=== PATIENT | female | born 1960 | race Caucasian/White ===

== ENCOUNTER 2020-03-21 10:15 | Outpatient (REF) | payer OTHER, SELFPAY ==
[2020-03-21 11:24] LABS: Estimated Average Glucose 114 mg/dL; Hemoglobin A1C 135.3983 umol/L; Hemoglobin A1c % 5.6 %
[2020-03-21 11:48] LABS: Alanine Aminotransferase 10 U/L (0-31); Albumin Level 4.2 g/dL (3.5-5.0); Alkaline Phosphatase 42 U/L (39-117); Anion Gap 11 (12-20); Aspartate Amino Transferase 12 U/L (5-31); Bilirubin Total 0.3 mg/dL (0.0-1.0); Blood Urea Nitrogen 14 mg/dL (9-16); Calcium 9.2 mg/dL (8.4-10.2); Carbon Dioxide 28 mmol/L (22-29); Chloride 106 mmol/L (96-108); Cholesterol 308 mg/dL; Estimated Glomerular Filt Rate > 60; Glucose Random 96 mg/dL (60-115); HDL Cholesterol 50 mg/dL; LDL Cholesterol Calculated 231 mg/dl; Potassium 4.8 mmol/l (3.3-5.1); Sodium 140 mmol/L (135-145); Total Protein 6.7 g/dL (6.5-8.0); Triglycerides 136 mg/dL
== END 2020-03-21 10:16 | disposition home or self-care (01) ==
LOC: HO.LAB 10:15
PROVIDERS: PCP Internal Medicine; Visit Provider Internal Medicine
DX: E78.00 Pure hypercholesterolemia, unspecified (principal); R73.01 Impaired fasting glucose
CPT/HCPCS: 80053; 80061; 83036

== ENCOUNTER 2020-03-22 13:01 | Outpatient (REF) | payer OTHER, SELFPAY ==
--- NOTE | 2020-03-22 13:09 | MM_ITS ---
EXAMINATION: MM SCREENING DIGITAL BREAST TOMOSYNTHESIS, BILATERAL CLINICAL INFORMATION: Screening. Asymptomatic. Family history breast cancer (grandmother 50's, mother 50's, sister 30's, daughter 30's, aunt 50's). The lifetime risk of breast cancer based on the Tyrer-Cuzick Model is 31%. COMPARISON: Mammography: 02/14/2016, 06/14/2014; MRI breasts 06/14/2015. TECHNIQUE: Digital breast tomosynthesis is performed in both the craniocaudal and mediolateral oblique views along with computer-aided detection (CAD). Synthesized 2D images are generated from the tomosynthesis. FINDINGS: There are scattered areas of fibroglandular density (ACR BI-RADS breast composition Category b). There are no significant masses, abnormal calcifications, or other abnormalities. Parenchymal pattern is similar to prior studies. No developing density. The axilla and skin contours are unremarkable. IMPRESSION: No mammographic evidence of malignancy. ASSESSMENT: BI-RADS 1: Negative RECOMMENDATION: 1. Routine annual mammography screening. 2. The lifetime risk of breast cancer based on the Tyrer-Cuzick Model is 31%. Additional annual adjunct screening with breast MRI may be of benefit in women with a risk score of 20% or greater. This patient's information was entered into a reminder system with a target due date for their next mammogram.
== END 2020-03-22 13:02 | disposition home or self-care (01) ==
LOC: HO.MAMMO 13:01
PROVIDERS: PCP Internal Medicine; Visit Provider Internal Medicine
DX: Z12.31 Encounter for screening mammogram for malignant neoplasm of breast (principal)
CPT/HCPCS: 77063; 77067

== ENCOUNTER 2020-03-24 09:55 | Outpatient (REF) | payer OTHER, SELFPAY | END 2020-03-24 09:56 | disposition home or self-care (01) | LOC: HO.LNP 09:55 | PROVIDERS: PCP Internal Medicine; Visit Provider Urology | DX: C67.9 Malignant neoplasm of bladder, unspecified (principal); Z13.9 Encounter for screening, unspecified | CPT/HCPCS: 52000; 81002; 88112; 99213 ==

== ENCOUNTER → 2020-05-23 14:00 | Outpatient (BNVA) | payer OTHER, SELFPAY | PROVIDERS: PCP Internal Medicine; Visit Provider Internal Medicine Cardiovascular Disease | DX: R07.9 Chest pain, unspecified (principal) | CPT/HCPCS: 93005; 99202 ==

== ENCOUNTER 2020-05-30 15:45 | Emergency (ER) | payer OTHER, SELFPAY ==
[2020-05-30 16:00] VITALS: BP 119/62; PULSE 62; RESP 22; TEMP 36.8; O2SAT 99
--- NOTE | 2020-05-30 16:00 | PC.NURSE ---
called for ekg, bridgette was notified as she answered the phone
[2020-05-30 16:07] VITALS: BP 140/63; PULSE 67; RESP 18; TEMP 36.9; O2SAT 99; BMI 31.7
--- NOTE | 2020-05-30 16:24 | ECG_ITS ---
Test Reason : ABDOMINAL PAIN Blood Pressure : / mmHG Vent. Rate : 064 BPM Atrial Rate : 064 BPM P-R Int : 156 ms QRS Dur : 148 ms QT Int : 454 ms P-R-T Axes : 060 054 013 degrees QTc Int : 468 ms Normal sinus rhythm Left bundle branch block Abnormal ECG When compared with ECG of 12-SEP-2013 14:57, T wave inversion less evident in Inferior leads Referred By: Giuliana Ramírez Electronically Signed By:EDWIN FREEMAN
--- NOTE | 2020-05-30 16:24 | CT_ITS ---
EXAMINATION: CT ANGIOGRAM OF THE CHEST WITH AND WITHOUT CONTRAST (CT PULMONARY ANGIOGRAM FOR PE) CLINICAL INFORMATION: Reason for Exam sob, CP, hx bladder CA COMPARISON: None TECHNIQUE: Prior to contrast administration, noncontrast localization images were obtained. Subsequently, multidetector volumetric imaging was performed from the thoracic inlet to below the diaphragms following the administration of 80 mL Omnipaque 350 intravenous contrast. No contrast reaction reported Sagittal, coronal, and MIP oblique sagittal reformatted images were obtained on the CT workstation, uploaded to PACS, and reviewed. This CT examination was performed using dose optimization techniques as appropriate, variously including the following: *Automated exposure control *Adjustment of mA and/or kV according to patient size (this includes techniques or standardized protocols for targeted exams where dose is matched to indication/reason for exam; i.e. extremities or head) *Use of iterative reconstruction technique Total exam dose-length product 417 mGy-cm FINDINGS: QUALITY OF STUDY/CONTRAST BOLUS: Satisfactory. PULMONARY ARTERIES: No central or segmental pulmonary emboli. THORACIC AORTA: No aneurysm or dissection. LUNG: Both lungs are well expanded and clear of acute pneumonic process. There are calcified 3 mm indeterminate pulmonary nodule in the right middle lobe and right lower lobe axial image 28/5. No noncalcified nodules visualized. PLEURA: No pleural effusion or pneumothorax. MEDIASTINUM: The heart size and the great vessels are normal caliber. Thyroid lobes are symmetric and normal. The central trachea and bronchi are widely patent. There is no pericardial effusion. No evidence of septal bowing or right heart strain. CHEST WALL/AXILLA: No axillary or internal mammary lymphadenopathy. OSSEOUS STRUCTURES: There is moderate ventral spondylosis dorsal spine. No lytic or sclerotic process seen. UPPER ABDOMEN: Visualized liver, pancreas, spleen and adrenal glands are unremarkable. The gallbladder has been surgically removed. CT/CT angio chest PE protocol IMPRESSION: No evidence of PE. No evidence of aortic aneurysm or dissection. Calcified 2 mm and 3 mm nodules in the right lung. No noncalcified nodules, mass or consolidation. VTE: negative
--- NOTE | 2020-05-30 16:28 | ED.CHESTPAIN ---
HPI - Chest Pain General Chief Complaint: Chest Pain Stated Complaint: chest pain,numbness Time Seen by Provider: 05/30/20 16:10 Source: patient Mode of arrival: ambulatory Limitations: no limitations History of Present Illness HPI narrative: Patient comes to the emergency room complaining of intermittent chest pain for 1 week. Patient states around 13:30 today, she started having chest heaviness, numbness and tingling in her left hand, and mild shortness of breath. Patient states that all of her symptoms have been intermittent for a week now. Patient states that she is being worked up for coronary artery disease, she is scheduled for a stress test. Patient states that she does not feel any chest pain at this time, patient describes the discomfort as ?wearing a heavy winter jacket?. The heaviness in her chest and her back. Patient denies any recent upper respiratory infections, no cough, no fever or chills. Patient states the day after she had an episode of diarrhea and abdominal discomfort but that self-resolved. Patient was seen by her primary care physician this afternoon, due to her history of coronary artery disease being worked up and bladder cancer, she was asked to come to the emergency room for further evaluation Related Data Home Medications Medication Instructions Recorded Confirmed acetaminophen 325 mg tablet 325 mg PO QID PRN 03/23/20 05/30/20 aspirin 81 mg tablet,delayed 81 mg PO DAILY 03/23/20 05/30/20 release Previous Rx's Medication Instructions Recorded bupropion HCl 150 mg tablet,12 hr 150 mg PO BID #60 tab 03/23/20 sustained-release cyclobenzaprine 10 mg tablet 10 mg PO DAILY PRN #90 tab 03/23/20 metoprolol succinate 25 mg 25 mg PO DAILY #90 tab 03/23/20 tablet,extended release 24 hr nicotine 7 mg/24 hr daily 1 patch TRANSDERMAL Q24H #30 ea 03/23/20 transdermal patch albuterol sulfate 2.5 mg INHALATION QID PRN #90 ml 04/21/20 albuterol sulfate 90 mcg/actuation 2 puff INHALATION QID #8.5 g 05/30/20 aerosol inhaler Allergies Allergy/AdvReac Type Severity Reaction Status Date / Time ciprofloxacin [From Cipro] Allergy Intermediate H/A NAUSEA Verified 03/23/20 10:59 HIVES Sulfa (Sulfonamide Allergy Intermediate HIVES Verified 03/23/20 10:59 Antibiotics) atorvastatin [Lipitor] Allergy Unknown Unknown Verified 03/23/20 10:59 pravastatin [From PRAVACHOL] Allergy Unknown UNKNOWN Verified 03/23/20 10:59 simvastatin [SIMVASTATIN] Allergy Unknown JOINT PAIN Verified 03/23/20 10:59 AND STIFFNESS codeine [Codeine] AdvReac Intermediate H/A/PALPITA Verified 03/23/20 10:59 TIONS Review of Systems Review of Systems: Constitutional : No Weight loss, No Fever, No Chills, No Night Sweats, No Fatigue, No Malaise ENT/Mouth : No Hearing loss, No Ear Pain, No Nasal Congestion, No Sinus Pain, No Hoarseness, No sore throat, No Rhinorrhea, No Swallowing Difficulty Eyes: No Eye Pain, No Swelling, No Redness, No Foreign Body, No Discharge, No Vision Changes Cardiovascular : Patient complaining of chest and back heaviness, mild shortness of breath, no chest pain, palpitations Respiratory : No Cough, No Sputum, No Wheezing, No Smoke Exposure Gastrointestinal : No Nausea, No Vomiting, No Diarrhea, No Constipation, No abdominal Pain, No Hematochezia, No Melena Genitourinary : no irregular bleeding, No Dysuria, No Urinary Frequency, No Hematuria, No Urinary Incontinence, No Urgency, No Flank Pain, No Urinary Flow Changes, No Hesitancy Musculoskeletal : No joint pain, No Myalgias, No Joint Swelling Skin : No Skin Lesions, No rash Neuro : No Weakness, No Numbness, No Paresthesias, No Loss of Consciousness, No Dizziness, No Headache Psych : No Anxiety/Panic, No Depression, No SI/HI/AH/VH, No Social Issues, Heme/Lymph: No Bruising, No Bleeding,No Lymphadenopathy Endocrine : No Polyuria, No Polydipsia, No Temperature Intolerance [facility] Past Medical History Medical History Asthma Carpal tunnel syndrome Closed left ankle fracture Coronary artery disease History of seizures Hypercholesteremia Impaired glucose tolerance Kidney stones Obesity (BMI 30-39.9) Restless leg syndrome Tobacco abuse Urinary bladder cancer Surgical History Ganglion cyst of dorsum of right wrist Groin mass History of vaginal hysterectomy Hx of cholecystectomy Neck mass S/P tonsillectomy and adenoidectomy Ulnar neuropathy Family History Family History (Updated 03/23/20 @ 07:40 by SIERRA Lord) Father Cerebrovascular disease Lung cancer Mother Cerebrovascular disease Diabetes Hypertension Paternal Uncle Lung cancer Colon cancer Sister Cervical cancer Breast cancer Social History Social History (Updated 05/23/20 @ 14:36 by Sree Mclean) Smoking Status: Current every day smoker Cigarettes Per Day: 2 Use of substances other than those prescribed or required for medical reasons: Yes Substance Use Type: Marijuana Advance Directives: No Advance Directives Information Provided: No Physical Exam Vital Signs: Vital Signs: Last Vital Signs Temp 98.4 F 05/30/20 16:07 Pulse 63 05/30/20 18:00 Resp 16 05/30/20 18:00 BP 125/53 L 05/30/20 18:00 Pulse Ox 100 05/30/20 18:00 Body Mass Index 31.7 Appearance: Alert. Oriented X3. No acute distress. Eyes: Pupils equal, round and reactive to light. ENT: Pharynx normal. Neck: Normal inspection. Neck supple. No lymph nodes noted. No crepitus CVS: Normal heart rate and rhythm. Pulses normal. Normal S1 and S2 Respiratory: No respiratory distress. Breath sounds normal. No Wheezing. No rales Abdomen: Soft and nontender. No rigidity. No distention. good BS x4 Skin: Skin warm and dry. Normal skin color. Normal skin turgor. Extremities: No lower extremity edema. No lower extremity edema. No Lacerations. No Rash Neuro: Oriented X 3. No motor deficit. No sensory deficit. Moving all extermities. No slurred speech. Course Course Course Narrative: Patient feeling better, I discussed with the patient that she does not have an elevated white blood cell count, hematology and chemistry unremarkable, CT was negative for PE and there was no evidence of aortic aneurysm or dissection. Patient will follow-up with her primary care physician, she is already scheduled for a stress test MDM - Chest Pain Lab Data Result diagrams: 05/30/20 16:47 05/30/20 16:47 Labs: Lab Results 05/30/20 05/30/20 05/30/20 Range/Units 16:47 16:47 16:47 WBC 7.1 (4.8-10.8) X10*3/uL RBC 4.43 (4.20-5.50) X10*6/uL Hgb 13.7 (12.0-16.0) g/dl Hct 41.6 (37-47) % MCV 93.9 (80-98) fL MCH 30.9 (27.0-33.0) pg MCHC 32.9 (31.0-35.0) g/dl RDW 14.5 (11.0-16.0) % Plt Count 298 (160-400) X10*3/uL MPV 9.3 L (9.4-12.3) fL Immature Gran % (Auto) 0.3 (0.0-0.4) % Neut % (Auto) 47.4 (45-73) % Lymph % (Auto) 44.4 H (20-40) % King % (Auto) 5.9 (2-11) % Eos % (Auto) 1.3 (0-4) % Baso % (Auto) 0.7 (0-2) % Lymph # (Auto) 3.2 (1.2-4.9) X10*3/uL King # (Auto) 0.4 (0.1-1.2) X10*3/uL Eos # (Auto) 0.1 (0.0-0.4) X10*3/uL Baso # (Auto) 0.1 (0.0-0.2) X10*3/uL Abs Immat Gran (auto) 0.02 (0.00-0.03) X10*3/uL Absolute Neuts (auto) 3.4 (2.0-8.3) X10*3/uL Absolute Nucleated RBC 0.000 (0.0-0.012) X10*3/uL Nucleated RBC % (auto) 0.0 (0.0-0.2) /100WBC D-Dimer NG/ML Sodium 142 (135-145) mmol/L Potassium 4.2 (3.3-5.1) mmol/l Chloride 107 (96-108) mmol/L Carbon Dioxide 25 (22-29) mmol/L Anion Gap 14 (12-20) BUN 11 (9-16) mg/dL Creatinine 0.95 (0.5-1.4) mg/dL Estim Creat Clear Calc 66.8 Estimated GFR > 60 Random Glucose 91 (60-115) mg/dL Calcium 9.0 (8.4-10.2) mg/dL Total Bilirubin 0.2 (0.0-1.0) mg/dL Direct Bilirubin < 0.2 (0.0-0.5) mg/dL AST 17 D (5-31) U/L ALT 14 (0-31) U/L Alkaline Phosphatase 41 (39-117) U/L Troponin I High Sens < 3.5 (<3.5-17.0) ng/L B-Natriuretic Peptide 12 (<100) pg/mL Total Protein 7.1 (6.5-8.0) g/dL Albumin 4.4 (3.5-5.0) g/dL 05/30/20 Range/Units 16:47 WBC (4.8-10.8) X10*3/uL RBC (4.20-5.50) X10*6/uL Hgb (12.0-16.0) g/dl Hct (37-47) % MCV (80-98) fL MCH (27.0-33.0) pg MCHC (31.0-35.0) g/dl RDW (11.0-16.0) % Plt Count (160-400) X10*3/uL MPV (9.4-12.3) fL Immature Gran % (Auto) (0.0-0.4) % Neut % (Auto) (45-73) % Lymph % (Auto) (20-40) % King % (Auto) (2-11) % Eos % (Auto) (0-4) % Baso % (Auto) (0-2) % Lymph # (Auto) (1.2-4.9) X10*3/uL King # (Auto) (0.1-1.2) X10*3/uL Eos # (Auto) (0.0-0.4) X10*3/uL Baso # (Auto) (0.0-0.2) X10*3/uL Abs Immat Gran (auto) (0.00-0.03) X10*3/uL Absolute Neuts (auto) (2.0-8.3) X10*3/uL Absolute Nucleated RBC (0.0-0.012) X10*3/uL Nucleated RBC % (auto) (0.0-0.2) /100WBC D-Dimer < 200 NG/ML Sodium (135-145) mmol/L Potassium (3.3-5.1) mmol/l Chloride (96-108) mmol/L Carbon Dioxide (22-29) mmol/L Anion Gap (12-20) BUN (9-16) mg/dL Creatinine (0.5-1.4) mg/dL Estim Creat Clear Calc Estimated GFR Random Glucose (60-115) mg/dL Calcium (8.4-10.2) mg/dL Total Bilirubin (0.0-1.0) mg/dL Direct Bilirubin (0.0-0.5) mg/dL AST (5-31) U/L ALT (0-31) U/L Alkaline Phosphatase (39-117) U/L Troponin I High Sens (<3.5-17.0) ng/L B-Natriuretic Peptide (<100) pg/mL Total Protein (6.5-8.0) g/dL Albumin (3.5-5.0) g/dL ECG Data ECG #1: Attestation: I personally reviewed and interpreted this ECG as follows: (Sinus rhythm, heart rate 64, left bundle branch block, T-wave inversions in III and aVF) Discharge Plan Discharge Clinical Impression: Atypical chest pain Patient Disposition: Home, Self-Care Instructions: Chest Pain (ED) Additional Instructions: Please follow-up with your primary care physician tomorrow. If you have any worsening or new symptoms, please return to the emergency room or call 911 Prescriptions: No Action acetaminophen [Tylenol] 325 mg tablet 325 mg PO QID PRNRF: 0 aspirin [Adult Aspirin Regimen] 81 mg tablet,delayed release (DR/EC) 81 mg PO DAILY RF: 0 metoprolol succinate 25 mg tablet extended release 24 hr 25 mg PO DAILY Qty: 90 RF: 1 cyclobenzaprine 10 mg tablet 10 mg PO DAILY PRN (Reason: muscle spasm) Qty: 90 RF: 0 nicotine 7 mg/24 hr patch 24 hour 1 patch transdermal Q24H Qty: 30 RF: 1 bupropion HCl [Wellbutrin SR] 150 mg tablet sustained-release 12 hr 150 mg PO BID Qty: 60 RF: 2 albuterol sulfate 90 mcg/actuation HFA aerosol inhaler 2 puff inhalation QID Qty: 8.5 RF: 0 albuterol sulfate 2.5 mg /3 mL (0.083 %) solution for nebulization 2.5 mg inhalation QID PRN (Reason: shortness of breath or wheezing) Qty: 90 RF: 0
[2020-05-30] MEDS: Aspirin Enteric Coated 325 MG TABLET.DR PO (16:52)
[2020-05-30 16:56] VITALS: PULSE 70
[2020-05-30 16:56] LABS: Basophils Absolute Auto 0.1 X10*3/uL (0.0-0.2); Basophils Percent Auto 0.7 % (0-2); Eosinophils Absolute Auto 0.1 X10*3/uL (0.0-0.4); Eosinophils Percent Auto 1.3 % (0-4); Hematocrit 41.6 % (37-47); Hemoglobin 13.7 g/dl (12.0-16.0); Imm Gran Abs Auto 0.02 X10*3/uL (0.00-0.03); Imm Gran Pct Auto 0.3 % (0.0-0.4); Lymphocytes Absolute Auto 3.2 X10*3/uL (1.2-4.9); Lymphocytes Percent Auto 44.4 % (20-40); MANUAL DIFF FLAG NO; Mean Corpuscular HGB Conc 32.9 g/dl (31.0-35.0); Mean Corpuscular Hemoglobin 30.9 pg (27.0-33.0); Mean Corpuscular Volume 93.9 fL (80-98); Mean Platelet Volume 9.3 fL (9.4-12.3); Monocytes Absolute Auto 0.4 X10*3/uL (0.1-1.2); Monocytes Percent Auto 5.9 % (2-11); Neutrophils Absolute Auto 3.4 X10*3/uL (2.0-8.3); Neutrophils Percent Auto 47.4 % (45-73); Platelet Count 298 X10*3/uL (160-400); Red Blood Count 4.43 X10*6/uL (4.20-5.50); Red Cell Distribution Width 14.5 % (11.0-16.0); White Blood Count 7.1 X10*3/uL (4.8-10.8)
[2020-05-30 17:09] LABS: D Dimer < 200 NG/ML
[2020-05-30 17:19] LABS: B Type Natriuretic Peptide 12 pg/mL (<100); Troponin-I High Sensitivity < 3.5 ng/L (<3.5-17.0)
[2020-05-30 17:27] LABS: Alanine Aminotransferase 14 U/L (0-31); Albumin Level 4.4 g/dL (3.5-5.0); Alkaline Phosphatase 41 U/L (39-117); Anion Gap 14 (12-20); Aspartate Amino Transferase 17 U/L (5-31); Bilirubin Direct < 0.2 mg/dL (0.0-0.5); Bilirubin Total 0.2 mg/dL (0.0-1.0); Blood Urea Nitrogen 11 mg/dL (9-16); Carbon Dioxide 25 mmol/L (22-29); Chloride 107 mmol/L (96-108); Creatinine Clr Calc Pharmacy 66.8; Estimated Glomerular Filt Rate > 60; Glucose Random 91 mg/dL (60-115); Potassium 4.2 mmol/l (3.3-5.1); Sodium 142 mmol/L (135-145); Total Protein 7.1 g/dL (6.5-8.0)
[2020-05-30] MEDS: iohexoL 350 MG/ML 100 ML INFUS..BTL IV (17:58)
[2020-05-30 18:00] VITALS: BP 125/53; PULSE 63; RESP 16; O2SAT 100
== END 2020-05-30 19:34 | disposition home or self-care (01) ==
PROVIDERS: Emergency Provider Emergency Medicine; PCP Internal Medicine
DX: R07.89 Other chest pain (principal); F17.200 Nicotine dependence, unspecified, uncomplicated; Z71.6 Tobacco abuse counseling; Z79.899 Other long term (current) drug therapy
CPT/HCPCS: 36415; 71275; 80048; 80076; 83880; 84484; 85025; 85379; 93005; 99284; Q9967

== ENCOUNTER → 2020-06-17 08:40 | Outpatient (REF) | payer OTHER, SELFPAY ==
--- NOTE | 2020-06-17 08:43 | CA_ITS ---
Transthoracic Echocardiogram Patient (Last, First, Middle): Ivy Campos M Gender: Female Date of : 1960 Age: 59 Procedure Date: 06/17/2020 Procedure Type: Transthoracic Echocardiogram Location: OP Height: 162.56 cm Weight: 83.92 kg BSA: 1.89 m2 Heart Rate: bpm Rig Site Engineer: KYUNG Referring MD: Steven Solorzano MD Landscaper Helper: Eyal Fontana MD Symptoms: R07.9 - Chest pain, unspecified Study Quality: Fair ECG Rhythm: Sinus Conclusions: - 1. Normal LV systolic and diastolic function Findings Procedure Information Contrast agent, definity, is being given per protocol without apparent complications. Left Ventricle Normal left ventricular size, thickness, and systolic function. The visually estimated ejection fraction is between 55-60%. There is paradoxical septal motion consistent with a left bundle branch block. Spectral Doppler is indicative of a normal filling pattern. Pericardium/Pleural There is no evidence of pericardial effusion. Prior Study Comparison Changes noted compared to prior study dated: 01/15/2020. LV systolic function has improved Measurements 2D Linear Measurements IVSd: 0.92 0.6-0.9/0.6-1.0 cm LVIDd: 3.87 3.9-5.3/4.2-5.9 cm LVIDd Index: 2.05 2.4-3.2/2.2-3.1 cm/m2 LVIDs: 3.26 2.0-3.6 cm LVPWd: 1.22 0.7-1.1 cm Ao Root: 2.50 2.1-3.5 cm LA Diam: 2.80 2.7-3.8/3.0-4.0 cm LAIDs Index: 1.48 1.5-2.3 cm/m2 LV Mass: 165.37 67-162/88-224 g LV Mass Index: 87.50 43-95/49-115 g/m2 LVOT Diam: 1.90 3.0+(-)1.3 cm 2D Systolic Function EF 4C: 62.10 >55% EF 2C: 53.30 >55% EF BiP: 59.70 >55% Mitral Valve MV Pk E: 0.61 MV PK A: 0.70 MV Decel Time: 148.00 E/A: 0.90 E'Lateral: 9.19 E'Medial: 7.83 E/E' Med: 7.80 E/E' Lat: 6.60 PHT: 43.00 MVA PHT: 5.12 Decel Cass: 4.13 Aortic Valve AoV Pk Florencio: 1.43 AoV Pk Grad: 8.00 LVOT LVOT Pk Florencio: 1.13 LVOT Mn Florencio: 0.63 LVOT VTI: 0.23 LVOT Pk Grad: 5.00 LVOT Mn Grad: 2.00 LVOT Diam: 1.90 LVOT Area: 2.84 Diastolic Function MV Pk E: 0.61 MV Pk A: 0.70 E/A: 0.90 E'Medial: 7.83 E/E' Med: 7.80 E' Laterial: 9.19 E/E' Lat: 6.60 Tricuspid Valve TR Pk Florencio: 1.87 TR Pk Grad: 14.00 RA Press: 3.00 RVSP: 17.00 Great Vessels Aorta Ao Root-2D: 2.50 2.0-3.7 cm Updated in Other Vendor System with Status of Final Eyal Fontana MD electronically signed on 06/17/2020 4:10:54 PM with status of Final
--- NOTE | 2020-06-17 09:30 | CA_ITS ---
Acquisition Time: 2020-06-17 10:46:01 Total Exercise Time: 00:02:00 Test Indications: Abnormal ECG Medications: ASA METOPROLOL SIMVASTATIN PREDISONE NICOTINE Protocol: LEXISCAN Max HR: 116 BPM 72% of Pred: 161 BPM Max BP: 128/074 mmHG Max Work Load: 1.0 METS Pharmacological stress test using Lexiscan while sitting. LBBB underlying Rhythm. Pt tolerated well, denies any anginal sx. C/o headache sx reversed with Aminophyline 75 mg IV. EKG without any arrhythmia, LBBB underlying Rhythm. Non-diagnostic for ischemia. Nuclear images to follow. Normotensive response to test. Test reviewed with Dr. Fontana. Referred By: Steven Solorzano Overread By: Aracely Sharp
--- NOTE | 2020-06-17 10:03 | NM_ITS ---
Myocardial perfusion study Indication: Chest pain to evaluate for myocardial ischemia Technique: The patient was brought in for a Lexiscan perfusion study on 06/17/2020. Patient performed low-level exercise and was injected 0.4 mg of Lexiscan intravenously. Within a minute of injection, 30 mCi of sestamibi was given intravenously. Images were obtained using the SPECT gamma camera interlaced with the gating device. Images were obtained in supine position. Resting perfusion study was performed on 06/20/2020. Patient was administered 30 mCi of sestamibi intravenously at rest. Images were then obtained in supine position. Images obtained with and without CT attenuation. Total DLP 71 mGy-cm. Images were processed with the software and compared side to side in short axis, horizontal long axis and vertical long axis views. Findings: The stress perfusion study showed non attenuated images show mildly reduced uptake in the septum and anteroseptal as well as mildly reduced uptake in the anterior wall of the LV myocardium. Remainder of the LV myocardium is normally perfused. Attenuation corrected images show moderately reduced uptake in the distal anterior, apex and septum of the LV myocardium.. The gated study shows normal LV systolic function with calculated LVEF of 64%. LV cavity is normal size. The gated study shows normal wall thickening and contraction of segments with septal dyssynchrony. Resting study shows no change in perfusion pattern compared to stress perfusion study. Gating at rest reveals normal systolic wall motion with ejection fraction at 55%. The findings are consistent with no reversible defect suggestive of ischemia. Fixed septal and inferior defect could be due to soft tissue attenuation underlying left bundle branch block.. NM/NM cardiolite stress test Impression: 1. Myocardial perfusion imaging study shows no evidence of ischemia with fixed septal and anterior defect most due to underlying left bundle branch block 2. Gated LVEF is 64% 3. Transient ischemic dilatation not present EKG is nondiagnostic for ischemia
== END ==
LOC: HO.CARD 08:40
PROVIDERS: Visit Provider Internal Medicine Cardiovascular Disease
DX: R07.9 Chest pain, unspecified (principal)
CPT/HCPCS: 78452; 93017; 93306; A9500; J0280; J2785; Q9957

== ENCOUNTER 2020-06-24 12:28 | Outpatient (REF) | payer OTHER, SELFPAY ==
[2020-06-24 12:54] LABS: Urine Cytology See Pathology rpt
[2020-06-24 12:58] LABS: Hematocrit 42.5 % (37-47); Hemoglobin 14.5 g/dl (12.0-16.0); Mean Corpuscular HGB Conc 34.1 g/dl (31.0-35.0); Mean Corpuscular Hemoglobin 31.5 pg (27.0-33.0); Mean Corpuscular Volume 92.2 fL (80-98); Platelet Count 331 X10*3/uL (160-400); Red Blood Count 4.61 X10*6/uL (4.20-5.50); Red Cell Distribution Width 14.6 % (11.0-16.0); White Blood Count 6.9 X10*3/uL (4.8-10.8)
[2020-06-24 13:04] LABS: INTERNATIONAL NORM RATIO 0.9 (0.9-1.1); Prothrombin Time 10.6 SEC (10.8-13.0)
[2020-06-24 13:21] LABS: Alanine Aminotransferase 12 U/L (0-31); Albumin Level 4.5 g/dL (3.5-5.0); Alkaline Phosphatase 48 U/L (39-117); Anion Gap 14 (12-20); Aspartate Amino Transferase 14 U/L (5-31); Bilirubin Total 0.2 mg/dL (0.0-1.0); Blood Urea Nitrogen 12 mg/dL (9-16); Calcium 9.3 mg/dL (8.4-10.2); Carbon Dioxide 27 mmol/L (22-29); Chloride 103 mmol/L (96-108); Cholesterol 318 mg/dL; Estimated Glomerular Filt Rate > 60; Glucose Random 95 mg/dL (60-115); HDL Cholesterol 50 mg/dL; Potassium 4.1 mmol/l (3.3-5.1); Sodium 140 mmol/L (135-145); Total Protein 7.3 g/dL (6.5-8.0); Triglycerides 413 mg/dL
== END 2020-06-24 12:29 | disposition home or self-care (01) ==
LOC: HO.LAB 12:28
PROVIDERS: Urology; PCP Internal Medicine; Referring Provider Internal Medicine; Visit Provider Internal Medicine Cardiovascular Disease
DX: R94.39 Abnormal result of other cardiovascular function study (principal); R73.02 Impaired glucose tolerance (oral); C67.9 Malignant neoplasm of bladder, unspecified
CPT/HCPCS: 36415; 80053; 80061; 85027; 85610; 88112

== ENCOUNTER → 2020-07-13 10:17 | Outpatient (BNVA) | payer OTHER, SELFPAY | PROVIDERS: PCP Internal Medicine; Visit Provider Internal Medicine Cardiovascular Disease | DX: R06.00 Dyspnea, unspecified (principal); R07.9 Chest pain, unspecified; Z72.0 Tobacco use | CPT/HCPCS: 99212 ==

== ENCOUNTER 2020-07-25 12:58 | Outpatient (REF) | payer OTHER, SELFPAY ==
--- NOTE | 2020-07-25 | PFT_ITS ---
Forced vital capacity and FEV1 are normal. FVP99-24 is slightly decreased. MVV normal. Post bronchodilator therapy, there is a significant improvement in QXY00-31. Total lung capacity normal. Residual volume slightly increased. Diffusion capacity is normal. CONCLUSION: Mild small airway obstructive disorder with good response to bronchodilator therapy. This finding will be consistent with a mild degree of bronchial asthma. Clinical correlation recommended. MD SHAY Thacker/MODL / [id number]
== END 2020-07-25 12:59 | disposition home or self-care (01) ==
LOC: HO.RESP 12:58
PROVIDERS: PCP Internal Medicine; Visit Provider Internal Medicine Cardiovascular Disease
DX: R06.02 Shortness of breath (principal)
CPT/HCPCS: 94060; 94727; 94729

== ENCOUNTER → 2020-07-26 09:55 | Outpatient (BNVA) | payer OTHER, SELFPAY | PROVIDERS: PCP Internal Medicine; Visit Provider Urology | DX: C67.9 Malignant neoplasm of bladder, unspecified (principal); R39.15 Urgency of urination | CPT/HCPCS: 52000; 99212 ==

== ENCOUNTER → 2020-08-05 14:25 | Outpatient (BNVA) | payer OTHER, SELFPAY | PROVIDERS: PCP Internal Medicine; Visit Provider Hospitalist | DX: J45.40 Moderate persistent asthma, uncomplicated (principal); R06.00 Dyspnea, unspecified; K21.9 Gastro-esophageal reflux disease without esophagitis; Z72.0 Tobacco use; Z71.6 Tobacco abuse counseling; Z79.899 Other long term (current) drug therapy | CPT/HCPCS: 99212 ==

== ENCOUNTER → 2020-08-23 09:37 | Outpatient (BNVA) | payer OTHER, SELFPAY | PROVIDERS: PCP Internal Medicine; Visit Provider Urology ==

== ENCOUNTER 2020-09-05 09:38 | Outpatient (REF) | payer OTHER, SELFPAY ==
--- NOTE | ~2020-09-05 | FL_ITS ---
EXAMINATION: XR GI SERIES AND BARIUM SWALLOW CLINICAL INFORMATION: Gastroesophageal reflux disease. COMPARISON: Upper GI from 2016. TECHNIQUE: Barium swallow was performed using thin and thick barium and effervescent granules. Barium tablet was also administered. FINDINGS: The swallowing mechanism is normal. No aspiration or penetration is seen. Esophageal motility is normal. There is mild gastroesophageal reflux. No hernia, mass or stricture is seen. The stomach and duodenum are normal appearing. No fold thickening, mass, ulceration or stricture is seen. FLUOROSCOPY TIME: 1.2 minutes. DOSE AREA PRODUCT: 10.927 Gy-cm2. FL/FL upper GI series IMPRESSION: Mild gastroesophageal reflux otherwise unremarkable barium swallow and upper GI.
== END 2020-09-05 09:39 | disposition home or self-care (01) ==
LOC: HO.XRAY 09:38
PROVIDERS: PCP Internal Medicine; Visit Provider Internal Medicine
DX: K21.9 Gastro-esophageal reflux disease without esophagitis (principal)
CPT/HCPCS: 74240

== ENCOUNTER 2020-10-12 13:51 | Emergency (ER) | payer OTHER, SELFPAY ==
[2020-10-12 14:00] VITALS: BP 129/42; PULSE 63; RESP 18; TEMP 36.6; O2SAT 95; BMI 30.2
== END 2020-10-12 16:36 | disposition left against medical advice (07) ==
PROVIDERS: Emergency Provider Emergency Medicine; PCP Internal Medicine
DX: R42 Dizziness and giddiness (principal); R51.9 Headache, unspecified; H53.8 Other visual disturbances; R10.9 Unspecified abdominal pain
CPT/HCPCS: 99281

== ENCOUNTER 2020-10-13 08:42 | Emergency (ER) | payer OTHER, SELFPAY ==
--- NOTE | 2020-10-13 09:05 | ED.DIZZY ---
HPI - Dizziness General Chief Complaint: Weakness Stated Complaint: dizziness Time Seen by Provider: 10/13/20 08:46 Source: patient Mode of arrival: ambulatory Limitations: no limitations History of Present Illness HPI Narrative: 60 yo female with HTN, GERD, asthma, anxiety, HLD, clean coronary cath this year comes in with c/o dizziness headaches, muscle cramps after eating mussels / seafood then developing n/v/d for one night since then feels off dizzy and headaches, PCP noted her BP was low referred to ED for IVF MD elicited complaint: lightheadedness Onset (ago): day(s) (since becoming sick on Saturday after eating food) Timing: gradual onset and intermittent Severity: moderate Description: lightheadedness Context: recent illness History of similar symptoms: No Exacerbating factors: movement/ambulation and change in body position Relieving factors: nothing Associated symptoms: nausea, vomiting, malaise and other (myalgias) Related Data Home Medications Medication Instructions Recorded Confirmed acetaminophen 325 mg tablet 325 mg PO QID PRN 03/23/20 08/29/20 aspirin 81 mg tablet,delayed 81 mg PO DAILY 03/23/20 08/29/20 release Previous Rx's Medication Instructions Recorded nicotine 7 mg/24 hr daily 1 patch TRANSDERMAL Q24H #30 ea 03/23/20 transdermal patch albuterol sulfate 2.5 mg INHALATION QID PRN #90 ml 04/21/20 albuterol sulfate 90 mcg/actuation 2 puff INHALATION QID #8.5 g 06/09/20 aerosol inhaler cyclobenzaprine 10 mg tablet 10 mg PO DAILY PRN #90 tab 06/21/20 metoprolol succinate 25 mg 25 mg PO DAILY #90 tab 06/21/20 tablet,extended release 24 hr budesonide-formoterol HFA 160 2 puff INHALATION BID 30 Days 08/05/20 mcg-4.5 mcg/actuation aerosol #10.2 g inhaler rosuvastatin 10 mg tablet 10 mg PO DAILY #30 tab 08/29/20 oxybutynin chloride 5 mg 5 mg PO DAILY 90 Days #90 tab 09/26/20 tablet,extended release 24 hr Allergies Allergy/AdvReac Type Severity Reaction Status Date / Time ciprofloxacin [From Cipro] Allergy Intermediate H/A NAUSEA Verified 10/12/20 14:03 HIVES Sulfa (Sulfonamide Allergy Intermediate HIVES Verified 10/12/20 14:03 Antibiotics) atorvastatin [Lipitor] Allergy Unknown Unknown Verified 10/12/20 14:03 pravastatin [From PRAVACHOL] Allergy Unknown UNKNOWN Verified 10/12/20 14:03 simvastatin [SIMVASTATIN] Allergy Unknown JOINT PAIN Verified 10/12/20 14:03 AND STIFFNESS codeine [Codeine] AdvReac Intermediate H/A/PALPITA Verified 10/12/20 14:03 TIONS trimethoprim AdvReac Intermediate Rash Verified 10/12/20 14:03 Review of Systems Review of Systems: Constitutional : No Weight loss, No Fever, No Chills, No Fatigue, No Malaise ENT/Mouth : No sore throat, No Rhinorrhea Eyes: No Eye Pain, No Swelling, No Redness Cardiovascular : No Chest Pain, No SOB, No Dyspnea on Exertion, No Orthopnea, No Edema, No Palpitations Respiratory : No Cough, No Sputum, No Wheezing Gastrointestinal : pos Nausea, No Vomiting, No Diarrhea, No Constipation, No abdominal Pain, No Hematochezia, No Melena Genitourinary : No Dysuria, No Urinary Frequency, No Hematuria, Musculoskeletal : No joint pain, pos Myalgias, No Joint Swelling Skin : No Skin Lesions, No rash Neuro : pos Weakness, No Numbness, pos Dizziness, pos Headache Psych : No Anxiety/Panic, No Depression Heme/Lymph: No Bruising, No Bleeding,No Lymphadenopathy Endocrine : No Polyuria, No Polydipsia All other systems reviewed and are negative [facility] Past Medical History Attestation statement: The following information was validated with the patient. Medical History Anxiety Asthma Carpal tunnel syndrome Closed left ankle fracture Coronary artery disease GERD (gastroesophageal reflux disease) History of seizures Hypercholesteremia Hypertension Impaired glucose tolerance Kidney stones Obesity (BMI 30-39.9) Restless leg syndrome Tobacco abuse Urinary bladder cancer Vitamin D deficiency Surgical History Ganglion cyst of dorsum of right wrist Groin mass History of vaginal hysterectomy Hx of cholecystectomy Neck mass S/P tonsillectomy and adenoidectomy Ulnar neuropathy Family History Family History Father Cerebrovascular disease Lung cancer Mother Cerebrovascular disease Diabetes Hypertension Paternal Uncle Lung cancer Colon cancer Sister Cervical cancer Breast cancer Social History Social History Smoking Status: Current every day smoker Cigarettes Per Day: 5 Substance Use Type: Marijuana Advance Directives: No Advance Directives Information Provided: No Patient : No Physical Exam Vital Signs: Vital Signs: Last Vital Signs Temp 98.2 F 10/13/20 09:45 Pulse 61 10/13/20 09:45 Resp 17 10/13/20 09:45 BP 114/61 10/13/20 09:45 Pulse Ox 98 10/13/20 09:45 Body Mass Index 30.9 Appearance: Alert. Oriented X3. No acute distress. Eyes: Pupils equal, round and reactive to light. ENT: Pharynx dry MM Neck: Normal inspection. Neck supple. CVS: Normal heart rate and rhythm. Pulses normal. Respiratory: No respiratory distress. Breath sounds normal. Abdomen: Soft and non-tender. Skin: Skin warm and dry. Normal skin color. Normal skin turgor. Extremities: No lower extremity edema. No calf ttp Neuro: Oriented X 3. No motor deficit. No sensory deficit. Steady gait, no ataxia Course Course Course Narrative: up and walking feels better, steady gait, due for 2nd fluid bolus MDM - Dizziness MDM Narrative Medical decision making narrative: 60 yo female with HTN, GERD, asthma, anxiety, HLD, clean coronary cath this year comes in with c/o dizziness headaches, muscle cramps after eating mussels / seafood then developing n/v/d for one night since then feels off dizzy and headaches, PCP noted her BP was low referred to ED for IVF at this time - suspect her symptoms are due to dehydration from GI illness, she is neuro intact at this time it seems unlikely to have SAH/stroke if headache perists post resuscitation may consider imaging. Lab Data Result diagrams: 10/13/20 09:28 10/13/20 09:28 Labs: Lab Results 10/13/20 10/13/20 10/13/20 Range/Units 09:28 09:28 09:28 WBC 7.6 (4.8-10.8) X10*3/uL RBC 4.35 (4.20-5.50) X10*6/uL Hgb 13.6 (12.0-16.0) g/dl Hct 41.3 (37-47) % MCV 94.9 (80-98) fL MCH 31.3 (27.0-33.0) pg MCHC 32.9 (31.0-35.0) g/dl RDW 14.1 (11.0-16.0) % Plt Count 295 (160-400) X10*3/uL MPV 9.2 L (9.4-12.3) fL Immature Gran % (Auto) 0.3 (0.0-0.4) % Neut % (Auto) 51.4 (45-73) % Lymph % (Auto) 38.3 (20-40) % [place] % (Auto) 7.0 (2-11) % Eos % (Auto) 2.5 (0-4) % Baso % (Auto) 0.5 (0-2) % Lymph # (Auto) 2.9 (1.2-4.9) X10*3/uL [place] # (Auto) 0.5 (0.1-1.2) X10*3/uL Eos # (Auto) 0.2 (0.0-0.4) X10*3/uL Baso # (Auto) 0.0 (0.0-0.2) X10*3/uL Abs Immat Gran (auto) 0.02 (0.00-0.03) X10*3/uL Absolute Neuts (auto) 3.9 (2.0-8.3) X10*3/uL Absolute Nucleated RBC 0.000 (0.0-0.012) X10*3/uL Nucleated RBC % (auto) 0.0 (0.0-0.2) /100WBC Hold Blue Top Sodium 143 (135-145) mmol/L Potassium 4.3 (3.3-5.1) mmol/L Chloride 106 (96-108) mmol/L Carbon Dioxide 28 (22-29) mmol/L Anion Gap 13 (12-20) BUN 11 (9-16) mg/dL Creatinine 0.81 (0.5-1.4) mg/dL Estim Creat Clear Calc 76.3 Estimated GFR > 60 Random Glucose 102 (60-115) mg/dL Calcium 9.0 (8.4-10.2) mg/dL Magnesium (1.6-2.6) mg/dL Total Bilirubin (0.0-1.0) mg/dL Direct Bilirubin (0.0-0.5) mg/dL AST (5-31) U/L ALT (0-31) U/L Alkaline Phosphatase (39-117) U/L Total Protein (6.5-8.0) g/dL Albumin (3.5-5.0) g/dL Lipase (8-78) U/L COVID-19 (LUCERO) Negative (Negative) COVID-19 Clin Com See Note 10/13/20 10/13/20 Range/Units 09:28 09:28 WBC (4.8-10.8) X10*3/uL RBC (4.20-5.50) X10*6/uL Hgb (12.0-16.0) g/dl Hct (37-47) % MCV (80-98) fL MCH (27.0-33.0) pg MCHC (31.0-35.0) g/dl RDW (11.0-16.0) % Plt Count (160-400) X10*3/uL MPV (9.4-12.3) fL Immature Gran % (Auto) (0.0-0.4) % Neut % (Auto) (45-73) % Lymph % (Auto) (20-40) % [place] % (Auto) (2-11) % Eos % (Auto) (0-4) % Baso % (Auto) (0-2) % Lymph # (Auto) (1.2-4.9) X10*3/uL [place] # (Auto) (0.1-1.2) X10*3/uL Eos # (Auto) (0.0-0.4) X10*3/uL Baso # (Auto) (0.0-0.2) X10*3/uL Abs Immat Gran (auto) (0.00-0.03) X10*3/uL Absolute Neuts (auto) (2.0-8.3) X10*3/uL Absolute Nucleated RBC (0.0-0.012) X10*3/uL Nucleated RBC % (auto) (0.0-0.2) /100WBC Hold Blue Top SEE NOTE Sodium (135-145) mmol/L Potassium (3.3-5.1) mmol/L Chloride (96-108) mmol/L Carbon Dioxide (22-29) mmol/L Anion Gap (12-20) BUN (9-16) mg/dL Creatinine (0.5-1.4) mg/dL Estim Creat Clear Calc Estimated GFR Random Glucose (60-115) mg/dL Calcium (8.4-10.2) mg/dL Magnesium 2.2 (1.6-2.6) mg/dL Total Bilirubin 0.4 (0.0-1.0) mg/dL Direct Bilirubin 0.2 (0.0-0.5) mg/dL AST 17 (5-31) U/L ALT 19 (0-31) U/L Alkaline Phosphatase 41 (39-117) U/L Total Protein 6.6 (6.5-8.0) g/dL Albumin 4.1 (3.5-5.0) g/dL Lipase 134 H (8-78) U/L COVID-19 (LUCERO) (Negative) COVID-19 Clin Com ECG Data Attestation: I personally reviewed and interpreted this ECG as follows: ECG interpretation date: 10/13/20 ECG interpretation time: 09:40 Interpretation: Rate: 60 Rhythm: NSR [place]: normal Normal P waves. Normal RIN. LBBB ST T wave : no LUCIO, nonspecific qTC: normal prior studies: no acute ischemia, unchanged from priors The study has been interpreted contemporaneously by me. . Discharge Plan Discharge Clinical Impression: Dizziness, Dehydration Patient Disposition: Home, Self-Care Instructions: Dehydration (ED), Dizziness (ED) Additional Instructions: return to ED for any worsening symptoms or concerns Prescriptions: No Action metoprolol succinate 25 mg tablet extended release 24 hr 25 mg PO DAILY Qty: 90 RF: 1 cyclobenzaprine 10 mg tablet 10 mg PO DAILY PRN (Reason: muscle spasm) Qty: 90 RF: 0 rosuvastatin 10 mg tablet 10 mg PO DAILY Qty: 30 RF: 5 oxybutynin chloride 5 mg tablet extended release 24hr 5 mg PO DAILY 90 Days Qty: 90 RF: 2 acetaminophen [Tylenol] 325 mg tablet 325 mg PO QID PRNRF: 0 aspirin [Adult Aspirin Regimen] 81 mg tablet,delayed release (DR/EC) 81 mg PO DAILY RF: 0 nicotine 7 mg/24 hr patch 24 hour 1 patch transdermal Q24H Qty: 30 RF: 1 albuterol sulfate 90 mcg/actuation HFA aerosol inhaler 2 puff inhalation QID Qty: 8.5 RF: 0 albuterol sulfate 2.5 mg /3 mL (0.083 %) solution for nebulization 2.5 mg inhalation QID PRN (Reason: shortness of breath or wheezing) Qty: 90 RF: 0 budesonide-formoterol [Symbicort] 160-4.5 mcg/actuation HFA aerosol inhaler 2 puff inhalation BID 30 Days Qty: 10.2 RF: 11 Stand Alone Forms: Work/School Release
--- NOTE | 2020-10-13 09:10 | ECG_ITS ---
Test Reason : DIZZINESS Blood Pressure : / mmHG Vent. Rate : 060 BPM Atrial Rate : 060 BPM P-R Int : 142 ms QRS Dur : 142 ms QT Int : 494 ms P-R-T Axes : 071 057 031 degrees QTc Int : 494 ms Normal sinus rhythm Left bundle branch block Abnormal ECG When compared with ECG of 30-MAY-2020 16:26, No significant change was found Referred By: Viktoriya Moseley Electronically Signed By:JAMIE CASTILLO MD
[2020-10-13 09:12] VITALS: BP 114/61; PULSE 58; RESP 16; TEMP 36.4; O2SAT 100; BMI 30.9
[2020-10-13] MEDS: 0.9 % Sodium Chloride 1,000 ML 999 ML IVCONT ×2 (09:30)
[2020-10-13] MEDS: Famotidine/PF 20 MG/2 ML VIAL IVPUSH (09:30)
[2020-10-13 09:36] LABS: MANUAL DIFF FLAG NO
[2020-10-13 09:38] LABS: Basophils Percent Auto 0.5 % (0-2); Eosinophils Absolute Auto 0.2 X10*3/uL (0.0-0.4); Eosinophils Percent Auto 2.5 % (0-4); Hematocrit 41.3 % (37-47); Hemoglobin 13.6 g/dl (12.0-16.0); Imm Gran Abs Auto 0.02 X10*3/uL (0.00-0.03); Imm Gran Pct Auto 0.3 % (0.0-0.4); Lymphocytes Absolute Auto 2.9 X10*3/uL (1.2-4.9); Lymphocytes Percent Auto 38.3 % (20-40); Mean Corpuscular HGB Conc 32.9 g/dl (31.0-35.0); Mean Corpuscular Hemoglobin 31.3 pg (27.0-33.0); Mean Corpuscular Volume 94.9 fL (80-98); Mean Platelet Volume 9.2 fL (9.4-12.3); Monocytes Absolute Auto 0.5 X10*3/uL (0.1-1.2); Neutrophils Absolute Auto 3.9 X10*3/uL (2.0-8.3); Neutrophils Percent Auto 51.4 % (45-73); Platelet Count 295 X10*3/uL (160-400); Red Blood Count 4.35 X10*6/uL (4.20-5.50); Red Cell Distribution Width 14.1 % (11.0-16.0); White Blood Count 7.6 X10*3/uL (4.8-10.8)
[2020-10-13 09:45] VITALS: BP 114/61; PULSE 61; RESP 17; TEMP 36.8; O2SAT 98
[2020-10-13 09:54] LABS: COVID-19 Test Negative (Negative)
[2020-10-13 10:04] LABS: Anion Gap 13 (12-20); Blood Urea Nitrogen 11 mg/dL (9-16); Carbon Dioxide 28 mmol/L (22-29); Chloride 106 mmol/L (96-108); Creatinine Clr Calc Pharmacy 76.3; Estimated Glomerular Filt Rate > 60; Glucose Random 102 mg/dL (60-115); Potassium 4.3 mmol/L (3.3-5.1); Sodium 143 mmol/L (135-145)
[2020-10-13 10:19] LABS: Alanine Aminotransferase 19 U/L (0-31); Albumin Level 4.1 g/dL (3.5-5.0); Alkaline Phosphatase 41 U/L (39-117); Aspartate Amino Transferase 17 U/L (5-31); Bilirubin Direct 0.2 mg/dL (0.0-0.5); Bilirubin Total 0.4 mg/dL (0.0-1.0); Magnesium 2.2 mg/dL (1.6-2.6); Total Protein 6.6 g/dL (6.5-8.0)
[2020-10-13 10:24] LABS: Lipase 134 U/L (8-78)
--- NOTE | 2020-10-13 11:46 | PC.NURSE ---
PT UP TO BATHROOM, C/O DIZZINESS WHEN SITTING UP, QUICKLY RESOLVED, AMBULATED STEADILY TO BR.
[2020-10-13 11:57] VITALS: BP 122/59; PULSE 62; RESP 15; TEMP 36.4; O2SAT 100
[2020-10-13] MEDS: Cyclobenzaprine HCl 10 MG TABLET PO (12:21)
== END 2020-10-14 08:50 | disposition home or self-care (01) ==
PROVIDERS: Emergency Provider Emergency Medicine; PCP Internal Medicine
DX: R42 Dizziness and giddiness (principal); E86.0 Dehydration; I10 Essential (primary) hypertension; E78.00 Pure hypercholesterolemia, unspecified; F17.210 Nicotine dependence, cigarettes, uncomplicated; Z85.51 Personal history of malignant neoplasm of bladder; Z79.02 Long term (current) use of antithrombotics/antiplatelets; Z79.82 Long term (current) use of aspirin; Z79.899 Other long term (current) drug therapy
CPT/HCPCS: 36415; 80048; 80076; 83690; 83735; 85025; 87635; 93005; 96361; 96374; 99284

== ENCOUNTER → 2020-11-15 08:54 | Outpatient (BNVA) | payer OTHER, SELFPAY | PROVIDERS: PCP Internal Medicine; Visit Provider Dietitian, Registered | DX: E78.00 Pure hypercholesterolemia, unspecified (principal); E66.9 Obesity, unspecified | CPT/HCPCS: 97802 ==

== ENCOUNTER 2020-11-24 10:38 | Emergency (ER) | payer OTHER, SELFPAY ==
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
--- NOTE | ~2020-11-24 | CT_ITS ---
EXAMINATION: CT CHEST, ABDOMEN AND PELVIS WITH CONTRAST CLINICAL INFORMATION: Upper abdominal pain status post trauma COMPARISON: 05/30/2020 TECHNIQUE: Multidetector volumetric imaging was performed from the thoracic inlet through the pubic symphysis following administration of oral and 100 mL of Omnipaque 300 intravenous contrast. Sagittal and coronal reformatted images were obtained on the technologist workstation. DLP: 758 mGy-cm. FINDINGS: CHEST: At the base of the neck, there is partial imaging of a 4 mm thyroid nodule likely incidental. Thyroid gland otherwise normal. No adenopathy grossly. LUNGS: The lungs are clear with no evidence of inflammation or nodules. MEDIASTINUM: The mediastinum is normal. Central vascular structures are unremarkable. No hilar or mediastinal lymphadenopathy. PERICARDIUM/PLEURA: There is no significant effusion. No pleural mass or thickening. CHEST WALL/AXILLA: Unremarkable. ABDOMEN/PELVIS: LIVER, GALLBLADDER, BILIARY TREE: The liver is normal in size, shape, and attenuation. No focal hepatic lesion or biliary ductal dilatation is present. Gallbladder is absent surgically. No dislodged clips. PANCREAS: Unremarkable. SPLEEN: Unremarkable. ADRENAL GLANDS: Unremarkable. KIDNEYS AND URETERS: The kidneys are normal in size, shape, and attenuation. No hydronephrosis or hydroureter or calculi seen. No perinephric stranding. BLADDER: Unremarkable. GASTROINTESTINAL TRACT: The small and large bowel are unremarkable. The appendix is unremarkable. ABDOMINAL WALL: No hernia is demonstrated. LYMPH NODES: Normal. VASCULAR: Unremarkable. PELVIC VISCERA: Pelvic organs appear to be surgically absent. No mass. OSSEOUS STRUCTURES: Unremarkable. CT/CT chest w con IMPRESSION: No significant abnormality. No evidence for traumatic deformity. No free fluid.
[2020-11-24 11:03] VITALS: BP 104/61; PULSE 64; TEMP 37; O2SAT 96; BMI 32.5
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
[2020-11-24 12:18] LABS: MANUAL DIFF FLAG NO
[2020-11-24 12:19] LABS: Glucose Urine UA NEG (NEG); Leukocyte Esterase Urine NEG (NEG); Nitrite Urine NEG (NEG); Specific Gravity - Urine 1.015 (1.005-1.025); Urine Blood 3+ (NEG); Urine Ketones NEG (NEG); Urine Protein NEG (NEG-TRACE)
[2020-11-24 12:21] LABS: Basophils Percent Auto 0.5 % (0-2); Eosinophils Absolute Auto 0.1 X10*3/uL (0.0-0.4); Eosinophils Percent Auto 1.2 % (0-4); Hematocrit 42.8 % (37-47); Hemoglobin 14.1 g/dl (12.0-16.0); Imm Gran Abs Auto 0.03 X10*3/uL (0.00-0.03); Imm Gran Pct Auto 0.3 % (0.0-0.4); Lymphocytes Absolute Auto 3.1 X10*3/uL (1.2-4.9); Lymphocytes Percent Auto 35.2 % (20-40); Mean Corpuscular HGB Conc 32.9 g/dl (31.0-35.0); Mean Corpuscular Hemoglobin 31.1 pg (27.0-33.0); Mean Corpuscular Volume 94.5 fL (80-98); Mean Platelet Volume 9.2 fL (9.4-12.3); Monocytes Absolute Auto 0.4 X10*3/uL (0.1-1.2); Neutrophils Absolute Auto 5.1 X10*3/uL (2.0-8.3); Neutrophils Percent Auto 57.8 % (45-73); Platelet Count 307 X10*3/uL (160-400); Red Blood Count 4.53 X10*6/uL (4.20-5.50); Red Cell Distribution Width 14.4 % (11.0-16.0); White Blood Count 8.8 X10*3/uL (4.8-10.8)
[2020-11-24] MEDS: Acetaminophen 325 MG TABLET 650 MG PO (12:21)
[2020-11-24] MEDS: 0.9 % Sodium Chloride 1,000 ML 999 ML IVCONT (12:23)
[2020-11-24 12:24] LABS: Appearance Urine CLEAR; Color Urine YELLOW
[2020-11-24 12:29] LABS: Squamous Epithelial Cell Urine TRACE /LPF; WBC Urine 0 /HPF (0-4)
[2020-11-24 12:54] LABS: Alanine Aminotransferase 18 U/L (0-31); Albumin Level 4.6 g/dL (3.5-5.0); Alkaline Phosphatase 39 U/L (39-117); Anion Gap 13 (12-20); Aspartate Amino Transferase 19 U/L (5-31); Bilirubin Direct 0.2 mg/dL (0.0-0.5); Bilirubin Total 0.5 mg/dL (0.0-1.0); Blood Urea Nitrogen 10 mg/dL (9-16); Calcium 9.8 mg/dL (8.4-10.2); Carbon Dioxide 28 mmol/L (22-29); Chloride 109 mmol/L (96-108); Creatinine Clr Calc Pharmacy 76.5; Estimated Glomerular Filt Rate > 60; Glucose Random 95 mg/dL (60-115); Lipase 51 U/L (8-78); Magnesium 2.3 mg/dL (1.6-2.6); Potassium 4.6 mmol/L (3.3-5.1); Sodium 145 mmol/L (135-145); Total Protein 7.1 g/dL (6.5-8.0)
[2020-11-24 12:59] VITALS: BP 171/94; PULSE 109; RESP 18; TEMP 36.9; O2SAT 100
[2020-11-24] MEDS: iohexoL 350 MG/ML 100 ML INFUS..BTL IV (13:45)
[2020-11-24 14:07] VITALS: BP 118/62; PULSE 60; O2SAT 99
== END 2020-11-24 14:53 | disposition home or self-care (01) ==
PROVIDERS: Emergency Provider Emergency Medicine; PCP Internal Medicine
DX: S20.211A Contusion of right front wall of thorax, initial encounter (principal); V43.52XA Car driver injured in collision with other type car in traffic accident, initial encounter; R10.13 Epigastric pain; C67.9 Malignant neoplasm of bladder, unspecified; F17.200 Nicotine dependence, unspecified, uncomplicated; F12.90 Cannabis use, unspecified, uncomplicated; Y93.89 Activity, other specified; Y92.414 Local residential or business street as the place of occurrence of the external cause; Y99.9 Unspecified external cause status; I10 Essential (primary) hypertension; Z92.21 Personal history of antineoplastic chemotherapy
CPT/HCPCS: 36415; 71260; 74177; 80048; 80076; 81001; 83690; 83735; 85025; 96361; 96374; 96375; 99284; Q9967

== ENCOUNTER 2020-11-25 12:43 | Outpatient (REF) | payer OTHER, SELFPAY ==
[2020-11-25 17:15] LABS: Urine Cytology See Pathology rpt
== END 2020-11-25 12:44 | disposition home or self-care (01) ==
LOC: HO.LNP 12:43
PROVIDERS: PCP Internal Medicine; Visit Provider Urology
DX: C67.9 Malignant neoplasm of bladder, unspecified (principal)
CPT/HCPCS: 52000; 88112; 99212

== ENCOUNTER → 2020-12-06 10:20 | Outpatient (BNVA) | payer OTHER, SELFPAY | PROVIDERS: PCP Internal Medicine; Visit Provider Hospitalist | DX: R06.00 Dyspnea, unspecified (principal); K21.9 Gastro-esophageal reflux disease without esophagitis; J45.40 Moderate persistent asthma, uncomplicated; Z72.0 Tobacco use | CPT/HCPCS: 99212 ==

== ENCOUNTER 2020-12-20 12:58 | Outpatient (REF) | payer OTHER, SELFPAY ==
[2020-12-20 13:54] LABS: Glucose Urine UA NEG (NEG); Leukocyte Esterase Urine NEG (NEG); Nitrite Urine NEG (NEG); Urine Blood 2+ (NEG); Urine Ketones NEG (NEG); Urine Protein NEG (NEG-TRACE)
[2020-12-20 14:02] LABS: Appearance Urine HAZY; Color Urine YELLOW
[2020-12-20 14:41] LABS: Bacteria Urine TRACE /LPF; Squamous Epithelial Cell Urine 1+ /LPF; WBC Urine 0-2 /HPF (0-4)
== END 2020-12-20 12:59 | disposition home or self-care (01) ==
LOC: HO.LAB 12:58
PROVIDERS: PCP Internal Medicine
DX: N39.0 Urinary tract infection, site not specified (principal)
CPT/HCPCS: 81001; 87086

== ENCOUNTER → 2021-02-15 10:06 | Outpatient (REF) | payer OTHER, SELFPAY ==
--- NOTE | 2021-02-15 10:13 | ECG_ITS ---
Test Reason : Z01.818 preop Blood Pressure : / mmHG Vent. Rate : 056 BPM Atrial Rate : 056 BPM P-R Int : 130 ms QRS Dur : 144 ms QT Int : 482 ms P-R-T Axes : 072 064 013 degrees QTc Int : 465 ms Sinus bradycardia Left bundle branch block Abnormal ECG When compared with ECG of 13-OCT-2020 09:38, No significant change was found Referred By: Mary Ellington Electronically Signed By:PRISCILA GAN
[2021-02-15 10:43] LABS: MANUAL DIFF FLAG NO
[2021-02-15 10:49] LABS: Basophils Percent Auto 0.5 % (0-2); Eosinophils Absolute Auto 0.1 X10*3/uL (0.0-0.4); Hematocrit 40.4 % (37-47); Hemoglobin 13.5 g/dl (12.0-16.0); Imm Gran Abs Auto 0.02 X10*3/uL (0.00-0.03); Imm Gran Pct Auto 0.3 % (0.0-0.4); Lymphocytes Absolute Auto 2.5 X10*3/uL (1.2-4.9); Lymphocytes Percent Auto 39.7 % (20-40); Mean Corpuscular HGB Conc 33.4 g/dl (31.0-35.0); Mean Corpuscular Hemoglobin 31.3 pg (27.0-33.0); Mean Corpuscular Volume 93.7 fL (80-98); Mean Platelet Volume 9.1 fL (9.4-12.3); Monocytes Absolute Auto 0.5 X10*3/uL (0.1-1.2); Monocytes Percent Auto 7.4 % (2-11); Neutrophils Absolute Auto 3.2 X10*3/uL (2.0-8.3); Neutrophils Percent Auto 50.1 % (45-73); Platelet Count 296 X10*3/uL (160-400); Red Blood Count 4.31 X10*6/uL (4.20-5.50); Red Cell Distribution Width 15.4 % (11.0-16.0); White Blood Count 6.4 X10*3/uL (4.8-10.8)
[2021-02-15 10:51] LABS: INTERNATIONAL NORM RATIO 0.8 (0.9-1.1); Prothrombin Time 9.5 SEC (9.9-13.0)
[2021-02-15 11:15] LABS: Anion Gap 11 (12-20); Blood Urea Nitrogen 11 mg/dL (9-16); Calcium 8.9 mg/dL (8.4-10.2); Carbon Dioxide 27 mmol/L (22-29); Chloride 108 mmol/L (96-108); Estimated Glomerular Filt Rate > 60; Glucose Random 104 mg/dL (60-115); Potassium 4.8 mmol/L (3.3-5.1); Sodium 141 mmol/L (135-145)
[2021-02-16 11:25] LABS: Cholesterol 187 mg/dL; HDL Cholesterol 54 mg/dL; LDL Cholesterol Calculated 106 mg/dl; Triglycerides 137 mg/dL
== END ==
LOC: HO.CARD 10:06
PROVIDERS: PCP Internal Medicine; Visit Provider Internal Medicine
DX: Z01.818 Encounter for other preprocedural examination (principal); E78.00 Pure hypercholesterolemia, unspecified
CPT/HCPCS: 36415; 80048; 80061; 85025; 85610; 93005

== ENCOUNTER 2021-02-21 15:17 | Emergency (ER) | payer OTHER, SELFPAY ==
[2021-02-21 16:26] VITALS: BP 131/63; PULSE 62; RESP 18; TEMP 36.6; O2SAT 98; BMI 33.6
== END 2021-02-21 19:47 | disposition left against medical advice (07) ==
PROVIDERS: Emergency Provider Emergency Medicine; PCP Internal Medicine
DX: R42 Dizziness and giddiness (principal); M54.2 Cervicalgia
CPT/HCPCS: 99281; 99282

== ENCOUNTER 2021-02-28 12:51 | Outpatient (REF) | payer OTHER, SELFPAY ==
[2021-02-28 17:29] LABS: Appearance Urine CLEAR; Color Urine YELLOW; Glucose Urine UA NEG (NEG); Leukocyte Esterase Urine NEG (NEG); Nitrite Urine NEG (NEG); Specific Gravity - Urine 1.025 (1.005-1.025); Urine Blood 3+ (NEG); Urine Ketones NEG (NEG); Urine Protein NEG (NEG-TRACE)
[2021-02-28 17:46] LABS: Bacteria Urine TRACE /LPF; Squamous Epithelial Cell Urine 1+ /LPF; WBC Urine 0 /HPF (0-4)
[2021-02-28 17:54] LABS: Urine Cytology See Pathology rpt
== END 2021-02-28 12:52 | disposition home or self-care (01) ==
LOC: HO.LAB 12:51
PROVIDERS: Visit Provider Urology
DX: Z85.51 Personal history of malignant neoplasm of bladder (principal); R33.9 Retention of urine, unspecified
CPT/HCPCS: 52000; 81001; 88112; 99212

== ENCOUNTER → 2021-03-22 12:23 | Outpatient (BNVA) | payer OTHER, SELFPAY | PROVIDERS: PCP Internal Medicine; Referring Provider Internal Medicine; Visit Provider Internal Medicine Cardiovascular Disease | DX: Z01.810 Encounter for preprocedural cardiovascular examination (principal); I10 Essential (primary) hypertension | CPT/HCPCS: 99212 ==

== ENCOUNTER 2021-04-13 10:31 | Outpatient (REF) | payer OTHER, SELFPAY ==
--- NOTE | ~2021-04-13 | MM_ITS ---
EXAMINATION: MM SCREENING DIGITAL BREAST TOMOSYNTHESIS, BILATERAL CLINICAL INFORMATION: Screening. Asymptomatic. The lifetime risk of breast cancer based on the Tyrer-Cuzick Model is 18.2%. COMPARISON: Mammography: March 22, 2020 and studies dating back to June 10, 2013 TECHNIQUE: Digital breast tomosynthesis is performed in both the craniocaudal and mediolateral oblique views along with computer-aided detection (CAD). Synthesized 2D images are generated from the tomosynthesis. FINDINGS: There are scattered areas of fibroglandular density (ACR BI-RADS breast composition Category b). There are no significant masses, abnormal calcifications, or other abnormalities. MM/MM tomosynthesis screening BI IMPRESSION: There are no significant changes from prior study. ASSESSMENT: BI-RADS 1: Negative RECOMMENDATION: Routine annual mammography screening. This patient's information was entered into a reminder system with a target due date for their next mammogram.
== END 2021-04-13 10:32 | disposition home or self-care (01) ==
LOC: HO.MAMMO 10:31
PROVIDERS: Visit Provider Internal Medicine
DX: Z12.31 Encounter for screening mammogram for malignant neoplasm of breast (principal)
CPT/HCPCS: 77063; 77067

== ENCOUNTER → 2021-05-10 08:37 | Outpatient (BNVA) | payer OTHER, SELFPAY | PROVIDERS: Visit Provider Urology ==

== ENCOUNTER → 2021-08-08 08:44 | Outpatient (BNVA) | payer OTHER, SELFPAY | PROVIDERS: PCP Internal Medicine; Visit Provider Urology | DX: C67.9 Malignant neoplasm of bladder, unspecified (principal) | CPT/HCPCS: 52000; 99212 ==

== ENCOUNTER 2021-08-12 07:49 | Outpatient (REF) | payer OTHER, SELFPAY ==
[2021-08-12 08:07] LABS: MANUAL DIFF FLAG NO
[2021-08-12 08:23] LABS: Basophils Percent Auto 0.6 % (0-2); Eosinophils Absolute Auto 0.2 X10*3/uL (0.0-0.4); Eosinophils Percent Auto 2.3 % (0-4); Hematocrit 39.7 % (37.0-47.0); Hemoglobin 13.1 g/dl (12.0-16.0); Imm Gran Abs Auto 0.03 X10*3/uL (0.00-0.03); Imm Gran Pct Auto 0.4 % (0.0-0.4); Lymphocytes Absolute Auto 2.8 X10*3/uL (1.2-4.9); Lymphocytes Percent Auto 39.8 % (20-40); Mean Corpuscular Hemoglobin 31.3 pg (27.0-33.0); Mean Platelet Volume 8.9 fL (9.4-12.3); Monocytes Absolute Auto 0.6 X10*3/uL (0.1-1.2); Monocytes Percent Auto 7.8 % (2-11); Neutrophils Absolute Auto 3.4 x10*3/uL (2.0-8.3); Neutrophils Percent Auto 49.1 % (45-73); Platelet Count 300 X10*3/uL (160-400); Red Blood Count 4.18 X10*6/uL (4.20-5.50); Red Cell Distribution Width 14.3 % (11.0-16.0)
[2021-08-12 08:51] LABS: Alanine Aminotransferase 14 U/L (0-31); Albumin Level 4.1 g/dL (3.5-5.0); Alkaline Phosphatase 38 U/L (39-117); Anion Gap 13 (12-20); Aspartate Amino Transferase 17 U/L (5-31); Bilirubin Total 0.4 mg/dL (0.0-1.0); Blood Urea Nitrogen 11 mg/dL (9-16); Calcium 9.7 mg/dL (8.4-10.2); Carbon Dioxide 27 mmol/L (22-29); Chloride 106 mmol/L (96-108); Cholesterol 198 mg/dL; Estimated Glomerular Filt Rate > 60; Glucose Random 103 mg/dL (60-115); HDL Cholesterol 52 mg/dL; LDL Cholesterol Calculated 116 mg/dl; Potassium 4.5 mmol/L (3.3-5.1); Sodium 141 mmol/L (135-145); Total Protein 6.5 g/dL (6.5-8.0); Triglycerides 152 mg/dL
[2021-08-12 09:12] LABS: Free T4 (Free Thyroxine) 0.95 ng/dL (0.71-1.85); Thyroid Stimulating Hormone 0.97 uIU/mL (0.32-4.0)
[2021-08-12 09:23] LABS: Folate 9.2 ng/mL (> or = 4.0); Vitamin B12 407 pg/mL (200-900)
== END 2021-08-12 07:50 | disposition home or self-care (01) ==
LOC: HO.LAB 07:49
PROVIDERS: PCP Internal Medicine; Visit Provider Internal Medicine
DX: I10 Essential (primary) hypertension (principal); E78.00 Pure hypercholesterolemia, unspecified
CPT/HCPCS: 36415; 80053; 80061; 82306; 82607; 82746; 84439; 84443; 85025

== ENCOUNTER 2021-08-15 10:19 | Outpatient (REF) | payer OTHER, SELFPAY ==
--- NOTE | ~2021-08-15 | XR_ITS ---
EXAMINATION: XR SHOULDER, LEFT CLINICAL INFORMATION: Pain in left shoulder. COMPARISON: None TECHNIQUE: AP external rotation, Grashey, scapular Y, and axillary views of the left shoulder. FINDINGS: The bones and soft tissues are normal. No fracture. Glenohumeral and acromioclavicular alignment is anatomic with normal joint space. No abnormal soft tissue calcifications. XR/XR shoulder LT min 2V IMPRESSION: Unremarkable left shoulder.
== END 2021-08-15 10:20 | disposition home or self-care (01) ==
LOC: HO.XRAY 10:19
PROVIDERS: PCP Internal Medicine; Visit Provider Internal Medicine
DX: M25.512 Pain in left shoulder (principal)
CPT/HCPCS: 73030

== ENCOUNTER 2021-10-17 09:53 | Outpatient (REF) | payer OTHER, SELFPAY ==
--- NOTE | ~2021-10-17 | MM_ITS ---
EXAMINATION: BONE DENSITOMETRY CLINICAL INDICATION: Age-related osteoporosis without current pathological fracture. COMPARISON: Baseline BD dated 08/02/2009. TECHNIQUE: Using a [employer] DXA System (software version: 13.1) manufactured by [employer], dual-energy x-ray absorptiometry was performed of the lumbar spine and left hip. The images are of good technical quality. Summary results are attached. FINDINGS: AP SPINE L1-L2 (excluding L3 and L4): The data of L1-L4 has been changed to exclude the L3 and L4 vertebral bodies, because degenerative changes at these levels may cause overestimation of lumbar spine density. Current: BMD 0.932 g/cm2, Z-score -1.5, T-score -1.9, osteopenia, 17.0% decrease from baseline (<5% change is not significant). Baseline: BMD 1.123 g/cm2. LEFT FEMUR, NECK: Current: BMD 0.964 g/cm2, Z-score 0.2, T-score -0.5, normal. Baseline: BMD 1.086 g/cm2. LEFT FEMUR, TOTAL: Current: BMD 0.901 g/cm2, Z-score -0.5, T-score -0.8, normal, 10.9% decrease from baseline (<5% change is not significant). Baseline: BMD 1.011 g/cm2. IDENTIFIED RISK FACTORS: Menopause, hysterectomy history of fracture (adult), tobacco use (current smoker), family history (parental hip fracture). HISTORY OF FRACTURE: Ankle/foot. MEDICATIONS: None listed. MM/XR DEXA axial skeleton IMPRESSION: 1. DIAGNOSIS: Osteopenia based on the lowest T-score value of -1.9 in the lumbar spine applying World Health Organization criteria. 2. 10-YEAR FRACTURE RISK PREDICTION, FRAX: Major osteoporotic fracture (clinical spine, forearm, hip or shoulder) 20.5%. Hip fracture 0.7%. 3. Treatment Recommendations: NOF guidelines recommend consideration for treatment in postmenopausal women and men age 50 and older presenting with the following: -A hip or vertebral (clinical or morphometric) fracture. -T-score less than or equal to -2.5 at the femoral neck or spine after appropriate evaluation to exclude secondary causes. -Low bone mass at the hip or spine and a 10-year fracture probability by FRAX of greater than or equal to 3% for hip fracture or greater than or equal to 20% for major osteoporotic fracture based on the [place] adapted WHO algorithm. 4. Other Recommendations: All treatment decisions require clinical judgment and consideration of individual patient factors, including patient preferences, comorbidities, previous drug use, risk factors not captured in the FRAX model (e.g. frailty, falls, vitamin D deficiency, increased bone turnover, interval significant decline in bone density) and possible under or overestimation of fracture risk by FRAX. Additional medical evaluation for secondary cause of low bone mineral density may be appropriate. FUTURE SCAN RECOMMENDATION: People with diagnosed cases of osteoporosis or at high risk for fracture should have regular bone mineral density tests. For patients eligible for Medicare, routine testing is allowed once every 2 years. The testing frequency can be increased to one year for patients who have rapidly progressing disease, those who are receiving or discontinuing medical therapy to restore bone mass, or have additional risk factors.
== END 2021-10-17 09:54 | disposition home or self-care (01) ==
LOC: HO.MAMMO 09:53
PROVIDERS: PCP Internal Medicine; Visit Provider Internal Medicine
DX: Z13.820 Encounter for screening for osteoporosis (principal); M81.0 Age-related osteoporosis without current pathological fracture; Z78.0 Asymptomatic menopausal state
CPT/HCPCS: 77080

== ENCOUNTER → 2021-10-26 16:01 | Outpatient (BNVA) | payer OTHER, SELFPAY | PROVIDERS: PCP Internal Medicine; Referring Provider Internal Medicine; Visit Provider Nurse Practitioner | DX: Z12.11 Encounter for screening for malignant neoplasm of colon (principal); K21.9 Gastro-esophageal reflux disease without esophagitis; Z83.71 Family history of colonic polyps | CPT/HCPCS: 99202; 99212 ==

== ENCOUNTER 2021-10-31 18:44 | Emergency (ER) | payer OTHER, SELFPAY | END 2021-10-31 19:35 | disposition left against medical advice (07) | PROVIDERS: Emergency Provider Emergency Medicine; PCP Internal Medicine | DX: S09.90XA Unspecified injury of head, initial encounter (principal); W19.XXXA Unspecified fall, initial encounter; Y93.9 Activity, unspecified; Y92.9 Unspecified place or not applicable; Y99.9 Unspecified external cause status ==

== ENCOUNTER 2021-11-01 14:46 | Outpatient (REF) | payer OTHER, SELFPAY ==
--- NOTE | ~2021-11-01 | CT_ITS ---
EXAMINATION: CT HEAD WITHOUT CONTRAST CLINICAL INFORMATION: Concussion. COMPARISON: None available. TECHNIQUE: Contiguous axial imaging was performed from the skull base to vertex without intravenous administration of contrast. This CT examination was performed using dose optimization techniques as appropriate, variously including the following: *Automated exposure control. *Adjustment of mA and/or kV according to patient size (this includes techniques or standardized protocols for targeted exams where dose is matched to indication/reason for exam; i.e. extremities or head). *Use of iterative reconstruction technique. DLP: 773 mGy-cm FINDINGS: There is no evidence of acute intracranial hemorrhage or edematous territorial infarction. There is no abnormal attenuation within the brain parenchyma. Gautam-white matter differentiation is preserved. The ventricles are normal in size and configuration. No evidence for obstructive hydrocephalus. No abnormal mass effect or midline shift. No extra-axial fluid collections. No acute soft tissue or osseous abnormalities. Fatty atrophy of the visualized aspects of the right parotid gland. Mild mucosal thickening of the paranasal sinuses. Mild leftward nasal septal deviation. The mastoid air cells and middle ear cavities are clear. CT/CT head/brain wo con IMPRESSION: No evidence of acute intracranial hemorrhage or edematous territorial infarction.
== END 2021-11-01 14:47 | disposition home or self-care (01) ==
LOC: HO.CT 14:46
PROVIDERS: PCP Internal Medicine; Visit Provider Internal Medicine
DX: S06.0X9A Concussion with loss of consciousness of unspecified duration, initial encounter (principal); X58.XXXA Exposure to other specified factors, initial encounter; Y93.9 Activity, unspecified; Y92.9 Unspecified place or not applicable; Y99.9 Unspecified external cause status
CPT/HCPCS: 70450

== ENCOUNTER → 2021-12-05 08:46 | Outpatient (BNVA) | payer OTHER, SELFPAY | PROVIDERS: PCP Internal Medicine; Visit Provider Hospitalist | DX: Z01.811 Encounter for preprocedural respiratory examination (principal); J45.40 Moderate persistent asthma, uncomplicated; R06.00 Dyspnea, unspecified; K21.9 Gastro-esophageal reflux disease without esophagitis; Z72.0 Tobacco use; Z79.899 Other long term (current) drug therapy | CPT/HCPCS: 99212 ==

== ENCOUNTER 2022-01-23 15:23 | Outpatient (REF) | payer OTHER, SELFPAY ==
--- NOTE | ~2022-01-23 | XR_ITS ---
EXAMINATION: XR RIBS, LEFT CLINICAL INFORMATION: Contusion of the thoracic wall COMPARISON: Chest x-ray 08/06/2019 TECHNIQUE: 3 views of the left ribs were obtained. FINDINGS: Lungs are clear. No consolidation, pneumothorax, or pleural effusion. The cardiomediastinal silhouette and pulmonary vasculature are normal. No acute displaced rib fractures are identified. XR/XR ribs LT min 3V w CXR1V IMPRESSION: 1. No acute pulmonary process. 2. No acute displaced rib fracture identified.
== END 2022-01-23 15:24 | disposition home or self-care (01) ==
LOC: HO.HMGCX 15:23
PROVIDERS: PCP Internal Medicine; Visit Provider Internal Medicine
DX: S20.212A Contusion of left front wall of thorax, initial encounter (principal)
CPT/HCPCS: 71101

== ENCOUNTER → 2022-02-06 08:48 | Outpatient (BNVA) | payer OTHER, SELFPAY | PROVIDERS: PCP Internal Medicine; Visit Provider Urology | DX: C67.9 Malignant neoplasm of bladder, unspecified (principal) | CPT/HCPCS: 52000; 99212 ==

== ENCOUNTER 2022-04-10 07:43 | Outpatient (REF) | payer OTHER, SELFPAY ==
[2022-04-10 10:01] LABS: Estimated Average Glucose 114 mg/dL; Hemoglobin A1c % 5.6 %
[2022-04-10 10:24] LABS: Alanine Aminotransferase 12 U/L (0-31); Albumin Level 4.4 g/dL (3.5-5.0); Alkaline Phosphatase 44 U/L (39-117); Anion Gap 16 (12-20); Aspartate Amino Transferase 14 U/L (5-31); Bilirubin Total 0.3 mg/dL (0.0-1.0); Blood Urea Nitrogen 16 mg/dL (9-16); Calcium 9.3 mg/dL (8.4-10.2); Carbon Dioxide 24 mmol/L (22-29); Chloride 106 mmol/L (96-108); Cholesterol 166 mg/dL; Estimated Glomerular Filt Rate > 60; Glucose Random 100 mg/dL (60-115); HDL Cholesterol 58 mg/dL; LDL Cholesterol Calculated 84 mg/dl; Sodium 141 mmol/L (135-145); Total Protein 6.8 g/dL (6.5-8.0); Triglycerides 120 mg/dL
== END 2022-04-10 07:44 | disposition home or self-care (01) ==
LOC: HO.LAB 07:43
PROVIDERS: PCP Internal Medicine; Visit Provider Internal Medicine
DX: E78.00 Pure hypercholesterolemia, unspecified (principal)
CPT/HCPCS: 36415; 80053; 80061; 83036

== ENCOUNTER 2022-05-08 10:48 | Outpatient (REF) | payer OTHER, SELFPAY ==
--- NOTE | ~2022-05-08 | MM_ITS ---
EXAMINATION: MM SCREENING DIGITAL BREAST TOMOSYNTHESIS, BILATERAL CLINICAL INFORMATION: Screening. Asymptomatic. Family history breast cancer including premenopausal breast cancer in sister and daughter. The lifetime risk of breast cancer based on the Tyrer-Cuzick Model is 23%. COMPARISON: Mammography: 04/13/2021, 03/22/2020, 02/14/2016 TECHNIQUE: Digital breast tomosynthesis is performed in both the craniocaudal and mediolateral oblique views along with computer-aided detection (CAD). Synthesized 2D images are generated from the tomosynthesis. FINDINGS: There are scattered areas of fibroglandular density (ACR BI-RADS breast composition Category b). There are no significant masses, abnormal calcifications, or other abnormalities. Parenchymal pattern is similar to prior studies including chronic asymmetries upper left and central left breast on MLO view. There is no developing density or architectural abnormality. There are some fine dermal calcifications again noted posterior outer right breast. The axilla and skin contours are unremarkable. No significant changes. MM/MM tomosynthesis screening BI IMPRESSION: No mammographic evidence of malignancy. ASSESSMENT: BI-RADS 2: Benign RECOMMENDATION: Routine annual mammography screening. This patient's information was entered into a reminder system with a target due date for their next mammogram.
== END 2022-05-08 10:49 | disposition home or self-care (01) ==
LOC: HO.MAMMO 10:48
PROVIDERS: Visit Provider Internal Medicine
DX: Z12.31 Encounter for screening mammogram for malignant neoplasm of breast (principal)
CPT/HCPCS: 77063; 77067

== ENCOUNTER → 2022-05-09 14:50 | Outpatient (BNVA) | payer OTHER, SELFPAY | PROVIDERS: PCP Internal Medicine; Referring Provider Internal Medicine; Visit Provider Internal Medicine Cardiovascular Disease | DX: I10 Essential (primary) hypertension (principal); M06.9 Rheumatoid arthritis, unspecified | CPT/HCPCS: 93005; 99212 ==

== ENCOUNTER 2022-06-22 15:41 | Outpatient (REF) | payer OTHER, SELFPAY ==
--- NOTE | ~2022-06-22 | CT_ITS ---
EXAMINATION: CT CHEST SCREENING CLINICAL INFORMATION: Current smoker, 39 pack years. COMPARISON: CT chest 11/24/2020, CTA chest 05/30/2020 TECHNIQUE: Multidetector volumetric CT imaging of the chest is performed without contrast using low dose technique. Additional 2D coronal and sagittal reformatted images and axial 3D maximum intensity projection (MIP) images are generated on the CT workstation. This CT examination was performed using dose optimization techniques as appropriate, variously including the following: *Automated exposure control *Adjustment of mA and/or kV according to patient size (this includes techniques or standardized protocols for targeted exams where dose is matched to indication/reason for exam; i.e. extremities or head) *Use of iterative reconstruction technique DLP: 68 mGy-cm FINDINGS: LUNGS: Central airways are clear and there is no endobronchial lesion or atelectasis. No airspace consolidation or groundglass opacity. Left lung shows no mass or significant nodule or interval change. Again, there is tiny pleural tag versus stable subpleural nodule under 4 mm posterior lateral apex, series /. A few tiny incidental benign calcified granulomata are again seen under 3 mm. Right lung shows no mass or significant nodule or interval change. There are a few scattered incidental benign calcified granulomata, largest only 3 mm. MEDIASTINUM: No hilar or mediastinal adenopathy. Heart size normal. No pericardial effusion. Thoracic aorta normal in caliber. CORONARY ARTERY CALCIFICATION: None visualized on this study. PLEURA: There is no pleural effusion. No pleural mass or thickening. AXILLA: No lymphadenopathy. UPPER ABDOMEN: Surgical clips gallbladder fossa. OSSEOUS STRUCTURES: Unremarkable. CT/CT lung screening IMPRESSION: -No mass or significant nodule or interval change. -A few scattered small benign calcified granulomata. ASSESSMENT: Lung-RADS category 2: Benign RECOMMENDATION: Routine annual low-dose CT screening in 12 months.
== END 2022-06-22 15:42 | disposition home or self-care (01) ==
LOC: HO.CT 15:41
PROVIDERS: PCP Internal Medicine; Visit Provider Physician Assistant Medical
DX: Z12.2 Encounter for screening for malignant neoplasm of respiratory organs (principal); F17.210 Nicotine dependence, cigarettes, uncomplicated
CPT/HCPCS: 71271; G0296

== ENCOUNTER 2022-07-04 08:57 | Outpatient (REF) | payer OTHER, SELFPAY ==
--- NOTE | ~2022-07-04 | XR_ITS ---
EXAMINATION: XR SHOULDER, RIGHT CLINICAL INFORMATION: Sprain of right shoulder. COMPARISON: None TECHNIQUE: AP external rotation, Grashey, scapular Y, and axillary views of the right shoulder. FINDINGS: There is moderate soft tissue calcification lateral to the humeral head suggestive of calcific bursitis. No acute fracture or dislocation seen. Glenohumeral and acromioclavicular alignment is anatomic with normal joint space. No bony erosive changes. XR/XR shoulder RT min 2V IMPRESSION: 1. Significant calcific bursitis. No visible acute fracture or dislocation seen. 2. There is no bony erosive changes.
== END 2022-07-04 08:58 | disposition home or self-care (01) ==
LOC: HO.HMGCX 08:57
PROVIDERS: PCP Internal Medicine; Visit Provider Internal Medicine
DX: S43.401A Unspecified sprain of right shoulder joint, initial encounter (principal)
CPT/HCPCS: 73030

== ENCOUNTER 2022-08-06 09:12 | Outpatient (REF) | payer OTHER, SELFPAY ==
[2022-08-06 10:38] LABS: Alanine Aminotransferase 13 U/L (0-31); Albumin Level 4.4 g/dL (3.5-5.0); Alkaline Phosphatase 34 U/L (39-117); Anion Gap 14 (12-20); Aspartate Amino Transferase 16 U/L (5-31); Bilirubin Total 0.5 mg/dL (0.0-1.0); Blood Urea Nitrogen 11 mg/dL (9-16); Calcium 9.2 mg/dL (8.4-10.2); Carbon Dioxide 26 mmol/L (22-29); Chloride 108 mmol/L (96-108); Cholesterol 172 mg/dL; Estimated Glomerular Filt Rate > 60; Glucose Fasting 101 mg/dL (60-99); HDL Cholesterol 56 mg/dL; LDL Cholesterol Calculated 93 mg/dl; Potassium 4.7 mmol/L (3.3-5.1); Sodium 143 mmol/L (135-145); Total Protein 6.7 g/dL (6.5-8.0); Triglycerides 117 mg/dL
== END 2022-08-06 09:13 | disposition home or self-care (01) ==
LOC: HO.LAB 09:12
PROVIDERS: PCP Internal Medicine; Visit Provider Nurse Practitioner Family
DX: E78.00 Pure hypercholesterolemia, unspecified (principal); I10 Essential (primary) hypertension
CPT/HCPCS: 36415; 80053; 80061

== ENCOUNTER 2022-08-07 09:58 | Outpatient (REF) | payer OTHER, SELFPAY ==
[2022-08-07 16:32] LABS: Urine Cytology See Pathology rpt
== END 2022-08-07 09:59 | disposition home or self-care (01) ==
LOC: HO.LAB 09:58
PROVIDERS: PCP Internal Medicine; Visit Provider Urology
DX: C67.9 Malignant neoplasm of bladder, unspecified (principal); R33.9 Retention of urine, unspecified; F17.210 Nicotine dependence, cigarettes, uncomplicated
CPT/HCPCS: 52000; 88112; 99212

== ENCOUNTER → 2022-08-17 08:08 | Outpatient (BNVA) | payer OTHER, SELFPAY | PROVIDERS: PCP Internal Medicine; Visit Provider Student in an Organized Health Care Education/Training Program | DX: M25.50 Pain in unspecified joint (principal) | CPT/HCPCS: 99202 ==

== ENCOUNTER 2022-08-21 09:12 | Outpatient (REF) | payer OTHER, SELFPAY ==
--- NOTE | ~2022-08-21 | XR_ITS ---
EXAMINATION: XR KNEE AP STANDING, BILATERAL XR KNEE, LEFT XR HAND/WRIST, RIGHT XR HAND/WRIST, LEFT CLINICAL INDICATION: Rheumatoid arthritis. Pain. COMPARISON: None available. TECHNIQUE: 3 views left knee, one view AP bilateral knee standing, 4 views each hand/wrist. FINDINGS: AP BILATERAL KNEE STANDING: There is maintained medial and lateral compartment joint space. No bony erosive changes. There are no loose bodies. The soft tissues are normal. LEFT KNEE: The tricompartment joint space is maintained. No bony erosive changes. No loose bodies. The soft tissues are normal. RIGHT HAND/WRIST: There is loss of PIP and DIP joint space with periarticular spurring. No loose body seen. No acute fracture or dislocation seen. The soft tissues are normal. LEFT HAND/WRIST: There is loss of PIP and DIP joint space with periarticular spurring. The soft tissues are normal. There is no loose body seen. XR/XR hand wrist LT IMPRESSION: 1. Unremarkable bilateral knee standing exam. 2. Unremarkable left knee exam. 3. Degenerative arthritic changes PIP and DIP joints both hands. No visible acute fracture, dislocation or subluxation seen. 4. There are no loose bodies.
--- NOTE | ~2022-08-21 | XR_ITS ---
EXAMINATION: XR KNEE AP STANDING, BILATERAL XR KNEE, LEFT XR HAND/WRIST, RIGHT XR HAND/WRIST, LEFT CLINICAL INDICATION: Rheumatoid arthritis. Pain. COMPARISON: None available. TECHNIQUE: 3 views left knee, one view AP bilateral knee standing, 4 views each hand/wrist. FINDINGS: AP BILATERAL KNEE STANDING: There is maintained medial and lateral compartment joint space. No bony erosive changes. There are no loose bodies. The soft tissues are normal. LEFT KNEE: The tricompartment joint space is maintained. No bony erosive changes. No loose bodies. The soft tissues are normal. RIGHT HAND/WRIST: There is loss of PIP and DIP joint space with periarticular spurring. No loose body seen. No acute fracture or dislocation seen. The soft tissues are normal. LEFT HAND/WRIST: There is loss of PIP and DIP joint space with periarticular spurring. The soft tissues are normal. There is no loose body seen. XR/XR knee RT 3V IMPRESSION: 1. Unremarkable bilateral knee standing exam. 2. Unremarkable left knee exam. 3. Degenerative arthritic changes PIP and DIP joints both hands. No visible acute fracture, dislocation or subluxation seen. 4. There are no loose bodies.
--- NOTE | ~2022-08-21 | XR_ITS ---
EXAMINATION: XR KNEE AP STANDING, BILATERAL XR KNEE, LEFT XR HAND/WRIST, RIGHT XR HAND/WRIST, LEFT CLINICAL INDICATION: Rheumatoid arthritis. Pain. COMPARISON: None available. TECHNIQUE: 3 views left knee, one view AP bilateral knee standing, 4 views each hand/wrist. FINDINGS: AP BILATERAL KNEE STANDING: There is maintained medial and lateral compartment joint space. No bony erosive changes. There are no loose bodies. The soft tissues are normal. LEFT KNEE: The tricompartment joint space is maintained. No bony erosive changes. No loose bodies. The soft tissues are normal. RIGHT HAND/WRIST: There is loss of PIP and DIP joint space with periarticular spurring. No loose body seen. No acute fracture or dislocation seen. The soft tissues are normal. LEFT HAND/WRIST: There is loss of PIP and DIP joint space with periarticular spurring. The soft tissues are normal. There is no loose body seen. XR/XR knee standing BI IMPRESSION: 1. Unremarkable bilateral knee standing exam. 2. Unremarkable left knee exam. 3. Degenerative arthritic changes PIP and DIP joints both hands. No visible acute fracture, dislocation or subluxation seen. 4. There are no loose bodies.
--- NOTE | ~2022-08-21 | XR_ITS ---
EXAMINATION: XR KNEE AP STANDING, BILATERAL XR KNEE, LEFT XR HAND/WRIST, RIGHT XR HAND/WRIST, LEFT CLINICAL INDICATION: Rheumatoid arthritis. Pain. COMPARISON: None available. TECHNIQUE: 3 views left knee, one view AP bilateral knee standing, 4 views each hand/wrist. FINDINGS: AP BILATERAL KNEE STANDING: There is maintained medial and lateral compartment joint space. No bony erosive changes. There are no loose bodies. The soft tissues are normal. LEFT KNEE: The tricompartment joint space is maintained. No bony erosive changes. No loose bodies. The soft tissues are normal. RIGHT HAND/WRIST: There is loss of PIP and DIP joint space with periarticular spurring. No loose body seen. No acute fracture or dislocation seen. The soft tissues are normal. LEFT HAND/WRIST: There is loss of PIP and DIP joint space with periarticular spurring. The soft tissues are normal. There is no loose body seen. XR/XR hand wrist RT IMPRESSION: 1. Unremarkable bilateral knee standing exam. 2. Unremarkable left knee exam. 3. Degenerative arthritic changes PIP and DIP joints both hands. No visible acute fracture, dislocation or subluxation seen. 4. There are no loose bodies.
--- NOTE | ~2022-08-21 | XR_ITS ---
EXAMINATION: XR KNEE AP STANDING, BILATERAL XR KNEE, LEFT XR HAND/WRIST, RIGHT XR HAND/WRIST, LEFT CLINICAL INDICATION: Rheumatoid arthritis. Pain. COMPARISON: None available. TECHNIQUE: 3 views left knee, one view AP bilateral knee standing, 4 views each hand/wrist. FINDINGS: AP BILATERAL KNEE STANDING: There is maintained medial and lateral compartment joint space. No bony erosive changes. There are no loose bodies. The soft tissues are normal. LEFT KNEE: The tricompartment joint space is maintained. No bony erosive changes. No loose bodies. The soft tissues are normal. RIGHT HAND/WRIST: There is loss of PIP and DIP joint space with periarticular spurring. No loose body seen. No acute fracture or dislocation seen. The soft tissues are normal. LEFT HAND/WRIST: There is loss of PIP and DIP joint space with periarticular spurring. The soft tissues are normal. There is no loose body seen. XR/XR knee LT 3V IMPRESSION: 1. Unremarkable bilateral knee standing exam. 2. Unremarkable left knee exam. 3. Degenerative arthritic changes PIP and DIP joints both hands. No visible acute fracture, dislocation or subluxation seen. 4. There are no loose bodies.
[2022-08-21 09:55] LABS: MANUAL DIFF FLAG NO
[2022-08-21 10:35] LABS: Basophils Absolute Auto 0.1 X10*3/uL (0.0-0.2); Basophils Percent Auto 0.8 % (0-2); Eosinophils Absolute Auto 0.1 X10*3/uL (0.0-0.4); Eosinophils Percent Auto 1.2 % (0-4); Hematocrit 41.8 % (37.0-47.0); Imm Gran Abs Auto 0.01 X10*3/uL (0.00-0.03); Imm Gran Pct Auto 0.1 % (0.0-0.4); Lymphocytes Absolute Auto 2.6 X10*3/uL (1.2-4.9); Lymphocytes Percent Auto 34.5 % (20-40); Mean Corpuscular HGB Conc 33.5 g/dl (31.0-35.0); Mean Corpuscular Volume 92.7 fL (80.0-98.0); Mean Platelet Volume 9.2 fL (9.4-12.3); Monocytes Absolute Auto 0.4 X10*3/uL (0.1-1.2); Monocytes Percent Auto 5.9 % (2-11); Neutrophils Absolute Auto 4.3 x10*3/uL (2.0-8.3); Neutrophils Percent Auto 57.5 % (45-73); Platelet Count 316 X10*3/uL (160-400); Red Blood Count 4.51 X10*6/uL (4.20-5.50); White Blood Count 7.4 X10*3/uL (4.8-10.8)
[2022-08-21 10:59] LABS: Appearance Urine Clear; Color Urine Yellow; Glucose Urine UA Negative (Negative); Leukocyte Esterase Urine Trace (Negative); Nitrite Urine Negative (Negative); PH 5.5 (5.0-9.0); UMIC TRIGGER UA YES; Urine Blood Large (3+) (Negative); Urine Ketones Negative (Negative); Urine Protein Negative (Neg-Trace)
[2022-08-21 11:08] LABS: Bacteria Urine None Seen (None Seen); Hyaline Casts Urine 0-2 /LPF (0-2); Squamous Epithelial Cell Urine 0-2 /HPF (0-2); WBC Urine 0-5 /HPF (0-5)
[2022-08-21 11:28] LABS: Erythrocyte Sedimentation Rate 14 MM/HR (0-20)
[2022-08-21 11:33] LABS: Creatinine Urine 78.46 mg/dL; Total Protein Urine Random < 7 mg/dL (<12)
[2022-08-21 11:46] LABS: Alanine Aminotransferase 14 U/L (0-31); Albumin Level 4.8 g/dL (3.5-5.0); Alkaline Phosphatase 47 U/L (39-117); Anion Gap 15 (12-20); Aspartate Amino Transferase 17 U/L (5-31); Bilirubin Total 0.5 mg/dL (0.0-1.0); Blood Urea Nitrogen 10 mg/dL (9-16); C Reactive Protein < 0.10 mg/dL (< or = 0.50); Calcium 9.2 mg/dL (8.4-10.2); Carbon Dioxide 24 mmol/L (22-29); Chloride 107 mmol/L (96-108); Estimated Glomerular Filt Rate > 60; Glucose Random 81 mg/dL (60-115); Rheumatoid Factor < 13.0 IU/mL (<15.0); Sodium 142 mmol/L (135-145); Total Protein 7.3 g/dL (6.5-8.0)
[2022-08-22 06:04] LABS: HBc Num1 0.09 S/CO (0.00-0.79); Hepatitis B Core Antibody Nonreactive (Nonreactive); ~HepC Num1 0.11 S/CO (0.00-0.79); ~Hepatitis C Antibody Nonreactive (Nonreactive)
[2022-08-22 08:28] LABS: HBS Num1 0.06 mIU/mL (0-7.99); HBsAGNum1 0.37 S/CO (0.00-0.99); Hepatitis A Antibody IgM 0.15 Index (0-0.79); Hepatitis B Surface Antigen Negative (Negative); ~Hepatitis A Antibody IgM Nonreactive (Nonreactive); ~Hepatitis B Surface Antibody NONREACTIVE (Nonreactive)
[2022-08-23 14:52] LABS: Complement C3 155 mg/dL (83-193)
[2022-08-23 17:18] LABS: Anti DNA DS Antibody 4 IU/mL; Antibody to SS-A Antigen <1.0 NEG AI (<1.0 NEG); Antibody to SS-B Antigen <1.0 NEG AI (<1.0 NEG); SM/Ribonucleoprotein Ab <1.0 NEG AI (<1.0 NEG); Smith Protein <1.0 NEG AI (<1.0 NEG)
[2022-08-23 22:38] LABS: TS Negative Control Passed; TS Panel A 0; TS Panel B 0; TS Positive Control Passed; TSpotTB Negative (Negative)
[2022-08-23 23:08] LABS: Prot Elec - Albumin 4.6 g/dL (3.8-4.8); Prot Elec - Alpha1 0.3 g/dL (0.2-0.3); Prot Elec - Alpha2 0.8 g/dL (0.5-0.9); Prot Elec - Beta 1 0.5 g/dL (0.4-0.6); Prot Elec - Beta 2 0.5 g/dL (0.2-0.5); Prot Elec - Gamma 0.8 g/dL (0.8-1.7); Prot Elec - Total Protein 7.4 g/dL (6.1-8.1)
[2022-08-24 12:53] LABS: IgA 282 mg/dL (70-320); IgG 782 mg/dL (600-1540); IgM 120 mg/dL (50-300)
[2022-08-24 14:48] LABS: Cyclic Citrullinated Peptide <16 UNITS
[2022-08-26 15:27] LABS: Anti Nuclear Antibody Pattern Nuclear, Speckled; Anti Nuclear Antibody Screen POSITIVE (NEGATIVE)
[2022-08-29 13:39] LABS: DNAds, Crithidia Antibody Negative (Negative)
== END 2022-08-21 09:13 | disposition home or self-care (01) ==
LOC: HO.LAB 09:12
PROVIDERS: PCP Internal Medicine; Visit Provider Student in an Organized Health Care Education/Training Program
DX: M06.9 Rheumatoid arthritis, unspecified (principal); M32.9 Systemic lupus erythematosus, unspecified; Z11.7 Encounter for testing for latent tuberculosis infection; Z11.59 Encounter for screening for other viral diseases
CPT/HCPCS: 36415; 73110; 73130; 73562; 73564; 73565; 80053; 81001; 82784; 84156; 84165; 85025; 85652; 86038; 86039; 86140; 86160; 86200; 86225; 86235; 86255; 86334; 86431; 86481; 86704; 86706; 86709; 86803; 87340

== ENCOUNTER → 2022-10-05 13:51 | Outpatient (BNVA) | payer OTHER, SELFPAY | PROVIDERS: PCP Internal Medicine; Visit Provider Student in an Organized Health Care Education/Training Program | DX: M15.9 Polyosteoarthritis, unspecified (principal) | CPT/HCPCS: 99212 ==

== ENCOUNTER 2022-11-01 08:50 | Outpatient (REF) | payer OTHER, SELFPAY | END 2022-11-01 08:51 | disposition home or self-care (01) | LOC: HO.LAB 08:50 | PROVIDERS: PCP Internal Medicine; Visit Provider Nurse Practitioner | DX: Z01.818 Encounter for other preprocedural examination (principal); R19.7 Diarrhea, unspecified; K21.9 Gastro-esophageal reflux disease without esophagitis; Z83.71 Family history of colonic polyps | CPT/HCPCS: 36415; 86003; 99212 ==

== ENCOUNTER 2022-11-08 09:47 | Outpatient (REF) | payer OTHER, SELFPAY ==
[2022-11-08 11:09] LABS: Alanine Aminotransferase 12 U/L (0-31); Albumin Level 4.3 g/dL (3.5-5.0); Alkaline Phosphatase 37 U/L (39-117); Anion Gap 12 (12-20); Aspartate Amino Transferase 15 U/L (5-31); Bilirubin Total 0.6 mg/dL (0.0-1.0); Blood Urea Nitrogen 12 mg/dL (9-16); Calcium 9.6 mg/dL (8.4-10.2); Carbon Dioxide 26 mmol/L (22-29); Chloride 110 mmol/L (96-108); Cholesterol 178 mg/dL; Estimated Glomerular Filt Rate > 60; Glucose Random 97 mg/dL (60-115); HDL Cholesterol 62 mg/dL; LDL Cholesterol Calculated 101 mg/dl; Potassium 4.3 mmol/L (3.3-5.1); Sodium 144 mmol/L (135-145); Total Protein 6.6 g/dL (6.5-8.0); Triglycerides 76 mg/dL
[2022-11-08 11:13] LABS: Estimated Average Glucose 111 mg/dL; Hemoglobin A1c % 5.5 %
[2022-11-08 11:26] LABS: Free T4 (Free Thyroxine) 0.95 ng/dL (0.71-1.85); Thyroid Stimulating Hormone 0.59 uIU/mL (0.32-4.0)
== END 2022-11-08 09:48 | disposition home or self-care (01) ==
LOC: HO.LAB 09:47
PROVIDERS: Nurse Practitioner; PCP Internal Medicine; Visit Provider Internal Medicine
DX: E78.00 Pure hypercholesterolemia, unspecified (principal); R73.02 Impaired glucose tolerance (oral); K21.9 Gastro-esophageal reflux disease without esophagitis
CPT/HCPCS: 36415; 80053; 80061; 83036; 84439; 84443; 87338

== ENCOUNTER → 2022-11-14 12:22 | Outpatient (BNVA) | payer OTHER, SELFPAY | PROVIDERS: PCP Internal Medicine; Referring Provider Internal Medicine; Visit Provider Internal Medicine Cardiovascular Disease | DX: R07.9 Chest pain, unspecified (principal); I10 Essential (primary) hypertension | CPT/HCPCS: 99212 ==

== ENCOUNTER 2022-12-20 09:48 | Outpatient (AMB) | payer OTHER, SELFPAY ==
[2022-12-20 09:52] VITALS: BP 138/63; PULSE 61; BMI 31.9
--- NOTE | 2022-12-20 09:52 | MHC.OFFVIS ---
Intake Vital Signs 12/20/22 09:52 Height 5 ft 4 in Weight 185 lb 10.067 oz BMI 31.9 BP 138/63 Blood Pressure Location Lt brachial Position Sitting Pulse 61 Intake Visit Reasons: 4 week fu Intake Note: Patient returns to in office visit today in follow up of GERD. CC: Patient states she is feeling like crap from acid reflux and sometimes she can't even breath. She also c/o epigastric pain and abdominal pain. She reports concerns about UTI. Watch Leader Required: No Accompanied by: Self / Same As Patient Allergies atorvastatin [Lipitor] Allergy (Intermediate, Verified 12/20/22 10:02) joint pain/stiffness ciprofloxacin [From Cipro] Allergy (Intermediate, Verified 12/20/22 10:02) H/A NAUSEA HIVES pravastatin [From PRAVACHOL] Allergy (Intermediate, Verified 12/20/22 10:02) joint pain/stiffness simvastatin [SIMVASTATIN] Allergy (Intermediate, Verified 12/20/22 10:02) joint pain/stiffness Sulfa (Sulfonamide Antibiotics) Allergy (Intermediate, Verified 12/20/22 10:02) HIVES codeine [Codeine] Adverse Reaction (Intermediate, Verified 12/20/22 10:02) headache/palpitations trimethoprim Adverse Reaction (Intermediate, Verified 12/20/22 10:02) Rash HPI 4 week fu HPI Details Assessment & Plan (1) Pre-op evaluation: ?Code(s): Z01.818 - Encounter for other preprocedural examination ?Plan: She had her foot surgery rescheduled to [facility] her EGD/colonoscopy so it had to be cancelled. She is ready to go forward now. New presentation, severe GERD and diarrhea with eating whole milk, eggs but tolerates yogurt and cottage cheese. Will get HP stool and RAST panel. She is s/p cholecystectomy.? It also possible she has an element of bile gastritis/GERD at play here since that do not seem to be any severe esophageal or hiatal hernia is from her upper GI study. She does better on famotidine 40mg but still has breakthrough so will increase to bid. There are no prior problems with anesthesia or sedation.? She has a bundle branch block but no other severe cardiac pathology and her asthma is well controlled. There are no infectious disease problems.? She has a sister who had colon polyps removed. ROV 4 weeks. And after EGD/colonoscopy ordered today (2) GERD (gastroesophageal reflux disease): ?Code(s): K21.9 - Gastro-esophageal reflux disease without esophagitis (3) Diarrhea: ?Code(s): R19.7 - Diarrhea, unspecified ? ? ? Orders: Orders H pylori Ag StoolA Today K21.9 - Gastro-eso phageal reflux dis ease without esoph agitis ? Rast Allergen Today R19.7 - Diarrhea, unspecified ? Medications: Changed From famotidine (Pepcid ) 40 mg? PO BEDTIME 30 tabs 6RF K21.9 - Gastro-eso phageal reflux dis ease without esoph agitis ? To famotidine (Pepcid ) 40 mg? PO BID 60 t abs 6RF K21.9 - Gastro-eso phageal reflux dis ease without esoph agitis ? Refilled famotidine (Pepcid ) 40 mg? PO BEDTIME 30 tabs 6RF K21.9 - Gastro-eso phageal reflux dis ease without esoph agitis ? Laboratory Tests 11/08/22 07:30 Stool H. pylori Ag NEG RAST PANEL SHOWS NO SIGNFICANT FOOD ALLERGIES EGD/COLONOSCOPY Not yet scheduled or obtained, order is NOT in computer, sent another scheduling note MYSELF BIOPSY TODAY'S VISIT Her bowels are moving very well and non diarrhea. Her current problem is epigastric pain/GERD. BUT she is only taking the famotidine qhs and not bid. She is set off my certain foods like Ni[place]an chop suey, many salad dressings, tomatoes, onions, coffee. She is using a nutritional supplement all shakes to help. We reviewed the testing and she does not seem to have any significant food allergies nor did she have an H pylori infection. She was on omeprazole in the past but stopped it because she say a friend go through esoph cancer and she thought the o2o was a cause. We discussed this and I educated her it is MORE likely she was under-dosed/treated for lifelong GERD. She has not heard to schedule the EGD/ colonoscopy. I will send another note - the last had to be cancelled r/t her foot surgery. ROV 4 weeks. [facility] Medical History Asthma Carpal tunnel syndrome Coronary artery disease Encounter for testing for latent tuberculosis infection GERD (gastroesophageal reflux disease) History of COVID-19 History of seizures Hypercholesteremia Hypertension Impaired glucose tolerance Kidney stones Obesity (BMI 30-39.9) Restless leg syndrome Urinary bladder cancer (~2018) Vitamin D deficiency Surgical History Groin mass H/O colonoscopy History of cardiac cath History of cholecystectomy (~1998) History of elbow surgery History of surgery on right wrist (~1996) History of tonsillectomy History of transurethral destruction of bladder lesion History of vaginal hysterectomy (~1992) Hx of foot surgery Neck mass Family History Father Cerebrovascular disease Lung cancer Rheumatoid arthritis Mother Cerebrovascular disease Diabetes Hypertension Paternal Uncle Lung cancer Colon cancer Sister Cervical cancer Breast cancer Multiple sclerosis Maternal Grandmother Breast cancer Maternal Aunt Breast cancer Sister Psoriasis Social History Housing: Apartment Alcohol intake: never Patient Tobacco Use Status: Current everyday Tobacco user Tobacco use type: Cigarette Cigarettes Per Day: 2 Years Smoked: onset 19yo, 1-2ppd x 42yrs, now 1/4ppd - 50pyh e-Cigarette/Vaping Use: Currently Using Second Hand Smoke Exposure: Yes Substance Use Type: Marijuana service: No Current occupational status: employed 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 Current occupational exposures/hazards: No Cognitive needs: No Hearing needs: No Vision needs: No Review of Systems Const Denies fatigue, Denies fever(s), Denies night sweats, Denies poor appetite and Denies weight loss ENT Reports Normal hearing present, Denies dental pain, Denies dysphagia, Denies hearing loss, Denies mouth pain, Denies odynophagia, Denies throat swelling, Denies tongue swelling and Reports other (Dentition adequate) Card Reports no additional complaints Resp Reports no additional complaints GI Reports abdominal pain, Denies melena, Denies bloating, Denies hematochezia, Denies constipation, Denies GI cramping, Denies dysphagia, Denies excessive flatus, Denies early satiety, Reports heartburn, Denies diarrhea, Denies nausea, Denies odynophagia, Denies vomiting and Denies hematemesis Skin/Breast Denies pruritus, Denies lesions, Denies rash and Denies jaundice Neuro Reports Normal hearing present and Denies Abnormal speech present Endo Denies fatigue Aller/Immun Denies throat swelling and Denies tongue swelling Physical Exam Vital Signs: Last Vital Signs Pulse 61 12/20/22 09:52 BP 138/63 12/20/22 09:52 BMI result Body Mass Index 31.9 Const General: cooperative, no acute distress, well developed and well groomed Nutritional Appearance: well nourished and overweight Orientation/consciousness: oriented to person, oriented to place and oriented to time Limitations: No language barrier HEENT Head: Yes normocephalic and Yes atraumatic Eyes General: appearance normal, both eyes and all related structures Pupils: Equal, round and reactive pupils present Neck Neck: Yes normal visual inspection and Yes no lymphadenopathy Thyroid: Thyroid normal Resp Effort & Inspection: normal respiratory effort and able to speak in complete sentences Auscultation: clear to auscultation bilaterally Cardio Rate: regular rate Rhythm: regular rhythm Heart sounds: Normal, physiologic split S2 sound present Peripheral pulses: radial pulses present and posterior tibial pulses present GI Inspection: No distended, No Abdominal panniculus present and Yes obesity Palpation (GI): Soft to palpation, nontender, no guarding, not rigid and No hepatosplenomegaly present Percussion: Yes normal to percussion Auscultation: normal bowel sounds Rectal Exam - Female: deferred Skin General skin exam: no rashes or lesions noted, turgor normal, skin not dry, no jaundice, No spider nevi and no striae Rashes: no rashes Nails: normal Neuro General: oriented to person, oriented to place and oriented to time Cranial nerves: Yes Equal, round and reactive pupils present and Yes Normal hearing present Speech: No Abnormal speech present Extrem General: Yes normal to inspection, No clubbing, No cyanosis and No edema Psych Appearance: grossly normal and well kempt Mental Status: mental status grossly normal Speech and movement: Normal speech and movement present Affect: normal affect Attitude: cooperative Thought process: Normal thought process present and not confabulating Thought content: Normal thought content present Insight: Fair insight present (Psych) Judgement: Fair judgement present (Psych) Assessment & Plan Assessment & Plan (1) Diarrhea: Code(s): R19.7 - Diarrhea, unspecified Plan: EGD/COLONOSCOPY Not yet scheduled or obtained, order is NOT in computer, sent another scheduling note MYSELF BIOPSY TODAY'S VISIT Her bowels are moving very well and non diarrhea. Her current problem is epigastric pain/GERD. BUT she is only taking the famotidine qhs and not bid. She is set off my certain foods like Niuean chop suey, many salad dressings, tomatoes, onions, coffee. She is using a nutritional supplement all shakes to help. We reviewed the testing and she does not seem to have any significant food allergies nor did she have an H pylori infection. She was on omeprazole in the past but stopped it because she say a friend go through esoph cancer and she thought the o2o was a cause. We discussed this and I educated her it is MORE likely she was under-dosed/treated for lifelong GERD. She has not heard to schedule the EGD/ colonoscopy. I will send another note - the last had to be cancelled r/t her foot surgery. ROV 4 weeks. (2) GERD (gastroesophageal reflux disease): Code(s): K21.9 - Gastro-esophageal reflux disease without esophagitis Qualifiers: Esophagitis presence: without esophagitis Qualified Code(s): K21.9 - Gastro-esophageal reflux disease without esophagitis (3) Dysuria: Code(s): R30.0 - Dysuria Orders: Orders UA CC w/rflx Micro + Cult Today R30.0 - Dysuria Medications: Refilled famotidine (Pepcid) 40 mg PO BID 60 tabs 6RF K21.9 - Gastro-esophageal reflux disease without esophagitis Quality Reporting (2019) Adult ([facility] 138/07/25/68) Smoking risk assessment performed?: Yes Patient Tobacco Use Status: Current everyday Tobacco user Coding Level of Care Code Est Pt Level 3 (60969) Diagnoses Diarrhea R19.7 GERD (gastroesophageal reflux disease) K21.9 Esophagitis presence: without esophagitis Dysuria R30.0
== END 2022-12-20 10:22 | disposition home or self-care (01) ==
PROVIDERS: PCP Internal Medicine; Visit Provider Nurse Practitioner
DX: R19.7 Diarrhea, unspecified (principal); K21.9 Gastro-esophageal reflux disease without esophagitis; R30.0 Dysuria
CPT/HCPCS: 99213

== ENCOUNTER → 2022-12-20 09:48 | Outpatient (BNVA) | payer OTHER, SELFPAY | PROVIDERS: PCP Internal Medicine; Visit Provider Nurse Practitioner | DX: K21.9 Gastro-esophageal reflux disease without esophagitis (principal); R30.0 Dysuria; Z79.899 Other long term (current) drug therapy | CPT/HCPCS: 99212 ==

== ENCOUNTER 2023-01-14 15:27 | Outpatient (AMB) | payer OTHER, SELFPAY ==
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
[2023-01-14 15:32] VITALS: PULSE 81; O2SAT 97; BMI 31.9
== END 2023-01-14 15:51 | disposition home or self-care (01) ==
PROVIDERS: PCP Internal Medicine; Visit Provider Hospitalist
DX: R06.00 Dyspnea, unspecified (principal); K21.9 Gastro-esophageal reflux disease without esophagitis; J45.40 Moderate persistent asthma, uncomplicated; Z72.0 Tobacco use; R91.8 Other nonspecific abnormal finding of lung field
CPT/HCPCS: 99214

== ENCOUNTER → 2023-01-14 15:27 | Outpatient (BNVA) | payer OTHER, SELFPAY | PROVIDERS: PCP Internal Medicine; Visit Provider Hospitalist | DX: J45.40 Moderate persistent asthma, uncomplicated (principal); R06.00 Dyspnea, unspecified; R91.8 Other nonspecific abnormal finding of lung field; U07.0 Vaping-related disorder; Z72.0 Tobacco use | CPT/HCPCS: 99212 ==

== ENCOUNTER 2023-01-17 08:53 | Outpatient (AMB) | payer OTHER, SELFPAY ==
--- NOTE | 2023-01-17 09:06 | A.OFFVIS_ITS ---
Intake Vital Signs 01/17/23 09:07 Height 5 ft 4 in Weight 187 lb 6.287 oz BMI 32.2 BP 118/61 Blood Pressure Location Lt brachial Position Sitting Pulse 56 Intake Visit Reasons: 1 month follow up Intake Note: Ivy presents in the office as a 1 month follow up. CC: She states that she is not having any concerns today that are related to GI. 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 Allergies atorvastatin [Lipitor] Allergy (Intermediate, Verified 01/17/23 09:09) joint pain/stiffness ciprofloxacin [From Cipro] Allergy (Intermediate, Verified 01/17/23 09:09) H/A NAUSEA HIVES pravastatin [From PRAVACHOL] Allergy (Intermediate, Verified 01/17/23 09:09) joint pain/stiffness simvastatin [SIMVASTATIN] Allergy (Intermediate, Verified 01/17/23 09:09) joint pain/stiffness Sulfa (Sulfonamide Antibiotics) Allergy (Intermediate, Verified 01/17/23 09:09) HIVES codeine [Codeine] Adverse Reaction (Intermediate, Verified 01/17/23 09:09) headache/palpitations trimethoprim Adverse Reaction (Intermediate, Verified 01/17/23 09:09) Rash HPI 1 month follow up HPI Details Assessment & Plan (1) Diarrhea: ?Code(s): R19.7 - Diarrhea, unspecified ?Plan: EGD/COLONOSCOPY Not yet scheduled or obtained, order is NOT in computer, sent another scheduling note MYSELF BIOPSY TODAY'S VISIT Her bowels are moving very well and non diarrhea. Her current problem is epigastric pain/GERD. BUT she is only taking the famotidine qhs and not bid. She is set off my certain foods like [place] chop suey, many salad dressings, tomatoes, onions, coffee. She is using a nutritional supplement all shakes to help. We reviewed the testing and she does not seem to have any significant food allergies nor did she have an H pylori infection. She was on omeprazole in the past but stopped it because she say a friend go through esoph cancer and she thought the o2o was a cause. We discussed this and I educated her it is MORE likely she was under-dosed/treated for lifelong GERD. She has not heard to schedule the EGD/ colonoscopy. I will send another note - the last had to be cancelled r/t her foot surgery. ROV 4 weeks. (2) GERD (gastroesophageal reflux disease): ?Code(s): K21.9 - Gastro-esophageal reflux disease without esophagitis ?Qualifiers: ?Esophagitis presence:?without esophagitis? Qualified Code(s):?K21.9 - Gastro-esophageal reflux disease without esophagitis (3) Dysuria: ?Code(s): R30.0 - Dysuria ? ? ? Orders: Orders UA CC w/rflx Micro + Cult Today R30.0 - Dysuria ? Medications: Refilled famotidine (Pepcid ) 40 mg? PO BID 60 t abs 6RF K21.9 - Gastro-eso phageal reflux dis ease without esoph agitis ? LABS:UA was not obtained * EGD/COLONOSCOPY Not yet scheduled or obtained, order is NOT in computer BIOPSY TODAY'S VISIT She says she is feeling GREAT taking the famotidine bid. She was even able to eat home made new zealander chop suey w/o HB. She has not yet heard for the EGD/colonoscopy scheduling - but we only ordered it 4 weeks ago. She will be going for surgery on her left thumb soon, she caught it in a door and it was broken. ROV 6 mos and after EGD/colonoscopy [facility] Medical History Asthma Carpal tunnel syndrome Coronary artery disease Encounter for testing for latent tuberculosis infection GERD (gastroesophageal reflux disease) History of COVID-19 History of seizures Hypercholesteremia Hypertension Impaired glucose tolerance Kidney stones Obesity (BMI 30-39.9) Pulmonary nodules Restless leg syndrome Urinary bladder cancer (~2018) Vitamin D deficiency Surgical History Groin mass H/O colonoscopy History of cardiac cath History of cholecystectomy (~1998) History of elbow surgery History of surgery on right wrist (~1996) History of tonsillectomy History of transurethral destruction of bladder lesion History of vaginal hysterectomy (~1992) Hx of foot surgery Neck mass Family History Father Cerebrovascular disease Lung cancer Rheumatoid arthritis Mother Cerebrovascular disease Diabetes Hypertension Paternal Uncle Lung cancer Colon cancer Sister Cervical cancer Breast cancer Multiple sclerosis Maternal Grandmother Breast cancer Maternal Aunt Breast cancer Sister Psoriasis Social History Housing: Apartment Alcohol intake: never Patient Tobacco Use Status: Current everyday Tobacco user Tobacco use type: Cigarette Cigarettes Per Day: 2 Years Smoked: onset 19yo, 1-2ppd x 42yrs, now 1/4ppd - 50pyh e-Cigarette/Vaping Use: Currently Using Second Hand Smoke Exposure: Yes Substance Use Type: Marijuana service: No Current occupational status: employed 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 Current occupational exposures/hazards: No Cognitive needs: No Hearing needs: No Vision needs: No Review of Systems Const Denies fatigue, Denies fever(s), Denies night sweats, Denies poor appetite and Denies weight loss ENT Reports Normal hearing present, Denies dental pain, Denies dysphagia, Denies hearing loss, Denies mouth pain, Denies odynophagia, Denies throat swelling, Denies tongue swelling and Reports other (Dentition adequate) Card Reports no additional complaints Resp Reports no additional complaints GI Denies abdominal pain, Denies melena, Denies bloating, Denies hematochezia, Denies constipation, Denies GI cramping, Denies dysphagia, Denies excessive flatus, Denies early satiety, Reports heartburn, Denies diarrhea, Denies nausea, Denies odynophagia, Denies vomiting and Denies hematemesis Skin/Breast Denies pruritus, Denies lesions, Denies rash and Denies jaundice Neuro Reports Normal hearing present and Denies Abnormal speech present Endo Denies fatigue Aller/Immun Denies throat swelling and Denies tongue swelling Physical Exam Vital Signs: Last Vital Signs Pulse 56 01/17/23 09:07 BP 118/61 01/17/23 09:07 BMI result Body Mass Index 32.2 Const General: cooperative, no acute distress, well developed and well groomed Nutritional Appearance: well nourished and obese Orientation/consciousness: oriented to person, oriented to place and oriented to time Limitations: No language barrier HEENT Head: Yes normocephalic and Yes atraumatic Eyes General: appearance normal, both eyes and all related structures Pupils: Equal, round and reactive pupils present Neck Neck: Yes normal visual inspection and Yes no lymphadenopathy Thyroid: Thyroid normal Resp Effort & Inspection: normal respiratory effort and able to speak in complete sentences Auscultation: clear to auscultation bilaterally Cardio Rate: regular rate Rhythm: regular rhythm Heart sounds: Normal, physiologic split S2 sound present Peripheral pulses: radial pulses present and posterior tibial pulses present GI Inspection: No distended, Yes Abdominal panniculus present and Yes obesity Palpation (GI): Soft to palpation, nontender, no guarding, not rigid and No hepatosplenomegaly present Percussion: Yes normal to percussion Auscultation: normal bowel sounds Rectal Exam - Female: deferred Skin General skin exam: no rashes or lesions noted, turgor normal, skin not dry, no jaundice, No spider nevi and no striae Rashes: no rashes Nails: normal Neuro General: oriented to person, oriented to place and oriented to time Cranial nerves: Yes Equal, round and reactive pupils present and Yes Normal hearing present Speech: No Abnormal speech present Extrem General: Yes normal to inspection, No clubbing, No cyanosis and No edema Psych Appearance: grossly normal and well kempt Mental Status: mental status grossly normal Speech and movement: Normal speech and movement present Affect: normal affect Attitude: cooperative Thought process: Normal thought process present and not confabulating Thought content: Normal thought content present Insight: Fair insight present (Psych) Judgement: Fair judgement present (Psych) Assessment & Plan Assessment & Plan (1) GERD (gastroesophageal reflux disease): Code(s): K21.9 - Gastro-esophageal reflux disease without esophagitis Qualifiers: Esophagitis presence: without esophagitis Qualified Code(s): K21.9 - Gastro-esophageal reflux disease without esophagitis Plan: * EGD/COLONOSCOPY Not yet scheduled or obtained, order is NOT in computer BIOPSY TODAY'S VISIT She says she is feeling GREAT taking the famotidine bid. She was even able to eat home made new zealander chop suey w/o HB. She has not yet heard for the EGD/colonoscopy scheduling - but we only ordered it 4 weeks ago. She will be going for surgery on her left thumb soon, she caught it in a door and it was broken. ROV 6 mos and after EGD/colonoscopy (2) Family history of polyps in the colon: Code(s): Z83.71 - Family history of colonic polyps Medications: Refilled famotidine (Pepcid) 40 mg PO BID 60 tabs 6RF K21.9 - Gastro-esophageal reflux disease without esophagitis Quality Reporting (2019) Adult ([facility] 138/07/25/68) Smoking risk assessment performed?: Yes Patient Tobacco Use Status: Current everyday Tobacco user Coding Level of Care Code Est Pt Level 3 (39679) Diagnoses GERD (gastroesophageal reflux disease) K21.9 Esophagitis presence: without esophagitis Family history of polyps in the colon Z83.71
[2023-01-17 09:07] VITALS: BP 118/61; PULSE 56; BMI 32.2
== END 2023-01-17 09:30 | disposition home or self-care (01) ==
PROVIDERS: PCP Internal Medicine; Visit Provider Nurse Practitioner
DX: K21.9 Gastro-esophageal reflux disease without esophagitis (principal); Z83.71 Family history of colonic polyps
CPT/HCPCS: 99213

== ENCOUNTER → 2023-01-17 08:53 | Outpatient (BNVA) | payer OTHER, SELFPAY | PROVIDERS: PCP Internal Medicine; Visit Provider Nurse Practitioner | DX: K21.9 Gastro-esophageal reflux disease without esophagitis (principal); Z83.71 Family history of colonic polyps | CPT/HCPCS: 99212 ==

== ENCOUNTER 2023-06-10 15:34 | Outpatient (AMB) | payer OTHER, SELFPAY ==
[2023-06-10 15:39] VITALS: BP 110/60; PULSE 76; BMI 32.8
--- NOTE | 2023-06-10 15:39 | A.OFFVIS_ITS ---
Intake Vital Signs 06/10/23 15:39 Height 5 ft 4 in Weight 190 lb 14.725 oz BMI 32.8 BP 110/60 Blood Pressure Location Lt brachial Position Sitting Pulse 76 Intake Visit Reasons: 3 month follow up Intake Note: 3 mnth f/up pt its feeling foine with some shortness of breath. 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 Accompanied by: Self / Same As Patient Allergies atorvastatin [Lipitor] Allergy (Intermediate, Verified 01/17/23 09:09) joint pain/stiffness ciprofloxacin [From Cipro] Allergy (Intermediate, Verified 01/17/23 09:09) H/A NAUSEA HIVES pravastatin [From PRAVACHOL] Allergy (Intermediate, Verified 01/17/23 09:09) joint pain/stiffness simvastatin [SIMVASTATIN] Allergy (Intermediate, Verified 01/17/23 09:09) joint pain/stiffness Sulfa (Sulfonamide Antibiotics) Allergy (Intermediate, Verified 01/17/23 09:09) HIVES codeine [Codeine] Adverse Reaction (Intermediate, Verified 01/17/23 09:09) headache/palpitations trimethoprim Adverse Reaction (Intermediate, Verified 01/17/23 09:09) Rash Medication List - Last Reconciled 06/10/23 by Steven Solorzano MD acetaminophen (Tylenol) 325 mg PO QID PRN cyclobenzaprine 10 mg PO TID PRN 90 days diclofenac sodium 1% 4 grams topical QID famotidine (Pepcid) 40 mg PO BID metoprolol succinate ER 25 mg PO DAILY rosuvastatin 40 mg PO DAILY 30 days HPI HPI Comments History of Present Illness Details 62-year-old female here for follow-up. She has background of bladder cancer. She was in [place] till July 2019. While in [place] she was diagnosed with left bundle-branch block. She also underwent stress testing as well as cardiac catheterization. She does not know the exact details. We do not have records available. She is coming because she has been experiencing exertional chest tightness. She describes a pressure-like feeling in her chest whenever she exerts herself. She said she was shoveling snow after the storm recently and had same symptoms. Her symptoms are quite consistent. She has history of bronchitis. She is a smoker. She is on aspirin. No recent vaginal bleeding. After discussion she was taken for cardiac catheterization. Cardiac catheterization showed no significant coronary disease. Her filling pressures were normal. She did fine after that and now returns for follow-up today. Unfortunately her grandson and she was in [place] with his end of life discussion. She said the day she had chest pain jaw pain upper back pain as well as tingling and numbness in her hands. She said she went into a different room and a regulated her breathing and the symptoms went away. She has not had any further symptoms since then. She is saying with activities she does not get any symptoms. As mentioned she had previous cardiac catheterization which did not show any coronary disease. She has chronic left bundle-branch block with normal LV function. 06/10/2023: She returns for follow-up. Of f and on she gets chest discomfort at rest. She is saying she is under lot of stress. One of her friends is dying and is on hospice at this point. She describes tight feeling on the right side of the chest which happens at rest and lasts for few minutes and goes away as she relaxes with breathing exercises. No other issues currently. She is undergoing left thumb surgery. [facility] Medical History Asthma Carpal tunnel syndrome Coronary artery disease Encounter for testing for latent tuberculosis infection GERD (gastroesophageal reflux disease) History of COVID-19 History of seizures Hypercholesteremia Hypertension Impaired glucose tolerance Kidney stones Obesity (BMI 30-39.9) Pulmonary nodules Restless leg syndrome Urinary bladder cancer (~2018) Vitamin D deficiency Surgical History Groin mass H/O colonoscopy History of cardiac cath History of cholecystectomy (~1998) History of elbow surgery History of surgery on right wrist (~1996) History of tonsillectomy History of transurethral destruction of bladder lesion History of vaginal hysterectomy (~1992) Hx of foot surgery Neck mass Family History Father Cerebrovascular disease Lung cancer Rheumatoid arthritis Mother Cerebrovascular disease Diabetes Hypertension Paternal Uncle Lung cancer Colon cancer Sister Cervical cancer Breast cancer Multiple sclerosis Maternal Grandmother Breast cancer Maternal Aunt Breast cancer Sister Psoriasis Social History Housing: Apartment Alcohol intake: never Comment: cardiac prophylactic Patient Tobacco Use Status: Current everyday Tobacco user Tobacco use type: Cigarette Cigarettes Per Day: 2 Years Smoked: onset 19yo, 1-2ppd x 42yrs, now 1/4ppd - 50pyh e-Cigarette/Vaping Use: Currently Using Second Hand Smoke Exposure: Yes Substance Use Type: Marijuana service: No Current occupational status: employed 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 NECK/THYROID: no carotid bruit, no jugular venous distention. SKIN: no suspicious lesions, warm and dry. HEART: no murmurs, regular rate and rhythm, S1, S2 normal. LUNGS: clear to auscultation bilaterally. ABDOMEN: normal, bowel sounds present, soft, nontender, nondistended. EXTREMITIES: no clubbing, cyanosis, or edema. PERIPHERAL PULSES: equal. NEUROLOGIC: nonfocal, alert and oriented. PSYCH: mood/affect full range. Office Procedures EKG Details: Sinus rhythm 76 beats per minute, left bundle-branch block, QTC 477 milliseconds. [id number], Complete Assessment & Plan Assessment & Plan (1) Hypertension: Code(s): I10 - Essential (primary) hypertension Qualifiers: Hypertension type: essential hypertension Qualified Code(s): I10 - Essential (primary) hypertension Plan Pleasant 62 year female who is here for follow-up. She is background of hypertension. Blood pressure is well controlled. She also has left bundle-branch block. Previously had normal LVEF and also underwent cardiac catheterization in June 2020 for chest discomfort where no coronary disease was noted. Continues to get off and on chest discomfort at rest mostly when she is agitated and stressed. This is related to stress and anxiety. No further workup is required right now. She is low to intermediate risk for perioperative cardiovascular complications. Thank you for allowing me to participate in the care of your patient. Please feel free to contact me if you have any questions. Quality Reporting (2019) Adult ([facility] 138/07/25/68) Smoking risk assessment performed?: Yes Patient Tobacco Use Status: Current everyday Tobacco user Coding Level of Care Code Est Pt Level 4 (60335) Diagnoses Essential hypertension I10 Hypertension type: essential hypertension CPT Codes EKG - CPT: [id number], Complete ([id number])
== END 2023-06-10 16:09 | disposition home or self-care (01) ==
PROVIDERS: PCP Internal Medicine; Visit Provider Internal Medicine Cardiovascular Disease
DX: I10 Essential (primary) hypertension (principal)
CPT/HCPCS: 93010; 99214

== ENCOUNTER → 2023-06-10 15:34 | Outpatient (BNVA) | payer OTHER, SELFPAY | PROVIDERS: PCP Internal Medicine; Visit Provider Internal Medicine Cardiovascular Disease | DX: I10 Essential (primary) hypertension (principal) | CPT/HCPCS: 93005; 99212 ==

== ENCOUNTER 2023-06-19 07:34 | Outpatient (REF) | payer OTHER, SELFPAY ==
[2023-06-19 07:48] LABS: MANUAL DIFF FLAG NO
[2023-06-19 08:17] LABS: Basophils Absolute Auto 0.1 X10*3/uL (0.0-0.2); Basophils Percent Auto 0.8 % (0-2); Eosinophils Absolute Auto 0.2 X10*3/uL (0.0-0.4); Eosinophils Percent Auto 2.8 % (0-4); Hematocrit 38.3 % (37.0-47.0); Hemoglobin 12.5 g/dl (12.0-16.0); Imm Gran Abs Auto 0.01 X10*3/uL (0.00-0.03); Imm Gran Pct Auto 0.2 % (0.0-0.4); Lymphocytes Percent Auto 45.6 % (20-40); Mean Corpuscular HGB Conc 32.6 g/dl (31.0-35.0); Mean Corpuscular Hemoglobin 30.3 pg (27.0-33.0); Mean Corpuscular Volume 92.7 fL (80.0-98.0); Mean Platelet Volume 9.1 fL (9.4-12.3); Monocytes Absolute Auto 0.5 X10*3/uL (0.1-1.2); Monocytes Percent Auto 7.7 % (2-11); Neutrophils Absolute Auto 2.8 x10*3/uL (2.0-8.3); Neutrophils Percent Auto 42.9 % (45-73); Platelet Count 293 X10*3/uL (160-400); Red Blood Count 4.13 X10*6/uL (4.20-5.50); Red Cell Distribution Width 14.6 % (11.0-16.0); White Blood Count 6.5 X10*3/uL (4.8-10.8)
[2023-06-19 08:32] LABS: Alanine Aminotransferase 15 U/L (0-31); Alkaline Phosphatase 34 U/L (39-117); Anion Gap 11 (12-20); Aspartate Amino Transferase 15 U/L (5-31); Bilirubin Total 0.3 mg/dL (0.0-1.0); Blood Urea Nitrogen 14 mg/dL (9-16); Calcium 9.3 mg/dL (8.4-10.2); Carbon Dioxide 28 mmol/L (22-29); Chloride 106 mmol/L (96-108); Cholesterol 158 mg/dL (<200); Estimated Glomerular Filt Rate > 60; Glucose Random 95 mg/dL (60-115); HDL Cholesterol 51 mg/dL (>40); LDL Cholesterol Calculated 86 mg/dL (<100); Potassium 4.1 mmol/L (3.3-5.1); Sodium 141 mmol/L (135-145); Total Protein 6.6 g/dL (6.5-8.0); Triglycerides 109 mg/dL (<150)
== END 2023-06-19 07:35 | disposition home or self-care (01) ==
LOC: HO.LAB 07:34
PROVIDERS: PCP Internal Medicine; Visit Provider Internal Medicine
DX: E78.00 Pure hypercholesterolemia, unspecified (principal); F17.210 Nicotine dependence, cigarettes, uncomplicated
CPT/HCPCS: 36415; 80053; 80061; 85025

== ENCOUNTER 2023-06-21 14:34 | Outpatient (AMB) | payer OTHER, SELFPAY ==
--- NOTE | 2023-06-21 14:36 | MHC.PC.OV ---
Vital Signs 06/21/23 14:40 Height 5 ft 4 in Weight 190 lb 4 oz BMI 32.7 BP 138/80 Blood Pressure Location Lt brachial Position Sitting Pulse 67 Pulse Source Pulse Oximeter Pulse Oximetry (%) 99 Oxygen Delivery Method Room Air Intake Visit Reasons: cholesterol , CAD Fabrication Specialist Required: No Accompanied by: Self / Same As Patient Allergies atorvastatin [Lipitor] Allergy (Intermediate, Verified 06/21/23 14:47) joint pain/stiffness ciprofloxacin [From Cipro] Allergy (Intermediate, Verified 06/21/23 14:47) H/A NAUSEA HIVES pravastatin [From PRAVACHOL] Allergy (Intermediate, Verified 06/21/23 14:47) joint pain/stiffness simvastatin [SIMVASTATIN] Allergy (Intermediate, Verified 06/21/23 14:47) joint pain/stiffness Sulfa (Sulfonamide Antibiotics) Allergy (Intermediate, Verified 06/21/23 14:47) HIVES codeine [Codeine] Adverse Reaction (Intermediate, Verified 06/21/23 14:47) headache/palpitations trimethoprim Adverse Reaction (Intermediate, Verified 06/21/23 14:47) Rash Medication List - Last Reconciled 06/21/23 by Mary Ellington MD acetaminophen (Tylenol) 325 mg PO QID PRN cyclobenzaprine 10 mg PO TID PRN 90 days diclofenac sodium 1% 4 grams topical QID famotidine (Pepcid) 40 mg PO BID metoprolol succinate ER 25 mg PO DAILY rosuvastatin 40 mg PO DAILY 30 days Tobacco use date assessed: 06/21/23 Dental Screening Dental Screen Date: 06/21/23 Did you have a dental visit in the last 12 months?: Yes Did you have a dental problem in the last 6 months where you did not have access to dental care?: No Was dental information given to patient?: Patient has dentist HPI cholesterol , CAD HPI Details 62-year-old obese female smoker with a history of urinary bladder cancer impaired glucose tolerance hypertension hypercholesterolemia GERD last seen in November 2022. Review of the notes in June 2023 had left thumb MCP joint arthritis, left thumb basilar joint arthritis had surgery done left MCP joint fusion, left trapeziectomy with [facility] arthroplasty on 06/13/2023 doctor Cisneros. Patient also saw Cardiology on follow-up in June as she has been having exertional chest pain cardiac catheterization June 2020 no significant coronary artery disease patient's grandson chronic left bundle branch block.. Patient also has seen the Gastroenterology planned EGD on famotidine. Patient also follows up with Pulmonary January [address] was done in June 2022. Continue with Symbicort and stop smoking. L wrist on a cast. EGD postponed declined colon test. [facility] Medical History Asthma Carpal tunnel syndrome Coronary artery disease Encounter for testing for latent tuberculosis infection GERD (gastroesophageal reflux disease) History of COVID-19 History of seizures Hypercholesteremia Hypertension Impaired glucose tolerance Kidney stones Obesity (BMI 30-39.9) Pulmonary nodules Restless leg syndrome Urinary bladder cancer (~2018) Vitamin D deficiency Surgical History Hx of foot surgery H/O colonoscopy History of transurethral destruction of bladder lesion History of cardiac cath History of surgery on right wrist (~1996) History of tonsillectomy History of elbow surgery History of cholecystectomy (~1998) History of vaginal hysterectomy (~1992) Groin mass Neck mass Family History Father Cerebrovascular disease Lung cancer Rheumatoid arthritis Mother Cerebrovascular disease Diabetes Hypertension Paternal Uncle Lung cancer Colon cancer Sister Cervical cancer Breast cancer Multiple sclerosis Maternal Grandmother Breast cancer Maternal Aunt Breast cancer Sister Psoriasis Social History Housing: Apartment Alcohol intake: never Comment: cardiac prophylactic Patient Tobacco Use Status: Current everyday Tobacco user Tobacco use type: Cigarette Cigarettes Per Day: 2 Years Smoked: onset 19yo, 1-2ppd x 42yrs, now 1/4ppd - 50pyh e-Cigarette/Vaping Use: Currently Using Second Hand Smoke Exposure: Yes Substance Use Type: Marijuana service: No Current occupational status: employed 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 1. Little interest or pleasure in doing things: not at all 2. Feeling down, depressed, or hopeless: not at all 3. Trouble falling or staying asleep, or sleeping too much: not at all 4. Feeling tired or having little energy: not at all 5. Poor appetite or overeating: not at all 6. Feeling bad about yourself - or that you are a failure or have let yourself or your family down: not at all 7. Trouble concentrating on things, such as reading the newspaper or watching television: not at all 8. Moving or speaking so slowly that other people could have noticed. Or the opposite - being so fidgety or restless that you have been moving around a lot more than usual: not at all 9. Thoughts that you would be better off or of hurting yourself in some way: not at all Total score: 0 Depression Screening Interpretation: Negative Depression Screening Done: Yes 57475 - PHQ-9 Billing: Yes Source: Developed by Drs. Gilmar Prabhakar, Carmen Leal, Lorenzo Deng and colleagues, with an educational wilfredo from [employer]. Thrive Questionnaire Date Thrive assessed: 06/21/23 I am a: Patient What is your living situation today?: I have a steady place to live Within the past 12 months, did the food you bought not last and you didn't have the money to get more?: Never true Within the past 12 months, did you worry whether your food would run out before you got money to buy more?: Never true Do you have trouble paying for medicines?: No Do you have trouble getting transportation to medical appointments?: No Do you have trouble paying your heating and electricity bill?: No Do you have trouble taking care of your child, family member or friend?: No Do you have trouble with day-to-day activities such as bathing, preparing meals, shopping, managing finances, etc.?: No Are you currently unemployed and looking for a job?: No Are you interested in more education?: No Please select the resources that you would like help with: None Currently or been in a relationship where the following occur: no concerns reported THRIVE Score: 0 AUDIT C Alcohol Use Questionnaire (AUDIT-C) 1. How often do you have a drink containing alcohol?: Monthly or less 2. How many drinks containing alcohol do you have on a typical day when you are drinking?: 1 or 2 3. How often do you have six or more drinks on one occasion?: Never Total Score: 1 Score Reviewed/Action Taken: No MERRILL-7 AMB Questionnaire MERRILL-7 Date MERRILL - 7 assessed: 06/21/23 Feeling nervous, anxious, or on edge: 0 = Not at all Not being able to stop or control worryin = Not at all Worrying too much about different things: 0 = Not at all Trouble relaxin = Not at all Being so restless that it is hard to sit still: 0 = Not at all Becoming easily annoyed or irritable: 0 = Not at all Feeling afraid as if something awful might happen: 0 = Not at all Total MERRILL-7 score (0-4 normal; 5-9 mild; 10-14 moderate; 15-21 severe): 0 Source: Developed by Drs. Gilmar Prabhakar, Carmen Leal, Lorenzo Deng and colleagues, with an educational wilfredo from [employer]. MERRILL-7 Assessment Billing MERRILL-7 Assessment Tool: MERRILL-7 Assessment 87231 Physical exam (Primary Care) Vital Signs: Last Vital Signs Pulse 67 06/21/23 14:40 BP 138/80 06/21/23 14:40 Pulse Ox 99 06/21/23 14:40 Oxygen Delivery Method Room Air 06/21/23 14:40 BMI result Body Mass Index 32.7 Tobacco/Smoking Status: Tobacco use Status Tobacco use date assessed 06/21/23 06/21/23 14:42 Patient Tobacco Use Status Current everyday Tobacco 06/21/23 14:36 Tobacco use type Cigarette 06/21/23 14:36 e-Cigarette/Vaping Use Currently Using 06/21/23 14:36 PHQ-9: PHQ-9 Score PHQ-9: Total score 0 06/21/23 15:10 Depression Screening Interpretation: Negative Thrive Assessment: Date of Thrive Assessment Date Thrive assessed 06/21/23 06/21/23 14:51 Currently or been in a relationship where the following occur: no concerns reported Const General: alert; No acute distress Eyes Conjunctivae: conjunctivae normal Resp Auscultation: clear to auscultation bilaterally Cardio Rate: regular rate Rhythm: regular rhythm GI Inspection: Yes normal to inspection Extrem General: Yes normal to inspection and No edema Office Procedures Flu Questionnaire Does the patient have a severe egg allergy?: No Does the patient have severe life threatening allergies?: No Does the patient have a fever or illness today?: No Has the patient ever had Guillain-[place] Syndrome?: No Has the patient ever had any past reaction to a flu shot?: No Immunizations flu vacc [id number] 6mos up(PF) 60 mcg(15 mcgx4)/0.5 mL IM syringe Performing Provider: Mary Ellington MD Performing Location: [facility] Administered by: ANT Rojas on 06/21/23 15:24 Dose Route Admin Location Dispensed Lot Number Expiration Date NDC Server Security Administrator 0.5 mL IM Right Deltoid 0.5 mL [id number] 12/01/23 [id number] [employer] VIS Given Date VIS Provided VIS Publication Date 06/21/23 Single Vaccine 21 Eligibility Eligibility Date Funding Source Not [facility] Eligible 06/21/23 Private Assessment and Plan Assessment & Plan (1) Obesity (BMI 30-39.9): Code(s): E66.9 - Obesity, unspecified Plan: Diet and exercise (2) Asthma: Code(s): J45.909 - Unspecified asthma, uncomplicated Qualifiers: Asthma complication type: uncomplicated Asthma persistence: persistent Asthma severity: moderate Qualified Code(s): J45.40 - Moderate persistent asthma, uncomplicated Plan: Stop smoking! (3) GERD (gastroesophageal reflux disease): Code(s): K21.9 - Gastro-esophageal reflux disease without esophagitis Qualifiers: Esophagitis presence: without esophagitis Qualified Code(s): K21.9 - Gastro-esophageal reflux disease without esophagitis Plan: Avoid the foods that causes that usually spicy foods, tomato products, juices, coffee, soda and foods that your sensitive to. After eating do not lie down, allow 3-4 hours before in lie down. And keep the head of bed above 30 degrees to avoid the acid from going up. And stop smoking (4) Impaired glucose tolerance: Code(s): R73.02 - Impaired glucose tolerance (oral) Plan: Decrease the amount of carbohydrate intake, pasta, bread, rice and potatoes are all sugar and that is aside from all the sweet stuff, remember that fruits are good but they are Sweet also. (5) Hypercholesteremia: Code(s): E78.00 - Pure hypercholesterolemia, unspecified Plan: Avoid fried foods, chicken skin, eggs, butter margarine, pastries and meat. Be it pork or beef they have a lot of cholesterol LDL goal of less than 70 and triglyceride of less than 150 on rosuvastatin 40 mg once a day June 2023 86 (6) Hypertension: Code(s): I10 - Essential (primary) hypertension Qualifiers: Hypertension type: essential hypertension Qualified Code(s): I10 - Essential (primary) hypertension Plan: Continue with blood pressure medication. Decrease salt intake and exercise presently on metoprolol 25 mg once a day (7) Coronary artery disease: Code(s): I25.10 - Atherosclerotic heart disease of [place] coronary artery without angina pectoris Qualifiers: Associated angina: without angina Coronary Disease-Associated Artery/Lesion type: [place] artery [place] vs. transplanted heart: [place] heart Qualified Code(s): I25.10 - Atherosclerotic heart disease of [place] coronary artery without angina pectoris Plan: Control the cholesterol, weight, blood pressure (8) Urinary bladder cancer: Onset Date: ~2018 Comment: (Dx December [address] [place] [address] Singer - T1 high-grade with intravesical gemcitabine boost Dr. Divine Diop Gynecologic oncology [facility] 03/2020) Code(s): C67.9 - Malignant neoplasm of bladder, unspecified Qualifiers: Bladder location: unspecified site Qualified Code(s): C67.9 - Malignant neoplasm of bladder, unspecified Plan: Follow-up with urology (9) Tobacco abuse: Comment: stopped 06/2022 using vape presently (asked 08/2022) June [address]23 CT Code(s): Z72.0 - Tobacco use Plan: Strongly advised to stop smoking (10) Generalized anxiety disorder: Code(s): F41.1 - Generalized anxiety disorder Plan: Continue with counseling and therapy (11) Breast cancer screening by mammogram: Code(s): Z12.31 - Encounter for screening mammogram for malignant neoplasm of breast Orders: Orders MM tomosynthesis screening BI Today Z12.31 - Encounter for screening mammogram for malignant neoplasm of breast Influenza [id number] Immunization Today Z23 - Encounter for immunization Medications: New lorazepam 0.5 mg PO BEDTIME PRN 20 tabs 0RF anxiety 30 days F41.1 - Generalized anxiety disorder Coding Level of Care Code Est Pt Level 4 (97874) Diagnoses Obesity (BMI 30-39.9) E66.9 Moderate persistent asthma without complication J45.40 Asthma complication type: uncomplicated Asthma persistence: persistent Asthma severity: moderate Gastroesophageal reflux disease without esophagitis K21.9 Esophagitis presence: without esophagitis Impaired glucose tolerance R73.02 Hypercholesteremia E78.00 Essential hypertension I10 Hypertension type: essential hypertension Coronary artery disease involving [place] coronary artery of [place] heart without angina pectoris I25.10 Associated angina: without angina Coronary Disease-Associated Artery/Lesion type: [place] artery [place] vs. transplanted heart: [place] heart Malignant neoplasm of urinary bladder, unspecified site C67.9 Bladder location: unspecified site Tobacco abuse Z72.0 Generalized anxiety disorder F41.1 Breast cancer screening by mammogram Z12.31 Additional Codes MERRILL-7 Assessment Billing - MERRILL-7 Assessment Tool: MERRILL-7 Assessment 33974 ([id number])
[2023-06-21 14:40] VITALS: BP 138/80; PULSE 67; O2SAT 99; BMI 32.7
== END 2023-06-21 15:35 | disposition home or self-care (01) ==
PROVIDERS: PCP Internal Medicine; Visit Provider Internal Medicine
DX: J45.40 Moderate persistent asthma, uncomplicated (principal); C67.9 Malignant neoplasm of bladder, unspecified; E66.9 Obesity, unspecified; Z23 Encounter for immunization; K21.9 Gastro-esophageal reflux disease without esophagitis; R73.02 Impaired glucose tolerance (oral); E78.00 Pure hypercholesterolemia, unspecified; I10 Essential (primary) hypertension; I25.10 Atherosclerotic heart disease of native coronary artery without angina pectoris; Z72.0 Tobacco use; F41.1 Generalized anxiety disorder; Z12.31 Encounter for screening mammogram for malignant neoplasm of breast
CPT/HCPCS: 90471; 90686; 99214

== ENCOUNTER 2023-07-25 09:37 | Outpatient (REF) | payer OTHER, SELFPAY ==
--- NOTE | ~2023-07-25 | CT_ITS ---
EXAMINATION: CT CHEST LOW-DOSE SCREENING WITHOUT CONTRAST HISTORY: Asymptomatic patient meeting criteria for lung screening. PATIENT PACK-YEAR HISTORY: 40 Current Smoker: Yes If former smoker, years since quitting: COMPARISON: 06/22/2022 TECHNIQUE: Multidetector volumetric non-contrast CT imaging of the chest was performed using low dose screening CT technique. Axial thin section 0.625 mm reformations in soft tissue and lung windows were obtained. Sagittal and coronal reformations were obtained. Axial MIP images were also created and reviewed. RECONSTRUCTED WIDTH: 1.25 mm x 1.25 mm TOTAL EXAM DLP: 103 mGy-cm CTDIvol: 2.82 mGy FINDINGS: LUNGS: Mild centrilobular emphysema. No suspicious pulmonary nodule. No focal consolidation. Central airways are patent. PLEURA: No pleural effusion. LYMPH NODES: No bulky mediastinal, hilar or axillary lymphadenopathy. MEDIASTINUM: Great vessels are of normal caliber. Heart size is normal. No pericardial effusion. CORONARY ARTERY CALCIFICATIONS: Mild. CHEST WALL/BREASTS: No acute abnormality. UPPER ABDOMEN: This study was performed without contrast and with lower than standard dose, reducing the sensitivity for detection of small lesions in the upper abdomen. Small hiatal hernia. Status post cholecystectomy. OSSEOUS STRUCTURES: No destructive bone lesions. CT/CT lung screening IMPRESSION: No suspicious pulmonary nodule. LUNG-RADS CATEGORY ASSESSMENT: 2. Benign appearance or behavior. Nodules with a very low likelihood of becoming a clinically active cancer due to size or lack of growth. Continue annual screening with low-dose CT in 12 months. Probability of malignancy less than 1%. INCIDENTAL FINDINGS (S CATEGORY): Finding: No incidental findings. Significance category: Normal or normal variant. RECOMMENDATION: Low dose lung CT. overall in 1 year. Visual estimate of coronary calcified plaque burden: Mild. However, this exam cannot replace a dedicated cardiac CT calcium score for accurate assessment. LUNG-RADS CATEGORY: 2 -- BENIGN
== END 2023-07-25 09:38 | disposition home or self-care (01) ==
LOC: HO.CT 09:37
PROVIDERS: PCP Internal Medicine; Visit Provider Nurse Practitioner Family
DX: Z12.2 Encounter for screening for malignant neoplasm of respiratory organs (principal); F17.210 Nicotine dependence, cigarettes, uncomplicated
CPT/HCPCS: 71271

== ENCOUNTER 2023-07-26 10:39 | Outpatient (REF) | payer OTHER, SELFPAY | END 2023-07-26 10:40 | disposition home or self-care (01) | LOC: HO.MAMMO 10:39 | PROVIDERS: PCP Internal Medicine; Visit Provider Internal Medicine | DX: Z12.31 Encounter for screening mammogram for malignant neoplasm of breast (principal) | CPT/HCPCS: 77063; 77067 ==

== ENCOUNTER → 2023-07-26 10:45 | Outpatient (BNV) | payer OTHER, SELFPAY | PROVIDERS: PCP Internal Medicine; Visit Provider Radiology Diagnostic Radiology | DX: Z12.31 Encounter for screening mammogram for malignant neoplasm of breast (principal) | CPT/HCPCS: 77063; 77067 ==

== ENCOUNTER 2023-08-13 12:46 | Outpatient (REF) | payer OTHER, SELFPAY | END 2023-08-13 12:47 | disposition home or self-care (01) | LOC: HO.LAB 12:46 | PROVIDERS: PCP Internal Medicine; Visit Provider Urology | DX: C67.9 Malignant neoplasm of bladder, unspecified (principal) | CPT/HCPCS: 52000; 81003; 88121; 99212 ==

== ENCOUNTER 2023-08-13 12:46 | Outpatient (AMB) | payer OTHER, SELFPAY ==
--- NOTE | 2023-08-13 12:52 | A.OFFVIS_ITS ---
Intake Intake Visit Reasons: Cysto(Portal Confirmed) Intake Note: Patient is Present for Cystoscopy Urology Med: None Antibiotic Allergy: Cipro, Sulfa, Trimethroprim Blood Thinner: None Confirmed Pharmacy: [facility] Cystoscope lot: [id number] exp:10/14/2024 Allergies atorvastatin [Lipitor] Allergy (Intermediate, Verified 08/13/23 12:53) joint pain/stiffness ciprofloxacin [From Cipro] Allergy (Intermediate, Verified 08/13/23 12:53) H/A NAUSEA HIVES pravastatin [From PRAVACHOL] Allergy (Intermediate, Verified 08/13/23 12:53) joint pain/stiffness simvastatin [SIMVASTATIN] Allergy (Intermediate, Verified 08/13/23 12:53) joint pain/stiffness Sulfa (Sulfonamide Antibiotics) Allergy (Intermediate, Verified 08/13/23 12:53) HIVES codeine [Codeine] Adverse Reaction (Intermediate, Verified 08/13/23 12:53) headache/palpitations trimethoprim Adverse Reaction (Intermediate, Verified 08/13/23 12:53) Rash HPI HPI Comments History of Present Illness Details Ivy is a pleasant female. She is a patient of Dr. Ellington. She is seen for the following urologic conditions - bladder cancer - bladder spasm Check cystoscopy today Normal Twelve month follow-up Retracted urethra May benefit from topical estrogen if urgency frequency persistent Microscopic hematuria - normal CT 11/21 Bladder Cancer: T1 high-grade February 2019 - completed induction and boost treatment during [facility] Bladder cancer was initially diagnosed during evaluation for gross hematuria 02/19 - in [place] Bladder intervention(s) performed 02/19 TURBT, T1 invades subepthium, High Grade 04/21 , BCG, Induction 12/20 boost gemcitabine, 04/22 boost, 11/21 boost Recurrence Risk per EORTC High Risk. Bladder cancer risk factors Organic Solvent exposure No smoking Yes hair dye exposure No use of pioglitazone No chronic cystitis No prior chemotherapy with cyclophosphamide No family history of bladder cancer No pelvic radiation No Prior Cystoscopy 12/20 , Negative, 03/22 slight redness at resection site 03/22 NAD 07/24 some erythema, 02/21 NAD, 02/22 NAD, 08/23, 08/24 NAD Prior Cytology 12/20 , Negative for malignancy 06/23 NAD, 11/21 NAD Imaging 11/21 CT NAD Previous intravesical therapy BCG Induction, 04/21 Boost Gemcitabine 12/20, boost 04/22, 11/21 Planned treatment - surveillance cystoscopy [facility] Medical History Asthma Carpal tunnel syndrome Coronary artery disease Encounter for testing for latent tuberculosis infection GERD (gastroesophageal reflux disease) History of COVID-19 History of seizures Hypercholesteremia Hypertension Impaired glucose tolerance Kidney stones Obesity (BMI 30-39.9) Pulmonary nodules Restless leg syndrome Urinary bladder cancer (~2018) Vitamin D deficiency Surgical History Hx of foot surgery H/O colonoscopy History of transurethral destruction of bladder lesion History of cardiac cath History of surgery on right wrist (~1996) History of tonsillectomy History of elbow surgery History of cholecystectomy (~1998) History of vaginal hysterectomy (~1992) Groin mass Neck mass Family History Father Cerebrovascular disease Lung cancer Rheumatoid arthritis Mother Cerebrovascular disease Diabetes Hypertension Paternal Uncle Lung cancer Colon cancer Sister Cervical cancer Breast cancer Multiple sclerosis Maternal Grandmother Breast cancer Maternal Aunt Breast cancer Sister Psoriasis Social History Housing: Apartment Alcohol intake: never Comment: cardiac prophylactic Patient Tobacco Use Status: Current everyday Tobacco user Tobacco use type: Cigarette Cigarettes Per Day: 2 Years Smoked: onset 19yo, 1-2ppd x 42yrs, now 1/4ppd - 50pyh e-Cigarette/Vaping Use: Currently Using Second Hand Smoke Exposure: Yes Substance Use Type: Marijuana service: No Current occupational status: employed 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 Current occupational exposures/hazards: No Cognitive needs: No Hearing needs: No Vision needs: No Review of Systems Const Denies chills and Denies fever(s) Card Reports no additional complaints and Denies syncope Resp Denies cough GI Denies abdominal pain and Denies heartburn Reports as per HPI and Denies change in libido Neuro Denies syncope Psych Denies change in libido Endo Denies change in libido Physical Exam Const General: cooperative, healthy appearing, comfortable and no acute distress Orientation/consciousness: patient oriented x3 HEENT Face and sinus: Yes normal facial exam Mouth: moist mucous membranes Neck Neck: Yes normal visual inspection, Yes full ROM and Yes trachea midline Chest Chest palpation & inspection: normal inspection of the chest Resp Effort & Inspection: normal respiratory effort, able to speak in complete sentences and no respiratory distress GI Inspection: Yes normal to inspection Back/Spine/Pelvis Cervical Spine: normal cervical lordosis Thoracic/Lumbar Spine: thoracic and lumbar spine normal to inspection Skin General skin exam: no rashes or lesions noted Neuro General: patient oriented x3, gait normal, tone normal and moves all extremities Extrem General: Yes normal to inspection and Yes capillary refill normal Office Procedures Cystoscopy Consent Discussed risk and benefit or proposed procedure with the patient. Information consent for procedure given to the patient. Discussed technical aspects, risks, benefits and alternatives in full. Addressed all of the patient's questions and concerns regarding the procedure. The patient demonstrated knowledge and understanding. They wish to proceed with this procedure. Preparation The patient was prepped in the usual manner. A chip washer was present and in the room. Genitalia was prepped with betadine solution in a sterile manner. Lidocaine Jelly 2% was placed into the urethra and 16Fr flexible Olympus cystoscope was inserted into the meatus after adequate lubrication. Procedure Meatus retracted with hormonal changes Urethra normal Bladder examination with retroflexion of cystoscope Bladder Orifices normal shape and position Trigone normal Bladder Capacity normal Trabeculations - Cellule Formation - Diverticulum Formation -- Mucosal Erythema - Bladder Tumor scar site [id number] DISPOSABLE SCOPE [facility] FLEXIBLE SCOPE Procedure code (CPT) selection complete Office Meds lidocaine HCl 2 % mucosal jelly in applicator Performing Provider: Rufus Carrillo MD Performing Location: [facility] Administered by: Brittney Grady RN on 08/13/23 13:11 Dose Route Admin Location Dispensed Lot Number Expiration Date ND Singing Telegram Performer 10 mL intra-urethral 10 mL nitrofurantoin monohydrate/macrocrystals 100 mg capsule Performing Provider: Rufus Carrillo MD Performing Location: [facility] Administered by: Brittney Grady RN on 08/13/23 13:11 Dose Route Admin Location Dispensed Lot Number Expiration Date ND Singing Telegram Performer 100 mg PO 1 cap naproxen 500 mg tablet Performing Provider: Rufus Carrillo MD Performing Location: [facility] Administered by: Brittney Grady RN on 08/13/23 13:11 Dose Route Admin Location Dispensed Lot Number Expiration Date NDC Singing Telegram Performer 500 mg PO 1 tab Results AMB Urinalysis, Automated UA Leukoctes 15 Sony/uL Last Edit by SIERRA Markham on 08/13/23 13:02 UA Nitrite Negative Last Edit by SIERRA Markham on 08/13/23 13:02 UA Urobilinogen 0.2 mg/dL Last Edit by SIERRA Markham on 08/13/23 13:0 2 UA Protein 0 mg/dL Last Edit by GIGI MarkhamA on 08/13/23 13:02 UA pH 6.0 Last Edit by Nemo Alejo A on 08/13/23 13:02 UA Blood 200 Hieu/uL Last Edit by Nemo Alejo Jose on 08/13/23 13:02 UA Specific [place] 1.010 Last Edit by SIERRA Markham on 08/13/23 13: 02 UA Ketone Negative Last Edit by SIERRA Markham on 08/13/23 13:02 UA Bilirubin 0 mg/dL Last Edit by GIGI MarkhamA on 08/13/23 13:02 UA Glucose 0 mg/dL Last Edit by Nemo Alejo Jose on 08/13/23 13:02 Results Reviewed Results Reviewed: Laboratory Last Values Urine pH (Auto) 6.0 08/13/23 12:54 Specific [place] (Auto) 1.010 08/13/23 12:54 Urine Protein (Auto) 0 mg/dL 08/13/23 12:54 Glucose (UA)(Auto) 0 mg/dL 08/13/23 12:54 Urine Ketones (Auto) Negative 08/13/23 12:54 Urine Blood (Auto) 200 Hieu/uL 08/13/23 12:54 Urine Nitrite (Auto) Negative 08/13/23 12:54 Urine Bilirubin (Auto) 0 mg/dL 08/13/23 12:54 Urine Urobilinogen (Auto) 0.2 mg/dL 08/13/23 12:54 Leukocyte Esterase (Auto) 15 Sony/uL 08/13/23 12:54 Assessment & Plan Assessment & Plan (1) Urinary bladder cancer: Onset Date: ~2018 Comment: (Dx December [address] [place] [address] Singer - T1 high-grade with intravesical gemcitabine boost Dr. Divine Diop Gynecologic oncology [facility] 03/2020) Code(s): C67.9 - Malignant neoplasm of bladder, unspecified Qualifiers: Bladder location: unspecified site Qualified Code(s): C67.9 - Malignant neoplasm of bladder, unspecified Plan Twelve month follow-up Orders: Orders AMB Cystoscopy Today C67.9 - Malignant neoplasm of bladder, unspecified AMB Urinalysis Automated Today C67.9 - Malignant neoplasm of bladder, unspecified, Z13.9 - Encounter for screening, unspecified FISH Bladder Cancer Today C67.9 - Malignant neoplasm of bladder, unspecified Patient Instructions: Imaging studies, laboratory and physical exam results were discussed and reviewed in detail. No major barriers to patient understanding were identified. An opportunity to ask questions regarding the treatment plan was provided. All questions were answered. The patient expressed understanding and agreement with the above treatment plan. The patient is aware they should contact our office by phone for worsening of their current condition or the appearance of new urologic symptoms. Compliance is encouraged with any medications and followup testing that is ordered. It is a privilege to participate in the urologic care of your patient. If you have any questions or concerns regarding treatment for the above conditions, or other urologic issues, please do not hesitate to contact me. The office telephone contact is [phone]. This note is constructed using voice recognition software. While every effort has been made to ensure accuracy roller coaster designer errors may have been included. Yours sincerely, Dr Rufus Carrillo MD, [facility] - Urology Providers of Expert, Compassionate Care for the Genitourinary System Quality Reporting (2019) Adult (CMS 138/2/) Smoking risk assessment performed?: Yes Patient Tobacco Use Status: Current everyday Tobacco user Coding Level of Care Code Est Pt Level 4 (11793) Diagnoses Malignant neoplasm of urinary bladder, unspecified site C67.9 Bladder location: unspecified site CPT Codes Cystoscopy - CPT: 59398-[id number] ([id number])
== END 2023-08-13 13:32 | disposition home or self-care (01) ==
PROVIDERS: PCP Internal Medicine; Visit Provider Urology
DX: C67.9 Malignant neoplasm of bladder, unspecified (principal); N36.8 Other specified disorders of urethra; Z13.9 Encounter for screening, unspecified
CPT/HCPCS: 52000; 99213

== ENCOUNTER 2023-11-06 14:16 | Outpatient (AMB) | payer OTHER, SELFPAY ==
--- NOTE | 2023-11-06 14:31 | A.OFFVIS_ITS ---
Vital Signs 11/06/23 14:47 Height 5 ft 4 in Weight 192 lb 7.417 oz BMI 33.0 BP 112/68 Blood Pressure Location Rt brachial Position Sitting Pulse 62 Pulse Source Pulse Oximeter Pulse Oximetry (%) 96 Oxygen Delivery Method Room Air Intake Visit Reasons: OA Director Of Market Intelligence Required: No Accompanied by: Self / Same As Patient Allergies atorvastatin [Lipitor] Allergy (Intermediate, Verified 11/06/23 14:49) joint pain/stiffness ciprofloxacin [From Cipro] Allergy (Intermediate, Verified 11/06/23 14:49) H/A NAUSEA HIVES pravastatin [From PRAVACHOL] Allergy (Intermediate, Verified 11/06/23 14:49) joint pain/stiffness simvastatin [SIMVASTATIN] Allergy (Intermediate, Verified 11/06/23 14:49) joint pain/stiffness Sulfa (Sulfonamide Antibiotics) Allergy (Intermediate, Verified 11/06/23 14:49) HIVES codeine [Codeine] Adverse Reaction (Intermediate, Verified 11/06/23 14:49) headache/palpitations trimethoprim Adverse Reaction (Intermediate, Verified 11/06/23 14:49) Rash Medication List - Last Reconciled 11/06/23 by Marques Kirby MD acetaminophen (Tylenol) 325 mg PO QID PRN cyclobenzaprine 10 mg PO TID PRN 90 days diclofenac sodium 1% 4 grams topical QID famotidine (Pepcid) 40 mg PO BID lorazepam 0.5 mg PO BEDTIME PRN 30 days metoprolol succinate ER 25 mg PO DAILY rosuvastatin 40 mg PO DAILY 30 days HPI Comments Details: 63-year-old female with generalized osteoarthritis returns for follow-up. She is s/p left thumb surgery by Dr. Cisneros 06/2023. She states that she continues to have pain and limitation of range of motion of that left thumb. She states that it is in longer than she anticipated to heal. She does apply Patty gel on that thumb as well as other joints in both hands as well as her knees. 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 She states that she gets intermittent catching and locking of her right knee. It happens rarely. Her knee did not give out on her. She did not fall. Has minimal symptoms. Initial history: This is a 61-year-old female who presents for evaluation of multiple joint pains. Patient stated she started having diffuse joint pains more than 10 years ago. She states that she was told she had rheumatoid arthritis. However she does not recall ever being on DMARDs. 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 She has morning stiffness of her entire body lasting about 1 hour. She has stiffness of her hands lasting about 1 hour in the morning and she has difficulty grabbing a coffee cup. She takes ibuprofen 400 mg in the morning and Tylenol afterwards. Patient has calcific tendinitis of her right shoulder and is due to have an MRI for further evaluation. She has rotator cuff arthropathy and received cortisone injections in the past with intermittent relief. She had bilateral ulnar nerve release surgery at the elbow as well as bilateral carpal tunnel surgery. Last month she had left little toe surgery. Currently she is having left left thumb MCP a pain swelling and stiffness. She states that her hand surgeon doctor Blayne is thinking about doing surgery for that thumb. She states that she has some days where she has a flare up of 1 of her joints such as her shoulders, hands or feet. These flare-ups usually last 1 or 2 days. She denies any significant skin rashes. Her father had rheumatoid arthritis and lung cancer. Sisters have psoriasis. One has multiple sclerosis [facility] Medical History Pulmonary nodules History of COVID-19 Hypertension Vitamin D deficiency GERD (gastroesophageal reflux disease) Urinary bladder cancer (~2018) Carpal tunnel syndrome Restless leg syndrome Asthma Kidney stones History of seizures Impaired glucose tolerance Hypercholesteremia Coronary artery disease Obesity (BMI 30-39.9) Surgical History Hx of foot surgery H/O colonoscopy History of transurethral destruction of bladder lesion History of cardiac cath History of surgery on right wrist (~1996) History of tonsillectomy History of elbow surgery History of cholecystectomy (~1998) History of vaginal hysterectomy (~1992) Groin mass Neck mass Family History Father Cerebrovascular disease Lung cancer Rheumatoid arthritis Mother Cerebrovascular disease Diabetes Hypertension Paternal Uncle Lung cancer Colon cancer Sister Cervical cancer Breast cancer Multiple sclerosis Maternal Grandmother Breast cancer Maternal Aunt Breast cancer Sister Psoriasis Social History Housing: Apartment Alcohol intake: never Comment: cardiac prophylactic Patient Tobacco Use Status: Current everyday Tobacco user Tobacco use type: Cigarette Cigarettes Per Day: 2 Years Smoked: onset 19yo, 1-2ppd x 42yrs, now 1/4ppd - 50pyh e-Cigarette/Vaping Use: Currently Using Second Hand Smoke Exposure: Yes Substance Use Type: Marijuana service: No Current occupational status: employed 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 Current occupational exposures/hazards: No Cognitive needs: No Hearing needs: No Vision needs: No Review of Systems Musc Reports arthralgias, Reports limited range of motion and Reports stiffness Physical Exam Vital Signs: Last Vital Signs Pulse 62 11/06/23 14:47 BP 112/68 11/06/23 14:47 Pulse Ox 96 11/06/23 14:47 Oxygen Delivery Method Room Air 11/06/23 14:47 BMI result Body Mass Index 33.0 Const General: cooperative, healthy appearing and comfortable Nutritional Appearance: obese Orientation/consciousness: patient oriented x3 Limitations: no limitations HEENT Head: Yes normocephalic and Yes atraumatic Resp Effort & Inspection: normal respiratory effort and able to speak in complete sentences Skin Other: No psoriasis patches noted Neuro General: patient oriented x3 Extrem Other: Osteoarthritic changes of both hands. Left 1st CMC and MCP joint tenderness Limited range of motion of left thumb No synovitis in hands or wrists otherwise No knee pain with full flexion-extension Right knee crepitus Negative Bethany's test bilaterally No ankle swelling, tenderness or erythema Normal nailfold capillaroscopy Quality Reporting (2019) Adult ([facility] 138/07/25/68) Smoking risk assessment performed?: Yes Patient Tobacco Use Status: Current everyday Tobacco user Assessment & Plan Assessment & Plan (1) Generalized osteoarthritis: Code(s): M15.9 - Polyosteoarthritis, unspecified Category: Medical Plan: This is a 63-year-old female with generalized osteoarthritis who presents for follow-up. She continues to have intermittent joint aches and pains, Voltaren gel is helpful. She continues to use it. Refilled. Recently patient has been having some symptoms that are suggestive of right knee meniscal tear, negative Bethany's test on exam. Symptoms are rare & minimal. Patient will reach out if her symptoms get worse. I will consider a knee MRI Follow-up as needed Plan I spent 15 minutes reviewing patient's chart, evaluating patient, ordering diagnostic workup, counseling patient and documenting in the chart Medications: Refilled diclofenac sodium 1% 4 grams topical QID 100 grams 2RF Coding Level of Care Code Est Pt Level 3 (76383) Diagnoses Generalized osteoarthritis M15.9
[2023-11-06 14:47] VITALS: BP 112/68; PULSE 62; O2SAT 96; BMI 33.0
== END 2023-11-06 15:03 | disposition home or self-care (01) ==
PROVIDERS: PCP Internal Medicine; Visit Provider Student in an Organized Health Care Education/Training Program
DX: M15.9 Polyosteoarthritis, unspecified (principal)
CPT/HCPCS: 99213

== ENCOUNTER → 2023-11-06 14:16 | Outpatient (BNVA) | payer OTHER, SELFPAY | PROVIDERS: PCP Internal Medicine; Visit Provider Student in an Organized Health Care Education/Training Program | DX: M15.9 Polyosteoarthritis, unspecified (principal) | CPT/HCPCS: 99212 ==

== ENCOUNTER 2024-01-24 15:23 | Outpatient (AMB) | payer OTHER, SELFPAY ==
[2024-01-24 15:32] VITALS: BP 100/80; PULSE 67; O2SAT 97; BMI 33.1
--- NOTE | 2024-01-24 15:32 | MHC.PC.OV ---
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 Accompanied by: Self / Same As Patient Allergies atorvastatin [Lipitor] Allergy (Intermediate, Verified 01/24/24 15:32) joint pain/stiffness ciprofloxacin [From Cipro] Allergy (Intermediate, Verified 01/24/24 15:32) H/A NAUSEA HIVES pravastatin [From PRAVACHOL] Allergy (Intermediate, Verified 01/24/24 15:32) joint pain/stiffness simvastatin [SIMVASTATIN] Allergy (Intermediate, Verified 01/24/24 15:32) joint pain/stiffness Sulfa (Sulfonamide Antibiotics) Allergy (Intermediate, Verified 01/24/24 15:32) HIVES codeine [Codeine] Adverse Reaction (Intermediate, Verified 01/24/24 15:32) headache/palpitations trimethoprim Adverse Reaction (Intermediate, Verified 01/24/24 15:32) Rash Medication List - Last Reconciled 01/24/24 by Mary Ellington MD acetaminophen (Tylenol) 325 mg PO QID PRN cyclobenzaprine 10 mg PO TID PRN 90 days diclofenac sodium 1% 4 grams topical QID famotidine (Pepcid) 40 mg PO BID lorazepam 0.5 mg PO BEDTIME PRN 30 days metoprolol succinate ER 25 mg PO DAILY rosuvastatin 40 mg PO DAILY 30 days Tobacco use date assessed: 01/24/24 Dental Screening Dental Screen Date: 01/24/24 Did you have a dental visit in the last 12 months?: Yes Did you have a dental problem in the last 6 months where you did not have access to dental care?: No Was dental information given to patient?: Patient has dentist HPI Hypertension HPI Details 63-year-old obese female smoker with a history of asthma GERD impaired glucose tolerance hypercholesterolemia hypertension coronary artery disease urinary bladder cancer and generalized anxiety disorder coming in for follow-up. Last seen in 06/22/2023. Patient is reminded about colonoscopy. Mammogram is up-to-date. Review of notes sees Rheumatology November for osteoarthritis Voltaren gel was prescribed concern about right knee pain. For the bladder cancer patient follows up with urology had cystoscopy done advised topical estrogen on surveillance. Patient also had a CT scan of the chest for the smoking history February no suspicious nodule. [facility] Medical History (Updated 01/24/24 @ 16:42 by Mary Ellington MD) Breast cancer screening by mammogram Pulmonary nodules History of COVID-19 Hypertension Vitamin D deficiency GERD (gastroesophageal reflux disease) Urinary bladder cancer (~2018) Carpal tunnel syndrome Restless leg syndrome Asthma Kidney stones History of seizures Impaired glucose tolerance Hypercholesteremia Coronary artery disease Obesity (BMI 30-39.9) Surgical History Hx of foot surgery H/O colonoscopy History of transurethral destruction of bladder lesion History of cardiac cath History of surgery on right wrist (~1996) History of tonsillectomy History of elbow surgery History of cholecystectomy (~1998) History of vaginal hysterectomy (~1992) Groin mass Neck mass Family History Father Cerebrovascular disease Lung cancer Rheumatoid arthritis Mother Cerebrovascular disease Diabetes Hypertension Paternal Uncle Lung cancer Colon cancer Sister Cervical cancer Breast cancer Multiple sclerosis Maternal Grandmother Breast cancer Maternal Aunt Breast cancer Sister Psoriasis Social History Housing: Apartment Alcohol intake: never Comment: cardiac prophylactic Patient Tobacco Use Status: Current everyday Tobacco user Tobacco use type: Cigarette Cigarettes Per Day: 2 Years Smoked: onset 19yo, 1-2ppd x 42yrs, now 1/4ppd - 50pyh e-Cigarette/Vaping Use: Currently Using Second Hand Smoke Exposure: Yes Substance Use Type: Marijuana service: No Current occupational status: employed 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 1. Little interest or pleasure in doing things: not at all 2. Feeling down, depressed, or hopeless: not at all 3. Trouble falling or staying asleep, or sleeping too much: not at all 4. Feeling tired or having little energy: not at all 5. Poor appetite or overeating: not at all 6. Feeling bad about yourself - or that you are a failure or have let yourself or your family down: not at all 7. Trouble concentrating on things, such as reading the newspaper or watching television: not at all 8. Moving or speaking so slowly that other people could have noticed. Or the opposite - being so fidgety or restless that you have been moving around a lot more than usual: not at all 9. Thoughts that you would be better off or of hurting yourself in some way: not at all Total score: 0 Depression Screening Interpretation: Negative Depression Screening Done: Yes 58346 - PHQ-9 Billing: Yes Source: Developed by Drs. Gilmar Prabhakar, Carmen Leal, Lorenzo Deng and colleagues, with an educational wilfredo from [employer] Thrive Questionnaire Date Thrive assessed: 01/24/24 I am a: Patient What is your living situation today?: I have a steady place to live Within the past 12 months, did the food you bought not last and you didn't have the money to get more?: Never true Within the past 12 months, did you worry whether your food would run out before you got money to buy more?: Never true Do you have trouble paying for medicines?: No Do you have trouble getting transportation to medical appointments?: No Do you have trouble paying your heating and electricity bill?: No Do you have trouble taking care of your child, family member or friend?: No Do you have trouble with day-to-day activities such as bathing, preparing meals, shopping, managing finances, etc.?: No Are you currently unemployed and looking for a job?: No Are you interested in more education?: No Please select the resources that you would like help with: None Currently or been in a relationship where the following occur: No concerns reported THRIVE Score: 0 AUDIT C Alcohol Use Questionnaire (AUDIT-C) 1. How often do you have a drink containing alcohol?: Monthly or less 2. How many drinks containing alcohol do you have on a typical day when you are drinking?: 1 or 2 3. How often do you have six or more drinks on one occasion?: Never Total Score: 1 Score Reviewed/Action Taken: No MERRILL-7 AMB Questionnaire MERRILL-7 Date MERRILL - 7 assessed: 01/24/24 Feeling nervous, anxious, or on edge: 0 = Not at all Not being able to stop or control worryin = Not at all Worrying too much about different things: 0 = Not at all Trouble relaxin = Not at all Being so restless that it is hard to sit still: 0 = Not at all Becoming easily annoyed or irritable: 0 = Not at all Feeling afraid as if something awful might happen: 0 = Not at all Total MERRILL-7 score (0-4 normal; 5-9 mild; 10-14 moderate; 15-21 severe): 0 Source: Developed by Drs. Gilmar Prabhakar, Carmen Leal, Lorenzo Deng and colleagues, with an educational wilfredo from [employer] MERRILL-7 Assessment Billing MERRILL-7 Assessment Tool: MERRILL-7 Assessment 69605 Physical exam (Primary Care) Vital Signs: Last Vital Signs Pulse 67 01/24/24 15:32 BP 100/80 01/24/24 15:32 Pulse Ox 97 01/24/24 15:32 Oxygen Delivery Method Room Air 01/24/24 15:32 BMI result Body Mass Index 33.1 Tobacco/Smoking Status: Tobacco use Status Tobacco use date assessed 01/24/24 01/24/24 15:33 Patient Tobacco Use Status Current everyday Tobacco 01/24/24 15:33 Tobacco use type Cigarette 01/24/24 15:33 e-Cigarette/Vaping Use Currently Using 01/24/24 15:33 PHQ-9: PHQ-9 Score PHQ-9: Total score 0 01/24/24 16:02 Depression Screening Interpretation: Negative Thrive Assessment: Date of Thrive Assessment Date Thrive assessed 01/24/24 01/24/24 15:33 Currently or been in a relationship where the following occur: No concerns reported Const General: alert; No acute distress Eyes Conjunctivae: conjunctivae normal Resp Auscultation: clear to auscultation bilaterally Cardio Rate: regular rate Rhythm: regular rhythm GI Inspection: Yes normal to inspection Extrem General: Yes normal to inspection and No edema Assessment and Plan Assessment & Plan (1) Tobacco abuse: Comment: stopped 06/2022 using vape presently (asked 08/2022) June [address] CT Code(s): Z72.0 - Tobacco use Plan: CT scan up-to-date for lung cancer screening program July 2023 (2) Obesity (BMI 30-39.9): Code(s): E66.9 - Obesity, unspecified Plan: Diet and exercise (3) Asthma: Code(s): J45.909 - Unspecified asthma, uncomplicated Qualifiers: Asthma severity: moderate Asthma persistence: persistent Asthma complication type: uncomplicated Qualified Code(s): J45.40 - Moderate persistent asthma, uncomplicated Plan: Patient is strongly advised to stop smoking. Discussed about albuterol and symbicort and treatment (4) GERD (gastroesophageal reflux disease): Code(s): K21.9 - Gastro-esophageal reflux disease without esophagitis Qualifiers: Esophagitis presence: without esophagitis Qualified Code(s): K21.9 - Gastro-esophageal reflux disease without esophagitis Plan: Avoid the foods that causes that usually spicy foods, tomato products, juices, coffee, soda and foods that your sensitive to. After eating do not lie down, allow 3-4 hours before in lie down. And keep the head of bed above 30 degrees to avoid the acid from going up. (5) Impaired glucose tolerance: Code(s): R73.02 - Impaired glucose tolerance (oral) Plan: Decrease the amount of carbohydrate intake, pasta, bread, rice and potatoes are all sugar and that is aside from all the sweet stuff, remember that fruits are good but they are Sweet also. (6) Hypercholesteremia: Code(s): E78.00 - Pure hypercholesterolemia, unspecified Plan: Avoid fried foods, chicken skin, eggs, butter margarine, pastries and meat. Be it pork or beef they have a lot of cholesterol LDL goal of less than 70 and triglyceride of less than 150 on rosuvastatin 40 mg once a day (7) Hypertension: Code(s): I10 - Essential (primary) hypertension Qualifiers: Hypertension type: essential hypertension Qualified Code(s): I10 - Essential (primary) hypertension Plan: Continue with blood pressure medication. Decrease salt intake and exercise takes metoprolol 25 mg once a day (8) Coronary artery disease: Comment: June 2020 - NO CAD Code(s): I25.10 - Atherosclerotic heart disease of [place] coronary artery without angina pectoris Qualifiers: Coronary Disease-Associated Artery/Lesion type: [place] artery [place] vs. transplanted heart: [place] heart Associated angina: without angina Qualified Code(s): I25.10 - Atherosclerotic heart disease of [place] coronary artery without angina pectoris Plan: Control the cholesterol, weight, blood pressure (9) Urinary bladder cancer: Onset Date: ~2018 Comment: (Dx December 2018 Perla Singer - T1 high-grade with intravesical gemcitabine boost Dr. Divine Diop Gynecologic oncology [facility] 03/2020) Code(s): C67.9 - Malignant neoplasm of bladder, unspecified Qualifiers: Bladder location: unspecified site Qualified Code(s): C67.9 - Malignant neoplasm of bladder, unspecified Plan: Patient is under surveillance cystoscopy under urology (10) Colonoscopy refused: Code(s): Z53.20 - Procedure and treatment not carried out because of patient's decision for unspecified reasons (11) Generalized anxiety disorder: Code(s): F41.1 - Generalized anxiety disorder Plan: Continue with present medication Orders: Orders Hemoglobin A1c Today R73.02 - Impaired glucose tolerance (oral) Comprehensive Met. Panel Today R73.02 - Impaired glucose tolerance (oral) Complete Blood Count Auto Diff Today R73.02 - Impaired glucose tolerance (oral) Thyroid Stimulating Hormone Today E78.00 - Pure hypercholesterolemia, unspecified Free T4 (Free Thyroxine) Today E78.00 - Pure hypercholesterolemia, unspecified T Spot TB Today E78.00 - Pure hypercholesterolemia, unspecified Lipid Panel Today E78.00 - Pure hypercholesterolemia, unspecified Vitamin B12 and Folate Today E78.00 - Pure hypercholesterolemia, unspecified Vitamin D 25-OH Total Today E78.00 - Pure hypercholesterolemia, unspecified Medications: New albuterol sulfate 90 mcg/actuation (Ventolin HFA) 2 puffs inhalation Q6H PRN 8.5 grams 0RF shortness of breath or wheezing J45.40 - Moderate persistent asthma, uncomplicated Refilled budesonide-formoterol 160-4.5 mcg/actuation (Symbicort) 2 puffs inhalation BID 30 days 10.2 grams 11RF J44.9 - Chronic obstructive pulmonary disease, unspecified Coding Level of Care Code Est Pt Level 4 (39574) Diagnoses Tobacco abuse Z72.0 Obesity (BMI 30-39.9) E66.9 Moderate persistent asthma without complication J45.40 Asthma severity: moderate Asthma persistence: persistent Asthma complication type: uncomplicated Gastroesophageal reflux disease without esophagitis K21.9 Esophagitis presence: without esophagitis Impaired glucose tolerance R73.02 Hypercholesteremia E78.00 Essential hypertension I10 Hypertension type: essential hypertension Coronary artery disease involving [place] coronary artery of [place] heart without angina pectoris I25.10 Coronary Disease-Associated Artery/Lesion type: [place] artery [place] vs. transplanted heart: [place] heart Associated angina: without angina Malignant neoplasm of urinary bladder, unspecified site C67.9 Bladder location: unspecified site Colonoscopy refused Z53.20 Generalized anxiety disorder F41.1 Additional Codes MERRILL-7 Assessment Billing - MERRILL-7 Assessment Tool: MERRILL-7 Assessment 52215 ([id number])
== END 2024-01-24 17:00 | disposition home or self-care (01) ==
PROVIDERS: PCP Internal Medicine; Visit Provider Internal Medicine
DX: J45.40 Moderate persistent asthma, uncomplicated (principal); E66.9 Obesity, unspecified; C67.9 Malignant neoplasm of bladder, unspecified; Z68.33 Body mass index [BMI] 33.0-33.9, adult; Z72.0 Tobacco use; K21.9 Gastro-esophageal reflux disease without esophagitis; R73.02 Impaired glucose tolerance (oral); E78.00 Pure hypercholesterolemia, unspecified; I10 Essential (primary) hypertension; I25.10 Atherosclerotic heart disease of native coronary artery without angina pectoris; Z53.20 Procedure and treatment not carried out because of patient's decision for unspecified reasons; F41.1 Generalized anxiety disorder
CPT/HCPCS: 99214

== ENCOUNTER 2024-01-27 12:29 | Outpatient (REF) | payer OTHER, SELFPAY ==
[2024-01-27 12:43] LABS: MANUAL DIFF FLAG NO
[2024-01-27 14:27] LABS: Basophils Absolute Auto 0.1 X10*3/uL (0.0-0.2); Basophils Percent Auto 0.8 % (0-2); Eosinophils Absolute Auto 0.1 X10*3/uL (0.0-0.4); Eosinophils Percent Auto 1.7 % (0-4); Hematocrit 39.5 % (37.0-47.0); Hemoglobin 13.3 g/dl (12.0-16.0); Imm Gran Abs Auto 0.01 X10*3/uL (0.00-0.03); Imm Gran Pct Auto 0.2 % (0.0-0.4); Lymphocytes Absolute Auto 2.9 X10*3/uL (1.2-4.9); Lymphocytes Percent Auto 45.7 % (20-40); Mean Corpuscular HGB Conc 33.7 g/dl (31.0-35.0); Mean Corpuscular Volume 92.1 fL (80.0-98.0); Mean Platelet Volume 9.6 fL (9.4-12.3); Monocytes Absolute Auto 0.5 X10*3/uL (0.1-1.2); Monocytes Percent Auto 7.9 % (2-11); Neutrophils Absolute Auto 2.8 x10*3/uL (2.0-8.3); Neutrophils Percent Auto 43.7 % (45-73); Platelet Count 286 X10*3/uL (160-400); Red Blood Count 4.29 X10*6/uL (4.20-5.50); Red Cell Distribution Width 15.1 % (11.0-16.0); White Blood Count 6.3 X10*3/uL (4.8-10.8)
[2024-01-27 14:30] LABS: Estimated Average Glucose 120 mg/dL; Hemoglobin A1c % 5.8 % (<6.0)
[2024-01-27 14:57] LABS: Alanine Aminotransferase 16 U/L (0-31); Albumin Level 4.2 g/dL (3.5-5.0); Alkaline Phosphatase 40 U/L (39-117); Anion Gap 13 (12-20); Aspartate Amino Transferase 15 U/L (5-31); Bilirubin Total 0.3 mg/dL (0.0-1.0); Blood Urea Nitrogen 13 mg/dL (9-16); Calcium 9.7 mg/dL (8.4-10.2); Carbon Dioxide 23 mmol/L (22-29); Chloride 109 mmol/L (96-108); Cholesterol 172 mg/dL (<200); Estimated Glomerular Filt Rate > 60; Glucose Random 94 mg/dL (60-115); HDL Cholesterol 54 mg/dL (>40); LDL Cholesterol Calculated 98 mg/dL (<100); Potassium 4.4 mmol/L (3.3-5.1); Sodium 141 mmol/L (135-145); Total Protein 6.8 g/dL (6.5-8.0); Triglycerides 103 mg/dL (<150)
[2024-01-27 15:20] LABS: Free T4 (Free Thyroxine) 0.81 ng/dL (0.71-1.85); Thyroid Stimulating Hormone 0.69 uIU/mL (0.32-4.0); Vitamin D 25-OH Total 34.4 ng/mL (>30)
[2024-01-27 15:23] LABS: Folate 6.7 ng/mL (> or = 4.0); Vitamin B12 318 pg/mL (200-900)
[2024-01-29 22:47] LABS: TS Negative Control Passed; TS Panel A 0; TS Panel B 0; TS Positive Control Passed; TSpotTB Negative (Negative)
== END 2024-01-27 12:30 | disposition home or self-care (01) ==
LOC: HO.LAB 12:29
PROVIDERS: PCP Internal Medicine; Visit Provider Internal Medicine
DX: R73.02 Impaired glucose tolerance (oral) (principal); E78.00 Pure hypercholesterolemia, unspecified
CPT/HCPCS: 36415; 80053; 80061; 82306; 82607; 82746; 83036; 84439; 84443; 85025; 86481

== ENCOUNTER 2024-01-29 09:23 | Outpatient (AMB) | payer OTHER, SELFPAY ==
[2024-01-29 09:26] VITALS: BP 126/68; PULSE 67; O2SAT 98; BMI 33.1
--- NOTE | 2024-01-29 09:26 | MHC.PC.OV ---
Vital Signs 01/29/24 09:26 Height 5 ft 4 in Weight 193 lb BMI 33.1 BP 126/68 Blood Pressure Location Lt brachial Position Sitting Pulse 67 Pulse Source Pulse Oximeter Pulse Oximetry (%) 98 Oxygen Delivery Method Room Air Intake Visit Reasons: annual exam Intake Note: Patient is here today for a physical. 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 Allergies atorvastatin [Lipitor] Allergy (Intermediate, Verified 01/29/24 09:42) joint pain/stiffness ciprofloxacin [From Cipro] Allergy (Intermediate, Verified 01/29/24 09:42) H/A NAUSEA HIVES pravastatin [From PRAVACHOL] Allergy (Intermediate, Verified 01/29/24 09:42) joint pain/stiffness simvastatin [SIMVASTATIN] Allergy (Intermediate, Verified 01/29/24 09:42) joint pain/stiffness Sulfa (Sulfonamide Antibiotics) Allergy (Intermediate, Verified 01/29/24 09:42) HIVES codeine [Codeine] Adverse Reaction (Intermediate, Verified 01/29/24 09:42) headache/palpitations trimethoprim Adverse Reaction (Intermediate, Verified 01/29/24 09:42) Rash Medication List - Last Reconciled 01/29/24 by Yary Meier PA-C acetaminophen (Tylenol) 325 mg PO QID PRN albuterol sulfate 90 mcg/actuation (Ventolin HFA) 2 puffs inhalation Q6H PRN budesonide-formoterol 160-4.5 mcg/actuation (Symbicort) 2 puffs inhalation BID 30 days cyclobenzaprine 10 mg PO TID PRN 90 days diclofenac sodium 1% 4 grams topical QID famotidine (Pepcid) 40 mg PO BID lorazepam 0.5 mg PO BEDTIME PRN 30 days metoprolol succinate ER 25 mg PO DAILY rosuvastatin 40 mg PO DAILY 30 days Tobacco use date assessed: 01/24/24 Dental Screening Dental Screen Date: 01/24/24 Did you have a dental visit in the last 12 months?: No Did you have a dental problem in the last 6 months where you did not have access to dental care?: No Was dental information given to patient?: Patient has dentist HPI annual exam HPI Details 63-year-old obese female smoker with a history of asthma GERD impaired glucose tolerance hypercholesterolemia hypertension coronary artery disease urinary bladder cancer and generalized anxiety disorder coming in for annual exam. Mammogram completed July 2023 follow up annually. Patient states since her procedure she has continued to have left hand pain and inability to lift heavy objects with that hand. She has seen her orthopedic surgeon who has been evaluating and following her progress. She has no other concerns today. [facility] Medical History Breast cancer screening by mammogram Pulmonary nodules History of COVID-19 Hypertension Vitamin D deficiency GERD (gastroesophageal reflux disease) Urinary bladder cancer (~2018) Carpal tunnel syndrome Restless leg syndrome Asthma Kidney stones History of seizures Impaired glucose tolerance Hypercholesteremia Coronary artery disease Obesity (BMI 30-39.9) Surgical History Hx of foot surgery H/O colonoscopy History of transurethral destruction of bladder lesion History of cardiac cath History of surgery on right wrist (~1996) History of tonsillectomy History of elbow surgery History of cholecystectomy (~1998) History of vaginal hysterectomy (~1992) Groin mass Neck mass Family History Father Cerebrovascular disease Lung cancer Rheumatoid arthritis Mother Cerebrovascular disease Diabetes Hypertension Paternal Uncle Lung cancer Colon cancer Sister Cervical cancer Breast cancer Multiple sclerosis Maternal Grandmother Breast cancer Maternal Aunt Breast cancer Sister Psoriasis Social History Housing: Apartment Alcohol intake: never Comment: cardiac prophylactic Patient Tobacco Use Status: Current everyday Tobacco user Tobacco use type: Cigarette Cigarettes Per Day: 2 Years Smoked: onset 19yo, 1-2ppd x 42yrs, now 1/4ppd - 50pyh e-Cigarette/Vaping Use: Currently Using Second Hand Smoke Exposure: Yes Substance Use Type: Marijuana service: No Current occupational status: employed 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 1. Little interest or pleasure in doing things: more than half the days 2. Feeling down, depressed, or hopeless: several days 3. Trouble falling or staying asleep, or sleeping too much: several days 4. Feeling tired or having little energy: several days 5. Poor appetite or overeating: more than half the days 6. Feeling bad about yourself - or that you are a failure or have let yourself or your family down: not at all 7. Trouble concentrating on things, such as reading the newspaper or watching television: not at all 8. Moving or speaking so slowly that other people could have noticed. Or the opposite - being so fidgety or restless that you have been moving around a lot more than usual: not at all 9. Thoughts that you would be better off or of hurting yourself in some way: not at all Total score: 7 Depression Screening Interpretation: Positive Depression Screening Follow-up: Declines treatment Depression Screening Done: Yes Source: Developed by Drs. Gilmar Prabhakar, Carmen Leal, Lorenzo Deng and colleagues, with an educational wilfredo from [employer]. Thrive Questionnaire Date Thrive assessed: 01/24/24 I am a: Patient What is your living situation today?: I have a steady place to live Within the past 12 months, did the food you bought not last and you didn't have the money to get more?: Never true Within the past 12 months, did you worry whether your food would run out before you got money to buy more?: Never true Do you have trouble paying for medicines?: No Do you have trouble getting transportation to medical appointments?: No Do you have trouble paying your heating and electricity bill?: No Do you have trouble taking care of your child, family member or friend?: No Do you have trouble with day-to-day activities such as bathing, preparing meals, shopping, managing finances, etc.?: No Are you currently unemployed and looking for a job?: No Are you interested in more education?: No Please select the resources that you would like help with: None Currently or been in a relationship where the following occur: No concerns reported THRIVE Score: 0 AUDIT C Alcohol Use Questionnaire (AUDIT-C) 1. How often do you have a drink containing alcohol?: Never 3. How often do you have six or more drinks on one occasion?: Never Total Score: 0 MERRILL-7 AMB Questionnaire MERRILL-7 Date MERRILL - 7 assessed: 01/24/24 Feeling nervous, anxious, or on edge: 1 = Several days Not being able to stop or control worryin = Several days Worrying too much about different things: 1 = Several days Trouble relaxin = Several days Being so restless that it is hard to sit still: 1 = Several days Becoming easily annoyed or irritable: 1 = Several days Feeling afraid as if something awful might happen: 0 = Not at all Total MERRILL-7 score (0-4 normal; 5-9 mild; 10-14 moderate; 15-21 severe): 6 Source: Developed by Drs. Gilmar Prabhakar, Carmen Leal, Lorenzo Deng and colleagues, with an educational wilfredo from [employer]. MERRILL-7 Assessment Billing MERRILL-7 Assessment Tool: MERRILL-7 Assessment 08205 Review of Systems Const Denies body aches, Denies fatigue, Denies fever(s), Denies frequent falls, Denies headache(s) and Denies weakness Eyes Reports no additional complaints and Denies change in vision ENT Denies dysphagia, Denies dizziness, Denies facial pain, Denies headache(s), Denies nasal congestion and Denies odynophagia Card Denies chest pain, Denies syncope, Denies irregular heart rhythm, Denies leg edema, Denies lightheadedness and Denies dyspnea Resp Denies cough and Denies dyspnea GI Denies constipation, Denies dysphagia, Denies dyspepsia, Denies diarrhea, Denies nausea, Denies odynophagia and Denies vomiting Denies urinary frequency, Denies dysuria, Denies urinary hesitancy and Denies urinary urgency Musc Denies back pain and Denies myalgias Skin/Breast Reports system reviewed and no additional complaints, except as documented Neuro Denies dizziness, Denies syncope, Denies frequent falls, Denies headache(s) and Denies weakness Psych Reports no additional complaints Endo Denies fatigue Physical exam (Primary Care) Vital Signs: Last Vital Signs Pulse 67 01/29/24 09:26 BP 126/68 01/29/24 09:26 Pulse Ox 98 01/29/24 09:26 Oxygen Delivery Method Room Air 01/29/24 09:26 BMI result Body Mass Index 33.1 Tobacco/Smoking Status: Tobacco use Status Tobacco use date assessed 01/24/24 01/29/24 09:27 Patient Tobacco Use Status Current everyday Tobacco 01/29/24 09:27 Tobacco use type Cigarette 01/29/24 09:27 e-Cigarette/Vaping Use Currently Using 01/29/24 09:27 Are you ready to quit: No Tobacco cessation counseling provided: Yes Items discussed: Other Number of minutes spent counselin CPT code: Less than 3 minutes PHQ-9: PHQ-9 Score PHQ-9: Total score 7 01/29/24 09:50 Depression Screening Interpretation: Positive Depression Screening Follow-up: Declines treatment Thrive Assessment: Date of Thrive Assessment Date Thrive assessed 01/24/24 01/29/24 09:27 Currently or been in a relationship where the following occur: No concerns reported Const General: cooperative, healthy appearing, comfortable and no acute distress Orientation/consciousness: patient oriented x3 HENMT Head: Yes normocephalic Ears: hearing grossly normal bilaterally, external ears normal, TM's normal bilaterally and EAC's normal General nose exam: Normal external nose present Face and sinus: Yes normal facial exam and Yes sinuses nontender Mouth: Normal oral and palatal mucosa present and tongue normal Throat: Yes posterior oropharynx normal Eyes General: appearance normal, both eyes and all related structures Conjunctivae: conjunctivae normal Pupils: Equal, round and reactive pupils present EOM: EOMs intact bilaterally and No Nystagmus present Neck Neck: Yes normal visual inspection, Yes full ROM and Yes no lymphadenopathy Chest Chest palpation & inspection: normal inspection of the chest Resp Effort & Inspection: normal respiratory effort Auscultation: clear to auscultation bilaterally, no crackles, no rales, no rhonchi, no wheezes and breath sounds present Cardio Rate: regular rate Rhythm: regular rhythm Peripheral pulses: radial pulses present and dorsalis pedis present GI Inspection: Yes normal to inspection and No Abdominal wall edema Palpation (GI): Soft to palpation, not firm, Tenderness to palpation present (GI) in the LLQ, no guarding, not rigid and No Rebound tenderness present Auscultation: normal bowel sounds Rectal Exam - Female: deferred General: Yes no CVA tenderness Back/Spine/Pelvis Back: no CVA tenderness Skin General skin exam: no rashes or lesions noted Neuro General: patient oriented x3 Cranial nerves: Yes Equal, round and reactive pupils present, Yes Midline tongue present, Yes Ability to bilaterally elevate shoulders present and No Nystagmus present Gait exam (Neuro): Normal gait present Extrem General: Yes normal to inspection, Yes full ROM, No no pedal edema and No edema Psych Speech and movement: Normal speech and movement present Affect: normal affect Insight: Good insight present (Psych) Judgement: Good judgement present (Psych) Assessment and Plan Assessment & Plan (1) Tobacco abuse: Comment: stopped 06/2022 using vape presently (asked 08/2022) June [address]23 CT Code(s): Z72.0 - Tobacco use Plan: Discussed with patient the importance of tobacco cessation, strongly advised to stopped smoking. (2) Generalized anxiety disorder: Code(s): F41.1 - Generalized anxiety disorder Plan: Patient has been having increased anxiety and depression surrounding work and life stress. Declines counseling at this time. Continue on lorazepam as needed. (3) Colonoscopy refused: Code(s): Z53.20 - Procedure and treatment not carried out because of patient's decision for unspecified reasons Plan: Patient has declined colonoscopy at this time. Discussed with patient the importance of the screening tool. (4) Osteopenia: Onset Date: ~2021 Comment: (Bone Dexa Lumbar T-score - 1.9, 10/17/2021) Code(s): M85.80 - Other specified disorders of bone density and structure, unspecified site Plan: Patient is overdue on bone density scan which was ordered today. (5) Urinary bladder cancer: Onset Date: ~2018 Comment: (Dx December [address] [place] [address] Singer - T1 high-grade with intravesical gemcitabine boost Dr. Divine Diop Gynecologic oncology [facility] 03/2020) Code(s): C67.9 - Malignant neoplasm of bladder, unspecified Qualifiers: Bladder location: unspecified site Qualified Code(s): C67.9 - Malignant neoplasm of bladder, unspecified Plan: Continue to follow with Urology for routine exams. (6) Coronary artery disease: Comment: June 2020 - NO CAD Code(s): I25.10 - Atherosclerotic heart disease of [place] coronary artery without angina pectoris Qualifiers: Associated angina: without angina Coronary Disease-Associated Artery/Lesion type: [place] artery [place] vs. transplanted heart: [place] heart Qualified Code(s): I25.10 - Atherosclerotic heart disease of [place] coronary artery without angina pectoris Plan: Advised control of blood sugar, blood pressure, and cholesterol. (7) Hypertension: Code(s): I10 - Essential (primary) hypertension Qualifiers: Hypertension type: essential hypertension Qualified Code(s): I10 - Essential (primary) hypertension Plan: Blood pressure at goal today 126/68. Continue on metoprolol. Avoid salt intake and encourage healthy diet and regular exercise. (8) Hypercholesteremia: Code(s): E78.00 - Pure hypercholesterolemia, unspecified Plan: Cholesterol at goal on last blood work. Avoid foods that are high in cholesterol such as red meat, fried foods, eggs and baked goods. Triglyceride goal of less than 150 and LDL goal of less than 100. Continue on rosuvastatin (9) Impaired glucose tolerance: Code(s): R73.02 - Impaired glucose tolerance (oral) Plan: Decrease the amount of carbohydrates such as pasta, bread, rice, and potatoes and limit the amount of sweets. Although fruits are generally healthy they should be eaten in moderation as they are still high in sugar. Hemoglobin A1c goal of less than 7%. (10) GERD (gastroesophageal reflux disease): Code(s): K21.9 - Gastro-esophageal reflux disease without esophagitis Qualifiers: Esophagitis presence: without esophagitis Qualified Code(s): K21.9 - Gastro-esophageal reflux disease without esophagitis Plan: Continue on famotidine as needed. Continue to follow with gastroenterology for monitoring of esophageal lump and please try to reschedule endoscopy. Avoid trigger foods such as citrus, tomato products, soda, caffeine, spicy foods and other foods that may be irritating to your stomach. Avoid laying flat 3-4 hours after eating and elevate the head of the bed 30 degrees to prevent acid from moving into the esophagus. (11) Asthma: Code(s): J45.909 - Unspecified asthma, uncomplicated Qualifiers: Asthma complication type: uncomplicated Asthma persistence: persistent Asthma severity: moderate Qualified Code(s): J45.40 - Moderate persistent asthma, uncomplicated Plan: Asthma under good control and uses albuterol as needed and has not had to use inhaler in several years. Has not use Symbicort. ? Avoid triggers such as allergies. (12) Annual physical exam: Code(s): Z00.00 - Encounter for general adult medical examination without abnormal findings Plan: Patient is not up-to-date on all routine screenings and was referred for bone density scan today and strongly encouraged to undergo colonoscopy. Patient is up-to-date on mammogram. Routine blood work was within normal limits and still awaiting TB test for employer. Plan This note was constructed using voice recognition software. While every effort has been made to ensure accuracy and outside plant engineer, still areas may have been included sometimes these areas may affect the content or meeting of the given symptoms. Total time spent caring for the patient today was 35 minutes. This includes time spent before the visit reviewing the chart, time spent during the visit, and time spent after the visit and documentation. Orders: Orders XR DEXA axial skeleton Today M85.80 - Other specified disorders of bone density and structure, unspecified site, Z78.0 - Asymptomatic menopausal state Referrals Dermatology Referral D22.9 - Melanocytic nevi, unspecified Coding Level of Care Code Est Pt Prev Care 40-64y(25673) Diagnoses Tobacco abuse Z72.0 Generalized anxiety disorder F41.1 Colonoscopy refused Z53.20 Osteopenia M85.80 Malignant neoplasm of urinary bladder, unspecified site C67.9 Bladder location: unspecified site Coronary artery disease involving [place] coronary artery of [place] heart without angina pectoris I25.10 Associated angina: without angina Coronary Disease-Associated Artery/Lesion type: [place] artery [place] vs. transplanted heart: [place] heart Essential hypertension I10 Hypertension type: essential hypertension Hypercholesteremia E78.00 Impaired glucose tolerance R73.02 Gastroesophageal reflux disease without esophagitis K21.9 Esophagitis presence: without esophagitis Moderate persistent asthma without complication J45.40 Asthma complication type: uncomplicated Asthma persistence: persistent Asthma severity: moderate Annual physical exam Z00.00 Additional Codes MERRILL-7 Assessment Billing - MERRILL-7 Assessment Tool: MERRILL-7 Assessment 31958 ([id number])
== END 2024-01-29 10:05 | disposition home or self-care (01) ==
PROVIDERS: PCP Internal Medicine
DX: Z00.00 Encounter for general adult medical examination without abnormal findings (principal); F41.1 Generalized anxiety disorder; Z53.20 Procedure and treatment not carried out because of patient's decision for unspecified reasons; M85.80 Other specified disorders of bone density and structure, unspecified site; C67.9 Malignant neoplasm of bladder, unspecified; I25.10 Atherosclerotic heart disease of native coronary artery without angina pectoris; I10 Essential (primary) hypertension; E78.00 Pure hypercholesterolemia, unspecified; R73.02 Impaired glucose tolerance (oral); K21.9 Gastro-esophageal reflux disease without esophagitis; J45.40 Moderate persistent asthma, uncomplicated; Z72.0 Tobacco use
CPT/HCPCS: 99396

== ENCOUNTER → 2024-02-06 14:59 | Outpatient (RCR) | payer OTHER, SELFPAY ==
[2020-12-14 09:25] LABS: Glucose Urine UA NEG (NEG); Leukocyte Esterase Urine NEG (NEG); Nitrite Urine NEG (NEG); PH 5.5 (5.0-8.0); Specific Gravity - Urine <= 1.005 (1.005-1.025); Urine Blood 3+ (NEG); Urine Ketones NEG (NEG); Urine Protein NEG (NEG-TRACE)
[2020-12-14 09:27] LABS: Appearance Urine CLEAR; Color Urine STRAW
[2020-12-14 09:45] LABS: Squamous Epithelial Cell Urine 1+ /LPF; WBC Urine 0-2 /HPF (0-4)
[2020-12-14 09:46] LABS: Granular Casts Urine 0-2 /LPF
[2020-12-14 14:38] VITALS: BP 118/58; PULSE 68; RESP 18; TEMP 36.7; O2SAT 99; BMI 34.1
[2020-12-14] MEDS: Lidocaine HCl 2 % Urojet 10 ML JEL.PF.APP TOPICAL (15:04)
--- NOTE | 2020-12-14 16:21 | MHC.HEMONC ---
Pt here for C1 gemcitabine bladder instillation. Pt catheterized with 16fr catheter and pt tolerated well. Bladder emptied for 200cc clear yellow urine. Gemcitabine instilled into the bladder, pt tolerated well. Will return in 1 week for C2.
--- NOTE | 2020-12-29 15:51 | MHC.HEMONC ---
Pt scheduled for gemcitabine bladder instillation but pt was no show. Telephone call to pt with no answer, message left. Dr Carrillo's office notified.
--- NOTE | 2021-01-05 14:09 | MHC.HEMONC ---
Pt was scheduled for Gemcitabine bladder treatment today and was no show. Dr Carrillo's office called and notified
== END | disposition home or self-care (01) ==
LOC: HO.ONC 12-14 09:02
PROVIDERS: PCP Internal Medicine; Visit Provider Urology
DX: Z51.11 Encounter for antineoplastic chemotherapy (principal); C67.9 Malignant neoplasm of bladder, unspecified
CPT/HCPCS: 51720; 81001; J9201

== ENCOUNTER 2024-03-10 08:08 | Outpatient (REF) | payer OTHER, SELFPAY ==
--- NOTE | ~2024-03-10 | MM_ITS ---
EXAMINATION: BONE DENSITOMETRY CLINICAL INDICATION: Asymptomatic menopausal state. COMPARISON: Previous BD dated 10/17/2021 and baseline BD dated 08/02/2009. TECHNIQUE: Using a [employer] DXA System (software version: 13.1) manufactured by [employer], dual-energy x-ray absorptiometry was performed of the lumbar spine and left hip. The images are of good technical quality. Summary results are attached. FINDINGS: LEFT FEMUR, NECK: Current: BMD 0.966 g/cm2, Z-score 0.4, T-score -0.5, normal. Prior: BMD 0.964 g/cm2. Baseline: BMD 1.086 g/cm2. LEFT FEMUR, TOTAL: Current: BMD 0.914 g/cm2, Z-score -0.1, T-score -0.7, normal, 1.4% increase from previous, 9.6% decrease from baseline (<5% change is not significant). Prior: BMD 0.901 g/cm2. Baseline: BMD 1.011 g/cm2. AP SPINE L1-L2 (excluding L3 and L4): The data of L1-L4 has been changed to exclude the L3 and L4 vertebral bodies, because significant degenerative change at these levels may cause overestimation of lumbar spine density. Current: BMD 0.895 g/cm2, Z-score -1.5, T-score -2.2, osteopenia, 4.0% decrease from previous, 20.3% decrease from baseline (<5% change is not significant). Prior: BMD 0.932 g/cm2. Baseline: BMD 1.123 g/cm2. IDENTIFIED RISK FACTORS: Early menopause, secondary osteoporosis, hysterectomy, parental hip fracture, current smoker. HISTORY OF FRACTURE: None listed. MEDICATIONS: Calcium. MM/XR DEXA axial skeleton IMPRESSION: 1. DIAGNOSIS: Osteoporosis based on the lowest T-score value of -2.2 in the lumbar spine applying World Health Organization criteria. 2. 10-YEAR FRACTURE RISK PREDICTION, FRAX: Major osteoporotic fracture (clinical spine, forearm, hip or shoulder) 13.1%. Hip fracture 0.5%. 3. Treatment Recommendations: NOF guidelines recommend consideration for treatment in postmenopausal women and men age 50 and older presenting with the following: -A hip or vertebral (clinical or morphometric) fracture. -T-score less than or equal to -2.5 at the femoral neck or spine after appropriate evaluation to exclude secondary causes. -Low bone mass at the hip or spine and a 10-year fracture probability by FRAX of greater than or equal to 3% for hip fracture or greater than or equal to 20% for major osteoporotic fracture based on the [place] adapted WHO algorithm. 4. Other Recommendations: All treatment decisions require clinical judgment and consideration of individual patient factors, including patient preferences, comorbidities, previous drug use, risk factors not captured in the FRAX model (e.g. frailty, falls, vitamin D deficiency, increased bone turnover, interval significant decline in bone density) and possible under or overestimation of fracture risk by FRAX. Additional medical evaluation for secondary cause of low bone mineral density may be appropriate. FUTURE SCAN RECOMMENDATION: People with diagnosed cases of osteoporosis or at high risk for fracture should have regular bone mineral density tests. For patients eligible for Medicare, routine testing is allowed once every 2 years. The testing frequency can be increased to one year for patients who have rapidly progressing disease, those who are receiving or discontinuing medical therapy to restore bone mass, or have additional risk factors. Electronically signed by: Barbara Maharaj MD 03/10/2024 01:22 PM EDT [facility]
== END 2024-03-10 08:09 | disposition home or self-care (01) ==
LOC: HO.MAMMO 08:08
DX: Z13.820 Encounter for screening for osteoporosis (principal); M85.80 Other specified disorders of bone density and structure, unspecified site; Z78.0 Asymptomatic menopausal state
CPT/HCPCS: 77080

== ENCOUNTER 2024-04-01 12:44 | Outpatient (AMB) | payer OTHER, SELFPAY ==
[2024-04-01 12:47] VITALS: BP 130/70; PULSE 67; BMI 32.5
--- NOTE | 2024-04-01 12:47 | MHC.OFFVIS ---
Vital Signs 04/01/24 12:47 Height 5 ft 4 in Weight 189 lb 9.561 oz BMI 32.5 BP 130/70 Blood Pressure Location Lt brachial Position Sitting Pulse 67 Pulse Source Monitor Intake Visit Reasons: Follow up Intake Note: f/up- pt state that she been having palpitations, sob. Investigative Assistant Required: No Accompanied by: Self / Same As Patient Allergies atorvastatin [Lipitor] Allergy (Intermediate, Verified 01/29/24 09:42) joint pain/stiffness ciprofloxacin [From Cipro] Allergy (Intermediate, Verified 01/29/24 09:42) H/A NAUSEA HIVES pravastatin [From PRAVACHOL] Allergy (Intermediate, Verified 01/29/24 09:42) joint pain/stiffness simvastatin [SIMVASTATIN] Allergy (Intermediate, Verified 01/29/24 09:42) joint pain/stiffness Sulfa (Sulfonamide Antibiotics) Allergy (Intermediate, Verified 01/29/24 09:42) HIVES codeine [Codeine] Adverse Reaction (Intermediate, Verified 01/29/24 09:42) headache/palpitations trimethoprim Adverse Reaction (Intermediate, Verified 01/29/24 09:42) Rash Medication List - Last Reconciled 04/01/24 by Steven Solorzano MD acetaminophen (Tylenol) 325 mg PO QID PRN albuterol sulfate 90 mcg/actuation (Ventolin HFA) 2 puffs inhalation Q6H PRN cyclobenzaprine 10 mg PO TID PRN 90 days diclofenac sodium 1% 4 grams topical QID lorazepam 0.5 mg PO BEDTIME PRN 30 days metoprolol succinate ER 25 mg PO DAILY rosuvastatin 40 mg PO DAILY 30 days HPI Comments Details: 63-year-old female here for follow-up. She has background of bladder cancer. She was in [place] till July 2019. While in [place] she was diagnosed with left bundle-branch block. She also underwent stress testing as well as cardiac catheterization. She does not know the exact details. We do not have records available. She is coming because she has been experiencing exertional chest tightness. She describes a pressure-like feeling in her chest whenever she exerts herself. She said she was shoveling snow after the storm recently and had same symptoms. Her symptoms are quite consistent. She has history of bronchitis. She is a smoker. She is on aspirin. No recent vaginal bleeding. After discussion she was taken for cardiac catheterization. Cardiac catheterization showed no significant coronary disease. Her filling pressures were normal. She did fine after that and now returns for follow-up today. Unfortunately her grandson and she was in [place] with his end of life discussion. She said the day she had chest pain jaw pain upper back pain as well as tingling and numbness in her hands. She said she went into a different room and a regulated her breathing and the symptoms went away. She has not had any further symptoms since then. She is saying with activities she does not get any symptoms. As mentioned she had previous cardiac catheterization which did not show any coronary disease. She has chronic left bundle-branch block with normal LV function. 06/10/2023: She returns for follow-up. Off and on she gets chest discomfort at rest. She is saying she is under lot of stress. One of her friends is dying and is on hospice at this point. She describes tight feeling on the right side of the chest which happens at rest and lasts for few minutes and goes away as she relaxes with breathing exercises. No other issues currently. She is undergoing left thumb surgery. 04/01/2024: She returns for follow-up. She has been getting palpitations off and on. She has dyspnea on exertion which is a new symptom for her. She also has been getting off and on chest discomfort. She continues to be under lot of stress. Previously testing was done in 2020 when cardiac catheterization was normal and she has normal LV function. [facility] Medical History Breast cancer screening by mammogram Pulmonary nodules History of COVID-19 Hypertension Vitamin D deficiency GERD (gastroesophageal reflux disease) Urinary bladder cancer (~2018) Carpal tunnel syndrome Restless leg syndrome Asthma Kidney stones History of seizures Impaired glucose tolerance Hypercholesteremia Coronary artery disease Obesity (BMI 30-39.9) Surgical History Hx of foot surgery H/O colonoscopy History of transurethral destruction of bladder lesion History of cardiac cath History of surgery on right wrist (~1996) History of tonsillectomy History of elbow surgery History of cholecystectomy (~1998) History of vaginal hysterectomy (~1992) Groin mass Neck mass Family History Father Cerebrovascular disease Lung cancer Rheumatoid arthritis Mother Cerebrovascular disease Diabetes Hypertension Paternal Uncle Lung cancer Colon cancer Sister Cervical cancer Breast cancer Multiple sclerosis Maternal Grandmother Breast cancer Maternal Aunt Breast cancer Sister Psoriasis Social History Housing: Apartment Alcohol intake: never Comment: cardiac prophylactic Patient Tobacco Use Status: Current everyday Tobacco user Tobacco use type: Cigarette Cigarettes Per Day: 2 Years Smoked: onset 19yo, 1-2ppd x 42yrs, now 1/4ppd - 50pyh e-Cigarette/Vaping Use: Currently Using Second Hand Smoke Exposure: Yes Substance Use Type: Marijuana service: No Current occupational status: employed 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 NECK/THYROID: no carotid bruit, no jugular venous distention. SKIN: no suspicious lesions, warm and dry. HEART: no murmurs, regular rate and rhythm, S1, S2 normal. LUNGS: clear to auscultation bilaterally. ABDOMEN: normal, bowel sounds present, soft, nontender, nondistended. EXTREMITIES: no clubbing, cyanosis, or edema. PERIPHERAL PULSES: equal. NEUROLOGIC: nonfocal, alert and oriented. PSYCH: mood/affect full range. Office Procedures EKG Details: Sinus rhythm 67 beats per minute, rightward axis, left bundle-branch block, QTC 473 milliseconds. QRS 140 milliseconds. [id number], Complete Quality Reporting (2019) Adult ([facility] 138/07/25/68) Smoking risk assessment performed?: Yes Patient Tobacco Use Status: Current everyday Tobacco user Assessment & Plan Assessment & Plan (1) Palpitations: Code(s): R00.2 - Palpitations Category: Medical (2) Dyspnea: Code(s): R06.00 - Dyspnea, unspecified Category: Medical Qualifiers: Dyspnea type: dyspnea on exertion Qualified Code(s): R06.00 - Dyspnea, unspecified (3) Chest pain: Code(s): R07.9 - Chest pain, unspecified Category: Medical Plan [age] year female who is here for follow-up. She has chronic left bundle-branch block and previous chest discomfort episodes. She had cardiac catheterization 3 years ago which was normal. She now presenting with shortness of breath and off and on palpitations. She also is getting some chest discomfort off and on. Check echocardiogram to assess LV for any wall motion abnormalities. If there is LV dysfunction then we will consider diagnostic angiography. Otherwise we will arrange stress test. We will also arrange a 7 day Holter monitor to rule out atrial fibrillation/flutter. Thank you for allowing me to participate in the care of your patient. Please feel free to contact me if you have any questions. Orders: Orders CA echo transthorac w con Today R06.00 - Dyspnea, unspecified ECG 7 day holter monitor Today R00.2 - Palpitations Coding Level of Care Code Est Pt Level 4 (39556) Diagnoses Palpitations R00.2 Dyspnea on exertion R06.00 Dyspnea type: dyspnea on exertion Chest pain R07.9 CPT Codes EKG - CPT: 71398-[id number], Complete ([id number])
== END 2024-04-01 13:20 | disposition home or self-care (01) ==
LOC: HO.HCS 12:44
PROVIDERS: Visit Provider Internal Medicine Cardiovascular Disease
DX: R00.2 Palpitations (principal); R06.00 Dyspnea, unspecified; R07.9 Chest pain, unspecified
CPT/HCPCS: 93010; 99214

== ENCOUNTER → 2024-04-01 12:44 | Outpatient (BNVA) | payer OTHER, SELFPAY | PROVIDERS: Visit Provider Internal Medicine Cardiovascular Disease | DX: R00.2 Palpitations (principal); R06.00 Dyspnea, unspecified; R07.9 Chest pain, unspecified | CPT/HCPCS: 93005; 99212 ==

== ENCOUNTER → 2024-04-02 09:47 | Outpatient (REF) | payer OTHER, SELFPAY ==
--- NOTE | 2024-04-02 09:55 | CA_ITS ---
Transthoracic Echocardiogram Patient (Last, First, Middle): Ivy Campos M Gender: Female Date of : 1960 Age: 63 Procedure Date: 04/02/2024 Procedure Type: Transthoracic Echocardiogram Location: OP Height: 162.56 cm Weight: 84.99 kg BSA: 1.90 m2 Heart Rate: bpm BP: 120 / 72 mmHg [employer] Assistant: TO Referring MD: Steven Solorzano MD Seal Skinner: Steven Solorzano MD Symptoms: R06.00 - Dyspnea, unspecified Study Quality: Fair/Contrast Conclusions: - Normal left ventricular cavity size. There is normal left ventricular wall thickness. The left ventricular systolic function is low normal. The visually estimated ejection fraction is between 50-55%. - Normal right ventricular cavity size and systolic function. Findings Procedure Information Contrast agent, definity, is being given per protocol without apparent complications. Left Ventricle Normal left ventricular cavity size. There is normal left ventricular wall thickness. The left ventricular systolic function is low normal. The visually estimated ejection fraction is between 50-55%. Diastolic function is indeterminate on the basis of available data. Right Ventricle Normal right ventricular cavity size and systolic function. Atria The left atrium is normal in size. Aortic Valve The aortic valve was not well visualized. There is no aortic valve stenosis. There is no aortic valve regurgitation. Mitral Valve The mitral valve appears normal. There is no mitral valve regurgitation. There is no mitral valve stenosis. Pulmonic Valve The pulmonic valve is likely normal. Tricuspid Valve Normal tricuspid valve structure. There is no tricuspid valve regurgitation. Tricuspid regurgitation envelope is inadequate for calculation of right ventricular systolic pressure. Normal right atrial pressure. Great Vessels All visible segments of the aorta are normal in size. The visualized portions of the pulmonary artery and branches are normal. Venous The inferior vena cava is normal in size and collapses greater than 50% with inspiration. Pericardium/Pleural There is no evidence of pericardial effusion. Prior Study Comparison Changes noted compared to prior study dated: 06/17/2020. Low normal LVEF. Measurements 2D Linear Measurements IVSd: 0.98 0.6-0.9/0.6-1.0 cm LVIDd: 4.78 3.9-5.3/4.2-5.9 cm LVIDd Index: 2.52 2.4-3.2/2.2-3.1 cm/m2 LVIDs: 3.78 2.0-3.6 cm LVPWd: 0.91 0.7-1.1 cm LV Mass: 195.72 67-162/88-224 g LV Mass Index: 103.01 43-95/49-115 g/m2 LVOT Diam: 2.00 3.0+(-)1.3 cm 2D Systolic Function EF 4C: 47.90 >55% EF 2C: 51.90 >55% EF BiP: 47.30 >55% Mitral Valve MV Pk E: 0.62 MV PK A: 0.69 MV Decel Time: 255.00 E/A: 0.90 E'Lateral: 6.53 E'Medial: 5.00 E/E' Med: 12.30 E/E' Lat: 9.40 PHT: 75.00 MVA PHT: 2.93 Decel Payette: 2.42 Aortic Valve AoV Pk Florencio: 1.45 AoV Mn Florencio: 1.03 AoV VTI: 0.34 AoV Pk Grad: 8.00 Aov Mn Grad: 5.00 ABE Cont.VTI: 2.43 LVOT LVOT Pk Florencio: 1.23 LVOT Mn Florencio: 0.80 LVOT VTI: 0.27 LVOT Pk Grad: 6.00 LVOT Mn Grad: 3.00 LVOT Diam: 2.00 LVOT Area: 3.14 Diastolic Function MV Pk E: 0.62 MV Pk A: 0.69 E/A: 0.90 E'Medial: 5.00 E/E' Med: 12.30 E' Laterial: 6.53 E/E' Lat: 9.40 Right Ventricle TAPSE (mm): 22.00 TVS' Florencio: 12.70 Tricuspid Valve RA Press: 3.00 Great Vessels Aorta Sinus of Valsalva: 2.89 2.0-3.5 cm Ao Asc: 3.30 2.1-3.4 cm Updated in Other Vendor System with Status of Final Steven Solorzano MD electronically signed on 04/02/2024 9:27:10 PM with status of Final
== END ==
LOC: HO.CARD 09:47
PROVIDERS: Visit Provider Internal Medicine Cardiovascular Disease
DX: R06.00 Dyspnea, unspecified (principal)
CPT/HCPCS: 93306; Q9957

== ENCOUNTER → 2024-04-02 09:55 | Outpatient (BNV) | payer OTHER, SELFPAY | PROVIDERS: Visit Provider Internal Medicine Cardiovascular Disease | DX: R06.00 Dyspnea, unspecified (principal) | CPT/HCPCS: 93306 ==

== ENCOUNTER → 2024-04-06 09:29 | Outpatient (REF) | payer OTHER, SELFPAY ==
--- NOTE | 2024-04-06 09:32 | HM_ITS ---
* Total monitoring time 7 days. * Underlying rhythm is sinus with an average rate of 70/Min. * Rare supraventricular ectopy. * Rare ventricular ectopy. * No significant pauses or high-grade AV blocks. * No patient markers or diary events. MTDD
== END ==
LOC: HO.CARD 09:29
PROVIDERS: Visit Provider Internal Medicine Cardiovascular Disease
DX: R00.2 Palpitations (principal)
CPT/HCPCS: 93242

== ENCOUNTER → 2024-04-06 09:32 | Outpatient (BNV) | payer OTHER, SELFPAY | PROVIDERS: Visit Provider Internal Medicine | DX: I47.10 Supraventricular tachycardia, unspecified (principal) | CPT/HCPCS: 93244 ==

== ENCOUNTER 2024-05-12 09:05 | Outpatient (AMB) | payer OTHER, SELFPAY ==
--- NOTE | 2024-05-12 09:11 | A.OFFPC_ITS ---
Vital Signs 05/12/24 09:12 Height 5 ft 4 in Weight 191 lb 2 oz BMI 32.8 BP 120/64 Blood Pressure Location Lt brachial Position Sitting Pulse 66 Pulse Source Pulse Oximeter Pulse Oximetry (%) 97 Oxygen Delivery Method Room Air Intake Visit Reasons: lab results Intake Note: Patient is here to follow up on lab results. Specialist Managers Required: No Neurosurgical Nurse Practitioner: Not Required per policy Accompanied by: Self / Same As Patient Allergies atorvastatin [Lipitor] Allergy (Intermediate, Verified 05/12/24 09:12) joint pain/stiffness ciprofloxacin [From Cipro] Allergy (Intermediate, Verified 05/12/24 09:12) H/A NAUSEA HIVES pravastatin [From PRAVACHOL] Allergy (Intermediate, Verified 05/12/24 09:12) joint pain/stiffness simvastatin [SIMVASTATIN] Allergy (Intermediate, Verified 05/12/24 09:12) joint pain/stiffness Sulfa (Sulfonamide Antibiotics) Allergy (Intermediate, Verified 05/12/24 09:12) HIVES codeine [Codeine] Adverse Reaction (Intermediate, Verified 05/12/24 09:12) headache/palpitations trimethoprim Adverse Reaction (Intermediate, Verified 05/12/24 09:12) Rash Medication List - Last Reconciled 05/12/24 by Yary Meier PA-C acetaminophen (Tylenol) 325 mg PO QID PRN albuterol sulfate 90 mcg/actuation (Ventolin HFA) 2 puffs inhalation Q6H PRN cyclobenzaprine 10 mg PO TID PRN 90 days diclofenac sodium 1% 4 grams topical QID lorazepam 0.5 mg PO BEDTIME PRN 30 days metoprolol succinate ER 25 mg PO DAILY rosuvastatin 40 mg PO DAILY 30 days Tobacco use date assessed: 05/12/24 Dental Screening Dental Screen Date: 01/24/24 HPI lab results HPI Details 63-year-old female with past medical his tory tobacco abuse, asthma, GERD, impaired glucose tolerance, hypercholesterolemia, hypertension, coronary artery disease, urinary bladder cancer and generalized anxiety disorder last seen January 2024 coming in for follow up.?In review of the notes patient had echocardiogram completed 04/02/2024 showing normal ejection fraction between 50- 55%. Patient also completed Holter monitor 04/22/2024 and patient has a follow up with Cardiology this week to review results. Patient states she has no acute concerns today. She does mentioned she has been having occasional shortness of breath with exercise patient is being investigated right now by her corporate development associate. [facility] Medical History Breast cancer screening by mammogram Pulmonary nodules History of COVID-19 Hypertension Vitamin D deficiency GERD (gastroesophageal reflux disease) Urinary bladder cancer (~2018) Carpal tunnel syndrome Restless leg syndrome Asthma Kidney stones History of seizures Impaired glucose tolerance Hypercholesteremia Coronary artery disease Obesity (BMI 30-39.9) Surgical History Hx of foot surgery H/O colonoscopy History of transurethral destruction of bladder lesion History of cardiac cath History of surgery on right wrist (~1996) History of tonsillectomy History of elbow surgery History of cholecystectomy (~1998) History of vaginal hysterectomy (~1992) Groin mass Neck mass Family History Father Cerebrovascular disease Lung cancer Rheumatoid arthritis Mother Cerebrovascular disease Diabetes Hypertension Paternal Uncle Lung cancer Colon cancer Sister Cervical cancer Breast cancer Multiple sclerosis Maternal Grandmother Breast cancer Maternal Aunt Breast cancer Sister Psoriasis Social History Housing: Apartment Alcohol intake: never Comment: cardiac prophylactic Patient Tobacco Use Status: Current everyday Tobacco user Tobacco use type: Cigarette Cigarette Packs Per Day: 0.25 Cigarettes Per Day: 2 Years Smoked: onset 19yo, 1-2ppd x 42yrs, now 1/4ppd - 50pyh e-Cigarette/Vaping Use: Currently Using Second Hand Smoke Exposure: Yes Substance Use Type: Marijuana service: No Current occupational status: employed 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 Current occupational exposures/hazards: No Cognitive needs: No Hearing needs: No Vision needs: No Questionnaire Thrive Questionnaire Date Thrive assessed: 01/29/24 I am a: Patient What is your living situation today?: I have a steady place to live Within the past 12 months, did the food you bought not last and you didn't have the money to get more?: Never true Within the past 12 months, did you worry whether your food would run out before you got money to buy more?: Never true Do you have trouble paying for medicines?: No Do you have trouble getting transportation to medical appointments?: No Do you have trouble paying your heating and electricity bill?: No Do you have trouble taking care of your child, family member or friend?: No Do you have trouble with day-to-day activities such as bathing, preparing meals, shopping, managing finances, etc.?: No Are you currently unemployed and looking for a job?: No Are you interested in more education?: No Please select the resources that you would like help with: None Currently or been in a relationship where the following occur: No concerns reported THRIVE Score: 0 AUDIT C Alcohol Use Questionnaire (AUDIT-C) 3. How often do you have six or more drinks on one occasion?: Never Total Score: 0 MERRILL-7 AMB Questionnaire MERRILL-7 Date MERRILL - 7 assessed: 01/24/24 Source: Developed by Drs. Gilmar Prabhakar, Carmen Leal, Lorenzo Deng and colleagues, with an educational wilfredo from [employer]. Review of Systems Const Denies body aches, Denies chills, Denies fever(s), Denies headache(s) and Denies poor appetite Eyes Reports no additional complaints ENT Denies dizziness and Denies headache(s) Card Denies chest pain, Denies syncope, Denies edema, Denies irregular heart rhythm, Denies lightheadedness, Reports palpitations, Denies dyspnea and Reports dyspnea on exertion Resp Denies cough, Denies dyspnea and Reports dyspnea on exertion GI Denies abdominal pain, Denies constipation, Denies diarrhea, Denies nausea and Denies vomiting Reports no additional complaints Musc Reports no additional complaints and Denies abnormal gait Skin/Breast Reports system reviewed and no additional complaints, except as documented Neuro Denies abnormal gait, Denies dizziness, Denies syncope and Denies headache(s) Psych Reports no additional complaints Endo Reports palpitations Physical exam (Primary Care) Vital Signs: Last Vital Signs Pulse 66 05/12/24 09:12 BP 120/64 05/12/24 09:12 Pulse Ox 97 05/12/24 09:12 Oxygen Delivery Method Room Air 05/12/24 09:12 BMI result Body Mass Index 32.8 Tobacco/Smoking Status: Tobacco use Status Tobacco use date assessed 05/12/24 05/12/24 09:13 Patient Tobacco Use Status Current everyday Tobacco 05/12/24 09:13 Tobacco use type Cigarette 05/12/24 09:13 e-Cigarette/Vaping Use Currently Using 05/12/24 09:13 Thrive Assessment: Date of Thrive Assessment Date Thrive assessed 01/29/24 05/12/24 09:13 Currently or been in a relationship where the following occur: No concerns reported Const General: cooperative, healthy appearing, comfortable and no acute distress Orientation/consciousness: patient oriented x3 HENMT Head: Yes normocephalic Ears: hearing grossly normal bilaterally General nose exam: Normal external nose present Eyes General: appearance normal, both eyes and all related structures Conjunctivae: conjunctivae normal Neck Neck: Yes full ROM and Yes no lymphadenopathy Resp Effort & Inspection: normal respiratory effort Auscultation: clear to auscultation bilaterally, no crackles, no rales, no rhonchi and no wheezes Cardio Rate: regular rate Rhythm: regular rhythm Skin General skin exam: no rashes or lesions noted Neuro General: patient oriented x3 Gait exam (Neuro): Normal gait present Extrem General: Yes normal to inspection, Yes full ROM and No edema Psych Affect: normal affect Attitude: cooperative Insight: Good insight present (Psych) Judgement: Good judgement present (Psych) Coding Level of Care Code Est Pt Level 4 (39039) Diagnoses Palpitations R00.2 Tobacco abuse Z72.0 Generalized anxiety disorder F41.1 Coronary artery disease involving red devil coronary artery of red devil heart without angina pectoris I25.10 Associated angina: without angina Coronary Disease-Associated Artery/Lesion type: red devil artery [place] vs. transplanted heart: red devil heart Essential hypertension I10 Hypertension type: essential hypertension Hypercholesteremia E78.00 Impaired glucose tolerance R73.02 Gastroesophageal reflux disease without esophagitis K21.9 Esophagitis presence: without esophagitis Moderate persistent asthma without complication J45.40 Asthma complication type: uncomplicated Asthma persistence: persistent Asthma severity: moderate Osteoporosis M81.0 Assessment & Plan Assessment & Plan (1) Palpitations: Code(s): R00.2 - Palpitations Category: Medical Plan: Echocardiogram completed within normal limits and Holter monitor completed. Has an appointment to review these tests cardiology in July after undergoing stress test. (2) Tobacco abuse: Comment: stopped 06/2022 using vape presently (asked 08/2022) June [address] CT Code(s): Z72.0 - Tobacco use Category: Medical Plan: Smoking cigarettes and the use of tobacco can be harmful. We discussed the importance of stopping and options to aid in smoking cessation. (3) Generalized anxiety disorder: Code(s): F41.1 - Generalized anxiety disorder Category: Medical Plan: Declining counseling at this time continue on lorazepam as needed (4) Coronary artery disease: Comment: June 2020 - NO CAD Code(s): I25.10 - Atherosclerotic heart disease of red devil coronary artery without angina pectoris Category: Medical Qualifiers: Associated angina: without angina Coronary Disease-Associated Artery/Lesion type: red devil artery [place] vs. transplanted heart: red devil heart Qualified Code(s): I25.10 - Atherosclerotic heart disease of red devil coronary artery without angina pectoris Plan: Advised good control of blood pressure, blood sugars and cholesterol. Cholesterol elevated in the 90s on last blood work discussed the importance of having a cholesterol goal closer to 70 patient understands the risk of elevated cholesterol in the setting of coronary artery disease. (5) Hypertension: Code(s): I10 - Essential (primary) hypertension Category: Medical Qualifiers: Hypertension type: essential hypertension Qualified Code(s): I10 - Essential (primary) hypertension Plan: Continue on current blood pressure medication. Avoid salt intake and encourage healthy diet and regular exercise. Presently on metoprolol (6) Hypercholesteremia: Code(s): E78.00 - Pure hypercholesterolemia, unspecified Category: Medical Plan: Avoid foods that are high in cholesterol such as red meat, fried foods, eggs and baked goods. Triglyceride goal of less than 150 and LDL goal of less than 70. Continue on rosuvastatin 40 mg. Discussed her blood pressure is not at her goal given the diagnosis of coronary artery disease. Discuss elevated cholesterol can lead to increased risk of cardiovascular events and patient understands. Patient is declining additional medication at this time and would like to work on diet exercise and redrawn 3 months. Did discuss possibly adding Zetia to medication regimen for better cholesterol control. (7) Impaired glucose tolerance: Code(s): R73.02 - Impaired glucose tolerance (oral) Category: Medical Plan: Decrease the amount of carbohydrates such as pasta, bread, rice, and potatoes and limit the amount of sweets. Although fruits are generally healthy they should be eaten in moderation as they are still high in sugar. (8) GERD (gastroesophageal reflux disease): Code(s): K21.9 - Gastro-esophageal reflux disease without esophagitis Category: Medical Qualifiers: Esophagitis presence: without esophagitis Qualified Code(s): K21.9 - Gastro-esophageal reflux disease without esophagitis Plan: Avoid trigger foods such as citrus, tomato products, soda, caffeine, spicy foods and other foods that may be irritating to your stomach. Avoid laying flat 3-4 hours after eating and elevate the head of the bed 30 degrees to prevent acid from moving into the esophagus. (9) Asthma: Code(s): J45.909 - Unspecified asthma, uncomplicated Category: Medical Qualifiers: Asthma complication type: uncomplicated Asthma persistence: persistent Asthma severity: moderate Qualified Code(s): J45.40 - Moderate persistent asthma, uncomplicated Plan: Asthma currently controlled on present medications. Continue on albuterol as needed. Avoid triggers such as allergies. Strongly advised to stop smoking (10) Osteoporosis: Code(s): M81.0 - Age-related osteoporosis without current pathological fracture Category: Medical Plan: Patient has new diagnosis of osteoporosis in the setting of chronic tobacco use and post menopause. Patient is declining bisphosphonate at this time and we will refer to endocrinology for further management. Started on calcium and vitamin-D supplementation Plan This note was constructed using voice recognition software. While every effort has been made to ensure accuracy and laboratory analyst, still areas may have been included sometimes these areas may affect the content or meeting of the given symptoms. Total time spent caring for the patient today was 20 minutes. This includes time spent before the visit reviewing the chart, time spent during the visit, and time spent after the visit and documentation. Orders: Orders Lipid Panel Today E78.00 - Pure hypercholesterolemia, unspecified Referrals Endocrinology Referral M81.0 - Age-related osteoporosis without current pathological fracture Medications: New calcium carbonate-vitamin D3 600 mg-25 mcg (1,000 unit) 1 cap PO BID 90 days 180 caps 2RF
[2024-05-12 09:12] VITALS: BP 120/64; PULSE 66; O2SAT 97; BMI 32.8
== END 2024-05-12 09:56 | disposition home or self-care (01) ==
DX: R00.2 Palpitations (principal); Z72.0 Tobacco use; F41.1 Generalized anxiety disorder; I25.10 Atherosclerotic heart disease of native coronary artery without angina pectoris; I10 Essential (primary) hypertension; E78.00 Pure hypercholesterolemia, unspecified; R73.02 Impaired glucose tolerance (oral); K21.9 Gastro-esophageal reflux disease without esophagitis; J45.40 Moderate persistent asthma, uncomplicated; M81.0 Age-related osteoporosis without current pathological fracture

== ENCOUNTER → 2024-05-12 09:05 | Outpatient (BNVA) | payer OTHER, SELFPAY | DX: R00.2 Palpitations (principal); F41.1 Generalized anxiety disorder; I25.10 Atherosclerotic heart disease of native coronary artery without angina pectoris; I10 Essential (primary) hypertension; E78.00 Pure hypercholesterolemia, unspecified; R73.02 Impaired glucose tolerance (oral); K21.9 Gastro-esophageal reflux disease without esophagitis; J45.40 Moderate persistent asthma, uncomplicated; Z72.0 Tobacco use | CPT/HCPCS: 99212 ==

== ENCOUNTER 2024-05-20 09:05 | Outpatient (AMB) | payer OTHER, SELFPAY ==
--- NOTE | 2024-05-20 09:07 | MHC.OFFVIS ---
Vital Signs 05/20/24 09:12 Height 5 ft 3.82 in Weight 190 lb 11.198 oz BMI 32.9 BP 108/64 Blood Pressure Location Lt brachial Position Sitting Pulse 51 Pulse Source Pulse Oximeter Intake Visit Reasons: Age-related osteoporosis Intake Note: New patient internally referred by PCP for Age-related Osteoporosis. Furniture Finisher Helper Required: No Accompanied by: Self / Same As Patient Allergies atorvastatin [Lipitor] Allergy (Intermediate, Verified 05/20/24 09:13) joint pain/stiffness ciprofloxacin [From Cipro] Allergy (Intermediate, Verified 05/20/24 09:13) H/A NAUSEA HIVES pravastatin [From PRAVACHOL] Allergy (Intermediate, Verified 05/20/24 09:13) joint pain/stiffness simvastatin [SIMVASTATIN] Allergy (Intermediate, Verified 05/20/24 09:13) joint pain/stiffness Sulfa (Sulfonamide Antibiotics) Allergy (Intermediate, Verified 05/20/24 09:13) HIVES codeine [Codeine] Adverse Reaction (Intermediate, Verified 05/20/24 09:13) headache/palpitations trimethoprim Adverse Reaction (Intermediate, Verified 05/20/24 09:13) Rash Medication List - Last Reconciled 05/20/24 by Gilmar Jordan MD acetaminophen (Tylenol) 325 mg PO QID PRN albuterol sulfate 90 mcg/actuation (Ventolin HFA) 2 puffs inhalation Q6H PRN calcium carbonate-vitamin D3 600 mg-25 mcg (1,000 unit) 1 cap PO BID 90 days cyclobenzaprine 10 mg PO TID PRN 90 days diclofenac sodium 1% 4 grams topical QID lorazepam 0.5 mg PO BEDTIME PRN 30 days metoprolol succinate ER 25 mg PO DAILY rosuvastatin 40 mg PO DAILY 30 days HPI Comments Details: 63 YO Female is seen in consultation at the request of PCP for low bone mass First diagnosed in recently .Never saw specialist before Not Received treatment in the past History of pathologic fracture fx in ankle 20 yrs ago , hand fx as child Has several servings of dietary calcium per day in the form of milk, cheese , yogurt . Not Takes Calcium supplement. Denies ever using PPI, anticoagulant, +antiepileptic Dilatin, phonobarbital 30 yrs ago or glucocorticoid medication. Does weight bearing exercise 3 days per week in the form of weight bearing . 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 Some hot flashes currently Has history of Kidney stones: 20 yrs ago Denies family history of Osteoporosis or hip fracture. UTD on dental cleanings and sees dentist every 6 months. Planned upcoming dental work and extractions next few mos . tabacco use 5 cigs/day DXA dated 03/10/24:FINDINGS: LEFT FEMUR, NECK: Current: BMD 0.966 g/cm2, Z-score 0.4, T-score -0.5, normal. Prior: BMD 0.964 g/cm2. Baseline: BMD 1.086 g/cm2. LEFT FEMUR, TOTAL: Current: BMD 0.914 g/cm2, Z-score -0.1, T-score -0.7, normal, 1.4% increase from previous, 9.6% decrease from baseline (<5% change is not significant). Prior: BMD 0.901 g/cm2. Baseline: BMD 1.011 g/cm2. AP SPINE L1-L2 (excluding L3 and L4): The data of L1-L4 has been changed to exclude the L3 and L4 vertebral bodies, because significant degenerative change at these levels may cause overestimation of lumbar spine density. Current: BMD 0.895 g/cm2, Z-score -1.5, T-score -2.2, osteopenia, 4.0% decrease from previous, 20.3% decrease from baseline (<5% change is not significant). Prior: BMD 0.932 g/cm2. Baseline: BMD 1.123 g/cm2. IDENTIFIED RISK FACTORS: Early menopause, secondary osteoporosis, hysterectomy, parental hip fracture, current smoker. HISTORY OF FRACTURE: None listed. MEDICATIONS: Calcium. MM/XR DEXA axial skeleton IMPRESSION: 1. DIAGNOSIS: Osteoporosis based on the lowest T-score value of -2.2 in the lumbar spine applying World Health Organization criteria. Labs: [facility] Medical History Breast cancer screening by mammogram Pulmonary nodules History of COVID-19 Hypertension Vitamin D deficiency GERD (gastroesophageal reflux disease) Urinary bladder cancer (~2019) Carpal tunnel syndrome Restless leg syndrome Asthma Kidney stones History of seizures Impaired glucose tolerance Hypercholesteremia Coronary artery disease Obesity (BMI 30-39.9) Surgical History Hx of foot surgery H/O colonoscopy History of transurethral destruction of bladder lesion History of cardiac cath History of surgery on right wrist (~1996) History of tonsillectomy History of elbow surgery History of cholecystectomy (~1998) History of vaginal hysterectomy (~1992) Groin mass Neck mass Family History Father Cerebrovascular disease Lung cancer Rheumatoid arthritis Mother Cerebrovascular disease Diabetes Hypertension Paternal Uncle Lung cancer Colon cancer Sister Cervical cancer Breast cancer Multiple sclerosis Maternal Grandmother Breast cancer Maternal Aunt Breast cancer Sister Psoriasis Social History Housing: Apartment Alcohol intake: never Comment: cardiac prophylactic Patient Tobacco Use Status: Current everyday Tobacco user Tobacco use type: Cigarette Cigarette Packs Per Day: 0.25 Cigarettes Per Day: 2 Years Smoked: onset 19yo, 1-2ppd x 42yrs, now 1/4ppd - 50pyh e-Cigarette/Vaping Use: Currently Using Second Hand Smoke Exposure: Yes Substance Use Type: Marijuana service: No Current occupational status: employed 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 Absence of blue sclera. Absence of kyphosis. Thyroid gland is of nl size and weighs 15 gms. There are no thyroid nodules palpated. Lungs CTA. Heart S1 S2 Reg R/R Abdominal exam benign. Muscle strength 5/5 . Examination of spine reveals absence of tenderness on palpation Quality Reporting (2019) Adult ([facility] 138/07/25/68) Smoking risk assessment performed?: Yes Patient Tobacco Use Status: Current everyday Tobacco user Assessment & Plan Assessment & Plan (1) Osteopenia: Onset Date: ~2021 Comment: (Bone Dexa Lumbar T-score - 1.9, 10/17/2021) Code(s): M85.80 - Other specified disorders of bone density and structure, unspecified site Category: Medical Plan: This is a 63-year-old white female with a history of low bone mass with partial secondary workup. Will complete secondary workup by doing 24 hour urine for calcium and creatinine as well as phosphorus level. Will continue the 1200 mg of calcium supplementation and vitamin D3 2000 IU per day. Will counseling center manager patient about smoking cessation. Assuming secondary workup was negative, could consider pharmacologic therapy with Evista considering strong family history of breast cancer. Orders: Orders Calcium, 24 Hr Ur Today M85.80 - Other specified disorders of bone density and structure, unspecified site Creatinine, 24 Hr Group Today M85.80 - Other specified disorders of bone density and structure, unspecified site Phosphorus Today M85.80 - Other specified disorders of bone density and structure, unspecified site Coding Level of Care Code New Pt Level 4 (06599) Diagnoses Osteopenia M85.80
[2024-05-20 09:12] VITALS: BP 108/64; PULSE 51; BMI 32.9
== END 2024-05-20 10:04 | disposition home or self-care (01) ==
PROVIDERS: Visit Provider Internal Medicine Endocrinology, Diabetes & Metabolism
DX: M85.80 Other specified disorders of bone density and structure, unspecified site (principal)
CPT/HCPCS: 99204

== ENCOUNTER → 2024-05-20 09:05 | Outpatient (BNVA) | payer OTHER, SELFPAY | PROVIDERS: Visit Provider Internal Medicine Endocrinology, Diabetes & Metabolism | DX: M85.80 Other specified disorders of bone density and structure, unspecified site (principal) | CPT/HCPCS: 99202 ==

== ENCOUNTER 2024-05-20 10:10 | Outpatient (REF) | payer OTHER, SELFPAY ==
[2024-05-20 11:02] LABS: Phosphorus 3.9 mg/dL (2.7-4.5)
== END 2024-05-20 10:11 | disposition home or self-care (01) ==
LOC: HO.10HDL 10:10
PROVIDERS: Visit Provider Internal Medicine Endocrinology, Diabetes & Metabolism
DX: M85.80 Other specified disorders of bone density and structure, unspecified site (principal)
CPT/HCPCS: 36415; 84100

== ENCOUNTER 2024-07-27 08:58 | Outpatient (REF) | payer OTHER, SELFPAY ==
--- NOTE | ~2024-07-27 | CT_ITS ---
CLINICAL HISTORY: F17.210 - Nicotine dependence, cigarettes, uncomplicated CT lung cancer screening (LDCT) Comparison: CT/SC/SR - CT LUNG SCREENING - 07/25/23 10:03 EST Technique: Axial CT images of the chest using low-dose technique. Referring provider counseled the patient on shared decision-making for LDCT screening. Additional counseling was provided on smoking cessation. Effective radiation dose total: DLP 39.4 mGycm, CTDIvol 1.2 mGy. Findings: Lung: Mild emphysema. There are calcified granulomas. Multiple pulmonary nodules: 3.2 mm in the left lower lobe series 4, image 66; 3.8 mm in the left lower lobe image 54; 3.5 mm in the right upper lobe image 37; 3 mm para fissural nodule of the right middle lobe image 90. Coronary artery calcifications: Mild Limited upper abdomen: Unremarkable Other: None Impression: LungRADS 2 - Benign Appearance: Continue annual screening with low dose Chest CT in 12 months. ##L2# Category 1: Normal; continue annual screening Category 2: Benign appearance or behavior, continue annual screening Category 3: Probably benign, [address] recommended Category 4A: Suspicious, [address] recommended; may consider PET/CT Category 4B: Suspicious, Additional diagnostics and/or tissue sampling recommended Category 4X: Suspicious, Additional diagnostics and/or tissue sampling recommended Category 0: Recalls (incomplete screen due to Incomplete coverage, Noise, Respiratory motion, Expiration, Obscured by acute abnormality) This document has been electronically signed by: Naima Kennedy MD on 07/28/2024 13:33:24
== END 2024-07-27 08:59 | disposition home or self-care (01) ==
LOC: HO.CT 08:58
PROVIDERS: PCP Internal Medicine; Visit Provider Physician Assistant Medical
DX: Z12.2 Encounter for screening for malignant neoplasm of respiratory organs (principal); F17.210 Nicotine dependence, cigarettes, uncomplicated
CPT/HCPCS: 71271

== ENCOUNTER → 2024-07-27 08:59 | Outpatient (BNV) | payer OTHER, SELFPAY | PROVIDERS: PCP Internal Medicine; Visit Provider Nuclear Medicine | DX: F17.210 Nicotine dependence, cigarettes, uncomplicated (principal) | CPT/HCPCS: 71271 ==

== ENCOUNTER 2024-08-11 09:05 | Outpatient (AMB) | payer OTHER, SELFPAY ==
[2024-08-11 09:21] VITALS: BP 112/64; PULSE 68; TEMP 36; O2SAT 98; BMI 32.5
--- NOTE | 2024-08-11 09:21 | A.OFFPC_ITS ---
Vital Signs 08/11/24 09:21 Height 5 ft 4 in Weight 189 lb 3.2 oz BMI 32.5 BP 112/64 Blood Pressure Location Lt brachial Position Sitting Pulse 68 Pulse Source Pulse Oximeter Temp 96.8 F Temp Source Temporal Artery Scan Pulse Oximetry (%) 98 Oxygen Delivery Method Room Air Intake Visit Reasons: f/u cholesterol General Expeditor Required: No Accompanied by: Self / Same As Patient Allergies atorvastatin [Lipitor] Allergy (Intermediate, Verified 08/11/24 09:27) joint pain/stiffness ciprofloxacin [From Cipro] Allergy (Intermediate, Verified 08/11/24 09:27) H/A NAUSEA HIVES pravastatin [From PRAVACHOL] Allergy (Intermediate, Verified 08/11/24 09:27) joint pain/stiffness simvastatin [SIMVASTATIN] Allergy (Intermediate, Verified 08/11/24 09:27) joint pain/stiffness Sulfa (Sulfonamide Antibiotics) Allergy (Intermediate, Verified 08/11/24 09:27) HIVES codeine [Codeine] Adverse Reaction (Intermediate, Verified 08/11/24 09:27) headache/palpitations trimethoprim Adverse Reaction (Intermediate, Verified 08/11/24 09:27) Rash Medication List - Last Reconciled 08/11/24 by Yary Meier PA-C acetaminophen (Tylenol) 325 mg PO QID PRN albuterol sulfate 90 mcg/actuation (Ventolin HFA) 2 puffs inhalation Q6H PRN calcium carbonate-vitamin D3 600 mg-25 mcg (1,000 unit) 1 cap PO BID 90 days cyclobenzaprine 10 mg PO TID PRN 90 days diclofenac sodium 1% 4 grams topical QID lorazepam 0.5 mg PO BEDTIME PRN 30 days metoprolol succinate ER 25 mg PO DAILY rosuvastatin 40 mg PO DAILY 30 days Tobacco use date assessed: 08/11/24 Dental Screening Dental Screen Date: 08/11/24 Did you have a dental visit in the last 12 months?: No Did you have a dental problem in the last 6 months where you did not have access to dental care?: No HPI f/u cholesterol HPI Details 63-year-old female with past medical his tory tobacco abuse, asthma, GERD, impaired glucose tolerance, hypercholesterolemia, hypertension, coronary artery disease, urinary bladder cancer and generalized anxiety disorder last seen 05/2024 coming in for follow up. In review of the notes, patient was seen endocrinology 05/2024 for osteopenia secondary workup ordered advised calcium supplementation and vitamin D3 and follow up. Presenting with substernal pain and acid reflux management. The patient has a history of bladder cancer and osteopenia, with ongoing treatment managed by endocrinology, including a 24-hour urine calcium test. The patient reports severe sharp substernal pain with gaseous distension. This pain is reportedly exacerbated by work; prior imaging tests were completed. Chronic acid reflux is managed with famotidine, although she claims inadequate relief. A cardiac stress test has yet to be conducted and has been rescheduled by the patient for October with Cardiac follow up afterwards. The patient has an ongoing smoking history, despite attempted cessation methods. [facility] Medical History Osteoporosis (~2023) Nicotine dependence, cigarettes, uncomplicated Pulmonary nodules History of COVID-19 Hypertension Vitamin D deficiency GERD (gastroesophageal reflux disease) Urinary bladder cancer (~2018) Carpal tunnel syndrome Restless leg syndrome Asthma Kidney stones History of seizures Impaired glucose tolerance Hypercholesteremia Coronary artery disease Obesity (BMI 30-39.9) Surgical History Hx of foot surgery H/O colonoscopy History of transurethral destruction of bladder lesion History of cardiac cath History of surgery on right wrist (~1996) History of tonsillectomy History of elbow surgery History of cholecystectomy (~1998) History of vaginal hysterectomy (~1992) Groin mass Neck mass Family History Father Cerebrovascular disease Lung cancer Rheumatoid arthritis Mother Cerebrovascular disease Diabetes Hypertension Paternal Uncle Lung cancer Colon cancer Sister Cervical cancer Breast cancer Multiple sclerosis Maternal Grandmother Breast cancer Maternal Aunt Breast cancer Sister Psoriasis Social History Housing: Apartment Alcohol intake: never Comment: cardiac prophylactic Patient Tobacco Use Status: Current everyday Tobacco user Tobacco use type: Cigarette Cigarette Packs Per Day: 0.25 Cigarettes Per Day: 2 Years Smoked: onset 19yo, 1-2ppd x 42yrs, now 1/4ppd - 50pyh e-Cigarette/Vaping Use: Currently Using Second Hand Smoke Exposure: Yes Substance Use Type: Marijuana service: No Current occupational status: employed 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 1. Little interest or pleasure in doing things: not at all 2. Feeling down, depressed, or hopeless: not at all 3. Trouble falling or staying asleep, or sleeping too much: not at all 4. Feeling tired or having little energy: not at all 5. Poor appetite or overeating: not at all 6. Feeling bad about yourself - or that you are a failure or have let yourself or your family down: not at all 7. Trouble concentrating on things, such as reading the newspaper or watching television: not at all 8. Moving or speaking so slowly that other people could have noticed. Or the opposite - being so fidgety or restless that you have been moving around a lot more than usual: not at all 9. Thoughts that you would be better off or of hurting yourself in some way: not at all Total score: 0 Depression Screening Interpretation: Negative Depression Screening Done: Yes 49051 - PHQ-9 Billing: Yes Source: Developed by Drs. Gilmar Prabhakar, Carmen Leal, Lorenzo Deng and colleagues, with an educational wilfredo from [employer]. Thrive Questionnaire Date Thrive assessed: 08/11/24 I am a: Patient What is your living situation today?: I have a steady place to live Within the past 12 months, did the food you bought not last and you didn't have the money to get more?: Never true Within the past 12 months, did you worry whether your food would run out before you got money to buy more?: Never true Do you have trouble paying for medicines?: No Do you have trouble getting transportation to medical appointments?: No Do you have trouble paying your heating and electricity bill?: No Do you have trouble taking care of your child, family member or friend?: No Do you have trouble with day-to-day activities such as bathing, preparing meals, shopping, managing finances, etc.?: No Are you currently unemployed and looking for a job?: No Are you interested in more education?: No Please select the resources that you would like help with: None Currently or been in a relationship where the following occur: No concerns reported THRIVE Score: 0 AUDIT C Alcohol Use Questionnaire (AUDIT-C) 3. How often do you have six or more drinks on one occasion?: Never Total Score: 0 MERRILL-7 AMB Questionnaire MERRILL-7 Date MERRILL - 7 assessed: 08/11/24 Feeling nervous, anxious, or on edge: 0 = Not at all Not being able to stop or control worryin = Not at all Worrying too much about different things: 0 = Not at all Trouble relaxin = Not at all Being so restless that it is hard to sit still: 0 = Not at all Becoming easily annoyed or irritable: 0 = Not at all Feeling afraid as if something awful might happen: 0 = Not at all Total MERRILL-7 score (0-4 normal; 5-9 mild; 10-14 moderate; 15-21 severe): 0 Source: Developed by Drs. Gilmar Prabhakar, Carmen Leal, Lorenzo Deng and colleagues, with an educational wilfredo from [employer]. MERRILL-7 Assessment Billing MERRILL-7 Assessment Tool: MERRILL-7 Assessment 71742 Review of Systems Const Denies body aches, Denies chills, Denies fever(s), Denies headache(s) and Denies poor appetite Eyes Reports no additional complaints ENT Denies dysphagia, Denies dizziness, Denies headache(s) and Denies odynophagia Card Denies chest pain, Denies syncope, Denies edema, Denies irregular heart rhythm, Denies lightheadedness and Denies dyspnea Resp Denies cough and Denies dyspnea GI Denies abdominal pain, Denies constipation, Denies dysphagia, Denies diarrhea, Denies nausea, Denies odynophagia and Denies vomiting Reports no additional complaints Musc Reports no additional complaints and Denies abnormal gait Skin/Breast Reports system reviewed and no additional complaints, except as documented Neuro Denies abnormal gait, Denies dizziness, Denies syncope and Denies headache(s) Psych Reports no additional complaints Physical exam (Primary Care) Vital Signs: Last Vital Signs Temp 96.8 F 08/11/24 09:21 Pulse 68 08/11/24 09:21 BP 112/64 08/11/24 09:21 Pulse Ox 98 08/11/24 09:21 Oxygen Delivery Method Room Air 08/11/24 09:21 BMI result Body Mass Index 32.5 Tobacco/Smoking Status: Tobacco use Status Tobacco use date assessed 08/11/24 08/11/24 09:32 Patient Tobacco Use Status Current everyday Tobacco 08/11/24 09:21 Tobacco use type Cigarette 08/11/24 09:21 e-Cigarette/Vaping Use Currently Using 08/11/24 09:21 PHQ-9: PHQ-9 Score PHQ-9: Total score 0 08/11/24 09:32 Depression Screening Interpretation: Negative Thrive Assessment: Date of Thrive Assessment Date Thrive assessed 08/11/24 08/11/24 09:32 Currently or been in a relationship where the following occur: No concerns reported Const General: cooperative, healthy appearing, comfortable and no acute distress Orientation/consciousness: patient oriented x3 HENMT Head: Yes normocephalic Ears: hearing grossly normal bilaterally General nose exam: Normal external nose present Eyes General: appearance normal, both eyes and all related structures Conjunctivae: conjunctivae normal Neck Neck: Yes full ROM and Yes no lymphadenopathy Resp Effort & Inspection: normal respiratory effort Auscultation: clear to auscultation bilaterally, no crackles, no rales, no rhonchi and no wheezes Cardio Rate: regular rate Rhythm: regular rhythm Skin General skin exam: no rashes or lesions noted Neuro General: patient oriented x3 Gait exam (Neuro): Normal gait present Extrem General: Yes normal to inspection, Yes full ROM and No edema Psych Affect: normal affect Attitude: cooperative Insight: Good insight present (Psych) Judgement: Good judgement present (Psych) Coding Level of Care Code Est Pt Level 3 (29948) Diagnoses Osteoporosis M81.0 Nicotine dependence, cigarettes, uncomplicated F17.210 Malignant neoplasm of urinary bladder, unspecified site C67.9 Bladder location: unspecified site Coronary artery disease involving cahto coronary artery of cahto heart without angina pectoris I25.10 Associated angina: without angina Coronary Disease-Associated Artery/Lesion type: cahto artery [place] vs. transplanted heart: cahto heart Essential hypertension I10 Hypertension type: essential hypertension Hypercholesteremia E78.00 Impaired glucose tolerance R73.02 Gastroesophageal reflux disease without esophagitis K21.9 Esophagitis presence: without esophagitis Moderate persistent asthma without complication J45.40 Asthma complication type: uncomplicated Asthma persistence: persistent Asthma severity: moderate Obesity (BMI 30-39.9) E66.9 Additional Codes MERRILL-7 Assessment Billing - MERRILL-7 Assessment Tool: MERRILL-7 Assessment 61421 ([id number]) PHQ-9 - 79361 - PHQ-9 Billing: Yes ([id number]) Assessment & Plan Assessment & Plan (1) Osteoporosis: Onset Date: ~2023 Comment: (Bone Dexa Lumbar T-score: - 1.9 on 10/17/21; -2.2 on 03/10/24) Code(s): M81.0 - Age-related osteoporosis without current pathological fracture Category: Medical Plan: Recently seen by endocrinology recommended calcium and vitamin-D supplementation with consideration of additional medical management down the road. Continue to follow with endocrinology. (2) Nicotine dependence, cigarettes, uncomplicated: Comment: (current smoker - onset 19yo, 1-2ppd x 42yrs, now 1/4ppd - 50pyh) Code(s): F17.210 - Nicotine dependence, cigarettes, uncomplicated Category: Medical Plan: Currently following with annual lung cancer screening program recently completed. Smoking cigarettes and the use of tobacco can be harmful. We discussed the importance of stopping and options to aid in smoking cessation. (3) Urinary bladder cancer: Onset Date: ~2018 Comment: (Dx December [address] [place] [address] Singer - T1 high-grade with intravesical gemcitabine boost Dr. Divine Diop Gynecologic oncology [facility] 03/2020) Code(s): C67.9 - Malignant neoplasm of bladder, unspecified Category: Medical Qualifiers: Bladder location: unspecified site Qualified Code(s): C67.9 - Malignant neoplasm of bladder, unspecified Plan: Continue to follow with Urology has a appointment in the upcoming months. (4) Coronary artery disease: Comment: June 2020 - NO CAD Code(s): I25.10 - Atherosclerotic heart disease of cahto coronary artery without angina pectoris Category: Medical Qualifiers: Associated angina: without angina Coronary Disease-Associated Artery/Lesion type: cahto artery [place] vs. transplanted heart: cahto heart Qualified Code(s): I25.10 - Atherosclerotic heart disease of cahto coronary artery without angina pectoris Plan: Advised good control of cholesterol, blood sugars and blood pressure. Ordered for repear blood work. (5) Hypertension: Code(s): I10 - Essential (primary) hypertension Category: Medical Qualifiers: Hypertension type: essential hypertension Qualified Code(s): I10 - Essential (primary) hypertension Plan: Continue on current blood pressure medication. Avoid salt intake and encourage healthy diet and regular exercise. (6) Hypercholesteremia: Code(s): E78.00 - Pure hypercholesterolemia, unspecified Category: Medical Plan: Avoid foods that are high in cholesterol such as red meat, fried foods, eggs and baked goods. Triglyceride goal of less than 150 and LDL goal of less than 70. Continue on rosuvastatin 40. Reminded patient about blood work (7) Impaired glucose tolerance: Code(s): R73.02 - Impaired glucose tolerance (oral) Category: Medical Plan: Decrease the amount of carbohydrates such as pasta, bread, rice, and potatoes and limit the amount of sweets. Although fruits are generally healthy they should be eaten in moderation as they are still high in sugar. Hemoglobin A1c goal of less than 7%. (8) GERD (gastroesophageal reflux disease): Code(s): K21.9 - Gastro-esophageal reflux disease without esophagitis Category: Medical Qualifiers: Esophagitis presence: without esophagitis Qualified Code(s): K21.9 - Gastro-esophageal reflux disease without esophagitis Plan: Avoid trigger foods such as citrus, tomato products, soda, caffeine, spicy foods and other foods that may be irritating to your stomach. Avoid laying flat 3-4 hours after eating and elevate the head of the bed 30 degrees to prevent acid from moving into the esophagus. We will continue famotidine for gastroesophageal reflux management and introduce esomeprazole. An upper GI series will be scheduled for further investigation of her substernal pain and reflux symptoms by the GI specialist. Lastly, given a family history of colorectal cancer, a colonoscopy is advised to screen for polyps, recognizing the difficulties related to personal circumstances. In the past patient has put off the endoscopy due to the procedure including a colonoscopy I strongly recommended patient follow up with Gastroenterology and reschedule this testing (9) Asthma: Code(s): J45.909 - Unspecified asthma, uncomplicated Category: Medical Qualifiers: Asthma complication type: uncomplicated Asthma persistence: persistent Asthma severity: moderate Qualified Code(s): J45.40 - Moderate persistent asthma, uncomplicated Plan: Asthma currently controlled on present medications. Continue on albuterol as needed. Avoid triggers such as allergies. (10) Obesity (BMI 30-39.9): Code(s): E66.9 - Obesity, unspecified Category: Medical Plan: Healthy diet and regular exercise is encouraged. Plan This note was constructed using voice recognition software. While every effort has been made to ensure accuracy and public health staff nurse, still areas may have been included sometimes these areas may affect the content or meeting of the given symptoms. Total time spent caring for the patient today was 20 minutes. This includes time spent before the visit reviewing the chart, time spent during the visit, and time spent after the visit and documentation. Patient was informed and verbally consented to the use of an ambient scribe for clinic note documentation during this visit. Orders: Orders Hemoglobin A1c Today R73.02 - Impaired glucose tolerance (oral) [place] upper GI series Today K21.9 - Gastro-esophageal reflux disease without esophagitis UA CC w/rflx Micro + Cult Today R35.89 - Other polyuria
--- OUTSIDE RECORDS SUMMARY | 2024-08-11 10:08 | XMS_ITS | Continuity of Care Document ---
Author Organization [facility] Address [address] [place] [id number] Care Team Providers Care Administrative Analyst Name Role Phone Unavailable Unavailable Unavailable Allergies, [...] Providers Copied on Encounter OFFICE/OUTPA TIENT VISIT, [facility], [address] [facility] [address] [facility], [place], [place], [phone] , [facility] emergency room follow up (chief complaint) Body mass index (BMI) 33.0-33.9, adultOther pelvic massHematuriaAther osclerosis of aortaTobacco use 9 No Information Family History Family Member Type Diagnosis Age At Onset Problem (finding) Family history of na Problem (finding) Family history of attention deficit hyperactivity disorder Problem (finding) Family history of Arthr itis [...] Problem (finding) Family history of coronary arteriosclerosis Payers Payer name Insurance type Covered alliance party ID Authoriza tisalty(s) Slide C 09 [id number] Social History Type Description Quantity Date Captured [...] history of tobacco smoking and arthritis attended [facility] emergency room in [place], [place] on 11/07/2018 due to acute onset [...] Other pelvic mass) ordered Referral Referred To: [facility] [address] [place], [phone] Ordered: Referrals: Urology. [facility] Urology. Evaluate and treat ordered Referral Ordered: Referrals: Urology. Consult ordered History Of Present Illness Encounter Date Complaint History Of Prese nt Illness emergency room follow up On 2018, 58 year old female patient with past medical history of tobacco smoking and arthritis attended [facility] emergency room in [place], [place] on 11/07/2018 due to acute onset [...]
== END 2024-08-11 10:15 | disposition home or self-care (01) ==
LOC: HO.HMCH 09:06
DX: M81.0 Age-related osteoporosis without current pathological fracture (principal); C67.9 Malignant neoplasm of bladder, unspecified; E66.9 Obesity, unspecified; Z68.32 Body mass index [BMI] 32.0-32.9, adult; F17.210 Nicotine dependence, cigarettes, uncomplicated; I25.10 Atherosclerotic heart disease of native coronary artery without angina pectoris; I10 Essential (primary) hypertension; E78.00 Pure hypercholesterolemia, unspecified; R73.02 Impaired glucose tolerance (oral); K21.9 Gastro-esophageal reflux disease without esophagitis; J45.40 Moderate persistent asthma, uncomplicated

== ENCOUNTER → 2024-08-11 09:05 | Outpatient (BNVA) | payer OTHER, SELFPAY | DX: M81.0 Age-related osteoporosis without current pathological fracture (principal); C67.9 Malignant neoplasm of bladder, unspecified; I25.10 Atherosclerotic heart disease of native coronary artery without angina pectoris; I10 Essential (primary) hypertension; E78.00 Pure hypercholesterolemia, unspecified; R73.02 Impaired glucose tolerance (oral); K21.9 Gastro-esophageal reflux disease without esophagitis; J45.40 Moderate persistent asthma, uncomplicated; E66.9 Obesity, unspecified; Z68.32 Body mass index [BMI] 32.0-32.9, adult; F17.210 Nicotine dependence, cigarettes, uncomplicated; Z71.6 Tobacco abuse counseling | CPT/HCPCS: 96127; 99212 ==

== ENCOUNTER 2024-08-18 10:47 | Outpatient (REF) | payer OTHER, SELFPAY ==
[2024-08-18 11:59] LABS: Estimated Average Glucose 120 mg/dL; Hemoglobin A1c % 5.8 % (<6.0)
[2024-08-18 12:07] LABS: Appearance Urine Cloudy; Color Urine Yellow; Glucose Urine UA Negative (Negative); Leukocyte Esterase Urine Large (3+) (Negative); Nitrite Urine Negative (Negative); PH 5.5 (5.0-9.0); UMIC TRIGGER UACC YES; Urine Blood Large (3+) (Negative); Urine Ketones Trace mg/dL (Negative); Urine Protein Trace mg/dL (Neg-Trace)
[2024-08-18 12:13] LABS: Bacteria Urine Trace (None Seen); Hyaline Casts Urine 0-2 /LPF (0-2); RBC Urine >20 /HPF (0-2); UACC Culture Trigger YES; WBC Urine >50 /HPF (0-5)
== END 2024-08-18 10:48 | disposition home or self-care (01) ==
LOC: HO.LAB 10:47
PROVIDERS: PCP Internal Medicine
DX: R73.02 Impaired glucose tolerance (oral) (principal); R35.89 Other polyuria
CPT/HCPCS: 36415; 81001; 81003; 83036; 87086

== ENCOUNTER 2024-08-26 13:53 | Outpatient (REF) | payer OTHER, SELFPAY | END 2024-08-26 13:54 | disposition home or self-care (01) | LOC: HO.LNP 13:53 | PROVIDERS: PCP Internal Medicine; Visit Provider Nurse Practitioner Family | DX: C67.9 Malignant neoplasm of bladder, unspecified (principal); N39.46 Mixed incontinence | CPT/HCPCS: 52000; 81003; 88121; 99212 ==

== ENCOUNTER 2024-08-26 13:53 | Outpatient (AMB) | payer OTHER, SELFPAY ==
--- NOTE | 2024-08-26 13:55 | A.OFFVIS_ITS ---
Intake Visit Reasons: cysto Intake Note: Patient presents to office today for Cystoscopy Urology Med: None Antibiotic Allergy: Cipro, Sulfa, Trimethroprim Blood Thinner: None Allergies atorvastatin [Lipitor] Allergy (Intermediate, Verified 08/26/24 16:34) joint pain/stiffness ciprofloxacin [From Cipro] Allergy (Intermediate, Verified 08/26/24 16:34) H/A NAUSEA HIVES pravastatin [From PRAVACHOL] Allergy (Intermediate, Verified 08/26/24 16:34) joint pain/stiffness simvastatin [SIMVASTATIN] Allergy (Intermediate, Verified 08/26/24 16:34) joint pain/stiffness Sulfa (Sulfonamide Antibiotics) Allergy (Intermediate, Verified 08/26/24 16:34) HIVES codeine [Codeine] Adverse Reaction (Intermediate, Verified 08/26/24 16:34) headache/palpitations trimethoprim Adverse Reaction (Intermediate, Verified 08/26/24 16:34) Rash Medication List - Last Reconciled 08/26/24 by EMILY Mcginnis-KOSTA acetaminophen (Tylenol) 325 mg PO QID PRN calcium carbonate-vitamin D3 600 mg-25 mcg (1,000 unit) 1 cap PO BID 90 days cyclobenzaprine 10 mg PO TID PRN 90 days diclofenac sodium 1% 4 grams topical QID estradiol 0.01%(0.1mg/gram) (Estrace) 1 g vaginal 3XW 90 days lorazepam 0.5 mg PO BEDTIME PRN 30 days metoprolol succinate ER 25 mg PO DAILY nitrofurantoin monohyd/m-cryst 100 mg (Macrobid) 100 mg PO Q12H 7 days rosuvastatin 40 mg PO DAILY 30 days HPI Comments Details: Ivy is a pleasant female patient of Dr. Ellington. She has a past medical history of osteoporosis, nicotine dependence, vitamin-D deficiency, hypertension, GERD, bladder cancer, carpal tunnel syndrome, restless leg syndrome, asthma, nephrolithiasis, seizures, hypercholesteremia, coronary artery disease, and obesity. She presents to the office today for follow-up of her bladder cancer. In office cystoscopy within normal limits today no bladder tumors noted. We did discussed benefits of topical estrogen therapy as patient with previous hysterectomy in her early 20s. When asked she does report noting episodes of urinary frequency and urgency as well as urge/stress incontinence. We discussed further interventions in risks and benefits of these interventions. She discusses having followed up with her PCP last week and was started on Macrobid for leukocytes that were noted in her urine. Macrobid was given in office today as patient reports she has not yet taken her dose today. In review of patient's chart it appears urine culture 08/25 Mixed bacterial parisa characteristic of urogenital contamination. She denies gross/visible hematuria, dysuria, foul smelling urine, changes to urinary stream, flank pain, fever, and or chills. In office urinalysis results reviewed with the patient today. We discussed sending for FISH. She otherwise offers no other issues or concerns at this time PREEVIOUS NOTE: Bladder Cancer: T1 high-grade February 2019 - completed induction and boost treatment during COV Bladder cancer was initially diagnosed during evaluation for gross hematuria 02/19 - in [place] Bladder intervention(s) performed 02/19 TURBT, T1 invades subepthium, High Grade 04/21 , BCG, Induction 12/20 boost gemcitabine, 04/22 boost, 11/21 boost Recurrence Risk per EORTC High Risk. Bladder cancer risk factors Organic Solvent exposure No smoking Yes hair dye exposure No use of pioglitazone No chronic cystitis No prior chemotherapy with cyclophosphamide No family history of bladder cancer No pelvic radiation No Prior Cystoscopy 12/20 , Negative, 03/22 slight redness at resection site 03/22 NAD 07/24 some erythema, 02/21 NAD, 02/22 NAD, 08/23, 08/24 NAD Prior Cytology 12/20 , Negative for malignancy 06/23 NAD, 11/21 NAD Imaging 11/21 CT NAD Previous intravesical therapy BCG Induction, 04/21 Boost Gemcitabine 12/20, boost 04/22, 11/21 Planned treatment - surveillance cystoscopy [facility] Medical History Osteoporosis (~2023) Nicotine dependence, cigarettes, uncomplicated Pulmonary nodules History of COV- Hypertension Vitamin D deficiency GERD (gastroesophageal reflux disease) Urinary bladder cancer (~2018) Carpal tunnel syndrome Restless leg syndrome Asthma Kidney stones History of seizures Impaired glucose tolerance Hypercholesteremia Coronary artery disease Obesity (BMI 30-39.9) Surgical History Hx of foot surgery H/O colonoscopy History of transurethral destruction of bladder lesion History of cardiac cath History of surgery on right wrist (~1996) History of tonsillectomy History of elbow surgery History of cholecystectomy (~1998) History of vaginal hysterectomy (~1992) Groin mass Neck mass Family History Father Cerebrovascular disease Lung cancer Rheumatoid arthritis Mother Cerebrovascular disease Diabetes Hypertension Paternal Uncle Lung cancer Colon cancer Sister Cervical cancer Breast cancer Multiple sclerosis Maternal Grandmother Breast cancer Maternal Aunt Breast cancer Sister Psoriasis Social History Housing: Apartment Alcohol intake: never Comment: cardiac prophylactic Patient Tobacco Use Status: Current everyday Tobacco user Tobacco use type: Cigarette Cigarette Packs Per Day: 0.25 Cigarettes Per Day: 2 Years Smoked: onset 19yo, 1-2ppd x 42yrs, now 1/4ppd - 50pyh e-Cigarette/Vaping Use: Currently Using Second Hand Smoke Exposure: Yes Substance Use Type: Marijuana service: No Current occupational status: employed 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 Current occupational exposures/hazards: No Cognitive needs: No Hearing needs: No Vision needs: Yes Review of Systems Const All systems reviewed & are unremarkable except as noted in HPI and below Physical Exam Const General: cooperative, healthy appearing, comfortable, no acute distress, well developed, alert and awake Nutritional Appearance: overweight Orientation/consciousness: patient oriented x3 Limitations: no limitations HEENT Head: Yes normal to inspection, Yes normocephalic and Yes atraumatic Ears: hearing grossly normal bilaterally Eyes General: appearance normal, both eyes and all related structures Neck Neck: Yes normal visual inspection and Yes trachea midline Chest Chest palpation & inspection: normal inspection of the chest Resp Effort & Inspection: normal respiratory effort and able to speak in complete sentences Cardio Rate: regular rate GI Inspection: Yes normal to inspection General: Yes no CVA tenderness Back/Spine/Pelvis Back: no CVA tenderness Skin General skin exam: no rashes or lesions noted Neuro General: patient oriented x3 Extrem General: Yes normal to inspection Psych Appearance: grossly normal and well kempt Mental Status: mental status grossly normal Speech and movement: Normal speech and movement present and Clear speech present Affect: normal affect Attitude: cooperative Thought process: Normal thought process present Thought content: Normal thought content present Insight: Fair insight present (Psych) Judgement: Fair judgement present (Psych) Office Procedures Cystoscopy Consent Discussed risk and benefit or proposed procedure with the patient. Information consent for procedure given to the patient. Discussed technical aspects, risks, benefits and alternatives in full. Addressed all of the patient's questions and concerns regarding the procedure. The patient demonstrated knowledge and understanding. They wish to proceed with this procedure. Preparation The patient was prepped in the usual manner. A boiler reliner was present and in the room. Genitalia was prepped with betadine solution in a sterile manner. Lidocaine Jelly 2% was placed into the urethra and 16Fr flexible cystoscope was inserted into the meatus after adequate lubrication. Procedure Urethra retracted Bladder examination with retroflexion of cystoscope Bladder Orifices normal shape and position Trigone inflamed Bladder Capacity small Trabeculations mild Cellule Formation none Diverticulum Formation none Mucosal Erythema none Bladder Tumor none [id number] DISPOSABLE SCOPE URO-G FLEXIBLE SCOPE Procedure code (CPT) selection complete Office Meds lidocaine HCl 2 % mucosal jelly in applicator Performing Provider: CAMILA Mcginnis [place] [facility] [place] [facility] Administered by: Magali Iqbal RN on 08/26/24 14:25 Dose Route Admin Location Dispensed Lot Number Expiration Date [facility] Missile Pad Mechanic 10 mL intra-urethral 10 mL nitrofurantoin monohydrate/macrocrystals 100 mg capsule Performing Provider: CAMILA Mcginnis [place]forming [place] [facility] [place] [facility] Administered by: Magali Iqbal RN on 08/26/24 14:25 Dose Route Admin Location Dispensed Lot Number Expiration Date [place] Missile Pad Mechanic 100 mg PO 1 cap Results AMB Urinalysis, Automated UA Leukoctes 0 Sony/uL Last Edit by Yamile Grady on 08/26/24 15:12 UA Nitrite Negative Last Edit by Yamile Grady on 08/26/24 15:12 UA Urobilinogen 17 mg/dL Last Edit by Yamile Grady on 08/26/24 15:12 UA Protein 1 mg/dL Last Edit by Yamile Grady on 08/26/24 15:12 UA pH 6.0 Last Edit by Yamile Grady on 08/26/24 15:12 UA Blood 200 Hieu/uL Last Edit by Yamile Grady on 08/26/24 15:12 UA Specific [place] 1.020 Last Edit by Yamile Grady on 08/26/24 15:12 UA Ketone Negative Last Edit by Yamile Grady on 08/26/24 15:12 UA Bilirubin 0 mg/dL Last Edit by Yamile Grady on 08/26/24 15:12 UA Glucose 0 mg/dL Last Edit by Yamile Grady on 08/26/24 15:12 Results Reviewed Results Reviewed: Laboratory Last Values Urine pH (Auto) 6.0 08/26/24 14:35 Specific [place] (Auto) 1.020 08/26/24 14:35 Urine Protein (Auto) 1 mg/dL 08/26/24 14:35 Glucose (UA)(Auto) 0 mg/dL 08/26/24 14:35 Urine Ketones (Auto) Negative 08/26/24 14:35 Urine Blood (Auto) 200 Iheu/uL 08/26/24 14:35 Urine Nitrite (Auto) Negative 08/26/24 14:35 Urine Bilirubin (Auto) 0 mg/dL 08/26/24 14:35 Urine Urobilinogen (Auto) 17 mg/dL 08/26/24 14:35 Leukocyte Esterase (Auto) 0 Sony/uL 08/26/24 14:35 Assessment & Plan Assessment & Plan (1) Urinary bladder cancer: Onset Date: ~2018 Comment: (Dx December [address] [place] [address] Singer - T1 high-grade with intravesical gemcitabine boost Dr. Divine Diop Gynecologic oncology [facility] 03/2020) Code(s): C67.9 - Malignant neoplasm of bladder, unspecified Category: Medical Qualifiers: Bladder location: unspecified site Qualified Code(s): C67.9 - Malignant neoplasm of bladder, unspecified (2) Mixed stress and urge urinary incontinence: Code(s): N39.46 - Mixed incontinence Category: Medical Plan In office urinalysis results with the patient today; will send for FISH testing. In office cystoscopy was performed no bladder tumors noted Start Estrace cream as discussed and prescribed. We discussed further treatment options of urge/stress incontinence as well as urinary urgency and frequency. We discussed bladder triggers/irritants. Finish antibiotic therapy as prescribed. Follow-up in 3 months with [facility]; or sooner with any issues, concerns, and or questions. Orders: Orders AMB Cystoscopy Today C67.9 - Malignant neoplasm of bladder, unspecified AMB Urinalysis Automated Today Z13.9 - Encounter for screening, unspecified FISH Bladder Cancer Today C67.9 - Malignant neoplasm of bladder, unspecified Medications: New estradiol 0.01%(0.1mg/gram) (Estrace) Apply a pea-sized amount to urethra daily x1 month and then 3 times per week thereafter 1 g vaginal 3XW 90 days 42.5 grams 3RF Patient Instructions: The patient had an opportunity to ask questions regarding the treatment plan. All questions were answered. Physical exam, labs, and imaging were discussed and reviewed in detail. As well as risks, benefits, and discussion of treatment choices. No major barriers to understanding were identified. The patient expressed understanding and agreement with the above treatment plan. The patient was made aware they should contact our office by phone for worsening of their current condition, the appearance of new symptoms, or with any questions or concerns. Compliance is encouraged with any medications and follow up testing that is ordered. It is a privilege to be allowed the opportunity to participate in? your urological care.? Again, if you have any questions or concerns If you have any questions or concerns please do not hesitate to contact me. The office is [phone]. This note is constructed using voice recognition software. While every effort has been made to ensure accuracy lamp assembler errors may have been included. Yours sincerely, CAMILA Mcginnis Coding Level of Care Code Est Pt Level 4 (75980) Complex EM visit Add On G2211 Diagnoses Malignant neoplasm of urinary bladder, unspecified site C67.9 Bladder location: unspecified site Mixed stress and urge urinary incontinence N39.46 CPT Codes Cystoscopy - CPT: [id number] ([id number])
== END 2024-08-26 14:54 | disposition home or self-care (01) ==
LOC: HO.HUSH 13:54
PROVIDERS: PCP Internal Medicine; Visit Provider Nurse Practitioner Family
DX: C67.9 Malignant neoplasm of bladder, unspecified (principal); N39.46 Mixed incontinence; Z13.9 Encounter for screening, unspecified
CPT/HCPCS: 52000; 99214; G2211

== ENCOUNTER 2024-09-22 16:04 | Outpatient (REF) | payer OTHER, SELFPAY ==
--- OUTSIDE RECORDS SUMMARY | 2024-09-22 18:42 | XMS_ITS | Continuity of Care Document ---
Author Organization [facility] Address [address] [place] [id number] Care Team Providers Care Tumor Registrar Name Role Phone Unavailable Unavailable Unavailable Allergies, [...] Providers Copied on Encounter OFFICE/OUTPA TIENT VISIT, [facility], [address] [facility], [place], [place], [phone] , [facility] emergency room follow up (chief complaint) [...] ovascular disease Problem (finding) Family history of attention deficit hyperactivity disorder Problem (finding) Family history of Obesi ty Problem (finding) Family history of osteo porosis Problem (finding) Family history of strok e Problem (finding) Family history of Thyro id disorder Problem (finding) Family history of na Problem (finding) Family history of Eczem a Problem (finding) Family history of Diabe saud mellitus Problem (finding) Family history of seizu re disorder Problem (finding) Family history of depre ssion Problem (finding) Family history of Aller gies Problem (finding) Family history of coronary arteriosclerosis Payers Payer name Insurance type Covered libertarian ID Authormary betha tisalty(s) Slide C 09 [id number] Social History Type Description Quantity Date Captured [...] history of tobacco smoking and arthritis attended [facility] emergency room in [place], [place] on 11/07/2018 due to acute onset [...] Other pelvic mass) ordered Referral Referred To: [facility] [address] [place], [phone] Ordered: Referrals: Urology. [facility] Urology. Evaluate and treat ordered Referral Ordered: Referrals: Urology. Consult ordered History Of Present Illness Encounter Date Complaint History Of Prese nt Illness emergency room follow up On 2018, 58 year old female patient with past medical history of tobacco smoking and arthritis attended [facility] emergency room in [place], [place] on 11/07/2018 due to acute onset [...]
--- OUTSIDE RECORDS SUMMARY | 2024-09-22 18:42 | XMS_ITS | Encounter Summary ---
Author Organization [facility] Address [address] [place] [address] Care Team Providers Care Broadcast Systems Engineer Name Role Phone Mary Ellington MD Primary Care Provider [phone] Encounter Details Date Type Department Care Team (Latest Contact Info) Description 09/08/2024 Lab Requisition [facility] - [facility] Lab [address] [facility] [place] [phone] Justin Beckford MD [address] [facility] [address] [place] [phone] Encounter for gynecological examination (general) (routine) without abnormal findings Social History Tobacco Use Types Packs/Day Years Used Date Smoking Tobacco: Every Day Smokeless Tobacco: Never Comments Unknown Sex and Gender Information Value Date Recorded Sex Assigned at Not on file Legal Sex Female 4:14 AM EST Gender Identity Not on file Sexual Orientation Not on file documented as of this encounter Plan of Treatment Upcoming Encounters Date Type Department Care Team (Late st Contact Info) Description 10/28/2024 3:00 PM EDT Office Visit Orthopedic Surgery - [place] [address] [facility] [address] [place] [phone] Clarke Alvarez DPM [address] [facility] [address] [place] [address] documented as of this encounter Procedures Procedure Name Priority Date/Time Associated Diagnosis Comments HPV WITH REFLEX GENOTYPE Routine 09/07/2024 12:00 AM EDT Encounter for gynecological examination (general) (routine) without abnormal findings PAP SMEAR Routine 09/07/2024 12:00 AM EDT Encounter for gynecological examination (general) (routine) without abnormal findings documented in this encounter Results * HPV with reflex genotype (09/07/2024 12:00 AM EDT) HPV Negative Negative LAB MICROBIOLOGY METHOD 09/08/2024 11:46 AM EDT [facility] Brushing/Spatula Cervix uteri structure / Unknown 09/07/2024 09/08/2024 6:22 AM EDT us Justin Beckford MD LAB MOLECULAR DIAGNOSTICS ANTOINETTE MATIAS Final Result [facility] [address] [place] [address], [place] [phone] * Pap smear (09/07/2024 12:00 AM EDT) Interpretation Negative for intraepithelial lesion or malignancy 09/10/2024 10:11 AM EDT [facility] Clinical Information LSIL 2020 09/10/2024 10:11 AM EDT [facility] General Categorization Negative 09/10/2024 10:11 AM EDT [facility] Additional Information Abundant acute inflammation. [facility] Specimen Adequacy Satisfactory for evaluation 09/10/2024 10:11 AM EDT [facility] Pap Methodology Liquid Based Pap Test 09/10/2024 10:11 AM EDT [facility] Disclaimer Note: This pap test could not be imaged utilizing the [employer] System and required a manual review. The Pap test is a screening test which carries an inherent false negative rate. These test results should be correlated with the patient's clinical findings and history. This Pap test was processed using an automated screening system. Technical cytopathology services provided by [facility], at [address] [place] [address] (CLIA # [id number]/Kristine Melton MD, Dough Cutter.) 09/10/2024 10:[address] [facility] Console Pap Interpretation Reported 09/10/2024 10:11 AM EDT [facility]) [facility] Brushing/Spatula Vaginal structure / Unknown 09/07/2024 09/08/2024 6:22 AM EDT us Justin Beckford MD LAB CYTOLOGY ORDERABLES Final Result [facility]) [facility] [address] [place] [address], documented in this encounter Visit Diagnoses Diagnosis Encounter for gynecological examination (general) (routine) without abnormal findings documented in this encounter Care Teams Broadcast Systems Engineer Relationship Specialty Start Date End Date Mray Ellington MD [address] [place] [address] [address] [facility] [place] [address] PCP - General Internal Medicine 07/01/12 documented as of this encounter
--- OUTSIDE RECORDS SUMMARY | 2024-09-22 18:42 | XMS_ITS | Clinical Summary ---
Author Organization [address] Address [address] [place] [address] Phone Care Team Providers Care Driver Helper Name Role Phone Mary Ellington MD Primary Care Provider [phone] Encounters Date Type Department Care Team Description 09/08/2024 Lab Requisition [facility] - Main Lab 299 [facility] [address] Justin Beckford MD Encounter for gynecological examination (general) (routine) without abnormal findings from Last 3 Months Surgical History Surgery Date Site/Laterality Comments HYSTERECTOMY PROCEDURE: HISTORICAL HYSTERECTOMY; COMMENT: TV[facility], Ovaries remain in-situ 1984. Retained clamp after . 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 01/04/2020 DX:High grade squamous intra epithelial lesion (HGSIL) on cytologic smear of vagina Bladder cancer (CMS/HCC V24, CMS/HCC V28) 12/2018 DX:Bladder cancer (HCC) Family History Medical History Relation Name Comments Lung cancer Father Diabetes Mother Relation Name Status Comments Father Mother Social History Tobacco Use Types Packs/Day Years Used Date Smoking Tobacco: Every Day Smokeless Tobacco: Never Comments Unknown Sex and Gender Information Value Date Recorded Sex Assigned at Not on file Legal Sex Female 4:14 AM EST Gender Identity Not on file Sexual Orientation Not on file Obstetrics History Last Filed Vital Signs Vital Sign Reading Time Taken Comments Blood Pressure 121/70 06/07/2023 2:33 PM EST Pulse 65 06/07/2023 2:33 PM EST Temperature - - Respiratory Rate - - Oxygen Saturation - - Inhaled Oxygen Concentration - - Weight 83.9 kg (185 lb) 03/10/2024 10:19 AM EDT Height 162.6 cm (5' 4 ) 03/10/2024 10:19 AM EDT Body Mass Index 31.75 03/10/2024 10:19 AM EDT Plan of Treatment Upcoming Encounters Date Type Department Care Team (Late st Contact Info) Description 10/28/2024 3:00 PM EDT Office Visit Orthopedic Surgery - [place] [address] [id number] Clarke Alvarez, DPKinza [address] [address] Health Maintenance Due Date Last Done Comments Breast Cancer Screening 1960 DTaP,Tdap,and Td Vaccines (1 - Tdap) 09/18/1979 Pneumococcal Vaccine: 50+ Years (1 of 2 - PCV) 09/18/1979 Pneumococcal Vaccine: Pediatrics (0 to 5 Years) and At-Risk Patients (6 to 64 Years) (1 of 2 - PCV) 09/18/1979 Zoster Vaccines (1 of 2) 09/18/1979 RSV Immunization Adult Patients (1 - Risk 60-74 years 1-dose series) 2020 Cholesterol Screening (Lipid Panel) 05/12/2022 Colorectal Cancer Screening: Colonoscopy 05/12/2022 Depression Screening 05/12/2022 HIV Screening 05/12/2022 Hepatitis C Screening 05/12/2022 Social Influencers of Health Screening 05/12/2022 Hypertension/CHF/CAD Annual BMP Blood Test 05/18/2022 COVID-19 Vaccine ( - 2023-2 5 season) 2024 04/14/2021, 10/23/2020, 09/19/2020 Influenza Vaccine (Season Ended) 2025 06/21/2023, 04/11/2022 Cervical Cancer Screening: HPV 09/07/2029 09/07/2024 HIB Vaccines Aged Out No longer eligi ble based on patient's age to complete this topic HPV Vaccines Aged Out No longer eligi ble based on patient's age to complete this topic Hepatitis A Vaccines Aged Out No long er eligible based on patient's age to complete this topic Hepatitis B Vaccines Aged Out No long er eligible based on patient's age to complete this topic IPV Vaccines Aged Out No longer eligi ble based on patient's age to complete this topic MMR Vaccines Aged Out No longer eligi ble based on patient's age to complete this topic Meningococcal ACWY Vaccine Aged Out N o longer eligible based on patient's age to complete this topic Meningococcal B Vaccine Aged Out No l onger eligible based on patient's age to complete this topic RSV Immunization Patients Under 20 months Aged Out No longer eligible b ased on patient's age to complete this topic Varicella Vaccines Aged Out No longer eligible based on patient's age to complete this topic Procedures Procedure Name Priority Date/Time Associated Diagnosis Comments URINALYSIS MICROSCOPIC ONLY Routine 09/22/2024 9:21 AM EDT UTI (urinary tract infection) URINALYSIS MICROSCOPIC ONLY Routine 09/22/2024 9:21 AM EDT UTI (urinary tract infection) PAP SMEAR Routine 09/07/2024 12:00 AM EDT Encounter for gynecological examination (general) (routine) without abnormal findings HPV WITH REFLEX GENOTYPE Routine 09/07/2024 12:00 AM EDT Encounter for gynecological examination (general) (routine) without abnormal findings from Last 3 Months Results * (ABNORMAL) Urinalysis microscopic only (09/22/2024 9:21 AM EDT) RBC, Urine 55.2(H) 0 - 4 /HPF LAB URINALYSIS - AUTOMATED METHOD 09/22/2024 10:34 AM EDT [facility] WBC, Urine 2.3 0 - 4 /HPF LAB URINALYSIS - AUTOMATED METHOD 09/22/2024 10:34 AM T [facility] Squamous Epithelial, Urine 31 0 - 60 /LPF LAB URINALYSIS - AUTOMATED METHOD 09/22/2024 10:34 AM EDT [facility] Bacteria, Urine Negative Negative /HPF LAB URINALYSIS - AUTOMATED METHOD 09/22/2024 10:34 AM EDT [facility] Hyaline Casts, Urine 4.4(H) 0 - 3 /LPF LAB URINALYSIS - AUTOMATED METHOD 09/22/2024 10:34 AM EDT [facility] Urine Urine specimen obtained by clean catch procedure / Unknown Non-blood Collection / Unknown 09/22/2024 9:21 AM EDT 09/22/2024 9:21 AM EDT us Justin Beckford MD LAB URINE ORDERABLES Final Res ult Performing Organization Address [facility]/ZIP Co de Phone Number [facility] [address] [place] [address], [place] [phone] * HPV with reflex genotype (09/07/2024 12:00 AM EDT) HPV Negative Negative LAB MICROBIOLOGY METHOD 09/08/2024 11:46 AM EDT [facility] Brushing/Spatula Cervix uteri structure / Unknown 09/07/2024 09/08/2024 6:22 AM EDT us Justin Beckford MD LAB MOLECULAR DIAGNOSTICS ORDE RABLES Final Result Performing Organization Address [facility]/ZIP Co de Phone Number [facility] [address] [place] [address], [place] [phone] * Pap smear (09/07/2024 12:00 AM EDT) Interpretation Negative for intraepithelial lesion or malignancy 09/10/2024 10:11 AM EDT [facility] Clinical Information LSIL 2020 09/10/2024 10:11 AM EDT [facility] General Categorization Negative 09/10/2024 10:11 AM EDT [facility] Additional Information Abundant acute inflammation. 09/10/2024 10:11 AM EDT [facility] Specimen Adequacy Satisfactory for evaluation 09/10/2024 10:11 AM EDT [facility] Pap Methodology Liquid Based Pap Test 09/10/2024 10:11 AM EDT [facility] Disclaimer Note: This pap test could not be imaged utilizing the [employer] System and required a manual review. The Pap test is a screening test which carries an inherent false negative rate. These test results should be correlated with the patient's clinical findings and history. This Pap test was processed using an automated screening system. Technical cytopathology services provided by [facility], at [address] [place] [id number] (CLIA # [id number]/Kristine Melton MD, Hardscape Foreman.) 09/10/2024 10:11 AM EDT [facility] Console Pap Interpretation Reported 09/10/2024 10:11 AM EDT [facility] Brushing/Spatula Vaginal structure / Unknown 09/07/2024 09/08/2024 6:22 AM EDT Justin Beckford MD LAB CYTOLOGY ORDERABLES Final Result [facility] [address] [place] [address], from Last 3 Months Insurance [facility] Care Teams Driver Helper Relationship Specialty Start Date End Date Mary Ellington MD [address] [place] [address] Dr Myrick [address] [facility] [place] [address] PCP - General Internal Medicine 07/01/12
== END 2024-09-22 16:05 | disposition home or self-care (01) ==
LOC: HO.MAMMO 16:04
PROVIDERS: PCP Internal Medicine; Visit Provider Internal Medicine
DX: Z12.31 Encounter for screening mammogram for malignant neoplasm of breast (principal)
CPT/HCPCS: 77063; 77067

== ENCOUNTER → 2024-09-22 16:15 | Outpatient (BNV) | payer OTHER, SELFPAY | PROVIDERS: PCP Internal Medicine; Visit Provider Internal Medicine | DX: Z12.31 Encounter for screening mammogram for malignant neoplasm of breast (principal) | CPT/HCPCS: 77063; 77067 ==

== ENCOUNTER 2024-10-08 12:06 | Outpatient (REF) | payer OTHER, SELFPAY ==
--- OUTSIDE RECORDS SUMMARY | 2024-10-08 13:31 | XMS_ITS | Encounter Summary ---
Author Organization [facility] Address [address] [place] [address] Care Team Providers Care Inspector Line Name Role Phone Mary Ellington MD Primary Care Provider [phone] Encounter Details Date Type Department Care Team (Latest Contact Info) Description 09/08/2024 Lab Requisition [facility] - Main Lab [address] [facility] [place] [phone] Justin Beckford MD 299 [facility] [address] [place] [phone] Encounter for gynecological examination (general) (routine) without [...] PM EDT Office Visit Orthopedic Surgery - [place] 250 [address] [facility] [address] [place] [phone] Clarke Alvarez DPM 175 [facility] [address] [place] [address] documented as of this encounter Procedures Procedure [...] LAB MICROBIOLOGY METHOD 09/08/2024 11:46 AM EDT [facility] Brushing/Spatula Cervix uteri structure / Unknown 09/07/2024 09/08/2024 6:22 AM EDT us Justin Beckford MD LAB MOLECULAR DIAGNOSTICS ANTOINETTE MATIAS Final Result [facility] [address] [place] [address], [place] [phone] * Pap smear (09/07/2024 12:00 AM EDT) Interpretation Negative for intraepithelial lesion or malignancy 09/10/2024 10:11 AM EDT [facility] Clinical Information LSIL 2020 09/10/2024 10:11 AM EDT [facility] General Categorization Negative 09/10/2024 10:11 AM EDT [facility] Additional Information Abundant acute inflammation. 09/10/2024 [facility] Specimen Adequacy Satisfactory for evaluation 09/10/2024 10:11 AM EDT [facility] Pap Methodology Liquid Based Pap Test 09/10/2024 10:11 AM EDT [facility] Disclaimer Note: This pap test could not be imaged utilizing the [employer] Imaging System and required a manual review. The Pap test is a screening test which carries an inherent false negative rate. These test results should be correlated with the patient's clinical findings and history. This Pap test was processed using an automated screening system. Technical cytopathology services provided by [facility], at [address] [place] [address] (CLIA # [id number]/Kristine Melton MD, Private Branch Exchange Service Advisor.) 09/10/2024 10:11 AM EDT [facility] Console Pap Interpretation Reported 09/10/2024 10:11 AM EDT [facility] Brushing/Spatula Vaginal structure / Unknown 09/07/2024 09/08/2024 6:22 AM EDT us Justin Beckford MD LAB CYTOLOGY ORDERABLES Final Result [facility] [address] [place] [address], documented in this encounter Visit Diagnoses Diagnosis Encounter for gynecological examination (general) (routine) without abnormal findings documented in this encounter Care Teams Inspector Line Relationship Specialty Start Date End Date Mary Ellington MD [address] [place] [address] Dr [address] [facility] [place] [address] PCP - General Internal Medicine 07/01/12 documented as of this encounter
--- OUTSIDE RECORDS SUMMARY | 2024-10-08 13:31 | XMS_ITS | Continuity of Care Document ---
Author Organization [facility] Address [address] [place] [id number] Care Team Providers Care Video Game Creator Name Role Phone Unavailable Unavailable Unavailable Allergies, [...] Providers Copied on Encounter OFFICE/OUTPA TIENT VISIT, [facility], [address] [facility], [place], [place], [phone] , [facility] emergency room follow up (chief complaint) [...] name Insurance type Covered alliance party ID Authormary betha tisalty(s) Slide C 09 [id number] Social History Type Description Quantity Date Captured [...] history of tobacco smoking and arthritis attended [facility] emergency room in [place], [place] on 11/07/2018 due to acute onset [...] mass) ordered Referral Referred To: [facility] [address] [place], [phone] Ordered: Referrals: Urology. [facility] Urology. Evaluate and treat ordered Referral Ordered: Referrals: Urology. Consult ordered History Of Present Illness Encounter Date Complaint History Of Prese nt Illness emergency room follow up On 2018, 58 year old female patient with past medical history of tobacco smoking and arthritis attended [facility] emergency room in [place], [place] on 11/07/2018 due to acute onset [...]
--- OUTSIDE RECORDS SUMMARY | 2024-10-08 13:31 | XMS_ITS | Clinical Summary ---
Author Organization [address] Address [address] [place] [address] Phone Care Team Providers Care Finish Sander Name Role Phone Mary Ellington MD Primary Care Provider [phone] Encounters Date Type Department Care Team Description 09/08/2024 Lab Requisition [facility] - Main Lab [address] [facility] [place] [address] Justin Beckford MD Encounter for [...] PM EDT Office Visit Orthopedic Surgery - [place] [address] [phone] Clarke Alvarez, DPKinza [address] [address] Health Maintenance Due Date Last Done Comments [...] 9:21 AM EDT UTI (urinary tract infection) CULTURE URINE Routine 09/22/2024 9:21 AM EDT UTI (urinary [...] - AUTOMATED METHOD 09/22/2024 10:34 AM EDT [facility] WBC, Urine 2.3 0 - 4 /HPF LAB URINALYSIS - AUTOMATED METHOD 09/22/2024 10:34 AM EDT [facility] Squamous Epithelial, Urine 31 0 - 60 /LPF LAB URINALYSIS - AUTOMATED METHOD 09/22/2024 10:34 AM EDT [facility] Bacteria, Urine Negative Negative /HPF LAB URINALYSIS - AUTOMATED METHOD 09/22/2024 10:34 AM EDT [facility] Hyaline Casts, Urine 4.4(H) 0 - 3 /LPF LAB URINALYSIS - AUTOMATED METHOD 09/22/2024 10:34 AM EDT [facility] Urine Urine specimen obtained by clean catch procedure / Unknown Non-blood Collection / Unknown 09/22/2024 9:21 AM EDT 09/22/2024 9:21 AM EDT us Justin Beckford MD LAB URINE ORDERABLES Final Res ult Performing Organization Address [facility]/ZIP Co de Phone Number [facility] [address] [place] [address], [place] [phone] * Culture urine (09/22/2024 9:21 AM EDT) Culture, Urine No growth 09/23/2024 7:31 AM EDT [facility] Urine Urine specimen obtained by clean catch procedure / Unknown Non-blood Collection / Unknown 09/22/2024 9:21 AM EDT 09/22/2024 9:21 AM EDT us Justin Beckford MD LAB MICROBIOLOGY - GENERAL ORD ERABLES Final Result [facility] [address] [place] [address], [place] [phone] * HPV with reflex genotype (09/07/2024 12:00 AM EDT) HPV Negative Negative LAB MICROBIOLOGY METHOD 09/08/2024 11:46 AM EDT [facility] Brushing/Spatula Cervix uteri structure / Unknown 09/07/2024 09/08/2024 6:22 AM EDT Justin Beckford MD LAB MOLECULAR DIAGNOSTICS ANTOINETTE MATIAS Final Result [facility] [address] [place] [address], * Pap smear (09/07/2024 12:00 AM EDT) Interpretation Negative for intraepithelial lesion or malignancy 09/10/2024 10:11 AM EDT [facility] Clinical Information LSIL 2020 09/10/2024 10:11 AM EDT [facility] General Categorization Negative 09/10/2024 10:11 AM EDT [facility] Additional Information Abundant acute inflammation. 09/10/2024 10:11 AM EDT [facility] Specimen Adequacy Satisfactory for evaluation 09/10/2024 10:11 AM EDT [facility] Pap Methodology Liquid Based Pap Test 09/10/2024 10:11 AM EDT [facility] Disclaimer Note: This pap test could not be imaged utilizing the PlayGiga Imaging System and required a manual review. The Pap test is a screening test which carries an inherent false negative rate. These test results should be correlated with the patient's clinical findings and history. This Pap test was processed using an automated screening system. Technical cytopathology services provided by [facility], at [address] [facility], [place] [address] (CLIA # [id number]/Kristine Melton MD, Company Tanker Truck Driver.) 09/10/2024 10:11 AM T [facility] Console Pap Interpretation Reported 09/10/2024 10:11 AM [facility] Brushing/Spatula Vaginal structure / Unknown 09/07/2024 09/08/2024 6:22 AM EDT us Justin Beckford MD LAB CYTOLOGY ORDERABLES Final Result [facility] [address] [place] [address], [place] [phone] from Last 3 Months Insurance [facility] PL[employer] Care Teams Finish Sander Relationship Specialty Start Date End Date Mary Ellington MD [address] [place] [address] [address] [facility] [place] [address] PCP - General Internal Medicine 07/01/12
[2024-10-08 16:10] LABS: Appearance Urine Clear; Color Urine Yellow; Glucose Urine UA Negative (Negative); Leukocyte Esterase Urine Moderate (2+) (Negative); Nitrite Urine Negative (Negative); PH 5.5 (5.0-9.0); Specific Gravity - Urine 1.015 (1.005-1.025); UMIC TRIGGER UACC YES; Urine Blood Moderate (2+) (Negative); Urine Ketones Negative (Negative); Urine Protein Negative (Neg-Trace)
[2024-10-08 16:19] LABS: Bacteria Urine None Seen (None Seen); Hyaline Casts Urine 0-2 /LPF (0-2); UACC Culture Trigger YES
== END 2024-10-08 12:07 | disposition home or self-care (01) ==
LOC: HO.HMGCLDS 12:06
PROVIDERS: Nurse Practitioner Family; PCP Internal Medicine
DX: R42 Dizziness and giddiness (principal); M54.50 Low back pain, unspecified; N30.90 Cystitis, unspecified without hematuria; R07.89 Other chest pain; R51.9 Headache, unspecified
CPT/HCPCS: 81001; 81003; 87086; 99212

== ENCOUNTER 2024-10-08 12:12 | Outpatient (AMB) | payer OTHER, SELFPAY ==
--- NOTE | 2024-10-08 12:37 | AM.OFFWIN_ITS ---
Intake Vital Signs 10/08/24 12:46 10/08/24 13:10 BP 108/78 114/70 Blood Pressure Location Lt brachial Position Sitting Respiration 16 Pulse 68 66 Pulse Source Pulse Oximeter Pulse Oximeter Temp 98.4 F Temp Source Oral Pulse Oximetry (%) 99 99 Oxygen Delivery Method Room Air Room Air Intake Visit Reasons: EP- Heavy feeling chest/ pressure headache Intake Note: Notified by ILYA Alex that patient is reporting chest pressure upon check-in to walk in care. Brought patient back to triage. Patient reports dizziness X 3 days worsening yesterday, intermittent ear ache and ear ringing , headache in forehead area, and chest pressure that feels not like elephant on chest but like grandson on chest Patient reports that her roommate is congested but denies any congestion symptoms of her own. Patient reports she does see Dr. Solorzano for cardiology and is scheduled for a stress test on Saturday to rule out atrial fibrillation. Vital signs obtained and within normal limits-documented in chart. Discussed all of these findings with BANDAR Chris provider who advised patient can return to the waiting room temporarily and will be called in to be seen soon. Patient Tobacco Use Status: Current everyday Tobacco user Allergies atorvastatin [Lipitor] Allergy (Intermediate, Verified 10/08/24 13:08) joint pain/stiffness ciprofloxacin [From Cipro] Allergy (Intermediate, Verified 10/08/24 13:08) H/A NAUSEA HIVES pravastatin [From PRAVACHOL] Allergy (Intermediate, Verified 10/08/24 13:08) joint pain/stiffness simvastatin [SIMVASTATIN] Allergy (Intermediate, Verified 10/08/24 13:08) joint pain/stiffness Sulfa (Sulfonamide Antibiotics) Allergy (Intermediate, Verified 10/08/24 13:08) HIVES codeine [Codeine] Adverse Reaction (Intermediate, Verified 10/08/24 13:08) headache/palpitations trimethoprim Adverse Reaction (Intermediate, Verified 10/08/24 13:08) Rash Do you need a note to return to daycare/school/sports/work: Yes HPI HPI Comments History of Present Illness Details 64 y/o Female patient who presents to [facility] walk in clinic with c/o dizziness X 3 days worsening yesterday, intermittent ear ache and ear ringing , headache in forehead area, and chest pressure that feels not like elephant on chest but like grandson on chest . Patient reports she does see Dr. Solorzano for cardiology and is scheduled for a stress test on Saturday to rule out atrial fibrillation. Pt also c/o lower back pain and when she urinates has blood in urine. H/o Bladder CA, managed by Urologist Dr. Carrlilo. [facility] Medical History (Updated 10/08/24 @ 14:07 by Dot Donahue NP) Cystitis Low back pain Osteoporosis (~2023) Nicotine dependence, cigarettes, uncomplicated Pulmonary nodules History of COVID-19 Hypertension Vitamin D deficiency GERD (gastroesophageal reflux disease) Urinary bladder cancer (~2018) Carpal tunnel syndrome Restless leg syndrome Asthma Kidney stones History of seizures Impaired glucose tolerance Hypercholesteremia Coronary artery disease Obesity (BMI 30-39.9) Surgical History Hx of foot surgery H/O colonoscopy History of transurethral destruction of bladder lesion History of cardiac cath History of surgery on right wrist (~1996) History of tonsillectomy History of elbow surgery History of cholecystectomy (~1998) History of vaginal hysterectomy (~1992) Groin mass Neck mass Family History Father Cerebrovascular disease Lung cancer Rheumatoid arthritis Mother Cerebrovascular disease Diabetes Hypertension Paternal Uncle Lung cancer Colon cancer Sister Cervical cancer Breast cancer Multiple sclerosis Maternal Grandmother Breast cancer Maternal Aunt Breast cancer Sister Psoriasis Social History Housing: Apartment Alcohol intake: never Comment: cardiac prophylactic Patient Tobacco Use Status: Current everyday Tobacco user Tobacco use type: Cigarette Cigarette Packs Per Day: 0.25 Cigarettes Per Day: 2 Years Smoked: onset 19yo, 1-2ppd x 42yrs, now 1/4ppd - 50pyh e-Cigarette/Vaping Use: Currently Using Second Hand Smoke Exposure: Yes Substance Use Type: Marijuana service: No Current occupational status: employed 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 Current occupational exposures/hazards: No Cognitive needs: No Hearing needs: No Vision needs: Yes Review of Systems Const All systems reviewed & are unremarkable except as noted in HPI and below Physical Exam Vital Signs: Last Vital Signs Temp 98.4 F 10/08/24 12:46 Pulse 66 10/08/24 13:10 Resp 16 10/08/24 12:46 BP 114/70 10/08/24 13:10 Pulse Ox 99 10/08/24 13:10 Oxygen Delivery Method Room Air 10/08/24 13:10 Const General: no acute distress Nutritional Appearance: obese Orientation/consciousness: patient oriented x3 HEENT Head: Yes normocephalic Ears: external ears normal and TM's normal bilaterally General nose exam: Normal external nose present Face and sinus: Yes sinuses nontender Mouth: moist mucous membranes Throat: Yes uvula midline Resp Effort & Inspection: normal respiratory effort Auscultation: clear to auscultation bilaterally Cardio Heart sounds: S1 normal heart sound present and S2 normal heart sound present General: Yes no CVA tenderness Back/Spine/Pelvis Back: no CVA tenderness and back tenderness Thoracic/Lumbar Spine: lumbar spinal tenderness Neuro General: patient oriented x3, gait normal and moves all extremities Results AMB Urinalysis, Automated UA Leukoctes 15 Sony/uL Last Edit by Carol Valencia CCM on 10/08/24 13:5 5 UA Nitrite Negative Last Edit by Carol Valencia [facility] on 10/08/24 13:55 UA Urobilinogen 0.2 mg/dL Last Edit by Carol Valencia [facility] on 10/08/24 13:55 UA Protein 0 mg/dL Last Edit by Carol Valencia [facility] on 10/08/24 13:55 UA pH 6.0 Last Edit by Carol Valencia [facility] on 10/08/24 13:55 UA Blood 200 Hieu/uL Last Edit by Carol Valencia [facility] on 10/08/24 13:55 UA Specific Calhoun 1.015 Last Edit by Carol Valencia [facility] on 10/08/24 13:55 UA Ketone Negative Last Edit by Carol Valencia [facility] on 10/08/24 13:55 UA Bilirubin 0 mg/dL Last Edit by Carol Valencia [facility] on 10/08/24 13:55 UA Glucose 0 mg/dL Last Edit by Carol Valencia [facility] on 10/08/24 13:55 Results Reviewed Results Reviewed: Laboratory Last Values Urine pH (Auto) 6.0 10/08/24 13:53 Specific Calhoun (Auto) 1.015 10/08/24 13:53 Urine Protein (Auto) 0 mg/dL 10/08/24 13:53 Glucose (UA)(Auto) 0 mg/dL 10/08/24 13:53 Urine Ketones (Auto) Negative 10/08/24 13:53 Urine Blood (Auto) 200 Hieu/uL 10/08/24 13:53 Urine Nitrite (Auto) Negative 10/08/24 13:53 Urine Bilirubin (Auto) 0 mg/dL 10/08/24 13:53 Urine Urobilinogen (Auto) 0.2 mg/dL 10/08/24 13:53 Leukocyte Esterase (Auto) 15 Sony/uL 10/08/24 13:53 Assessment & Plan Assessment & Plan (1) Dizziness: Code(s): R42 - Dizziness and giddiness Plan: Ordered Meclizine BID No clear etiology. Pt to f/u with PCP if symptoms not improved. (2) Low back pain: Code(s): M54.50 - Low back pain, unspecified Qualifiers: Back pain laterality: right Chronicity: acute Sciatica presence: without sciatica Qualified Code(s): M54.50 - Low back pain, unspecified Plan: NSAIDs for pain relief. Rapid Urinalysis Positive for Leuco Ordered Cefuroxime. Orders: Orders UA CC w/rflx Micro + Cult Today M54.50 - Low back pain, unspecified AMB Urinalysis Automated Today Z13.9 - Encounter for screening, unspecified Medications: New meclizine 50 mg PO BID 30 tabs 0RF R42 - Dizziness and giddiness cefuroxime axetil 500 mg PO Q12H 10 tabs 0RF 5 days N30.90 - Cystitis, unspec ified without hematuria Coding Level of Care Code Est Pt Level 4 (22525) Diagnoses Dizziness R42 Acute right-sided low back pain without sciatica M54.50 Back pain laterality: right Chronicity: acute Sciatica presence: without sciatica Time Spent (min) 20
[2024-10-08 12:46] VITALS: BP 108/78; PULSE 68; RESP 16; TEMP 36.9; O2SAT 99
[2024-10-08 13:10] VITALS: BP 114/70; PULSE 66; O2SAT 99
--- OUTSIDE RECORDS SUMMARY | 2024-10-08 13:34 | XMS_ITS | Continuity of Care Document ---
Author Organization [facility] In [facility] Address [address] [place] [address] Care Team Providers Care Airfreight Loading Supervisor Name Role Phone Unavailable Unavailable Unavailable Allergies, [...] Providers Copied on Encounter OFFICE/OUTPA TIENT VISIT, [facility], [facility], [place], [place], [phone] , [facility] emergency room follow up (chief complaint) Body [...] party ID Authoriza tisalty(s) Slide C 09 [id number] Social History Type Description Quantity Date Captured [...] of tobacco smoking and arthritis attended [facility] emergency room in [place], [place] on 11/07/2018 due to acute onset [...] Other pelvic mass) ordered Referral Referred To: [facility] [address] [place], [phone] Ordered: Referrals: Urology. [facility]. Evaluate and treat ordered Referral Ordered: Referrals: Urology. Consult ordered History Of Present Illness Encounter Date Complaint History Of Prese nt Illness emergency room follow up On 2018, 58 year old female patient with past medical history of tobacco smoking and arthritis attended [facility] emergency room in [place], [place] on 11/07/2018 due to acute onset [...]
== END 2024-10-08 14:00 | disposition home or self-care (01) ==
PROVIDERS: PCP Internal Medicine; Visit Provider Nurse Practitioner Family
DX: R42 Dizziness and giddiness (principal); M54.50 Low back pain, unspecified; Z13.9 Encounter for screening, unspecified

== ENCOUNTER 2024-10-08 13:58 | Outpatient (REF) | payer OTHER, SELFPAY ==
--- OUTSIDE RECORDS SUMMARY | 2024-10-08 14:54 | XMS_ITS | Clinical Summary ---
Author Organization [address] Address [address] [place] [address] Phone Care Team Providers Care Director Of Family Service Center Name Role Phone Mary Ellington MD Primary Care Provider [phone] Encounters Date Type Department Care Team Description 09/08/2024 Lab Requisition [facility] - Main Lab [address] [facility] [place] [address] Justin Beckford MD Encounter for [...] PM EDT Office Visit Orthopedic Surgery - [place] [address] [phone] Clarke Alvarez, DPKinza [address] [address] Health Maintenance Due Date Last Done Comments [...] - AUTOMATED METHOD 09/22/2024 10:34 AM EDT [facility] WBC, Urine 2.3 0 - 4 /HPF LAB URINALYSIS - AUTOMATED METHOD 09/22/2024 10:34 AM EDT [facility] Squamous Epithelial, Urine 31 0 - 60 /LPF LAB URINALYSIS - AUTOMATED METHOD 09/22/2024 10:34 AM EDT [facility] Bacteria, Urine Negative Negative /HPF LAB URINALYSIS - AUTOMATED METHOD 09/22/2024 10:34 AM EDT [facility] Hyaline Casts, Urine 4.4(H) 0 - 3 /LPF LAB URINALYSIS - AUTOMATED METHOD 09/22/2024 10:34 AM EDT [facility] Urine Urine specimen obtained by clean catch procedure / Unknown Non-blood Collection / Unknown 09/22/2024 9:21 AM EDT 09/22/2024 9:21 AM EDT us Justin Beckford MD LAB URINE ORDERABLES Final Res ult Performing Organization Address [facility]/ZIP Co de Phone Number [facility] [address] [place] [address], [place] [phone] * Culture urine (09/22/2024 9:21 AM EDT) Culture, Urine No growth 09/23/2024 7:31 AM EDT [facility] Urine Urine specimen obtained by clean catch procedure / Unknown Non-blood Collection / Unknown 09/22/2024 9:21 AM EDT 09/22/2024 9:21 AM EDT us Justin Beckford MD LAB MICROBIOLOGY - GENERAL ORD ERABLES Final Result [facility] [address] [place] [address], [place] [phone] * HPV with reflex genotype (09/07/2024 12:00 AM EDT) HPV Negative Negative LAB MICROBIOLOGY METHOD 09/08/2024 11:46 AM EDT [facility] Brushing/Spatula Cervix uteri structure / Unknown 09/07/2024 09/08/2024 6:22 AM EDT Justin Beckford MD LAB MOLECULAR DIAGNOSTICS ANTOINETTE MATIAS Final Result [facility] [address] [place] [address], * Pap smear (09/07/2024 12:00 AM EDT) Interpretation Negative for intraepithelial lesion or malignancy 09/10/2024 10:11 AM EDT [facility] Clinical Information LSIL 2020 09/10/2024 10:11 AM EDT [facility] General Categorization Negative 09/10/2024 10:11 AM EDT [facility] Additional Information Abundant acute inflammation. 09/10/2024 10:11 AM EDT [facility] Specimen Adequacy Satisfactory for evaluation 09/10/2024 10:11 AM EDT [facility] Pap Methodology Liquid Based Pap Test 09/10/2024 10:11 AM EDT [facility] Disclaimer Note: This pap test could not be imaged utilizing the Terrace Software Imaging System and required a manual review. The Pap test is a screening test which carries an inherent false negative rate. These test results should be correlated with the patient's clinical findings and history. This Pap test was processed using an automated screening system. Technical cytopathology services provided by [facility], at [address] [facility], [place] [address] (CLIA # [id number]/Kristine Melton MD, Mulling Machine Operator.) 09/10/2024 10:11 AM T [facility] Console Pap Interpretation Reported 09/10/2024 10:11 AM [facility] Brushing/Spatula Vaginal structure / Unknown 09/07/2024 09/08/2024 6:22 AM EDT us Justin Beckford MD LAB CYTOLOGY ORDERABLES Final Result [facility] [address] [place] [address], [place] [phone] from Last 3 Months Insurance [facility] [employer] PLAN Care Teams Director Of Family Service Center Relationship Specialty Start Date End Date Mary Ellington MD [address] [place] [address] [address] [facility] [place] [address] PCP - General Internal Medicine 07/01/12
--- OUTSIDE RECORDS SUMMARY | 2024-10-08 14:54 | XMS_ITS | Encounter Summary ---
Author Organization [facility] Address [address] [place] [address] Care Team Providers Care Topper Packer Name Role Phone Mary lElington MD Primary Care Provider [phone] Encounter Details Date Type Department Care Team (Latest Contact Info) Description 09/08/2024 Lab Requisition [facility] - Main Lab 299 [facility] [place] [phone] Justin Beckford MD [address] [facility] [address] [place] [phone] Encounter for gynecological examination (general) (routine) without [...] PM EDT Office Visit Orthopedic Surgery - [place] 250 [address] [facility] [address] [place] [phone] Clarke Alvarez DPM 175 [facility] [address] [place] [address] documented as of this encounter Procedures Procedure [...] Final Result [facility] [address] [place] [address], [place] [phone] * Pap smear (09/07/2024 12:00 AM EDT) Interpretation Negative for intraepithelial lesion or malignancy 09/10/2024 10:11 AM EDT [facility] Clinical Information LSIL 2020 09/10/2024 10:11 AM EDT [facility] General Categorization Negative 09/10/2024 10:11 AM EDT [facility] Additional Information Abundant acute inflammation. 09/10/2024 [facility] Specimen Adequacy Satisfactory for evaluation 09/10/2024 10:11 AM EDT [facility] Pap Methodology Liquid Based Pap Test 09/10/2024 10:11 AM EDT [facility] Disclaimer Note: This pap test could not be imaged utilizing the TheraSim Imaging System and required a manual review. The Pap test is a screening test which carries an inherent false negative rate. These test results should be correlated with the patient's clinical findings and history. This Pap test was processed using an automated screening system. Technical cytopathology services provided by [facility], at [address] [place] [address] (CLIA # [id number]/Kristine Melton MD, Yoker.) 09/10/2024 10:11 AM EDT [facility]) [facility] Console Pap Interpretation Reported 09/10/2024 10:11 AM EDT [facility] Brushing/Spatula Vaginal structure / Unknown 09/07/2024 09/08/2024 6:22 AM EDT us Justin Beckford MD LAB CYTOLOGY ORDERABLES Final Result [facility]) [facility] [address] [place] [address], documented in this encounter Visit Diagnoses Diagnosis Encounter for gynecological examination (general) (routine) without abnormal findings documented in this encounter Care Teams Topper Packer Relationship Specialty Start Date End Date Mary Ellington MD [address] [place] [address] [address] [facility] [place] [address] PCP - General Internal Medicine 07/01/12 documented as of this encounter
--- OUTSIDE RECORDS SUMMARY | 2024-10-08 14:54 | XMS_ITS | Continuity of Care Document ---
Author Organization [facility] In [facility] Address [address] [place] [address] Care Team Providers Care Marketing Proposal Specialist Name Role Phone Unavailable Unavailable Unavailable Allergies, [...] Providers Copied on Encounter OFFICE/OUTPA TIENT VISIT, [facility], [facility], [place], [place], [phone] , [facility] emergency room follow up (chief complaint) [...] itis Payers Payer name Insurance type Covered alliance party ID Authoriza tisalty(s) Slide C 09 [id number] Social History Type Description Quantity Date Captured [...] of tobacco smoking and arthritis attended [facility] emergency room in [place], [place] on 11/07/2018 due to acute onset [...] Other pelvic mass) ordered Referral Referred To: [facility] [address] [place], [phone] Ordered: Referrals: Urology. [facility]. Evaluate and treat ordered Referral Ordered: Referrals: Urology. Consult ordered History Of Present Illness Encounter Date Complaint History Of Prese nt Illness emergency room follow up On 2018, 58 year old female patient with past medical history of tobacco smoking and arthritis attended [facility] emergency room in [place], [place] on 11/07/2018 due to acute onset [...]
== END 2024-10-08 13:59 | disposition home or self-care (01) ==
LOC: HO.LAB 13:58
PROVIDERS: Visit Provider Nurse Practitioner Family
DX: Z13.89 Encounter for screening for other disorder (principal)

== ENCOUNTER → 2024-10-12 09:06 | Outpatient (REF) | payer OTHER, SELFPAY ==
--- NOTE | ~2024-10-12 | NM_ITS ---
Lexiscan Myocardial perfusion study Indication: Chest pain Technique: The patient was brought in for a Lexiscan perfusion study on October 12, 2024 and was injected 0.4 mg of Lexiscan intravenously. Within a minute of this injection 30 mCi of sestamibi was given intravenously. Images were obtained using the SPECT gamma camera interlaced with the gating device. Images were obtained in supine position. Resting perfusion study was performed on October 13, 2024. Patient was administered 30 mCi of sestamibi intravenously at rest. Images were then obtained in supine position. Images obtained without without CT attenuation. Total DLP 81 mGy-cm. Images were processed with the software and compared side to side in short axis, horizontal long axis and vertical long axis views. Findings: The stress perfusion study showed nonattenuated images show mildly reduced uptake in the septum, apex has had the anterior wall of the LV myocardium. Attenuated corrected images show mildly reduced uptake in the septum and apex of the LV myocardium. The gated study shows normal LV systolic function with calculated LVEF of 60%. LV cavity is mildly dilated in size. The gated study shows normal wall thickening and contraction of segments with septal dyssynchrony. Resting study shows no significant change in perfusion pattern compared to stress perfusion study. Gating at rest reveals no significant wall motion with visually estimated ejection fraction at greater than 55%. The findings are consistent with no clear reversible defect suggestive of ischemia. Mostly fixed septal and apical defect which could be seen in patients with left bundle-branch block. NM/NM oliva perf SPECT rest & str Impression: 1. Myocardial perfusion imaging study shows likely normal myocardial perfusion 2. Gated LVEF is 60% 3. Transient ischemic dilatation not present Nondiagnostic changes on EKG. Electronically signed by: Eyal Fontana MD 10/13/2024 05:17 PM EDT
--- NOTE | 2024-10-12 09:09 | CA_ITS ---
Acquisition Time: 2024-10-12 09:40:58 Total Exercise Time: 00:02:00 Test Indications: CP, SOB, LBBB Medications: SEE H&P Protocol: LEXISCAN Max HR: 91 BPM 58% of Pred: 156 BPM Max BP: 114/62 mmHG Max Work Load: 1.0 METS Pharmacological stress test with Lexiscan while pt swings her legs in the chair, with reports of SOB, lightheadedness, and nausea, with frequent PVCs, with normotensive response to injection. Nondiagnostic EKG for ischemia. In recovery, pt treated with IVP Aminophylline 75 mg to reverse Lexiscan after which pt feeling back to baseline. Nuclear images pending. Test reviewed with Dr. Fontana. Referred By: Steven Solorzano Electronically Signed By: Arvind Rosas
--- OUTSIDE RECORDS SUMMARY | 2024-10-12 09:14 | XMS_ITS | Encounter Summary ---
Author Organization [facility] Address [address] [place] [address] Care Team Providers Care Oil Well Engineer Name Role Phone Mary Ellington MD Primary Care Provider [phone] Encounter Details Date Type Department Care Team (Latest Contact Info) Description 09/08/2024 Lab Requisition [facility] - Main Lab 299 [facility] [place] [phone] Justin Beckford MD 299 [facility] [address] [place] [phone] Encounter for gynecological examination (general) (routine) without [...] PM EDT Office Visit Orthopedic Surgery - [place] 250 [address] [facility] [address] [place] [phone] Clarke Alvarez DPM 175 [facility] [address] [place] [address] documented as of this encounter Procedures Procedure [...] LAB MICROBIOLOGY METHOD 09/08/2024 11:46 AM EDT [facility] Brushing/Spatula Cervix uteri structure / Unknown 09/07/2024 09/08/2024 6:22 AM EDT us Justin Beckford MD LAB MOLECULAR DIAGNOSTICS ANTOINETTE MATIAS Final Result [facility] [address] [place] [address], [place] [phone] * Pap smear (09/07/2024 12:00 AM EDT) Interpretation Negative for intraepithelial lesion or malignancy 09/10/2024 10:11 AM EDT [facility] Clinical Information LSIL 2020 09/10/2024 10:11 AM EDT [facility] General Categorization Negative 09/10/2024 10:11 AM EDT [facility] Additional Information Abundant acute inflammation. 09/[facility]2024 [facility] Specimen Adequacy Satisfactory for evaluation 09/10/2024 10:11 AM EDT [facility] Pap Methodology Liquid Based Pap Test 09/10/2024 10:11 AM EDT [facility] Disclaimer Note: This pap test could not be imaged utilizing the Bubbli Imaging System and required a manual review. The Pap test is a screening test which carries an inherent false negative rate. These test results should be correlated with the patient's clinical findings and history. This Pap test was processed using an automated screening system. Technical cytopathology services provided by [facility], at [address] [place] [address] (CLIA # [id number]/Kristine Melton MD, Aws Developer.) 09/10/2024 10:11 AM EDT [facility] Console Pap Interpretation Reported 09/10/2024 10:11 AM EDT [facility]) [facility] Brushing/Spatula Vaginal structure / Unknown 09/07/2024 09/08/2024 6:22 AM EDT us Justin Beckford MD LAB CYTOLOGY ORDERABLES Final Result [facility]) [facility] [address] [place] [address], documented in this encounter Visit Diagnoses Diagnosis Encounter for gynecological examination (general) (routine) without abnormal findings documented in this encounter Care Teams Oil Well Engineer Relationship Specialty Start Date End Date Mary [place] MD [address] [place] [address] [address] [facility] [place] [address] PCP - General Internal Medicine 07/01/12 documented as of this encounter
--- OUTSIDE RECORDS SUMMARY | 2024-10-12 09:14 | XMS_ITS | Continuity of Care Document ---
Author Organization [facility] In [facility] Address [address] [place] [address] Care Team Providers Care Head Loader Name Role Phone Unavailable Unavailable Unavailable Allergies, [...] Providers Copied on Encounter OFFICE/OUTPA TIENT VISIT, [facility], [facility], [place], [place], [phone] , [facility] emergency room follow up (chief complaint) [...] party ID Authoriza tisalty(s) Slide C 09 [id number] Social History Type Description Quantity Date Captured [...] history of tobacco smoking and arthritis attended [facility] emergency room in [place], [place] on 11/07/2018 due to acute onset [...] Other pelvic mass) ordered Referral Referred To: [facility] [address] [place], [phone] Ordered: Referrals: Urology. [facility]. Evaluate and treat ordered Referral Ordered: Referrals: Urology. Consult ordered History Of Present Illness Encounter Date Complaint History Of Prese nt Illness emergency room follow up On 2018, 58 year old female patient with past medical history of tobacco smoking and arthritis attended [facility] emergency room in [place], [place] on 11/07/2018 due to acute onset [...]
== END ==
LOC: HO.CARD 09:06
PROVIDERS: PCP Internal Medicine; Visit Provider Internal Medicine Cardiovascular Disease
DX: R07.9 Chest pain, unspecified (principal)
CPT/HCPCS: 78452; 93017; A9500; J0280; J2785

== ENCOUNTER → 2024-10-12 09:09 | Outpatient (BNV) | payer OTHER, SELFPAY | PROVIDERS: PCP Internal Medicine | DX: R06.02 Shortness of breath (principal); I49.3 Ventricular premature depolarization | CPT/HCPCS: 78452; 93016; 93018 ==

== ENCOUNTER 2024-10-29 14:26 | Outpatient (REF) | payer OTHER, SELFPAY ==
--- NOTE | ~2024-10-29 | US_ITS ---
EXAMINATION: US DIAGNOSTIC ULTRASOUND BREAST, RIGHT CLINICAL INFORMATION: Screening for right breast pain for one year outer quadrant.. COMPARISON: Comparison is made with relevant prior imaging. TECHNIQUE: Ultrasound of the breast is performed with real-time khalil scale imaging and color Doppler. FINDINGS: Targeted color Doppler ultrasound scanning in the upper outer quadrant area of patient's pain demonstrates normal fibronodular breast tissue. There is incidental simple cyst/area of fat necrosis at 11:00 6 cm from the nipple measuring 5 x 5 x 4 mm which correlates with the circumscribed oval rim calcified area on mammography and is benign and stable. Results are discussed with the patient at time of visit. US/US breast RT limited mamm only IMPRESSION: No mammographic or sonographic abnormality to account for the patient's right breast pain. Recommend clinical evaluation follow-up. Simple cyst/area of fat necrosis at 11:00 6 cm from the nipple. Benign. ASSESSMENT: BI-RADS 2: Benign RECOMMENDATION: Routine annual mammography screening due in 12 months. This patient's information was entered into a reminder system with a target due date for their next mammogram. Electronically signed by: Letty Banda DO 10/29/2024 02:57 PM EDT
--- OUTSIDE RECORDS SUMMARY | 2024-10-29 14:33 | XMS_ITS | Clinical Summary ---
Author Organization [address] Address [address] [place] [address] Phone Care Team Providers Care Help Desk Consultant Name Role Phone Mary Ellington MD Primary Care Provider [phone] Encounters Date Type Department Care Team Description 09/08/2024 Lab Requisition [facility] - Main Lab [address] [facility] [place] [address] Justin Beckford MD Encounter for [...] 03/10/2024 10:19 AM EDT Plan of Treatment Health Maintenance Due Date Last Done Comments [...] URINALYSIS - AUTOMATED METHOD 09/22/2024 10:34 AM [facility] WBC, Urine 2.3 0 - 4 /HPF LAB URINALYSIS - AUTOMATED METHOD 09/22/2024 10:34 AM [facility] Squamous Epithelial, Urine 31 0 - 60 /LPF LAB URINALYSIS - AUTOMATED METHOD 09/22/2024 10:34 AM [facility] Bacteria, Urine Negative Negative /HPF LAB URINALYSIS - AUTOMATED METHOD 09/22/2024 10:34 AM [facility] Hyaline Casts, Urine 4.4(H) 0 - 3 /LPF LAB URINALYSIS - AUTOMATED METHOD 09/22/2024 10:34 AM EDT [facility] Urine Urine specimen obtained by clean catch procedure / Unknown Non-blood Collection / Unknown 09/22/2024 9:21 AM EDT 09/22/2024 9:21 AM EDT us Justin Beckford MD LAB URINE ORDERABLES Final Res ult Performing Organization Address City/[facility]/ZIP Co de Phone Number [facility] [address] [place] [address], [place] [phone] * Culture urine (09/22/2024 9:21 AM EDT) [facility] Culture, Urine No growth 09/23/2024 7:31 AM EDT [facility] Urine Urine specimen obtained by clean catch procedure / Unknown Non-blood Collection / Unknown 09/22/2024 9:21 AM EDT 09/22/2024 9:21 AM EDT us Justin Beckford MD LAB MICROBIOLOGY - GENERAL ORD ERABLES Final Result Performing Organization Address [facility] Co de Phone Number [facility] [address] [place] [address], [place] [phone] * HPV with reflex genotype (09/07/2024 12:00 AM EDT) [facility] HPV Negative Negative LAB MICROBIOLOGY METHOD 09/08/2024 11:46 AM EDT [facility] Brushing/Spatula Cervix uteri structure / Unknown 09/07/2024 09/08/2024 6:22 AM EDT us Justin Beckford MD LAB MOLECULAR DIAGNOSTICS ORDE RABLES Final Result Performing Organization Address City/[facility]/ZIP Co de Phone Number [facility] [address] [place] [address], [place] [phone] * Pap smear (09/07/2024 12:00 AM EDT) Interpretation Negative for intraepithelial lesion or malignancy 09/10/2024 10:11 AM EDT [facility] Clinical Information LSIL 2020 09/10/2024 10:11 AM EDT [facility] General Categorization Negative 09/10/2024 10:11 AM EDT [facility] Additional Information Abundant acute inflammation. 09/10/2024 10:11 AM EDT [facility] Specimen Adequacy Satisfactory for evaluation [facility] Pap Methodology Liquid Based Pap Test 09/10/2024 10:11 AM [facility] Disclaimer Note: This pap test could not be imaged utilizing the [employer] System and required a manual review. The Pap test is a screening test which carries an inherent false negative rate. These test results should be correlated with the patient's clinical findings and history. This Pap test was processed using an automated screening system. Technical cytopathology services provided by [facility], at [address] [place] [id number] (CLIA # [id number]/Kristine Melton MD, [employer] Reading Teacher.) 09/10/2024 10:11 AM EDT [facility] Console Pap Interpretation Reported 09/10/2024 10:11 AM EDT [facility] Brushing/Spatula Vaginal structure / Unknown 09/07/2024 09/08/2024 6:22 AM EDT Justin Beckford MD LAB CYTOLOGY ORDERABLES Final Result [facility] [address] [place] [address], from Last 3 Months Insurance [facility] Care Teams Help Desk Consultant Relationship Specialty Start Date End Date Mary Ellington MD [address] [place] [address] [address] [facility] [place] [address] PCP - General Internal Medicine 07/01/12
== END 2024-10-29 14:27 | disposition home or self-care (01) ==
LOC: HO.MAMMO 14:26
PROVIDERS: PCP Internal Medicine; Visit Provider Internal Medicine
DX: N64.4 Mastodynia (principal)
CPT/HCPCS: 76642

== ENCOUNTER → 2024-10-29 14:30 | Outpatient (BNV) | payer OTHER, SELFPAY | PROVIDERS: PCP Internal Medicine; Visit Provider Internal Medicine | DX: N64.1 Fat necrosis of breast (principal) | CPT/HCPCS: 76642 ==

== ENCOUNTER 2024-11-12 15:32 | Outpatient (AMB) | payer OTHER, SELFPAY ==
--- NOTE | 2024-11-12 15:35 | MHC.PC.OV ---
Vital Signs 11/12/24 15:36 Height 5 ft 4 in Weight 184 lb 6 oz BMI 31.6 BP 118/80 Blood Pressure Location Lt brachial Position Sitting Pulse 59 Pulse Source Pulse Oximeter Pulse Oximetry (%) 95 Oxygen Delivery Method Room Air Intake Visit Reasons: f/u cholesterol and GERD [place] Ordinary Required: No Accompanied by: Self / Same As Patient Allergies atorvastatin [Lipitor] Allergy (Intermediate, Verified 11/12/24 15:43) joint pain/stiffness ciprofloxacin [From Cipro] Allergy (Intermediate, Verified 11/12/24 15:43) H/A NAUSEA HIVES pravastatin [From PRAVACHOL] Allergy (Intermediate, Verified 11/12/24 15:43) joint pain/stiffness simvastatin [SIMVASTATIN] Allergy (Intermediate, Verified 11/12/24 15:43) joint pain/stiffness Sulfa (Sulfonamide Antibiotics) Allergy (Intermediate, Verified 11/12/24 15:43) HIVES codeine [Codeine] Adverse Reaction (Intermediate, Verified 11/12/24 15:43) headache/palpitations trimethoprim Adverse Reaction (Intermediate, Verified 11/12/24 15:43) Rash Medication List - Last Reviewed 11/12/24 by [facility] Nunez acetaminophen (Tylenol) 325 mg PO QID PRN calcium carbonate-vitamin D3 600 mg-25 mcg (1,000 unit) 1 cap PO BID 90 days cyclobenzaprine 10 mg PO TID PRN 90 days diclofenac sodium 1% 4 grams topical QID lorazepam 0.5 mg PO BEDTIME PRN 30 days meclizine 50 mg PO BID metoprolol succinate ER 25 mg PO DAILY rosuvastatin 40 mg PO DAILY 30 days Tobacco use date assessed: 11/12/24 Fall risk assessment: No Falls in past year Last assessed Fall Risk: 11/12/24 Dental Screening Dental Screen Date: 11/12/24 Did you have a dental visit in the last 12 months?: No Did you have a dental problem in the last 6 months where you did not have access to dental care?: No Was dental information given to patient?: No HPI f/u cholesterol and GERD HPI Details 64-year-old female with past medical history of tobacco abuse, asthma, GERD, impaired glucose tolerance, hypercholesterolemia, hypertension, coronary artery disease, urinary bladder cancer and generalized anxiety disorder last seen 08/2024 coming in for follow up. In review of the notes, patient was seen by Urology 08/2024 cystoscopy was performed no visualized bladder tumors advised start on Estrace cream and follow up in 3 months. Presenting with hypertension and suspected urinary tract infection. - Acid reflux: The patient has a history of acid reflux, which has not improved with famotidine, and she experiences exacerbations with certain foods. She has not yet completed the upper GI series. - Osteoporosis: The patient has been advised to follow up with an program evaluator for osteoporosis management. FOR[facility]LY [facility], [facility] Medical History Cystitis Low back pain Osteoporosis (~2023) Nicotine dependence, cigarettes, uncomplicated Pulmonary nodules History of COVID-19 Hypertension Vitamin D deficiency GERD (gastroesophageal reflux disease) Urinary bladder cancer (~2018) Carpal tunnel syndrome Restless leg syndrome Asthma Kidney stones History of seizures Impaired glucose tolerance Hypercholesteremia Coronary artery disease Obesity (BMI 30-39.9) Surgical History Hx of foot surgery H/O colonoscopy History of transurethral destruction of bladder lesion History of cardiac cath History of surgery on right wrist (~1996) History of tonsillectomy History of elbow surgery History of cholecystectomy (~1998) History of vaginal hysterectomy (~1992) Groin mass Neck mass Family History Father Cerebrovascular disease Lung cancer Rheumatoid arthritis Mother Cerebrovascular disease Diabetes Hypertension Paternal Uncle Lung cancer Colon cancer Sister Cervical cancer Breast cancer Multiple sclerosis Maternal Grandmother Breast cancer Maternal Aunt Breast cancer Sister Psoriasis Social History Housing: Apartment Alcohol intake: never Comment: cardiac prophylactic Patient Tobacco Use Status: Current everyday Tobacco user Tobacco use type: Cigarette Cigarette Packs Per Day: 0.25 Cigarettes Per Day: 2 Years Smoked: onset 19yo, 1-2ppd x 42yrs, now 1/4ppd - 50pyh e-Cigarette/Vaping Use: Currently Using Second Hand Smoke Exposure: Yes Substance Use Type: Marijuana service: No Current occupational status: employed 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 1. Little interest or pleasure in doing things: not at all 2. Feeling down, depressed, or hopeless: not at all 3. Trouble falling or staying asleep, or sleeping too much: not at all 4. Feeling tired or having little energy: not at all 5. Poor appetite or overeating: not at all 6. Feeling bad about yourself - or that you are a failure or have let yourself or your family down: not at all 7. Trouble concentrating on things, such as reading the newspaper or watching television: not at all 8. Moving or speaking so slowly that other people could have noticed. Or the opposite - being so fidgety or restless that you have been moving around a lot more than usual: not at all 9. Thoughts that you would be better off or of hurting yourself in some way: not at all Total score: 0 Source: Developed by Drs. Gilmar Prabhakar, Carmen Leal, Lorenzo Deng and colleagues, with an educational wilfredo from [employer]. Thrive Questionnaire Date Thrive assessed: 11/12/24 I am a: Patient What is your living situation today?: I have a steady place to live Within the past 12 months, did the food you bought not last and you didn't have the money to get more?: I choose not to answer this question Within the past 12 months, did you worry whether your food would run out before you got money to buy more?: I choose not to answer this question Do you have trouble paying for medicines?: No Do you have trouble getting transportation to medical appointments?: No Do you have trouble paying your heating and electricity bill?: No Do you have trouble taking care of your child, family member or friend?: No Do you have trouble with day-to-day activities such as bathing, preparing meals, shopping, managing finances, etc.?: No Are you currently unemployed and looking for a job?: No Are you interested in more education?: No Please select the resources that you would like help with: None Currently or been in a relationship where the following occur: No concerns reported THRIVE Score: 0 AUDIT C Alcohol Use Questionnaire (AUDIT-C) 1. How often do you have a drink containing alcohol?: Never 3. How often do you have six or more drinks on one occasion?: Never Total Score: 0 MERRILL-7 AMB Questionnaire MERRILL-7 Date MERRILL - 7 assessed: 11/12/24 Feeling nervous, anxious, or on edge: 0 = Not at all Not being able to stop or control worryin = Not at all Worrying too much about different things: 0 = Not at all Trouble relaxin = Not at all Being so restless that it is hard to sit still: 0 = Not at all Becoming easily annoyed or irritable: 0 = Not at all Feeling afraid as if something awful might happen: 0 = Not at all Total MERRILL-7 score (0-4 normal; 5-9 mild; 10-14 moderate; 15-21 severe): 0 Source: Developed by Drs. Gilmar Prabhakar, Carmen Leal, Lorenzo Deng and colleagues, with an educational wilfredo from [employer]. Review of Systems Const Denies body aches, Denies chills, Denies fever(s) and Denies poor appetite Eyes Reports no additional complaints ENT Denies odynophagia Card Denies chest pain and Denies dyspnea Resp Denies dyspnea GI Denies abdominal pain, Denies nausea, Denies odynophagia and Denies vomiting Reports no additional complaints Musc Reports no additional complaints Skin/Breast Reports system reviewed and no additional complaints, except as documented Psych Reports no additional complaints Physical exam (Primary Care) Vital Signs: Last Vital Signs Pulse 59 11/12/24 15:36 BP 118/80 11/12/24 15:36 Pulse Ox 95 11/12/24 15:36 Oxygen Delivery Method Room Air 11/12/24 15:36 BMI result Body Mass Index 31.6 Tobacco/Smoking Status: Tobacco use Status Tobacco use date assessed 11/12/24 11/12/24 15:40 Patient Tobacco Use Status Current everyday Tobacco 11/12/24 15:40 Tobacco use type Cigarette 11/12/24 15:40 e-Cigarette/Vaping Use Currently Using 11/12/24 15:40 PHQ-9: PHQ-9 Score PHQ-9: Total score 0 11/12/24 15:40 Thrive Assessment: Date of Thrive Assessment Date Thrive assessed 11/12/24 11/12/24 15:40 Currently or been in a relationship where the following occur: No concerns reported Const General: cooperative, healthy appearing, comfortable and no acute distress Orientation/consciousness: patient oriented x3 HENMT Head: Yes normocephalic Ears: hearing grossly normal bilaterally General nose exam: Normal external nose present Eyes General: appearance normal, both eyes and all related structures Conjunctivae: conjunctivae normal Neck Neck: Yes full ROM and Yes no lymphadenopathy Resp Effort & Inspection: normal respiratory effort Auscultation: clear to auscultation bilaterally, no crackles, no rales, no rhonchi and no wheezes Cardio Rate: regular rate Rhythm: regular rhythm Skin General skin exam: no rashes or lesions noted Neuro General: patient oriented x3 Gait exam (Neuro): Normal gait present Extrem General: Yes normal to inspection, Yes full ROM and No edema Psych Affect: normal affect Attitude: cooperative Insight: Good insight present (Psych) Judgement: Good judgement present (Psych) Coding Level of Care Code Est Pt Level 3 (05317) Diagnoses Malignant neoplasm of urinary bladder, unspecified site C67.9 Bladder location: unspecified site Coronary artery disease involving [place] coronary artery of [place] heart without angina pectoris I25.10 Associated angina: without angina Coronary Disease-Associated Artery/Lesion type: [place] artery [place] vs. transplanted heart: [place] heart Essential hypertension I10 Hypertension type: essential hypertension Hypercholesteremia E78.00 Impaired glucose tolerance R73.02 Gastroesophageal reflux disease without esophagitis K21.9 Esophagitis presence: without esophagitis Obesity (BMI 30-39.9) E66.9 Osteoporosis M81.0 Assessment & Plan Assessment & Plan (1) Urinary bladder cancer: Onset Date: ~2018 Comment: (Dx December [address] [place] [address] Singer - T1 high-grade with intravesical gemcitabine boost Dr. Divine Diop Gynecologic oncology [facility] 03/2020) Code(s): C67.9 - Malignant neoplasm of bladder, unspecified Category: Medical Qualifiers: Bladder location: unspecified site Qualified Code(s): C67.9 - Malignant neoplasm of bladder, unspecified Plan: Continue to follow with Urology has a appointment in the upcoming months. (2) Coronary artery disease: Comment: June 2020 - NO CAD Code(s): I25.10 - Atherosclerotic heart disease of [place] coronary artery without angina pectoris Category: Medical Qualifiers: Associated angina: without angina Coronary Disease-Associated Artery/Lesion type: [place] artery [place] vs. transplanted heart: [place] heart Qualified Code(s): I25.10 - Atherosclerotic heart disease of [place] coronary artery without angina pectoris Plan: Advised good control of cholesterol, blood sugars and blood pressure. Ordered for repear blood work. (3) Hypertension: Code(s): I10 - Essential (primary) hypertension Category: Medical Qualifiers: Hypertension type: essential hypertension Qualified Code(s): I10 - Essential (primary) hypertension Plan: Continue on current blood pressure medication. Avoid salt intake and encourage healthy diet and regular exercise. (4) Hypercholesteremia: Code(s): E78.00 - Pure hypercholesterolemia, unspecified Category: Medical Plan: Avoid foods that are high in cholesterol such as red meat, fried foods, eggs and baked goods. Triglyceride goal of less than 150 and LDL goal of less than 70. Continue on rosuvastatin 40. Reminded patient about blood work (5) Impaired glucose tolerance: Code(s): R73.02 - Impaired glucose tolerance (oral) Category: Medical Plan: Decrease the amount of carbohydrates such as pasta, bread, rice, and potatoes and limit the amount of sweets. Although fruits are generally healthy they should be eaten in moderation as they are still high in sugar. Hemoglobin A1c goal of less than 7%. (6) GERD (gastroesophageal reflux disease): Code(s): K21.9 - Gastro-esophageal reflux disease without esophagitis Category: Medical Qualifiers: Esophagitis presence: without esophagitis Qualified Code(s): K21.9 - Gastro-esophageal reflux disease without esophagitis Plan: Avoid trigger foods such as citrus, tomato products, soda, caffeine, spicy foods and other foods that may be irritating to your stomach. Avoid laying flat 3-4 hours after eating and elevate the head of the bed 30 degrees to prevent acid from moving into the esophagus. An upper GI series will be re-scheduled for further investigation of her substernal pain and reflux symptoms by the GI specialist. In the past patient has put off the endoscopy due to the procedure including a colonoscopy I strongly recommended patient follow up with Gastroenterology and reschedule this testing. Reminded patient to reach out to GI. Reordered for upper GI series (7) Obesity (BMI 30-39.9): Code(s): E66.9 - Obesity, unspecified Category: Medical Plan: Healthy diet and regular exercise is encouraged. (8) Osteoporosis: Onset Date: ~2023 Comment: (Bone Dexa Lumbar T-score: - 1.9 on 10/17/21; -2.2 on 03/10/24) Code(s): M81.0 - Age-related osteoporosis without current pathological fracture Category: Medical Plan: Recently seen by endocrinology recommended calcium and vitamin-D supplementation with consideration of additional medical management down the road. Continue to follow with endocrinology. Advised patient to reach out to reschedule endocrinology appointment Plan This note was constructed using voice recognition software. While every effort has been made to ensure accuracy and bi lead, still areas may have been included sometimes these areas may affect the content or meeting of the given symptoms. Total time spent caring for the patient today was 20 minutes. This includes time spent before the visit reviewing the chart, time spent during the visit, and time spent after the visit and documentation. Orders: Orders Vitamin B12 and Folate 11/12/24 I10 - Essential (primary) hypertension, Z13.21 - Encounter for screening for nutritional disorder Comprehensive Met. Panel 11/12/24 I10 - Essential (primary) hypertension, Z00.00 - Encounter for general adult medical examination without abnormal findings [place] upper GI series 11/12/24 K21.9 - Gastro-esophageal reflux disease without esophagitis TSH reflex Free T4 11/12/24 I10 - Essential (primary) hypertension, Z00.00 - Encounter for general adult medical examination without abnormal findings Free T4 (Free Thyroxine) 11/12/24 I10 - Essential (primary) hypertension, Z00.00 - Encounter for general adult medical examination without abnormal findings Vitamin D 25-OH Total 11/12/24 I10 - Essential (primary) hypertension, Z00.00 - Encounter for general adult medical examination without abnormal findings Complete Blood Count Auto Diff 11/12/24 I10 - Essential (primary) hypertension, Z00.00 - Encounter for general adult medical examination without abnormal findings
[2024-11-12 15:36] VITALS: BP 118/80; PULSE 59; O2SAT 95; BMI 31.6
--- OUTSIDE RECORDS SUMMARY | 2024-11-12 18:00 | XMS_ITS | Clinical Summary ---
Author Organization [address] Address [address] [place] [address] Phone Care Team Providers Care Senior Accounting Specialist Name Role Phone Mary Ellington MD Primary Care Provider [phone] Encounters Date Type Department Care Team Description 09/08/2024 Lab Requisition [facility] - Main Lab 299 [facility] [place] [address] Justin Beckford MD Encounter for [...] URINALYSIS - AUTOMATED METHOD 09/22/2024 10:34 AM [facility] WBC, Urine 2.3 0 - 4 /HPF LAB URINALYSIS - AUTOMATED METHOD 09/22/2024 10:34 AM [facility] Squamous Epithelial, Urine 31 0 - 60 /LPF LAB URINALYSIS - AUTOMATED METHOD 09/22/2024 10:34 AM [facility] Bacteria, Urine Negative Negative /HPF LAB URINALYSIS - AUTOMATED METHOD 09/22/2024 10:34 AM [facility] Hyaline Casts, Urine 4.4(H) 0 - 3 /LPF LAB URINALYSIS - AUTOMATED METHOD 09/22/2024 10:34 AM EDT [facility] Urine Urine specimen obtained by clean catch procedure / Unknown Non-blood Collection / Unknown 09/22/2024 9:21 AM EDT 09/22/2024 9:21 AM EDT us Justin Beckford MD LAB URINE ORDERABLES Final Res ult Performing Organization Address City/[facility]/ZIP Co de Phone Number [facility] [address] [place] [address], [place] [phone] * Culture urine (09/22/2024 9:21 AM EDT) [facility] Culture, Urine No growth 09/23/2024 7:31 AM EDT [facility] Urine Urine specimen obtained by clean catch procedure / Unknown Non-blood Collection / Unknown 09/22/2024 9:21 AM EDT 09/22/2024 9:21 AM EDT us Justin Beckford MD LAB MICROBIOLOGY - GENERAL ORD ERABLES Final Result Performing Organization Address [facility] Co de Phone Number [facility] [address] [place] [address], [place] [phone] * HPV with reflex genotype (09/07/2024 12:00 AM EDT) [facility] HPV Negative Negative LAB MICROBIOLOGY METHOD 09/08/2024 11:46 AM EDT [facility] Brushing/Spatula Cervix uteri structure / Unknown 09/07/2024 09/08/2024 6:22 AM EDT us Justin Beckford MD LAB MOLECULAR DIAGNOSTICS ORDE RABLES Final Result Performing Organization Address City/[facility]/ZIP Co de Phone Number [facility] [address] [place] [address], [place] [phone] * Pap smear (09/07/2024 12:00 AM EDT) Interpretation Negative for intraepithelial lesion or malignancy 09/10/2024 10:11 AM EDT [facility] Clinical Information LSIL 2020 09/10/2024 10:11 AM EDT [facility] General Categorization Negative 09/10/2024 10:11 AM EDT [facility] Additional Information Abundant acute inflammation. 09/10/2024 10:11 AM EDT [facility] Specimen Adequacy Satisfactory for evaluation [facility]24 [facility] Pap Methodology Liquid Based Pap Test 09/10/2024 10:11 AM [facility] Disclaimer Note: This pap test could not be imaged utilizing the [employer] Imaging System and required a manual review. The Pap test is a screening test which carries an inherent false negative rate. These test results should be correlated with the patient's clinical findings and history. This Pap test was processed using an automated screening system. Technical cytopathology services provided by [facility], at [address] [place] [id number] (CLIA # [id number]/Kristine Melton MD, Cable Installer Repairer.) 09/10/2024 10:11 AM EDT [facility] Console Pap Interpretation Reported 09/10/2024 10:11 AM EDT [facility] Brushing/Spatula Vaginal structure / Unknown 09/07/2024 09/08/2024 6:22 AM EDT Justin Beckford MD LAB CYTOLOGY ORDERABLES Final Result [facility] [address] [place] [address], from Last 3 Months Insurance [facility] Care Teams Senior Accounting Specialist Relationship Specialty Start Date End Date Mary Ellington MD [address] [place] [address] [address] [facility] [place] [address] PCP - General Internal Medicine 07/01/12
== END 2024-11-12 16:18 | disposition home or self-care (01) ==
LOC: HO.HMCH 15:33
DX: I25.10 Atherosclerotic heart disease of native coronary artery without angina pectoris (principal); C67.9 Malignant neoplasm of bladder, unspecified; E66.9 Obesity, unspecified; Z68.31 Body mass index [BMI] 31.0-31.9, adult; I10 Essential (primary) hypertension; E78.00 Pure hypercholesterolemia, unspecified; R73.02 Impaired glucose tolerance (oral); K21.9 Gastro-esophageal reflux disease without esophagitis; M81.0 Age-related osteoporosis without current pathological fracture

== ENCOUNTER → 2024-11-12 15:32 | Outpatient (BNVA) | payer OTHER, SELFPAY | DX: K21.9 Gastro-esophageal reflux disease without esophagitis (principal); E78.00 Pure hypercholesterolemia, unspecified; J45.909 Unspecified asthma, uncomplicated; I10 Essential (primary) hypertension; I25.10 Atherosclerotic heart disease of native coronary artery without angina pectoris; F41.1 Generalized anxiety disorder; R73.02 Impaired glucose tolerance (oral); E66.9 Obesity, unspecified; M81.0 Age-related osteoporosis without current pathological fracture; Z68.31 Body mass index [BMI] 31.0-31.9, adult; Z85.51 Personal history of malignant neoplasm of bladder | CPT/HCPCS: 99212 ==

== ENCOUNTER 2025-01-13 08:52 | Outpatient (REF) | payer OTHER, SELFPAY ==
--- OUTSIDE RECORDS SUMMARY | 2025-01-13 09:11 | XMS_ITS | Clinical Summary ---
Author Organization [address] Address [address] [place] [address] Phone Care Team Providers Care Title I Assistant Name Role Phone Mary Ellington MD Primary Care Provider [phone] Surgical History Surgery Date Site/Laterality Comments HYSTERECTOMY [...] on cytologic smear of vagina Bladder cancer ([facility]/HCC V24, CMS/HCC V28) 12/2018 DX:Bladder cancer (HCC) [...] Years (1 of 2 - PCV) 09/18/1979 Zoster Vaccines (1 of 2) 2010 RSV Immunization Adult Patients (1 - Risk 60-74 years 1-dose series) 2020 Cholesterol Screening (Lipid Panel) 05/12/2022 Colorectal Cancer Screening: Colonoscopy 05/12/2022 HIV Screening 05/12/2022 Hepatitis C Screening 05/12/2022 Social Influencers of Health Screening 05/12/2022 Hypertension/CHF/CAD Annual BMP Blood Test 05/18/2022 COVID-19 Vaccine (4 - 2023-2 5 season) 2024 04/14/2021, 10/23/2020, 09/19/2020 Depression Screening 06/03/2024 Influenza Vaccine (#1) 2025 4, 04/11/2022 Cervical Cancer Screening: HPV 09/07/2029 09/07/2024 [...] without abnormal findings from Last 3 Months or Most Recently Relevant to Health Maintenance Results * HPV with reflex genotype (09/07/2024 12:00 AM EDT) HPV Negative Negative LAB MICROBIOLOGY METHOD 09/08/2024 11:46 AM EDT [facility] ([facility] Brushing/Spatula Cervix uteri structure / Unknown 09/07/2024 09/08/2024 6:22 AM EDT us Justin Beckford MD LAB MOLECULAR DIAGNOSTICS ANTOINETTE MATIAS Final Result [facility] ([facility]) [facility] [address] [place] [address], from Last 3 Months or Most Recently Relevant to Health Maintenance Insurance [facility] PL[employer] Care Teams Title I Assistant Relationship Specialty Start Date End Date Mary Ellington MD [address] [place] [address] [address] [facility] [place], [place] [phone] PCP - General Internal Medicine 07/01/12
[2025-01-13 10:27] LABS: MANUAL DIFF FLAG NO
[2025-01-13 10:42] LABS: Hematocrit 40.2 % (37.0-47.0); Hemoglobin 13.5 g/dl (12.0-16.0); Imm Gran Abs Auto 0.02 X10*3/uL (0.00-0.03); Imm Gran Pct Auto 0.3 % (0.0-0.4); Lymphocytes Absolute Auto 3.1 X10*3/uL (1.2-4.9); Mean Corpuscular HGB Conc 33.6 g/dl (31.0-35.0); Mean Corpuscular Hemoglobin 30.6 pg (27.0-33.0); Mean Corpuscular Volume 91.2 fL (80.0-98.0); NRBC Abs Auto 0.000 X10*3/uL (0.0-0.012); NRBC Pct Auto 0.0 /100WBC (0.0-0.2); Platelet Count 285 X10*3/uL (160-400); Red Blood Count 4.41 X10*6/uL (4.20-5.50); White Blood Count 6.9 X10*3/uL (4.8-10.8)
[2025-01-13 11:11] LABS: Alanine Aminotransferase 18 U/L (0-31); Albumin Level 4.4 g/dL (3.5-5.0); Alkaline Phosphatase 35 U/L (39-117); Anion Gap 13 (12-20); Aspartate Amino Transferase 21 U/L (5-31); Blood Urea Nitrogen 10 mg/dL (9-16); Calcium 8.9 mg/dL (8.4-10.2); Carbon Dioxide 25 mmol/L (22-29); Chloride 109 mmol/L (96-108); Cholesterol 161 mg/dL (<200); Estimated Glomerular Filt Rate > 60; HDL Cholesterol 56 mg/dL (>40); Potassium 4.5 mmol/L (3.3-5.1); Sodium 142 mmol/L (135-145); Total Protein 6.8 g/dL (6.5-8.0); Triglycerides 98 mg/dL (<150)
[2025-01-13 11:27] LABS: Folate 8.6 ng/mL (> or = 4.0); Vitamin B12 387 pg/mL (200-900)
[2025-01-13 11:28] LABS: Free T4 (Free Thyroxine) 0.98 ng/dL (0.71-1.85)
== END 2025-01-13 08:53 | disposition home or self-care (01) ==
LOC: HO.HMGCLDS 08:52
PROVIDERS: PCP Internal Medicine
DX: Z00.00 Encounter for general adult medical examination without abnormal findings (principal); Z13.21 Encounter for screening for nutritional disorder; E78.00 Pure hypercholesterolemia, unspecified; I10 Essential (primary) hypertension
CPT/HCPCS: 36415; 80053; 80061; 82306; 82607; 82746; 84439; 84443; 85025

== ENCOUNTER 2025-01-28 08:47 | Outpatient (REF) | payer OTHER, SELFPAY ==
[2025-01-28 15:00] LABS: Chlamydia pneumoniae PCR Not Detected (Not Detect.); Coronavirus 229E PCR Not Detected (Not Detect.); Coronavirus HKU1 PCR Not Detected (Not Detect.); Coronavirus NL63 PCR Not Detected (Not Detect.); Coronavirus OC43 PCR Not Detected (Not Detect.); RSV PCR Not Detected (Not Detect.); Rhino/Enterovirus PCR Detected (Not Detect.)
[2025-01-28 15:06] LABS: Influenza A H1 PCR Not Detected (Not Detect.); Influenza A H1-2009 PCR Not Detected (Not Detect.); Influenza A H3 PCR Not Detected (Not Detect.); SARS-CoV-2 PCR Not Detected (Not Detect.)
== END 2025-01-28 08:48 | disposition home or self-care (01) ==
LOC: HO.LNP 08:47
PROVIDERS: PCP Internal Medicine; Visit Provider Physician Assistant Medical
DX: J06.9 Acute upper respiratory infection, unspecified (principal)
CPT/HCPCS: 87633; 99212

== ENCOUNTER 2025-01-28 08:47 | Outpatient (AMB) | payer OTHER, SELFPAY ==
--- OUTSIDE RECORDS SUMMARY | 2018-11-12 09:30 | XMS_ITS | Continuity of Care Document ---
Author Organization [facility] In [facility] Address [address] [place] [phone] Care Team Providers Care Rehabilitation Psychologist Name Role Phone Unavailable Unavailable Unavailable Allergies, [...] Providers Copied on Encounter OFFICE/OUTPA TIENT VISIT, [facility], [facility], [place], [place], [phone] , [facility] emergency room follow up (chief complaint) Body [...] na Payers Payer name Insurance type Covered constitution party ID Authoriza tion(s) Slide C [id number] Social History Type Description Quantity Date Captured [...] of tobacco smoking and arthritis attended [facility] emergency room in [place], [place] on 11/07/2018 due to acute onset [...] Other pelvic mass) ordered Referral Referred To: [facility] [address] [place], [phone] Ordered: Referrals: Urology. [facility]. Evaluate and treat ordered Referral Ordered: Referrals: Urology. Consult ordered History Of Present Illness Encounter Date Complaint History Of Prese nt Illness emergency room follow up On 2018, 58 year old female patient with past medical history of tobacco smoking and arthritis attended [facility] emergency room in [place], [place] on 11/07/2018 due to acute onset [...]
[2025-01-28 08:50] VITALS: BP 120/78; PULSE 79; TEMP 36.7; O2SAT 97; BMI 32.1
--- NOTE | 2025-01-28 08:50 | MHC.OFFWIV ---
Intake Vital Signs 01/28/25 08:50 Height 5 ft 4 in Weight 187 lb BMI 32.1 BP 120/78 Blood Pressure Location Lt brachial Position Sitting Pulse 79 Pulse Source Pulse Oximeter Temp 98.1 F Temp Source Oral Pulse Oximetry (%) 97 Oxygen Delivery Method Room Air Intake Visit Reasons: EP-cough, wheezing, phlemg Intake Note: pt presents with productive cough, wheezing, headache, sore throat, bilateral ear pain Patient Tobacco Use Status: Current everyday Tobacco user Allergies atorvastatin (Lipitor) Allergy (Intermediate, Verified 01/28/25 08:53) joint pain/stiffness ciprofloxacin (From Cipro) Allergy (Intermediate, Verified 01/28/25 08:53) H/A NAUSEA HIVES pravastatin (From PRAVACHOL) Allergy (Intermediate, Verified 01/28/25 08:53) joint pain/stiffness simvastatin (SIMVASTATIN) Allergy (Intermediate, Verified 01/28/25 08:53) joint pain/stiffness Sulfa (Sulfonamide Antibiotics) Allergy (Intermediate, Verified 01/28/25 08:53) HIVES codeine (Codeine) Adverse Reaction (Intermediate, Verified 01/28/25 08:53) headache/palpitations trimethoprim Adverse Reaction (Intermediate, Verified 01/28/25 08:53) Rash Do you need a note to return to daycare/school/sports/work: Yes HPI HPI Comments History of Present Illness Details History - The patient is a 64-year-old female presenting with symptoms of congestion, cough, and wheezing. - She has a history of asthma but is not currently using an inhaler. - Symptoms began three days ago with a dry cough and stuffy nose, progressing to a productive cough with yellowish sputum. - The patient experiences wheezing and shortness of breath, particularly during coughing fits, and has been sleeping in a recliner to alleviate symptoms. - She reports a smoking history, although she has not smoked this week. - The patient has experienced ear pain, sore throat, and a metallic taste affecting her appetite. - She had a low-grade fever yesterday and experiences alternating chills and sweating. - A COVID-19 test was performed at home and was positive but her test was old. - She denies chest pain, SOB, abd pain, n/v/d, DRAPER, dizziness, or weakness. Physical Exam General: Cooperative, healthy appearing, comfortable and no acute distress Orientation/consciousness: Patient oriented x3 Limitations: No limitations Head: Normal to inspection Ears: Hearing grossly normal bilaterally, external ears normal and TM's normal bilaterally Nose: Normal external nose present, normal nares present, and no nasal discharge present. Face and sinus: Sinuses nontender to palpation. Mouth: Normal oral and palatal mucosa present and moist mucous membranes noted. Throat: Tonsils normal. Uvula is midline. Posterior oropharynx with erythema and no exudates. Eyes: Appearance normal, both eyes and all related structures Neck: Normal visual inspection, full ROM. No lymphadenopathy noted. Respiratory: Clear to auscultation bilaterally. Normal respiratory effort, able to speak in complete sentences. No respiratory distress, not tachypneic, no tripod positioning and no use of accessory muscles. Cardiovascular: Regular rate and rhythm. Normal S1 and S2 Skin: No rashes or lesions noted Patient was informed and verbally consented to the use of an ambient scribe for clinic note documentation during this visit [facility]LY [facility], [facility] Medical History Cystitis Low back pain Osteoporosis (~2023) Nicotine dependence, cigarettes, uncomplicated Pulmonary nodules History of COVID-19 Hypertension Vitamin D deficiency GERD (gastroesophageal reflux disease) Urinary bladder cancer (~2018) Carpal tunnel syndrome Restless leg syndrome Asthma Kidney stones History of seizures Impaired glucose tolerance Hypercholesteremia Coronary artery disease Obesity (BMI 30-39.9) Surgical History Hx of foot surgery H/O colonoscopy History of transurethral destruction of bladder lesion History of cardiac cath History of surgery on right wrist (~1996) History of tonsillectomy History of elbow surgery History of cholecystectomy (~1998) History of vaginal hysterectomy (~1992) Groin mass Neck mass Family History Father Cerebrovascular disease Lung cancer Rheumatoid arthritis Mother Cerebrovascular disease Diabetes Hypertension Paternal Uncle Lung cancer Colon cancer Sister Cervical cancer Breast cancer Multiple sclerosis Maternal Grandmother Breast cancer Maternal Aunt Breast cancer Sister Psoriasis Social History Housing: Apartment Alcohol intake: never Comment: cardiac prophylactic Patient Tobacco Use Status: Current everyday Tobacco user Tobacco use type: Cigarette Cigarette Packs Per Day: 0.25 Cigarettes Per Day: 2 Years Smoked: onset 19yo, 1-2ppd x 42yrs, now 1/4ppd - 50pyh e-Cigarette/Vaping Use: Currently Using Second Hand Smoke Exposure: Yes Substance Use Type: Marijuana service: No Current occupational status: employed 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 Current occupational exposures/hazards: No Cognitive needs: No Hearing needs: No Vision needs: Yes Review of Systems Const All systems reviewed & are unremarkable except as noted in HPI and below Physical Exam Vital Signs: Last Vital Signs Temp 98.1 F 01/28/25 08:50 Pulse 79 01/28/25 08:50 BP 120/78 01/28/25 08:50 Pulse Ox 97 01/28/25 08:50 Oxygen Delivery Method Room Air 01/28/25 08:50 BMI result Body Mass Index 32.1 Assessment & Plan Assessment & Plan (1) URI with cough and congestion: Code(s): J06.9 - Acute upper respiratory infection, unspecified Plan Most likely asthma exacerbation vs flu vs covid vs RSV vs viral illness Plan - tylenol or motrin as needed - Prescribed an inhaler and prednisone to manage asthma symptoms and reduce inflammation. - Recommended cough medicine to alleviate symptoms. - COVID-19, influenza, and RSV swabs were performed to rule out viral infections. - Advised to continue abstaining from smoking to improve respiratory health. - follow up with PCP Orders: Orders Resp Pathogen Panel - [facility] Today J06.9 - Acute upper respiratory infection, unspecified Medications: New albuterol sulfate 90 mcg/actuation 2 puffs inhalation Q6H PRN 8.5 grams 0RF shortness of breath or wheezing or cough prednisone 40 mg (2 x 20 mg) PO DAILY 10 tabs 0RF 5 days benzonatate 100 mg PO bid-tid PRN 21 caps 0RF Cough 7 days Refilled calcium carbonate-vitamin D3 600 mg-25 mcg (1,000 unit) 1 cap PO BID 180 caps 2RF 90 days Coding Level of Care Code Est Pt Level 3 (87941) Diagnoses URI with cough and congestion J06.9
--- OUTSIDE RECORDS SUMMARY | 2025-01-28 09:31 | XMS_ITS | Clinical Summary ---
Author Organization [address] Address [address] [place] [phone] Phone Care Team Providers Care Materials Development Engineer Name Role Phone Mary Ellington MD Primary Care Provider [phone] Surgical History Surgery Date Site/Laterality Comments HYSTERECTOMY [...] on cytologic smear of vagina Bladder cancer ([facility]/HCC V24, CMS/HCC V28) 12/2018 DX:Bladder cancer (HCC) [...] LAB MICROBIOLOGY METHOD 09/08/2024 11:46 AM EDT [facility] ([facility] Brushing/Spatula Cervix uteri structure / Unknown 09/07/2024 09/08/2024 6:22 AM EDT us Justin Beckford MD LAB MOLECULAR DIAGNOSTICS ANTOINETTE MATIAS Final Result [facility] ([facility]) [facility] [address] [place] [address], from Last 3 Months or Most Recently Relevant to Health Maintenance Insurance [facility] PL[employer] Care Teams Materials Development Engineer Relationship Specialty Start Date End Date Mary Ellington MD [address] [place] [address] [address] [facility] [place], [place] [phone] PCP - General Internal Medicine 07/01/12
--- OUTSIDE RECORDS SUMMARY | 2025-01-28 09:31 | XMS_ITS | Encounter Summary ---
Author Organization [facility] Address [address] [place] [address] Care Team Providers Care Remote Broadcast Technician Name Role Phone Mary Ellington MD Primary Care Provider [phone] Encounter Details Date Type Department Care Team (Latest Contact Info) Description 09/08/2024 Lab Requisition [facility] - Main Lab 299 [facility] [employer] [place] [address] Justin Beckford MD [address] [address] Encounter for gynecological examination (general) (routine) without [...] as of this encounter Plan of Treatment Not on file documented as of this encounter Procedures Procedure [...] LAB MICROBIOLOGY METHOD 09/08/2024 11:46 AM EDT [facility] ([facility] Brushing/Spatula Cervix uteri structure / Unknown 09/07/2024 09/08/2024 6:22 AM EDT Justin Beckford MD LAB MOLECULAR DIAGNOSTICS ANTOINETTE MATIAS Final Result [facility] [address] [place] [address], * Pap smear (09/07/2024 12:00 AM EDT) Interpretation Negative for intraepithelial lesion or malignancy 09/10/2024 10:[address] [facility] Clinical Information LSIL 2020 09/10/2024 10:[address] [facility] General Categorization Negative 09/10/2024 10:[address] [facility] Additional Information Abundant acute inflammation. 09/10/2024 10:11 AM [facility] Specimen Adequacy Satisfactory for evaluation 09/10/2024 10:[address] [facility] Pap Methodology Liquid Based Pap Test [facility] Dis[facility] Note: This pap test could not be imaged utilizing the [employer] Imaging System and required a manual review. The Pap test is a screening test which carries an inherent false negative rate. These test results should be correlated with the patient's clinical findings and history. This Pap test was processed using an automated screening system. Technical cytopathology services provided by [facility], at [address] [place] [id number] (CLIA # [id number]/Kristine Melton MD, Interlibrary Loan Services Librarian.) 09/10/2024 10:11 AM [facility] Console Pap Interpretation Reported 09/10/2024 10:11 AM [facility] Brushing/Spatula Vaginal structure / Unknown 09/07/2024 09/08/2024 6:22 AM EDT us Justin Beckford MD LAB CYTOLOGY ORDERABLES Final Result [facility] ([facility]) [facility] [address] [place] [address], documented in this encounter Visit Diagnoses Diagnosis Encounter for gynecological examination (general) (routine) without abnormal findings documented in this encounter Care Teams Remote Broadcast Technician Relationship Specialty Start Date End Date Mary Ellington MD [address] [place] [address] [address] [facility] [place] [address] PCP - General Internal Medicine 07/01/12 documented as of this encounter
== END 2025-01-28 09:50 | disposition home or self-care (01) ==
PROVIDERS: PCP Internal Medicine; Visit Provider Physician Assistant Medical
DX: J06.9 Acute upper respiratory infection, unspecified (principal)

== ENCOUNTER 2025-03-03 09:18 | Outpatient (REF) | payer OTHER, SELFPAY ==
--- NOTE | ~2025-03-03 | FL_ITS ---
EXAMINATION: XR FLUOROSCOPY UPPER GI SERIES CLINICAL INFORMATION: Persistent heartburn and reflux-type symptoms. Epigastric pain. COMPARISON: None TECHNIQUE: Fluoroscopic air contrast upper GI examination was performed utilizing standard techniques with thin and thick barium and effervescent granules. Numerous spot images were obtained. Several fluoroscopic image hold cine sequences were also obtained. FINDINGS: UPPER GI SERIES: Lateral cine images of the oropharynx and hypopharynx demonstrate normal swallow mechanism with normal epiglottic inversion and soft palate elevation. No laryngeal penetration, glottic or subglottic aspiration identified. No nasopharyngeal reflux present. Hypopharyngeal structures appear normal without evidence of mass or diverticulum. 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 Dual and single contrast images of the esophagus demonstrate normal caliber, contour, and mucosal pattern. No evidence of stricture, mass, or ulcerations identified. Esophageal peristalsis was mildly disordered. Small type I hiatus hernia present. Gastroesophageal reflux identified during the examination to the level of the thoracic inlet. Dual contrast and single contrast images of the stomach demonstrated normal contour and mucosal pattern without evidence of mass, ulceration, or other abnormality. Normal gastric rugal fold pattern. Contrast freely passed into the gastric antrum and duodenal bulb without delay. Single and air-contrast images of the duodenal bulb demonstrate no abnormality. The duodenal sweep has a normal appearance, course, and mucosal fold appearance. Cholecystectomy clips incidentally noted. FLUOROSCOPY TIME: 2 minutes, 31 seconds Number of Spot Images:7 Number of cines obtained: 8 DOSE AREA PRODUCT: 2512 uGy-m2 (microgray-meter squared) FL/FL upper GI w air IMPRESSION: 1. Moderate persistent cricopharyngeal achalasia. 2. Mildly disordered esophageal peristalsis. 3. Small type I hiatus hernia. 4. Episodic gastroesophageal reflux to the level of the thoracic inlet. 5. Normal-appearing stomach and duodenum. Electronically signed by: Josh Patten MD 03/03/2025 10:26 AM EDT
--- OUTSIDE RECORDS SUMMARY | 2025-03-03 10:06 | XMS_ITS | Encounter Summary ---
Author Organization [facility] Address [address] [place] [address] Care Team Providers Care Diet Counselor Name Role Phone Mary Ellington MD Primary Care Provider [phone] Encounter Details Date Type Department Care Team (Latest Contact Info) Description 09/08/[address] [facility] - Main Lab 299 [facility] [place] [address] Justin Beckford MD [address] [address] Encounter for gynecological examination (general) [...] LAB MICROBIOLOGY METHOD 09/08/2024 11:46 AM EDT [facility] ([facility] Brushing/Spatula Cervix uteri structure / Unknown 09/07/2024 09/08/2024 6:22 AM EDT Justin Beckford MD LAB MOLECULAR DIAGNOSTICS ANTOINETTE MATIAS Final Result [facility] [address] [place] [address], * Pap smear (09/07/2024 12:00 AM EDT) Interpretation Negative for intraepithelial lesion or malignancy 09/10/2024 10:11 AM EDT [facility] Clinical Information LSIL 2020 09/10/2024 10:11 AM EDT [facility] General Categorization Negative 09/10/2024 10:11 AM EDT [facility] Additional Information Abundant acute inflammation. 09/10/2024 10:11 AM [facility] Specimen Adequacy Satisfactory for evaluation 09/10/2024 10:11 AM EDT [facility] Pap Methodology Liquid Based Pap Test 09/10/2024 10:[facility] Disclaimer Note: This pap test could not be imaged utilizing the [employer] Imaging System and required a manual review. The Pap test is a screening test which carries an inherent false negative rate. These test results should be correlated with the patient's clinical findings and history. This Pap test was processed using an automated screening system. Technical cytopathology services provided by [facility], at [address] [place] [address] (CLIA # [id number]/Kristine Melton MD, Roll Cleaner.) 09/10/2024 10:11 AM [facility] Console Pap Interpretation Reported 09/10/2024 10:11 AM [facility] Brushing/Spatula Vaginal structure / Unknown 09/07/2024 09/08/2024 6:22 AM EDT us Justin Beckford MD LAB CYTOLOGY ORDERABLES Final Result [facility] ([facility]) [facility] [address] [place] [address], documented in this encounter Visit Diagnoses Diagnosis Encounter for gynecological examination (general) (routine) without abnormal findings documented in this encounter Care Teams Diet Counselor Relationship Specialty Start Date End Date Mary Ellington MD [address] [place] [address] [address] [facility] [place] [address] PCP - General Internal Medicine 07/01/12 documented as of this encounter
--- OUTSIDE RECORDS SUMMARY | 2025-03-03 10:06 | XMS_ITS | Clinical Summary ---
Author Organization [address] Address [address] [place] [phone] Phone Care Team Providers Care Obstetrical Anesthesiologist Name Role Phone Mary Ellington MD Primary Care Provider [phone] Surgical History Surgery Date Site/Laterality Comments HYSTERECTOMY [...] vagina Bladder cancer ([facility]/HCC V24, CMS/HCC V28) 12/2018 DX:Bladder cancer (HCC) [...] Last Done Comments Breast Cancer Screening 1960 Colorectal Cancer Screening: Colonoscopy 1960 DTaP,Tdap,and Td Vaccines (1 - Tdap) 09/18/1979 Pneumococcal Vaccine: 50+ Years (1 of 2 - PCV) 09/18/1979 Zoster Vaccines (1 of 2) 2010 RSV Immunization Adult Patients (1 - Risk 60-74 years 1-dose series) 2020 Cholesterol Screening (Lipid Panel) 05/12/2022 HIV Screening 05/12/2022 Hepatitis C Screening 05/12/2022 Social Influencers of Health Screening 05/12/2022 Hypertension/CHF/CAD Annual BMP Blood Test 05/18/2022 Depression Screening 06/03/2024 COVID-19 Vaccine (4 - 2024-2 6 season) 2025 04/14/2021, 10/23/2020, 09/19/2020 Influenza Vaccine (#1) 2025 4, 04/11/2022 Cervical [...] LAB MICROBIOLOGY METHOD 09/08/2024 11:[address] [facility] Brushing/Spatula Cervix uteri structure / Unknown 09/07/2024 09/08/2024 6:22 AM EDT us Justin Beckford MD LAB MOLECULAR DIAGNOSTICS ANTOINETTE MATIAS Final Result [facility] ([facility]) [facility] [address] [place] [address], from Last 3 Months or Most Recently Relevant to Health Maintenance Insurance [facility] [employer] Care Teams Obstetrical Anesthesiologist Relationship Specialty Start Date End Date Mary Ellington MD [address] [place] [address] [address] [facility] [place], [place] [phone] PCP - General Internal Medicine 07/01/12
== END 2025-03-03 09:19 | disposition home or self-care (01) ==
LOC: HO.XRAY 09:18
PROVIDERS: PCP Internal Medicine
DX: K21.9 Gastro-esophageal reflux disease without esophagitis (principal)
CPT/HCPCS: 74246

== ENCOUNTER → 2025-03-03 09:22 | Outpatient (BNV) | payer OTHER, SELFPAY | PROVIDERS: PCP Internal Medicine; Visit Provider Radiology Diagnostic Radiology | DX: K21.9 Gastro-esophageal reflux disease without esophagitis (principal); R10.13 Epigastric pain | CPT/HCPCS: 74246 ==

== ENCOUNTER 2025-03-09 15:50 | Outpatient (AMB) | payer OTHER, SELFPAY ==
--- OUTSIDE RECORDS SUMMARY | 2018-11-12 09:30 | XMS_ITS | Continuity of Care Document ---
Author Organization [facility] In [facility] Address [address] [place] [id number] Care Team Providers Care Community Services Manager Name Role Phone Unavailable Unavailable Unavailable Allergies, [...] Providers Copied on Encounter OFFICE/OUTPA TIENT VISIT, [facility], [facility], [place], [place], [phone] , [facility] emergency room follow up (chief complaint) Body mass index (BMI) 33.0-33.9, adultOther pelvic massHematuriaAther osclerosis of aortaTobacco use 9 No Information Family History Family Member Type Diagnosis Age At Onset Problem (finding) Family history of coronary arteriosclerosis Problem (finding) Family history of Aller gies Problem (finding) Family history of depre ssion Problem (finding) Family history of seizu re disorder Problem (finding) Family history of Diabe saud mellitus Problem (finding) Family history of Eczem a Problem (finding) Family history of na Problem (finding) Family history of Thyro id disorder Problem (finding) Family history of strok e Problem (finding) Family history of osteo porosis Problem (finding) Family history of Obesi ty Problem (finding) Family history of attention deficit hyperactivity disorder Problem (finding) Family history of Cardi ovascular disease Problem (finding) Family history of hyper cholesterolemia Problem (finding) Family history of asthm a Problem (finding) Family history of Arthr itis Payers Payer name Insurance type Covered green party ID Authoriza tisalty(s) Slide C [id number] Social History Type Description Quantity Date Captured [...] tobacco smoking and arthritis attended [facility] emergency room in [place], [place] on 11/07/2018 due to acute onset [...] Other pelvic mass) ordered Referral Referred To: [facility] [address] [place], [phone] Ordered: Referrals: Urology. [facility]. Evaluate and treat ordered Referral Ordered: Referrals: Urology. Consult ordered History Of Present Illness Encounter Date Complaint History Of Prese nt Illness emergency room follow up On 2018, 58 year old female patient with past medical history of tobacco smoking and arthritis attended [facility] emergency room in [place], [place] on 11/07/2018 due to acute onset [...]
[2025-03-09 15:51] VITALS: BP 116/60; PULSE 73; TEMP 36.3; O2SAT 95; BMI 32.0
--- NOTE | 2025-03-09 15:51 | A.OFFPC_ITS ---
Vital Signs 03/09/25 15:51 Height 5 ft 4 in Weight 186 lb 8 oz BMI 32.0 BP 116/60 Blood Pressure Location Lt brachial Position Sitting Pulse 73 Pulse Source Pulse Oximeter Temp 97.3 F Temp Source Temporal Artery Scan Pulse Oximetry (%) 95 Oxygen Delivery Method Room Air Intake Visit Reasons: PE Allergies atorvastatin (Lipitor) Allergy (Intermediate, Verified 03/09/25 15:54) joint pain/stiffness ciprofloxacin (From Cipro) Allergy (Intermediate, Verified 03/09/25 15:54) H/A NAUSEA HIVES pravastatin (From PRAVACHOL) Allergy (Intermediate, Verified 03/09/25 15:54) joint pain/stiffness simvastatin (SIMVASTATIN) Allergy (Intermediate, Verified 03/09/25 15:54) joint pain/stiffness Sulfa (Sulfonamide Antibiotics) Allergy (Intermediate, Verified 03/09/25 15:54) HIVES codeine (Codeine) Adverse Reaction (Intermediate, Verified 03/09/25 15:54) headache/palpitations trimethoprim Adverse Reaction (Intermediate, Verified 03/09/25 15:54) Rash Medication List - Last Reconciled 03/09/25 by Mary Ellington MD acetaminophen (Tylenol) 325 mg PO QID PRN albuterol sulfate 90 mcg/actuation 2 puffs inhalation Q6H PRN cyclobenzaprine 10 mg PO TID PRN 90 days diclofenac sodium 1% 4 grams topical QID metoprolol succinate ER 25 mg PO DAILY rosuvastatin 40 mg PO DAILY 30 days Tobacco use date assessed: 03/09/25 Fall risk assessment: No Falls in past year Last assessed Fall Risk: 03/09/25 Dental Screening Dental Screen Date: 03/09/25 Did you have a dental visit in the last 12 months?: No Did you have a dental problem in the last 6 months where you did not have access to dental care?: No Was dental information given to patient?: No HPI PE HPI Details dizzy, PFSH Medical History Cystitis Low back pain Osteoporosis (~2023) Nicotine dependence, cigarettes, uncomplicated Pulmonary nodules History of COVID-19 Hypertension Vitamin D deficiency GERD (gastroesophageal reflux disease) Urinary bladder cancer (~2018) Carpal tunnel syndrome Restless leg syndrome Asthma Kidney stones History of seizures Impaired glucose tolerance Hypercholesteremia Coronary artery disease Obesity (BMI 30-39.9) Surgical History Hx of foot surgery H/O colonoscopy History of transurethral destruction of bladder lesion History of cardiac cath History of surgery on right wrist (~1996) History of tonsillectomy History of elbow surgery History of cholecystectomy (~1998) History of vaginal hysterectomy (~1992) Groin mass Neck mass Family History Father Cerebrovascular disease Lung cancer Rheumatoid arthritis Mother Cerebrovascular disease Diabetes Hypertension Paternal Uncle Lung cancer Colon cancer Sister Cervical cancer Breast cancer Multiple sclerosis Maternal Grandmother Breast cancer Maternal Aunt Breast cancer Sister Psoriasis Social History Housing: Apartment Alcohol intake: never Comment: cardiac prophylactic Patient Tobacco Use Status: Current everyday Tobacco user Tobacco use type: Cigarette Cigarette Packs Per Day: 0.25 Cigarettes Per Day: 2 Years Smoked: onset 19yo, 1-2ppd x 42yrs, now 1/4ppd - 50pyh e-Cigarette/Vaping Use: Currently Using Second Hand Smoke Exposure: Yes Substance Use Type: Marijuana service: No Current occupational status: employed 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 1. Little interest or pleasure in doing things: not at all 2. Feeling down, depressed, or hopeless: not at all 3. Trouble falling or staying asleep, or sleeping too much: not at all 4. Feeling tired or having little energy: not at all 5. Poor appetite or overeating: not at all 6. Feeling bad about yourself - or that you are a failure or have let yourself or your family down: not at all 7. Trouble concentrating on things, such as reading the newspaper or watching television: not at all 8. Moving or speaking so slowly that other people could have noticed. Or the opposite - being so fidgety or restless that you have been moving around a lot more than usual: not at all 9. Thoughts that you would be better off or of hurting yourself in some way: not at all Total score: 0 Source: Developed by Drs. Gilmar Prabhakar, Carmen Leal, Lorenzo Deng and colleagues, with an educational wilfredo from [employer]. Thrive Questionnaire Date Thrive assessed: 11/12/24 I am a: Patient What is your living situation today?: I have a steady place to live Within the past 12 months, did the food you bought not last and you didn't have the money to get more?: I choose not to answer this question Within the past 12 months, did you worry whether your food would run out before you got money to buy more?: I choose not to answer this question Do you have trouble paying for medicines?: No Do you have trouble getting transportation to medical appointments?: No Do you have trouble paying your heating and electricity bill?: No Do you have trouble taking care of your child, family member or friend?: No Do you have trouble with day-to-day activities such as bathing, preparing meals, shopping, managing finances, etc.?: No Are you currently unemployed and looking for a job?: No Are you interested in more education?: No Please select the resources that you would like help with: None Currently or been in a relationship where the following occur: No concerns reported THRIVE Score: 0 AUDIT C Alcohol Use Questionnaire (AUDIT-C) 1. How often do you have a drink containing alcohol?: Never 3. How often do you have six or more drinks on one occasion?: Never Total Score: 0 MERRILL-7 AMB Questionnaire MERRILL-7 Date MERRILL - 7 assessed: 11/12/24 Feeling nervous, anxious, or on edge: 0 = Not at all Not being able to stop or control worryin = Not at all Worrying too much about different things: 0 = Not at all Trouble relaxin = Not at all Being so restless that it is hard to sit still: 0 = Not at all Becoming easily annoyed or irritable: 0 = Not at all Feeling afraid as if something awful might happen: 0 = Not at all Total MERRILL-7 score (0-4 normal; 5-9 mild; 10-14 moderate; 15-21 severe): 0 Source: Developed by Carmen Becerril Kurt Kroenke and colleagues, with an educational wilfredo from [employer]. Review of Systems Const Denies poor appetite and Denies weakness Eyes Denies no additional complaints ENT Reports Normal hearing present, Denies dizziness, Denies nasal congestion, Denies tinnitus and Denies sore throat Card Denies chest pain, Denies syncope, Denies rapid heart rate and Denies dyspnea Resp Denies cough and Denies dyspnea GI Denies change in stool character, Reports constipation, Denies diarrhea, Denies nausea and Denies vomiting Denies urinary frequency, Denies difficulty voiding and Denies dysuria Neuro Reports Normal hearing present, Denies confusion, Denies dizziness, Denies syncope and Denies weakness Psych Denies confusion Physical exam (Primary Care) Vital Signs: Last Vital Signs Temp 97.3 F 03/09/25 15:51 Pulse 73 03/09/25 15:51 BP 116/60 03/09/25 15:51 Pulse Ox 95 03/09/25 15:51 Oxygen Delivery Method Room Air 03/09/25 15:51 BMI result Body Mass Index 32.0 Tobacco/Smoking Status: Tobacco use Status Tobacco use date assessed 03/09/25 03/09/25 15:58 Patient Tobacco Use Status Current everyday Tobacco 03/09/25 15:58 Tobacco use type Cigarette 03/09/25 15:58 e-Cigarette/Vaping Use Currently Using 03/09/25 15:58 PHQ-9: PHQ-9 Score PHQ-9: Total score 0 03/09/25 16:05 Thrive Assessment: Date of Thrive Assessment Date Thrive assessed 11/12/24 03/09/25 15:58 Currently or been in a relationship where the following occur: No concerns reported Const General: No confusion Orientation/consciousness: No confusion HENMT Head: Yes normocephalic Ears: external ears normal and TM's normal bilaterally Face and sinus: Yes normal facial exam Mouth: moist mucous membranes Throat: Yes tonsils normal Eyes Conjunctivae: conjunctivae normal Pupils: Equal, round and reactive pupils present and Pupil accommodation reflex normal Direct Ophthalmoscopy: normal light reflex Neck Neck: No lymphadenopathy Thyroid: Thyroid normal Chest Chest palpation & inspection: normal inspection of the chest Resp Effort & Inspection: normal respiratory effort and no audible wheezes Auscultation: clear to auscultation bilaterally, no crackles, no wheezes and lung sounds not diminished Cardio Rate: regular rate Rhythm: regular rhythm Peripheral pulses: radial pulses present and dorsalis pedis present GI Palpation (GI): no masses Auscultation: normal bowel sounds and normoactive bowel sounds Rectal Exam - Female: deferred Skin General skin exam: no rashes or lesions noted Rashes: no rashes Neuro General: No confusion Cranial nerves: Yes Equal, round and reactive pupils present and Yes Normal hearing present Cognition (Neuro): normal cognition Gait exam (Neuro): Normal gait present Motor exam (neuro): 5/5 motor strength present throughout Deep tendon reflexes (DTR's): Right brachioradialis reflex intensity grade: 2+, Left brachioradialis reflex intensity grade: 2+, Right patellar reflex intensity grade: 2+ and Left patellar reflex intensity grade: 2+ Extrem General: No edema Office Procedures Flu Questionnaire Does the patient have a severe egg allergy?: No Does the patient have severe life threatening allergies?: No Does the patient have a fever or illness today?: No Has the patient ever had Guillain-Houston Syndrome?: No Has the patient ever had any past reaction to a flu shot?: No Immunizations Fluarix [id number] (PF) 45 mcg (15 mcg x 3)/0.5 mL IM syringe Performing Provider: Mary Ellington MD [facility] [place] [facility] Administered by: Kim Wilson CMA on 03/09/25 16:31 Dose Route Admin Location Dispensed Lot Number Expiration Date NDC Crm Marketing [employer] 0.5 mL IM Left Deltoid 0.5 mL [id number] 11/30/25 78301-744-21 [employer] VIS Given Date VIS Provided VIS Publication Date 03/09/25 Single Vaccine 24 Eligibility Eligibility Date Funding Source Not [facility] Eligible 03/09/25 Private Coding Level of Care Code Est Pt Prev Care 40-64y(42416) Diagnoses Nicotine dependence, cigarettes, uncomplicated F17.210 Essential hypertension I10 Hypertension type: essential hypertension Hypercholesteremia E78.00 Impaired glucose tolerance R73.02 Gastroesophageal reflux disease without esophagitis K21.9 Esophagitis presence: without esophagitis Malignant neoplasm of urinary bladder, unspecified site C67.9 Bladder location: unspecified site Moderate persistent asthma without complication J45.40 Asthma severity: moderate Asthma persistence: persistent Asthma complication type: uncomplicated Colonoscopy refused Z53.20 Facial dermatitis L30.9 Assessment & Plan Assessment & Plan (1) Nicotine dependence, cigarettes, uncomplicated: Comment: (current smoker - onset 19yo, 1-2ppd x 42yrs, now 1/4ppd - 50pyh) Code(s): F17.210 - Nicotine dependence, cigarettes, uncomplicated Category: Medical Plan: Patient is strongly advised to stop smoking! (2) Hypertension: Code(s): I10 - Essential (primary) hypertension Category: Medical Qualifiers: Hypertension type: essential hypertension Qualified Code(s): I10 - Essential (primary) hypertension Plan: Continue with blood pressure medication. Decrease salt intake and exercise on metoprolol 25 mg once a day (3) Hypercholesteremia: Code(s): E78.00 - Pure hypercholesterolemia, unspecified Category: Medical Plan: Avoid fried foods, chicken skin, eggs, butter margarine, pastries and meat. Be it pork or beef they have a lot of cholesterol LDL goal of less than 70 and triglyceride of less than 150 (4) Impaired glucose tolerance: Code(s): R73.02 - Impaired glucose tolerance (oral) Category: Medical Plan: Decrease the amount of carbohydrate intake, pasta, bread, rice and potatoes are all sugar and that is aside from all the sweet stuff, remember that fruits are good but they are Sweet also. (5) GERD (gastroesophageal reflux disease): Code(s): K21.9 - Gastro-esophageal reflux disease without esophagitis Category: Medical Qualifiers: Esophagitis presence: without esophagitis Qualified Code(s): K21.9 - Gastro-esophageal reflux disease without esophagitis Plan: Avoid the foods that causes that usually spicy foods, tomato products, juices, coffee, soda and foods that your sensitive to. After eating do not lie down, allow 3-4 hours before in lie down. And keep the head of bed above 30 degrees to avoid the acid from going up. (6) Urinary bladder cancer: Onset Date: ~2018 Comment: (Dx December 2018 Perla Singer - T1 high-grade with intravesical gemcitabine boost Dr. Divine Diop Gynecologic oncology [facility] 03/2020) Code(s): C67.9 - Malignant neoplasm of bladder, unspecified Category: Medical Qualifiers: Bladder location: unspecified site Qualified Code(s): C67.9 - Malignant neoplasm of bladder, unspecified Plan: Continue to follow-up with urology. (7) Asthma: Code(s): J45.909 - Unspecified asthma, uncomplicated Category: Medical Qualifiers: Asthma severity: moderate Asthma persistence: persistent Asthma complication type: uncomplicated Qualified Code(s): J45.40 - Moderate persistent asthma, uncomplicated Plan: Continue with the inhaler, patient is advised to stop smoking! (8) Colonoscopy refused: Code(s): Z53.20 - Procedure and treatment not carried out because of patient's decision for unspecified reasons Category: Medical (9) Facial dermatitis: Code(s): L30.9 - Dermatitis, unspecified Category: Medical Plan History of Present Illness The patient is a 64-year-old female presenting for an annual physical and wellness visit. The patient has a history of asthma, which was exacerbated in January, leading to a visit to the urgent center where she was treated with albuterol and prednisone. She reports using an albuterol inhaler as needed, with no recent usage in the past month. The patient has gastroesophageal reflux disease (GERD) with symptoms of reflux reaching the thoracic inlet and associated with a small hiatal hernia. She manages symptoms with dietary modifications and gckq-byl-feqyife medications like Pepto-Bismol, avoiding prescription medications such as omeprazole. The patient has impaired glucose tolerance with a recent fasting blood sugar of 107 mg/dL, indicating mild elevation. She maintains a diet rich in vegetables, fruits, fish, and chicken, and denies alcohol consumption. Hypertension is managed with metoprolol 25 mg daily, and her blood pressure is reported to be well-controlled. The patient has hypercholesterolemia with an LDL level of 86 mg/dL, which is an improvement from previous levels. She is on rosuvastatin 40 mg daily, increased from 20 mg, and aims for an LDL goal of less than 70 mg/dL. The patient has a history of coronary artery disease and urinary bladder cancer diagnosed in 2018, with ongoing follow-up with urology. Generalized anxiety disorder is noted, but no specific interventions or medications are discussed. Osteoporosis was diagnosed with the last bone density scan in October 2021, and she is advised to take vitamin D supplements. The patient experiences mixed urinary incontinence, last evaluated in November 2024. Cricopharyngeal achalasia and a small hiatal hernia were identified in an upper GI series, with recommendations for dietary adjustments to manage symptoms. The patient is a current smoker, consuming approximately two cigarettes a day, and is strongly advised to quit due to the associated health risks, including bladder cancer. Health Maintenance - Preventative care: Colonoscopy due - Vaccination: Flu shot discussed and planned - Lifestyle: Advised to quit smoking - Diet: Emphasis on a diet rich in vegetables, fruits, fish, and chicken - Exercise: Patient reports starting exercise six months ago - Bone Health: Advised to take vitamin D supplements for osteoporosis Social History - Smoking: Current smoker, approximately two cigarettes a day - Diet: Consumes a diet rich in vegetables, fruits, fish, and chicken - Exercise: Started exercising six months ago - Alcohol: Denies alcohol consumption Review of Systems - Respiratory: Reports cough and wheezing during asthma exacerbation - Gastrointestinal: Reports reflux reaching thoracic inlet, difficulty swallowing certain foods - Neurological: Denies dizziness, nausea, or vomiting except when sick - Musculoskeletal: Reports no pain during physical examination Physical Exam General: Cooperative, healthy appearing, comfortable, no acute distress and well developed Orientation: Patient oriented x3 Limitations: No limitations Head: Normal to inspection Ears: Hearing grossly normal bilaterally Nose: Normal external nose present Face and sinus: Normal facial exam Eyes: Appearance normal, both eyes and all related structures Neck: Normal visual inspection and Yes full ROM Respiratory: Normal respiratory effort and able to speak in complete sentences. Clear to auscultation bilaterally Cardiovascular: Regular rate and rhythm. Normal S1 and S2 GI: Normal to inspection. Soft to palpation and nontender Skin: No rashes or lesions noted Neuro: Patient oriented x3 Extremities: Normal to inspection Results - Labs: Fasting blood sugar 107 mg/dL, indicating impaired glucose tolerance - Labs: LDL cholesterol 86 mg/dL, improved from previous levels - Labs: Normal blood count, electrolytes, renal function, liver function, B12, vitamin D, folic acid, and thyroid levels - Imaging: Upper GI series showing moderate cricopharyngeal achalasia, mild disorganized esophageal peristalsis, small type 1 hiatal hernia, and episodic reflux Plan Patient was informed and verbally consented to the use of an ambient scribe for clinic note documentation during this visit. 1. Asthma The patient experienced an asthma exacerbation in January, treated with albuterol and prednisone. She uses an albuterol inhaler as needed, with no recent usage in the past month. 2. Gastroesophageal Reflux Disease (Gerd) The patient manages GERD symptoms with dietary modifications and jvpz-jgz-[id number] medications like Pepto-Bismol, avoiding prescription medications such as omeprazole. Recommendations include avoiding foods that exacerbate symptoms and maintaining an upright position after meals. 3. Impaired Glucose Tolerance The patient has impaired glucose tolerance with a fasting blood sugar of 107 mg/dL. She maintains a healthy diet and exercise regimen to manage her glucose levels. 4. Hypertension Hypertension is managed with metoprolol 25 mg daily, and her blood pressure is reported to be well-controlled. 5. Hypercholesterolemia The patient is on rosuvastatin 40 mg daily, with an LDL goal of less than 70 mg/dL. Her current LDL level is 86 mg/dL, showing improvement from previous levels. 6. Coronary Artery Disease The patient has a history of coronary artery disease and continues to follow up with her healthcare provider for management. 7. History Of Urinary Bladder Cancer The patient was diagnosed with urinary bladder cancer in 2019 and continues to follow up with urology. 8. Generalized Anxiety Disorder Generalized anxiety disorder is noted, but no specific interventions or medications are discussed during the visit. 9. Osteoporosis Osteoporosis was diagnosed with the last bone density scan in October 2021, and the patient is advised to take vitamin D supplements. 10. Mixed Urinary Incontinence The patient experiences mixed urinary incontinence, last evaluated in November 2024. 11. Cricopharyngeal Achalasia Cricopharyngeal achalasia was identified in an upper GI series, with recommendations for dietary adjustments to manage symptoms. 12. Hiatal Hernia A small hiatal hernia was identified in an upper GI series, and dietary modifications are recommended to manage associated symptoms. 13. Smoking The patient is a current smoker, consuming approximately two cigarettes a day, and is strongly advised to quit due to the associated health risks, including bladder cancer. Discussion Notes During the visit, I discussed the importance of smoking cessation with the patient, emphasizing the associated health risks, including bladder cancer and its impact on her overall health. We reviewed her current medication regimen, including metoprolol for hypertension and rosuvastatin for hypercholesterolemia, and discussed the goals for LDL cholesterol levels. I advised dietary modifications for managing GERD and emphasized the importance of regular follow- ups for her chronic conditions, including asthma and osteoporosis. Patient Instructions - Quit smoking to reduce health risks, including bladder cancer. - Continue taking metoprolol and rosuvastatin as prescribed. - Follow dietary recommendations to manage GERD symptoms. - Maintain a healthy diet and exercise routine to manage glucose levels. - Schedule a colonoscopy as it is due. - Take vitamin D supplements for bone health. Orders: Orders Complete Blood Count Auto Diff 6 Months E78.00 - Pure hypercholesterolemia, unspecified Comprehensive Met. Panel 6 Months E78.00 - Pure hypercholesterolemia, unspecified Hemoglobin A1c 6 Months E78.00 - Pure hypercholesterolemia, unspecified Thyroid Stimulating Hormone 6 Months E78.00 - Pure hypercholesterolemia, u nspecified Lipid Panel 6 Months E78.00 - Pure hypercholesterolemia, unspecified Vitamin B12 and Folate 6 Months E78.00 - Pure hypercholesterolemia, unspecified Free T4 (Free Thyroxine) 6 Months K21.9 - Gastro-esophageal reflux disease without esophagitis Influenza [id number] Immunization Today Z23 - Encounter for immunization Free T4 (Free Thyroxine) Today E78.00 - Pure hypercholesterolemia, unspecified Thyroid Stimulating Hormone Today K21.9 - Gastro-esophageal reflux disease without esophagitis Referrals Dermatology Referral L30.9 - Dermatitis, unspecified Medications: Refilled cyclobenzaprine 10 mg PO TID PRN 180 tabs 0RF muscle spasm 90 days E78.00 - Pure hypercholesterolemia, unspecified
--- OUTSIDE RECORDS SUMMARY | 2025-03-09 18:46 | XMS_ITS | Encounter Summary ---
Author Organization [facility] Address [address] [place] [address] Care Team Providers Care Vacuum Cleaner Repairer Name Role Phone Mary Ellington MD Primary Care Provider Encounter Details Date Type Department Care Team (Latest Contact Info) Description 09/08/[address] [facility] - Main Lab 299 [facility] [place] [address] Justin Beckford MD [address] [address] Encounter for gynecological examination (general) [...] LAB MICROBIOLOGY METHOD 09/08/2024 11:46 AM EDT [facility] Brushing/Spatula Cervix uteri structure / Unknown 09/07/2024 09/08/2024 6:22 AM EDT Justin Beckford MD LAB MOLECULAR DIAGNOSTICS ANTOINETTE MATIAS Final Result [facility] [address] [place] [address], * Pap smear (09/07/2024 12:00 AM EDT) Interpretation Negative for intraepithelial lesion or malignancy 09/10/2024 10:11 AM EDT [facility] Clinical Information LSIL 2020 09/10/2024 10:11 AM EDT [facility] General Categorization Negative 09/10/2024 10:11 AM EDT [facility] Additional Information Abundant acute inflammation. 09/10/2024 10:11 AM [facility] Specimen Adequacy Satisfactory for evaluation 09/10/2024 10:11 AM EDT [facility] Pap Methodology Liquid Based [facility] Dis[facility] Note: This pap test could not be imaged utilizing the [employer]annergic Imaging System and required a manual review. The Pap test is a screening test which carries an inherent false negative rate. These test results should be correlated with the patient's clinical findings and history. This Pap test was processed using an automated screening system. Technical cytopathology services provided by [facility], at [address] [place] [id number] (CLIA # [id number]/Kristine Melton MD, Outside Solar Sales Consultant.) 09/10/2024 10:11 AM [facility] LAB Console Pap Interpretation Reported 09/10/2024 10:11 AM [facility] Brushing/Spatula Vaginal structure / Unknown 09/07/2024 09/08/2024 6:22 AM EDT us Justin Beckford MD LAB CYTOLOGY ORDERABLES Final Result [facility] ([facility]) [facility] [address] [place] [address], documented in this encounter Visit Diagnoses Diagnosis Encounter for gynecological examination (general) (routine) without abnormal findings documented in this encounter Care Teams Vacuum Cleaner Repairer Relationship Specialty Start Date End Date Mary Ellington MD [address] [place] [address] [address] [facility] [place] [address] PCP - General Internal Medicine 07/01/12 documented as of this encounter
--- OUTSIDE RECORDS SUMMARY | 2025-03-09 18:46 | XMS_ITS | Clinical Summary ---
Author Organization [address] Address [address] [place] [phone] Phone Care Team Providers Care Press Pipe Inspector Name Role Phone Mary Ellington MD Primary Care Provider [phone] Surgical History Surgery Date Site/Laterality Comments HYSTERECTOMY [...] on cytologic smear of vagina Bladder cancer ([facility]/HCC V24, CMS/HCC V28) 12/2018 DX:Bladder cancer (HCC) [...] LAB MICROBIOLOGY METHOD 09/08/2024 11:46 AM EDT [facility] Brushing/Spatula Cervix uteri structure / Unknown 09/07/2024 09/08/2024 6:22 AM EDT us Justin Beckford MD LAB MOLECULAR DIAGNOSTICS ANTOINETTE MATIAS Final Result [facility] ([facility]) [facility] [address] [place] [address], from Last 3 Months or Most Recently Relevant to Health Maintenance Insurance [facility] [employer] Care Teams Press Pipe Inspector Relationship Specialty Start Date End Date Mary Ellington MD [address] [place] [address] [address] [facility] [place], [place] [id number] PCP - General Internal Medicine 07/01/12
== END 2025-03-09 16:36 | disposition home or self-care (01) ==
LOC: HO.HMCH 15:50
PROVIDERS: PCP Internal Medicine; Visit Provider Internal Medicine
DX: Z00.00 Encounter for general adult medical examination without abnormal findings (principal); F17.210 Nicotine dependence, cigarettes, uncomplicated; I10 Essential (primary) hypertension; C67.9 Malignant neoplasm of bladder, unspecified; E78.00 Pure hypercholesterolemia, unspecified; R73.02 Impaired glucose tolerance (oral); K21.9 Gastro-esophageal reflux disease without esophagitis; J45.40 Moderate persistent asthma, uncomplicated; Z53.20 Procedure and treatment not carried out because of patient's decision for unspecified reasons; L30.9 Dermatitis, unspecified; Z23 Encounter for immunization

== ENCOUNTER → 2025-03-09 15:50 | Outpatient (BNVA) | payer OTHER, SELFPAY | PROVIDERS: PCP Internal Medicine; Visit Provider Internal Medicine | DX: Z00.00 Encounter for general adult medical examination without abnormal findings (principal); I10 Essential (primary) hypertension; E78.00 Pure hypercholesterolemia, unspecified; R73.02 Impaired glucose tolerance (oral); K21.9 Gastro-esophageal reflux disease without esophagitis; J45.40 Moderate persistent asthma, uncomplicated; L30.9 Dermatitis, unspecified; I25.10 Atherosclerotic heart disease of native coronary artery without angina pectoris; F41.1 Generalized anxiety disorder; M81.0 Age-related osteoporosis without current pathological fracture; N39.46 Mixed incontinence; K44.9 Diaphragmatic hernia without obstruction or gangrene; F17.210 Nicotine dependence, cigarettes, uncomplicated; K22.0 Achalasia of cardia; Z85.51 Personal history of malignant neoplasm of bladder; Z23 Encounter for immunization | CPT/HCPCS: 90471; 90656; 99396 ==

== ENCOUNTER 2025-04-25 09:49 | Emergency (ER) | payer SELFPAY ==
--- OUTSIDE RECORDS SUMMARY | 2018-11-12 08:30 | XMS_ITS | Continuity of Care Document ---
Author Organization [facility] In [facility] Address [address] [place] [id number] Care Team Providers Care Spareribs Trimmer Name Role Phone Unavailable Unavailable Unavailable Allergies, Adverse Reactions, Alerts Substance Reaction Status Criticality No Known Allergies Active No Inform ation Medications Medication Instructions Dosage Effective Dates (start - stop) Status Comments tramadol 50 mg tablet take half to one tablet orally daily as needed for pain. as needed - Active tizanidine 4 mg tablet take 1 tablet by oral route every 12 hours as needed not to exceed 3 doses in 24 hours as needed 4 MG - Active cyclobenzaprine 10 mg tablet take 2 tablet by oral route every day as needed for muscle spasms 20 MG - No Longer Active Aspercreme Max 16 % topical liquid - No Longer Active Aspir-81 81 mg tablet,delayed release take 1 tablet by oral route every day - No Longer Active Procedures Procedure Date AMNT PAIN NOTED; NONE PRSNT AMNT PAIN NOTED; PAIN PRSNT MED LIST DOCD IN RCRD DEPRESSION SCREENING TOBACCO USE, SMOKING, ASSESS CURRENT TOBACCO SMOKER FALL RISK ASSESSMENT DOC'D SYST BP GE 130 - 139MM HG DIAST BP 80-89 MM HG DSCHRG MED/CURRENT MED MERGE OFFICE/OUTPATIENT VISIT, NEW Advance Directives Directive Yes / No Effective Date File Name No Information Encounters Encounter Description Practice Location Reason(s) For Visit Diagnoses Date Provider Providers Copied on Encounter OFFICE/OUTPA TIENT VISIT, [facility], [facility], [place], [place], [phone] , [facility] emergency room follow up (chief complaint) Body mass index (BMI) 33.0-33.9, adultOther pelvic massHematuriaAther osclerosis of aortaTobacco use 9 No Information Family History Family Member Type Diagnosis Age At Onset Problem (finding) Family history of Arthr itis Problem (finding) Family history of asthm a Problem (finding) Family history of hyper cholesterolemia Problem (finding) Family history of Cardi ovascular disease Problem (finding) Family history of Obesi ty Problem (finding) Family history of osteo porosis Problem (finding) Family history of strok e Problem (finding) Family history of Thyro id disorder Problem (finding) Family history of Eczem a Problem (finding) Family history of Diabe saud mellitus Problem (finding) Family history of seizu re disorder Problem (finding) Family history of depre ssion Problem (finding) Family history of Aller gies Problem (finding) Family history of coronary arteriosclerosis Problem (finding) Family history of attention deficit hyperactivity disorder Problem (finding) Family history of na Payers Payer name Insurance type Covered libertarian ID Authoriza tion(s) Slide C [id number] Social History Type Description Quantity Date Captured Comments Alcohol Use Details No Caffeine Use Details Tobacco Use Status Light cigarette smok er (1-9 cigs/day) Smoking Status Light tobacco smoker Smoking Tobacco Use Details Cigarette: Age Started: 18 Cigarette: 5 Cigarettes per day Sex Female Sexual Orientation Straight or heterosexual Gender Identity Female Vital Signs Date / Time: Height Weight BMI Pulse Rate Blood Pressure Temperature Respiratory Rate Body Surface Area Head Circumference Head Circ. Percentile Wt./Favio. Percentile BMI percentile Pulse Ox Inhaled Ox 2:50 PM 64.00 in 87.543 kg (193.00 lbs) 33.1 3 kg/m eter (2) 68 /min 138/82 mm[Hg] 98.70 F 18 /min 1.99 meter(2) 98 % 21 % Chief Complaint And Reason For Visit From encounter dated '11/12/2018 13:30'. emergency room follow up (chief complaint). Description: On 11/07/2018, 58 year old female patient with past medical history of tobacco smoking and arthritis attended [facility] emergency room in [place], [place] on 11/07/2018 due to acute onset of abdominal pain with irradiation towardslower back region and bilateral lower extremities along with episodes of hematuria;CT-abdomen/pelvis=reported mild abdominal aorta calcifications and urinary bladder mass measuring 5 cm.patient was discharged from facility to home on tramadol and cyclobenzaprine medications. Reason For Referral Reason For Referral No Information Plan Of Treatment Date Type Action Status Goal Tobacco cessation counseling completed Goal Lifestyle education regardin g diet completed Referral Ordered: Urology (related to Other pelvic mass) ordered Referral Referred To: [facility] [address] [place], [phone] Ordered: Referrals: Urology. [facility]. Evaluate and treat ordered Referral Ordered: Referrals: Urology. Consult ordered History Of Present Illness Encounter Date Complaint History Of Prese nt Illness emergency room follow up On 2018, 58 year old female patient with past medical history of tobacco smoking and arthritis attended [facility] emergency room in [place], [place] on 11/07/2018 due to acute onset of abdominal pain with irradiation towards lower back region and bilateral lower extremities along with episodes of hematuria;CT-abdomen/pelvis=reported mild abdominal aorta calcifications and urinary bladder mass measuring 5 cm.patient was discharged from facility to home on tramadol and cyclobenzaprine medications. Functional Status Date Functional Assessmen t Pain Score 10/10 Medications Administered Medication Instructions Dosage Effective Dates (start - stop) Status Comments cyclobenzaprine 10 mg tablet take 2 tablet by oral route every day as needed for muscle spasms 20 MG - No Longer Active Instructions Date Instruction Additional Infor mihirion quit smoking tobacco counseling given to patient. Related to Tobacco use patient is symptomat ic;HOLD aspirin.watch for bleeding. Related to Hematuria patient is asymptoma tic;we will continue to monitor. Related to Atherosclerosis of aorta patient is symptomat ic;re-start tramadol half to one tablet 50 mg orally daily as needed for pain (20 tablets given for acute pain).discontinue cyclobenzaprine.start tizanidine 1 tablet 4 mg orally every 12 hours as needed for muscle spasms.STAT Urology referral given to patient today; we will follow! Related to Other pelvic mass Lifestyle education regarding di et Related to Body mass index (BMI) 33.0-33.9, adult Assessments Type Assessment Date assessment Body mass index (BMI) 33.0-33.9, adult assessment Other pelvic mass assessment Hematuria assessment Atherosclerosis of aorta 2018 assessment Tobacco use Patient Care Teams Name Effective Dates (start - stop) Status Members No Information
--- NOTE | ~2025-04-25 | CT_ITS ---
CLINICAL HISTORY: RLQ tenderness CT abdomen and pelvis with contrast Comparison: None provided Findings: The lung bases are clear. The gallbladder is absent. Question mild thickening of the gastric antrum reference axial image 26 for example The spleen, adrenal glands and pancreas are unremarkable. Kidneys, ureters and bladder are normal. No bowel obstruction or free air. Mild fecal retention. Reference coronal image 33 and axial images 51 and 52, there is a somewhat lobular structure arising from the cecal base, measuring up to 11 mm. There is no stranding about this structure. No pneumatosis, free air, free fluid, abscess or adenopathy. Moderate diffuse atherosclerotic disease. No suspicious bone lesion. Impression: There is the structure arising from the cecal base which is somewhat lobular. Unclear if this reflects an appendiceal remnant, or foreshortened appendix. Correlation for any prior history of appendectomy. If this does reflect the appendix, it is prominent however there is no abnormal surrounding stranding to suggest appendicitis. Questionable abnormal thickening of the gastric antrum. Correlation for gastritis. No additional acute findings. This document has been electronically signed by: Chace Longoria MD on 04/25/2025 12:48:41
[2025-04-25 10:05] VITALS: BP 141/60; PULSE 64; RESP 16; TEMP 36.9; O2SAT 96; BMI 31.8
--- OUTSIDE RECORDS SUMMARY | 2025-04-25 10:39 | XMS_ITS | Clinical Summary ---
Author Organization [address] Address [address] [place] [phone] Phone Care Team Providers Care Admitting Supervisor Name Role Phone Mary Ellington MD Primary Care Provider [phone] Surgical History Surgery Date Site/Laterality Comments HYSTERECTOMY [...] on cytologic smear of vagina Bladder cancer ([facility]/HCC V24, CMS/HCC V28) 12/2018 DX:Bladder cancer [...] Years (1 of 2 - PCV) 09/18/1979 RSV Immunization Adult Patients (1 - Risk 50-74 years 1-dose series) 2010 Zoster Vaccines (1 of 2) 2010 Cholesterol Screening (Lipid Panel) 05/12/2022 HIV Screening [...] LAB MICROBIOLOGY METHOD 09/08/2024 11:46 AM EDT [facility] Brushing/Spatula Cervix uteri structure / Unknown 09/07/2024 09/08/2024 6:22 AM EDT us Justin Beckford MD LAB MOLECULAR DIAGNOSTICS ANTOINETTE MATIAS Final Result [facility] [address] [place] [address], from Last 3 Months or Most Recently Relevant to Health Maintenance Insurance [facility] [employer] Care Teams Admitting Supervisor Relationship Specialty Start Date End Date Mary Ellington MD [address] [place] [address] [address] [facility] [place] [address] PCP - General Internal Medicine 07/01/12
--- OUTSIDE RECORDS SUMMARY | 2025-04-25 10:39 | XMS_ITS | Encounter Summary ---
Author Organization [facility] Address [address] [place] [address] Care Team Providers Care Cage Manager Name Role Phone Mary Ellington MD Primary Care Provider [phone] Encounter Details Date Type Department Care Team (Latest Contact Info) Description 09/08/2024 Lab Requisition [facility] - Main Lab 299 [facility] [place] [address] Justin Beckford MD [address] [address] Encounter for gynecological examination (general) [...] LAB MICROBIOLOGY METHOD 09/08/2024 11:46 AM EDT [facility] ([facility] Brushing/Spatula Cervix uteri structure / Unknown 09/07/2024 09/08/2024 6:22 AM EDT Justin Beckford MD LAB MOLECULAR DIAGNOSTICS ANTOINETTE MATIAS Final Result [facility] [address] [place] [address], * Pap smear (09/07/2024 12:00 AM EDT) Interpretation Negative for intraepithelial lesion or malignancy 09/10/2024 10:11 AM EDT [facility] Clinical Information LSIL 2020 09/10/2024 10:11 AM EDT [facility] General Categorization Negative 09/10/2024 10:11 AM EDT [facility] Additional Information Abundant acute inflammation. 09/10/2024 10:11 AM [facility] Specimen Adequacy Satisfactory for evaluation 09/10/2024 10:11 AM EDT [facility] Pap Methodology Liquid Based Pap Test 09/10[facility]2024 [facility] Disclaimer Note: This pap test could not be imaged utilizing the W[employer] Imaging System and required a manual review. The Pap test is a screening test which carries an inherent false negative rate. These test results should be correlated with the patient's clinical findings and history. This Pap test was processed using an automated screening system. Technical cytopathology services provided by [facility], at [address] [place] [address] (CLIA # [id number]/Kristine Melton MD, Carton Forming Machine Helper.) 09/10/2024 10:11 AM [facility] Console Pap Interpretation Reported 09/10/2024 10:11 AM [facility] Brushing/Spatula Vaginal structure / Unknown 09/07/2024 09/08/2024 6:22 AM EDT us Justin Beckford MD LAB CYTOLOGY ORDERABLES Final Result [facility] ([facility]) [facility] [address] [place] [address], documented in this encounter Visit Diagnoses Diagnosis Encounter for gynecological examination (general) (routine) without abnormal findings documented in this encounter Care Teams Cage Manager Relationship Specialty Start Date End Date Mary Ellington MD [address] [place] [address] [address] [facility] [place] [address] PCP - General Internal Medicine 07/01/12 documented as of this encounter
--- NOTE | 2025-04-25 10:53 | ED_ITS ---
HPI - General Adult General Chief complaint: Abdominal Pain Stated complaint: ? Appendicitis Time Seen by Provider: 04/25/25 10:50 Source: patient, family, RN notes reviewed and old records reviewed Mode of arrival: ambulatory Limitations: no limitations History of Present Illness ED Provider: Georgie TEE narrative: Patient is a 64-year-old female with past medical history of CAD, HTN, urinary bladder CA with normal in-office cystoscopy in August of this year, partial hysterectomy, asthma, GERD presenting to the emergency department with 3 days of right lower quadrant abdominal pain. Reports loose stools but denies diarrhea. Denies any nausea or vomiting but does report decreased appetite and metallic taste in her mouth. Denies any fevers, chills, body aches. Denies any hematochezia or melena. Denies dysuria, frequency, hematuria or any other urinary symptoms. Reports pain worsened after lifting her grandchild. States she has not followed up with urology regarding her bladder CA due to lack of insurance. MD complaint: abdominal pain Onset (ago): day(s) Related Data Home Medications ?Medication ?Instructions ?Recorded ?Confirmed acetaminophen 325 mg tablet 325 mg PO QID PRN Pain 03/09/25 (Tylenol) Previous Rx's ?Medication ?Instructions ?Recorded diclofenac sodium 1 % topical gel 4 g topical QID #100 grams 11/06/23 metoprolol succinate 25 mg 25 mg PO DAILY #90 tabs tablet,extended release 24 hr rosuvastatin 40 mg tablet 40 mg PO DAILY 30 days #90 t abs 12/09/24 albuterol sulfate 90 mcg/actuation 2 puff inhalation Q 6H PRN 01/28/25 aerosol inhaler shortness of breath or wheez ing or cough #8.5 grams cyclobenzaprine 10 mg tablet 10 mg PO TID PRN muscle s pasm 90 03/09/25 days #180 tabs amoxicillin 875 mg-potassium 1 tab PO BID #14 tabs clavulanate 125 mg tablet ondansetron 4 mg disintegrating 4 mg PO Q8H PRN nausea and 04/25/25 tablet vomiting #10 tabs Allergies Allergy/AdvReac Type Severity Reaction Status Date / Time atorvastatin (Lipitor) Allergy Intermediate joint Verified 04/25/25 10:08 pain/stiffness ciprofloxacin (From Cipro) Allergy Intermediate H/A NAUSEA Verified 04/25/25 10:08 HIVES pravastatin (From PRAVACHOL) Allergy Intermediate joint Verified 04/25/25 10:08 pain/stiffness simvastatin (SIMVASTATIN) Allergy Intermediate joint Verified 04/25/25 10:08 pain/stiffness Sulfa (Sulfonamide Allergy Intermediate HIVES Verified 04/25/25 10:08 Antibiotics) codeine (Codeine) AdvReac Intermediate headache/pa Verified 04/25/25 10:08 lpitations trimethoprim AdvReac Intermediate Rash Verified 04/25/25 10:08 Review of Systems 2 Review of Systems: As per HPI Yes all other systems are reviewed and are negative Constitutional: Constitutional: Reports as per HPI PMFSH Past Medical History Medical History Cystitis Low back pain Osteoporosis (~2023) Nicotine dependence, cigarettes, uncomplicated Pulmonary nodules History of COVID-19 Hypertension Vitamin D deficiency GERD (gastroesophageal reflux disease) Urinary bladder cancer (~2018) Carpal tunnel syndrome Restless leg syndrome Asthma Kidney stones History of seizures Impaired glucose tolerance Hypercholesteremia Coronary artery disease Obesity (BMI 30-39.9) Surgical History Hx of foot surgery H/O colonoscopy History of transurethral destruction of bladder lesion History of cardiac cath History of surgery on right wrist (~1996) History of tonsillectomy History of elbow surgery History of cholecystectomy (~1998) History of vaginal hysterectomy (~1992) Groin mass Neck mass Family History Family History Father Cerebrovascular disease Lung cancer Rheumatoid arthritis Mother Cerebrovascular disease Diabetes Hypertension Paternal Uncle Lung cancer Colon cancer Sister Cervical cancer Breast cancer Multiple sclerosis Maternal Grandmother Breast cancer Maternal Aunt Breast cancer Sister Psoriasis Social History Social History Housing: Apartment Unable to assess alcohol history related to: Unknown Alcohol intake: never Comment: cardiac prophylactic Patient Tobacco Use Status: Current everyday Tobacco user Tobacco use type: Cigarette Cigarette Packs Per Day: 0.25 Cigarettes Per Day: 2 Years Smoked: onset 19yo, 1-2ppd x 42yrs, now 1/4ppd - 50pyh e-Cigarette/Vaping Use: Currently Using Second Hand Smoke Exposure: Yes Use of substances other than those prescribed or required for medical reasons: No Substance Use Type: Marijuana Advance Directives: No Advance Directives Information Provided: No service: No Current occupational status: employed 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 Blood pressure normal. Heart rate normal. Respiratory rate normal. Temperature normal. Oxygen saturation normal. Const General: cooperative, healthy appearing and no acute distress Orientation/consciousness: oriented to person, oriented to place, oriented to time and patient oriented x3 Limitations: no limitations HENMT Head: Yes normocephalic and Yes atraumatic Ears: external ears normal General nose exam: Normal external nose present Face and sinus: Yes face symmetric Mouth: oropharynx normal and moist mucous membranes Throat: Yes uvula midline Eyes Pupils: Equal, round and reactive pupils present Neck Neck: Yes normal visual inspection and Yes supple Resp Effort & Inspection: normal respiratory effort and able to speak in complete sentences Auscultation: clear to auscultation bilaterally Cardio Rate: regular rate Rhythm: regular rhythm Heart sounds: S1 normal heart sound present and S2 normal heart sound present GI Palpation (GI): Soft to palpation and Tenderness to palpation present (GI) in the RLQ and at McBurney's point; obturator sign negative and with no rebound tenderness Auscultation: normoactive bowel sounds General: Yes no CVA tenderness Back/Spine/Pelvis Back: no CVA tenderness Skin General skin exam: elasticity normal and turgor normal Neuro General: oriented to person, oriented to place, oriented to time, patient oriented x3, moves all extremities, no focal motor deficits and CN's II-XI intact bilaterally Cranial nerves: Yes Equal, round and reactive pupils present Cognition (Neuro): normal cognition Extrem General: Yes full ROM, Yes no pedal edema and Yes no calf tenderness Psych Mental Status: mental status grossly normal Affect: normal affect Thought process: Normal thought process present Medications Administered Discontinued Medications Generic Name Dose Route Start Last Admin Trade Name Alli PRN Reason Stop Dose Admin Acetaminophen 1,000 mg in 100 mls @ 400 mls/hr 04/25/25 11:25 04/25/25 11:49 Ofirmev IV 04/25/25 11:39 Infused ONCE ONE Infusion Iohexol 85 ml 04/25/25 12:03 04/25/25 12:03 Iohexol 350 Mg/Ml 100 Ml Infus..Btl IV 04/25/25 12:04 85 ml ONCE ONE Administration Medical Decision Making Medical Decision Making [facility] Narrative: Patient is a 64-year-old female with past medical history of CAD, HTN, urinary bladder CA with normal in-office cystoscopy in August of this year, asthma, GERD presenting to the emergency department with 3 days of right lower quadrant abdominal pain. On exam patient is awake, A+Ox3, VS WNL, afebrile, normal neurological exam without focal deficits, physical exam findings as above. Given reported symptoms and physical exam findings, initial differential includes but is not limited to appendicitis, diverticulitis, constipation. Labs notable for no leukocytosis, no anemia. CT A/P notable for abnormal appendiceal findings. My interpretation is in agreement with the radiologist's interpretation. Case discussed with Dr. Corrigan. Patient evaluated at bedside by Dr. Corrigan who does not feel symptoms and CT imaging represent acute appendicitis. She recommends discharge home on Augmentin and outpatient follow up with surgery. Patient provided with information for financial counselors as she has sided insurance and cost as a barrier to care. Strict return precautions discussed with patient and daughter at bedside. Will also send prescription for Zofran for nausea. Patient verbalized understanding of and agreement with plan. Differential Diagnosis Differential Diagnoses: The differential diagnosis associated with the presentation includes As per [facility] Admission/Observation Consideration of admission/observation: Escalation of care including admission/observation considered Patient would have been admitted to the hospital and transferred to appropriate facility had their clinical presentation warranted hospital admission. Consult Healthcare Provider Management of the patient was discussed with: Catering Convention Services Manager (Dr. Corrigan) Lab Data [facility] Lab Attestation statement: I reviewed the patient's lab results. as per [facility] 04/25/25 11:03 04/25/25 11:03 Labs: Lab Results 04/25/25 Range/Units 11:03 WBC 7.3 (4.8-10.8) X10*3/uL RBC 4.61 (4.20-5.50) X10*6/uL Hgb 14.1 (12.0-16.0) g/dl Hct 41.9 (37.0-47.0) % MCV 90.9 (80.0-98.0) fL MCH 30.6 (27.0-33.0) pg MCHC 33.7 (31.0-35.0) g/dl RDW 14.5 (11.0-16.0) % Plt Count 273 (160-400) X10*3/uL MPV 9.4 (9.4-12.3) fL Immature Gran % (Auto) 0.1 (0.0-0.4) % Neut % (Auto) 49.0 (45-73) % Lymph % (Auto) 40.2 H (20-40) % Troup % (Auto) 8.4 (2-11) % Eos % (Auto) 1.5 (0-4) % Baso % (Auto) 0.8 (0-2) % Lymph # (Auto) 2.9 (1.2-4.9) X10*3/uL Troup # (Auto) 0.6 (0.1-1.2) X10*3/uL Eos # (Auto) 0.1 (0.0-0.4) X10*3/uL Baso # (Auto) 0.1 (0.0-0.2) X10*3/uL Abs Immat Gran (auto) 0.01 (0.00-0.03) X10*3/uL Absolute Neuts (auto) 3.6 (2.0-8.3) x10*3/uL Absolute Nucleated RBC 0.000 (0.0-0.012) X10*3/uL Nucleated RBC % (auto) 0.0 (0.0-0.2) /100WBC Sodium 142 (135-145) mmol/L Potassium 4.5 (3.3-5.1) mmol/L Chloride 108 (96-108) mmol/L Carbon Dioxide 24 (22-29) mmol/L Anion Gap 15 (12-20) BUN 15 (9-16) mg/dL Creatinine 0.87 (0.5-1.4) mg/dL Estim Creat Clear Calc 68.4 Estimated GFR > 60 Random Glucose 90 (60-115) mg/dL Calcium 9.2 (8.4-10.2) mg/dL Total Bilirubin 0.4 (0.0-1.0) mg/dL AST 20 (5-31) U/L ALT 15 (0-31) U/L Alkaline Phosphatase 39 (39-117) U/L Total Protein 7.3 (6.5-8.0) g/dL Albumin 4.7 (3.5-5.0) g/dL Lipase 46 (8-78) U/L Radiology Impression Discussion of test interpretation with radiology: I have reviewed the radiologist's reading. Radiologist Impression: CT abdomen and pelvis with contrast Comparison: None provided Findings: The lung bases are clear. The gallbladder is absent. Question mild thickening of the gastric antrum reference axial image 26 for example The spleen, adrenal glands and pancreas are unremarkable. Kidneys, ureters and bladder are normal. No bowel obstruction or free air. Mild fecal retention. Reference coronal image 33 and axial images 51 and 52, there is a somewhat lobular structure arising from the cecal base, measuring up to 11 mm. There is no stranding about this structure. No pneumatosis, free air, free fluid, abscess or adenopathy. Moderate diffuse atherosclerotic disease. No suspicious bone lesion. Impression: There is the structure arising from the cecal base which is somewhat lobular. Unclear if this reflects an appendiceal remnant, or foreshortened appendix. Correlation for any prior history of appendectomy. If this does reflect the appendix, it is prominent however there is no abnormal surrounding stranding to suggest appendicitis. Questionable abnormal thickening of the gastric antrum. Correlation for gastritis. No additional acute findings. This document has been electronically signed by: Chace Longoria MD on External Record Review External record reviewed: Inpatient record, Office record and Outpatient record Prescription Management I considered prescription management with: Antibiotic and Other Critical Care Time Critical Care Time Critical Care Time: Yes Total Critical Care Time: 41 Attestation: I have personally provided critical care time exclusive of time spent on separately billable procedures. Time includes review of lab data, radiology results, discussion with consultants, and monitoring for potential decompensation. Intervention performed as documented. Discharge Plan Discharge Clinical Impression: Abdominal pain Patient Disposition: Home, Self-Care Instructions: Abdominal Pain (ED) Additional Instructions: You were evaluated in the emergency department today for abdominal pain. You were seen and evaluated in the emergency department by the surgeon, Dr. Corrigan who recommended treatment with oral antibiotics and outpatient follow up in the general surgery office. Complete the full course of antibiotics as prescribed even if your symptoms improve. You have also been prescribed ondansetron which you can use every 8 hours as needed for nausea. Return to the emergency department if you develop worsening pain, persistent vomiting, fever 100.4? F or greater, blood in your vomit or stool, or any other new or concerning symptoms. Prescriptions: New amoxicillin-pot clavulanate 875-125 mg tablet 1 tab PO BID Qty: 14 0RF ondansetron 4 mg tablet,disintegrating 4 mg PO Q8H PRN (Reason: nausea and vomiting) Qty: 10 0RF No Action metoprolol succinate 25 mg tablet extended release 24 hr 25 mg PO DAILY Qty: 90 2RF rosuvastatin 40 mg tablet 40 mg PO DAILY 30 Days Qty: 90 2RF acetaminophen [Tylenol] 325 mg tablet 325 mg PO QID PRN (Reason: Pain) diclofenac sodium 1 % gel 4 g topical QID Qty: 100 2RF cyclobenzaprine 10 mg tablet 10 mg PO TID PRN (Reason: muscle spasm) 90 Days Qty: 180 0RF albuterol sulfate 90 mcg/actuation HFA aerosol inhaler 2 puff inhalation Q6H PRN (Reason: shortness of breath or wheezing or cough) Qty: 8.5 0RF Referrals: Vanessa Corrigan MD [Physician, General Surgery] Referral Note: seen in ED for ? appy Clinical Impression: Abdominal pain Stand Alone Forms: Work/School Release Print Language: Amharic
[2025-04-25 11:08] LABS: MANUAL DIFF FLAG NO
[2025-04-25 11:09] LABS: Hematocrit 41.9 % (37.0-47.0); Hemoglobin 14.1 g/dl (12.0-16.0); Imm Gran Abs Auto 0.01 X10*3/uL (0.00-0.03); Imm Gran Pct Auto 0.1 % (0.0-0.4); Lymphocytes Absolute Auto 2.9 X10*3/uL (1.2-4.9); Mean Corpuscular HGB Conc 33.7 g/dl (31.0-35.0); Mean Corpuscular Hemoglobin 30.6 pg (27.0-33.0); Mean Corpuscular Volume 90.9 fL (80.0-98.0); NRBC Abs Auto 0.000 X10*3/uL (0.0-0.012); NRBC Pct Auto 0.0 /100WBC (0.0-0.2); Platelet Count 273 X10*3/uL (160-400); Red Blood Count 4.61 X10*6/uL (4.20-5.50); White Blood Count 7.3 X10*3/uL (4.8-10.8)
[2025-04-25 11:22] LABS: Alanine Aminotransferase 15 U/L (0-31); Albumin Level 4.7 g/dL (3.5-5.0); Alkaline Phosphatase 39 U/L (39-117); Anion Gap 15 (12-20); Aspartate Amino Transferase 20 U/L (5-31); Blood Urea Nitrogen 15 mg/dL (9-16); Calcium 9.2 mg/dL (8.4-10.2); Carbon Dioxide 24 mmol/L (22-29); Chloride 108 mmol/L (96-108); Creatinine Clr Calc Pharmacy 68.4; Estimated Glomerular Filt Rate > 60; Lipase 46 U/L (8-78); Potassium 4.5 mmol/L (3.3-5.1); Sodium 142 mmol/L (135-145); Total Protein 7.3 g/dL (6.5-8.0)
[2025-04-25 11:47] VITALS: BP 121/52; PULSE 66; RESP 16; TEMP 36.5; O2SAT 99
[2025-04-25] MEDS: iohexoL 350 MG/ML 100 ML INFUS..BTL 85 ML IV (12:03)
[2025-04-25 15:00] VITALS: BP 121/52; PULSE 72; RESP 16; TEMP 36.7; O2SAT 99
--- NOTE | 2025-04-25 15:04 | PM.CNGS ---
History of Present Illness Consult details Consult date: 04/25/25 Requesting physician: Holly Jacques Narrative: The patient is a 64-year-old female comes in with a 3 day history of abdominal pain discomfort no fevers or chills some loose stools but not diarrhea no significant nausea or vomiting. The abdominal pain seems to be isolate more in the right lower quadrant area. She has not had pain like this before. Denies any trauma to the area. 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 Now the pain seems like it is more isolated in the right lower quadrant. She has been able to eat and drink. She comes into the emergency room now and here her labs are within normal limits and her CT scan of her abdomen and pelvis does not show any inflammatory changes in the right lower quadrant there is a structure that looks like it maybe a little more prominent appendix but nothing looking like true appendicitis. Patient has had a partial hysterectomy many years ago and had laparoscopic cholecystectomy but as far she knows she still has her appendix in place. Her past history is significant for bladder cancer and she has had treatments for this and sees Dr. Carrillo. She because she has not had health insurance she has not followed up with him recently. She knows she needs to do this Review of Systems Review of Systems: Yes all other systems are reviewed and are negative [facility] Past Medical History Medical History Cystitis Low back pain Osteoporosis (~2023) Nicotine dependence, cigarettes, uncomplicated Pulmonary nodules History of COVID-19 Hypertension Vitamin D deficiency GERD (gastroesophageal reflux disease) Urinary bladder cancer (~2019) Carpal tunnel syndrome Restless leg syndrome Asthma Kidney stones History of seizures Impaired glucose tolerance Hypercholesteremia Coronary artery disease Obesity (BMI 30-39.9) Family History Family History Father Cerebrovascular disease Lung cancer Rheumatoid arthritis Mother Cerebrovascular disease Diabetes Hypertension Paternal Uncle Lung cancer Colon cancer Sister Cervical cancer Breast cancer Multiple sclerosis Maternal Grandmother Breast cancer Maternal Aunt Breast cancer Sister Psoriasis Surgical History Surgical History Hx of foot surgery H/O colonoscopy History of transurethral destruction of bladder lesion History of cardiac cath History of surgery on right wrist (~1996) History of tonsillectomy History of elbow surgery History of cholecystectomy (~1998) History of vaginal hysterectomy (~1992) Groin mass Neck mass Social History Social History Housing: Apartment Alcohol intake: never Comment: cardiac prophylactic Patient Tobacco Use Status: Current everyday Tobacco user Tobacco use type: Cigarette Cigarette Packs Per Day: 0.25 Cigarettes Per Day: 2 Years Smoked: onset 19yo, 1-2ppd x 42yrs, now 1/4ppd - 50pyh e-Cigarette/Vaping Use: Currently Using Second Hand Smoke Exposure: Yes Substance Use Type: Marijuana Advance Directives: No Advance Directives Information Provided: No Do you have a plan to hurt others: No Plan service: No Current occupational status: employed 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 Current occupational exposures/hazards: No Cognitive needs: No Hearing needs: No Vision needs: Yes Meds Allergies Allergy/AdvReac Type Severity Reaction Status Date / Time atorvastatin (Lipitor) Allergy Intermediate joint Verified 04/28/25 08:37 pain/stiffness ciprofloxacin (From Cipro) Allergy Intermediate H/A NAUSEA Verified 04/28/25 08:37 HIVES pravastatin (From PRAVACHOL) Allergy Intermediate joint Verified 04/28/25 08:37 pain/stiffness simvastatin (SIMVASTATIN) Allergy Intermediate joint Verified 04/28/25 08:37 pain/stiffness Sulfa (Sulfonamide Allergy Intermediate HIVES Verified 04/28/25 08:37 Antibiotics) codeine (Codeine) AdvReac Intermediate headache/pa Verified 04/28/25 08:37 lpitations trimethoprim AdvReac Intermediate Rash Verified 04/25/25 10:08 Home Medications ?Medication ?Instructions ?Recorded ?Confirmed ?Last Taken ?Type acetaminophen 325 mg tablet 325 mg PO QID PRN Pain 03/23/20 03/09/25 Unknown History (Tylenol) Physical Exam Vital Signs: Vital Signs: Last Vital Signs Temp 98.0 F 04/25/25 15:00 Pulse 72 04/25/25 15:00 Resp 16 04/25/25 15:00 BP 121/52 L 04/25/25 15:00 Pulse Ox 99 04/25/25 15:00 O2 Del Method Room Air 04/25/25 15:00 BMI result Body Mass Index 31.8 Const: General: cooperative, healthy appearing, comfortable and no acute distress Resp: Effort & Inspection: normal respiratory effort GI: Other: Abdomen is soft nondistended she is diffusely tender and little jumpy but is tender in the epigastric area just as much as she is in the right lower quadrant. She does experience some rebound where she says most of the poking seems to cause pain in the right lower quadrant. Psych: Appearance: grossly normal Mental Status: mental status grossly normal Speech and movement: Normal speech and movement present Affect: normal affect Attitude: cooperative Thought process: Normal thought process present Thought content: Normal thought content present Insight: Good insight present (Psych) Judgement: Good judgement present (Psych) Results Labs 04/25/25 11:03 04/25/25 11:03 Labs: Abnormal lab results 04/25/25 Range/Units 11:03 Lymph % (Auto) 40.2 H (20-40) % Short CBC 04/25/25 Range/Units 11:03 WBC 7.3 (4.8-10.8) X10*3/uL Hgb 14.1 (12.0-16.0) g/dl Hct 41.9 (37.0-47.0) % Plt Count 273 (160-400) X10*3/uL BMP 04/25/25 11:03 Sodium 142 Potassium 4.5 Chloride 108 Carbon Dioxide 24 BUN 15 Creatinine 0.87 Calcium 9.2 Liver Function 04/25/25 Range/Units 11:03 Total Bilirubin 0.4 (0.0-1.0) mg/dL AST 20 (5-31) U/L ALT 15 (0-31) U/L Alkaline Phosphatase 39 (39-117) U/L Albumin 4.7 (3.5-5.0) g/dL All other labs normal. Imaging Abdomen CT scan report/results: report reviewed and image reviewed CT scan - pelvis: report reviewed and image reviewed Additional studies: 64-year-old female with a 3 day history of abdominal pain now isolated little more to the right lower quadrant but diffusely tender no fevers no chills white count is normal CT scan showing a prominent structure off the cecum maybe the appendix but nothing with inflammatory changes that look like appendicitis. Clinically with several days under her belt of not feeling well if this was appendicitis I would expect to see some more significant CT findings. It is still maybe early appendicitis. It may just be some GI bug. Would recommend treating with p.o. antibiotics for 7 days and have her follow up in the office for re-evaluation. She should come see us sooner if she is not improving. There maybe a reason to repeat her CT scan couple weeks down the line especially if she continues to do well and evaluate this possible cystic structure. In addition with her bladder cancer history she should follow up with Dr. Carrillo as he may want some other imaging as well. She is in agreement to doing all of these things and we will get her set up with the child support case officer tomorrow to help her get on the insurance trach. Plan discussed with the patient who understands and agrees and the emergency room team 64-year-old female with a 3 day history of abdominal pain now isolated little more to the right lower quadrant but diffusely tender no fevers no chills white count is normal CT scan showing a prominent structure off the cecum maybe the appendix but nothing with inflammatory changes that look like appendicitis. Clinically with several days under her belt of not feeling well if this was appendicitis I would expect to see some more significant CT findings. It is still maybe early appendicitis. It may just be some GI bug. Would recommend treating with p.o. antibiotics for 7 days and have her follow up in the office for re-evaluation. She should come see us sooner if she is not improving. There maybe a reason to repeat her CT scan couple weeks down the line especially if she continues to do well and evaluate this possible cystic structure. In addition with her bladder cancer history she should follow up with Dr. Carrillo as he may want some other imaging as well. She is in agreement to doing all of these things and we will get her set up with the child support case officer tomorrow to help her get on the insurance trach. Plan discussed with the patient who understands and agrees and the emergency room team Assessment and Plan (1) Abdominal pain: Status: Inactive Plan 64-year-old female with a 3 day history of abdominal pain now isolated little more to the right lower quadrant but diffusely tender no fevers no chills white count is normal CT scan showing a prominent structure off the cecum maybe the appendix but nothing with inflammatory changes that look like appendicitis. Clinically with several days under her belt of not feeling well if this was appendicitis I would expect to see some more significant CT findings. It is still maybe early appendicitis. It may just be some GI bug. Would recommend treating with p.o. antibiotics for 7 days and have her follow up in the office for re-evaluation. She should come see us sooner if she is not improving. There maybe a reason to repeat her CT scan couple weeks down the line especially if she continues to do well and evaluate this possible cystic structure. In addition with her bladder cancer history she should follow up with Dr. Carrillo as he may want some other imaging as well. She is in agreement to doing all of these things and we will get her set up with the child support case officer tomorrow to help her get on the insurance trach. Plan discussed with the patient who understands and agrees and the emergency room team Procedures Date of Service Date of Service: 05/25/25
== END 2025-04-25 15:01 | disposition home or self-care (01) ==
PROVIDERS: Emergency Provider Emergency Medicine Emergency Medical Services; PCP Internal Medicine
DX: R10.22 Pelvic and perineal pain left side (principal); R10.31 Right lower quadrant pain; I10 Essential (primary) hypertension; I25.10 Atherosclerotic heart disease of native coronary artery without angina pectoris; Z79.899 Other long term (current) drug therapy; F17.210 Nicotine dependence, cigarettes, uncomplicated
CPT/HCPCS: 36415; 74177; 80053; 83690; 85025; 99285; J0131; Q9967

== ENCOUNTER → 2025-04-25 10:37 | Outpatient (BNV) | payer SELFPAY | PROVIDERS: Emergency Provider Emergency Medicine Emergency Medical Services; PCP Internal Medicine; Visit Provider Surgery | DX: R10.9 Unspecified abdominal pain (principal) | CPT/HCPCS: 99284 ==

== ENCOUNTER → 2025-04-25 11:25 | Outpatient (BNV) | payer SELFPAY | PROVIDERS: Emergency Provider Emergency Medicine Emergency Medical Services; PCP Internal Medicine; Visit Provider Radiology Vascular & Interventional Radiology | DX: R10.813 Right lower quadrant abdominal tenderness (principal) | CPT/HCPCS: 74177 ==

== ENCOUNTER 2025-04-28 08:31 | Emergency (ER) | payer SELFPAY ==
--- NOTE | ~2025-04-28 | CT_ITS ---
EXAMINATION: CT ABDOMEN PELVIS WITH IV CONTRAST HISTORY: RLQ pain, R flank pain ?appy COMPARISON: Comparison is made with the prior examination dated 04/25/2025. TECHNIQUE: CT scan of the abdomen and pelvis was performed following administration of 85 mL Omnipaque 350 using standard departmental protocol. Coronal and sagittal reformatted images were generated and reviewed. Oral contrast material was not administered at the request of the referring physician. This CT exam was performed with one or more of the following dose reduction techniques: automated exposure control, adjustment of the mA and/or kV according to patient size, use of iterative reconstruction technique. DLP: 588 mGy-cm FINDINGS: LOWER CHEST: The visualized lung bases are clear. There is no pleural effusion. CARDIOVASCULATURE: The heart is normal in size. There is no pericardial effusion. LIVER: The liver is normal in size and contour. No liver mass is identified. The hepatic and portal veins are patent. GALLBLADDER / BILE DUCTS: The gallbladder is surgically absent. There is no intra or extrahepatic biliary ductal dilatation. SPLEEN: The spleen is normal in size. No focal splenic lesion is identified. PANCREAS: The pancreas is unremarkable in appearance. ADRENAL GLANDS: Within normal limits. KIDNEYS/RETROPERITONEUM: No renal calculi are identified. There is no hydronephrosis. No renal masses are identified. LYMPH NODES: No abdominal or pelvic lymphadenopathy. VASCULATURE: The abdominal aorta is normal in caliber. MESENTERY/PERITONEUM: No free fluid. No masses. There is no free intraperitoneal gas. STOMACH: There is a small hiatal hernia. The remainder of the stomach is collapsed. SMALL BOWEL: The small bowel is normal in caliber. COLON: There is a large amount of stool in the ascending, transverse, and proximal descending colon. There is diverticulosis of the sigmoid colon, without evidence of diverticulitis. APPENDIX: The appendix is not seen, however no inflammatory changes are seen adjacent to the cecum. URINARY BLADDER/PELVIC ORGANS: The urinary bladder is unremarkable. The patient is status post hysterectomy. BONES / SOFT TISSUES: No suspicious bony or soft tissue abnormalities. CT/CT abdomen pelvis w IV con IMPRESSION: 1. The appendix is not visualized. No inflammatory process is seen in the right lower quadrant to suggest acute appendicitis. 2. Large amount of stool in the ascending, transverse, and proximal descending colon. 3. Diverticulosis of the sigmoid colon without evidence of diverticulitis. Electronically signed by: Gilmar Little MD 04/28/2025 10:27 AM [facility]
[2025-04-28 08:34] VITALS: BP 128/71; PULSE 60; RESP 16; TEMP 37.1; O2SAT 98; BMI 31.8
--- NOTE | 2025-04-28 08:52 | ED.ABDPAIN ---
HPI - Abdominal Pain General Chief Complaint: Abdominal Pain Stated Complaint: Stomach Pain Time Seen by Provider: 04/28/25 08:39 Source: patient and RN notes reviewed Mode of arrival: ambulatory Limitations: no limitations History of Present Illness ED Provider: Dot Bazzi PA-C HPI narrative: This is a 64-year-old female, with a PMHx of CAD, HTN, urinary bladder CA with normal in-office cystoscopy in August of this year, partial hysterectomy, asthma, GERD who presents emergency department with concerns of worsening right lower abdominal pain. Patient was seen here on April 25, 2025 due to 3 days of right lower abdominal pain. She also had associated loose stools. She had a CT scan at that time and there was concerns for of normal appendiceal findings. This was discussed by Dr. Corrigan who does not feel as though her symptoms and CAT scan represent an acute appendicitis. She was discharged home on Augmentin who advised to follow-up with surgery outpatient. Patient reports that her abdominal pain worsened significantly around noon time yesterday. She now describes the abdominal pain is a constant, sharp, shooting, pain which involves her entire abdomen, worse on the right, with occasional radiation to her back. She states that her pain is exacerbated by coughing, sneezing, and with positional changes. She states that she is unable to lay flat due to the pain. She reports associated nausea, intermittent chills and sweats, and feeling gassy with transient relief after passing gas. No vomiting. She also endorses some chest discomfort, and shortness for breath however believes that this is attributed to her anxiety. She reports decreased appetite, states that she did have a coffee this morning at 4:30 a.m. - last meal was yesterday. She does report blood in her urine which she noticed yesterday which she typically has due to history of bladder cancer. She denies any dysuria or frequency. MD elicited complaint: abdominal pain and flank pain Location: none Quality: aching Radiation: RLQ and R flank Migration to: R flank Exacerbating factors: movement Relieving factors: nothing Associated symptoms: nausea, vomiting, fever and chills Related Data Home Medications ?Medication ?Instructions ?Recorded ?Confirmed acetaminophen 325 mg tablet 325 mg PO QID PRN Pain 03/23/20 03/09/25 (Tylenol) Previous Rx's ?Medication ?Instructions ?Recorded diclofenac sodium 1 % topical gel 4 g topical QID #100 grams 11/06/23 metoprolol succinate 25 mg 25 mg PO DAILY #90 tabs 08/30/24 tablet,extended release 24 hr rosuvastatin 40 mg tablet 40 mg PO DAILY 30 days #90 tabs 12/09/24 albuterol sulfate 90 mcg/actuation 2 puff inhalation Q6H PRN 01/28/25 aerosol inhaler shortness of breath or wheezing or cough #8.5 grams cyclobenzaprine 10 mg tablet 10 mg PO TID PRN muscle spasm 90 03/09/25 days #180 tabs amoxicillin 875 mg-potassium 1 tab PO BID #14 tabs 04/25/25 clavulanate 125 mg tablet ondansetron 4 mg disintegrating 4 mg PO Q8H PRN nausea and 04/25/25 tablet vomiting #10 tabs Allergies Allergy/AdvReac Type Severity Reaction Status Date / Time atorvastatin (Lipitor) Allergy Intermediate joint Verified 04/28/25 08:37 pain/stiffness ciprofloxacin (From Cipro) Allergy Intermediate H/A NAUSEA Verified 04/28/25 08:37 HIVES pravastatin (From PRAVACHOL) Allergy Intermediate joint Verified 04/28/25 08:37 pain/stiffness simvastatin (SIMVASTATIN) Allergy Intermediate joint Verified 04/28/25 08:37 pain/stiffness Sulfa (Sulfonamide Allergy Intermediate HIVES Verified 04/28/25 08:37 Antibiotics) codeine (Codeine) AdvReac Intermediate headache/pa Verified 04/28/25 08:37 lpitations trimethoprim AdvReac Intermediate Rash Verified 04/25/25 10:08 Review of Systems Review of Systems Constitutional : + subjective Fever, + Chills ENT/Mouth : No sore throat, No Rhinorrhea Eyes: No Eye Pain, No Swelling, No Redness Cardiovascular : No Chest Pain, No SOB Respiratory : No Cough, No Sputum Gastrointestinal : +Nausea, No Vomiting, No Diarrhea, + abdominal Pain Genitourinary : No Dysuria, No Hematuria Musculoskeletal : No joint pain, No Myalgias, No Joint Swelling Skin : No Skin Lesions Neuro : No Weakness, No Numbness, No Headache All other systems reviewed and are negative Yes all other systems are reviewed and are negative Constitutional: Reports as per [facility] Past Medical History Medical History Cystitis Low back pain Osteoporosis (~2023) Nicotine dependence, cigarettes, uncomplicated Pulmonary nodules History of COVID-19 Hypertension Vitamin D deficiency GERD (gastroesophageal reflux disease) Urinary bladder cancer (~2018) Carpal tunnel syndrome Restless leg syndrome Asthma Kidney stones History of seizures Impaired glucose tolerance Hypercholesteremia Coronary artery disease Obesity (BMI 30-39.9) Surgical History Hx of foot surgery H/O colonoscopy History of transurethral destruction of bladder lesion History of cardiac cath History of surgery on right wrist (~1996) History of tonsillectomy History of elbow surgery History of cholecystectomy (~1998) History of vaginal hysterectomy (~1992) Groin mass Neck mass Family History Family History Father Cerebrovascular disease Lung cancer Rheumatoid arthritis Mother Cerebrovascular disease Diabetes Hypertension Paternal Uncle Lung cancer Colon cancer Sister Cervical cancer Breast cancer Multiple sclerosis Maternal Grandmother Breast cancer Maternal Aunt Breast cancer Sister Psoriasis Social History Social History Housing: Apartment Alcohol intake: never Comment: cardiac prophylactic Patient Tobacco Use Status: Current everyday Tobacco user Tobacco use type: Cigarette Cigarette Packs Per Day: 0.25 Cigarettes Per Day: 2 Years Smoked: onset 19yo, 1-2ppd x 42yrs, now 1/4ppd - 50pyh e-Cigarette/Vaping Use: Currently Using Second Hand Smoke Exposure: Yes Substance Use Type: Marijuana Advance Directives: No Advance Directives Information Provided: No Do you have a plan to hurt others: No Plan service: No Current occupational status: employed 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 Current occupational exposures/hazards: No Cognitive needs: No Hearing needs: No Vision needs: Yes Physical Exam ED Vital Signs: Vital Signs - 24 hr 04/28/25 08:34 04/28/25 10:45 04/28/25 12:55 Temperature 98.7 F Pulse Rate 60 56 66 Respiratory Rate 16 13 15 Blood Pressure 128/71 122/64 115/56 L Pulse Oximetry 98 100 98 Oxygen Delivery Method Room Air Room Air Room Air BMI result Body Mass Index 31.8 Const General: cooperative, comfortable and no acute distress Orientation/consciousness: patient oriented x3 Limitations: no limitations HENMT Head: Yes normal to inspection, Yes normocephalic and Yes atraumatic Ears: hearing grossly normal bilaterally General nose exam: Normal external nose present Face and sinus: Yes normal facial exam Mouth: Normal oral and palatal mucosa present, oropharynx normal and moist mucous membranes Throat: Yes posterior oropharynx normal Eyes General: appearance normal, both eyes and all related structures Eyelids: Yes eyelids normal Conjunctivae: conjunctivae normal Sclerae: sclerae normal Pupils: Equal, round and reactive pupils present EOM: EOMs intact bilaterally Neck Neck: Yes normal visual inspection, Yes full ROM and Yes no lymphadenopathy Lymphatic: no lymphadenopathy noted Chest Chest palpation & inspection: normal inspection of the chest Resp Effort & Inspection: normal respiratory effort and able to speak in complete sentences Auscultation: clear to auscultation bilaterally, no crackles, no rales, no rhonchi and no wheezes Cardio Rate: regular rate Rhythm: regular rhythm Heart sounds: S1 normal heart sound present and S2 normal heart sound present GI Other: Abdomen is soft with diffuse tenderness throughout, more pronounced in the right lower quadrant. Negative Rovsing's. Inspection: Yes normal to inspection Skin General skin exam: no rashes or lesions noted Trauma: no lacerations or abrasions Wounds: no wounds Neuro General: patient oriented x3 and moves all extremities Cranial nerves: Yes Equal, round and reactive pupils present Extrem General: Yes normal to inspection Right upper extremity: normal to inspection Left upper extremity: normal to inspection Right lower extremity: normal to inspection Left lower extremity: normal to inspection Medical Decision Making Medical Decision Making MDM Narrative: This is a 64-year-old female who presents emergency department with recent ED visit for possible appendicitis, now presenting with worsened right lower abdominal pain with nausea. Pain worsens with positional changes, with cough and sneezing. Concerned for evolving appendicitis or alternate intra-abdominal pathology. Plan: Repeat CT scan with IV contrast. CBC to rule out any anemia or leukocytosis. Chemistry ordered to rule out any electrolyte derangement. Will obtain IV access and provide IV Tylenol for pain control as requested by patient. We will also administer ceftriaxone and Flagyl and IV fluids. Patient will be made NPO until further evaluation. We will also obtain urine culture due to hematuria however history of bladder cancer could be contributing to this. 10:49 AM 04/28/2025 (Dot Bazzi PA-C): Labs returned, no leukocytosis, stable H&H, chemistry revealing no significant electrolyte derangement. Urine with high specific gravity, large blood and rbc's. Patient does have a history of bladder cancer. CAT scan revealing appendix is not visualized, no inflammatory process seen in the right lower quadrant to suggest acute appendicitis. She does have a large amount of stool in the ascending transverse and proximal descending colon. Diverticulosis of the sigmoid colon without evidence of diverticulitis. 1:19 PM 04/28/2025 (Dot Bazzi PA-C): Dr. Lewis reviewed CAT scan does not look much different than 3 days ago. No formation noted around the cecum to indicate appendicitis. Reassuring that the wbc's still normal. Patient re-evaluated, still has mild discomfort however reports that she has improved since her arrival. Will medicate her with MiraLax, Toradol, and p.o. challenge. Patient feeling much better after receiving Toradol. She is eating and drinking without difficulty. Given strict return precautions. She understands agrees with plan. Patient stable for discharge. Differential Diagnosis Differential Diagnoses: The differential diagnosis associated with the presentation includes Appendicitis, diverticulitis, diverticulosis, renal colic, UTI Admission/Observation Consideration of admission/observation: Escalation of care including admission/observation considered Lab Data MDM Lab Attestation statement: I reviewed the patient's lab results. 04/28/25 09:19 04/28/25 09:19 Labs: Lab Results 04/28/25 04/28/25 Range/Units 09:19 10:31 WBC 6.3 (4.8-10.8) X10*3/uL RBC 4.23 (4.20-5.50) X10*6/uL Hgb 13.1 (12.0-16.0) g/dl Hct 38.9 (37.0-47.0) % MCV 92.0 (80.0-98.0) fL MCH 31.0 (27.0-33.0) pg MCHC 33.7 (31.0-35.0) g/dl RDW 14.4 (11.0-16.0) % Plt Count 257 (160-400) X10*3/uL MPV 9.4 (9.4-12.3) fL Immature Gran % (Auto) 0.3 (0.0-0.4) % Neut % (Auto) 52.9 (45-73) % Lymph % (Auto) 37.8 (20-40) % [place] % (Auto) 7.0 (2-11) % Eos % (Auto) 1.4 (0-4) % Baso % (Auto) 0.6 (0-2) % Lymph # (Auto) 2.4 (1.2-4.9) X10*3/uL [place] # (Auto) 0.4 (0.1-1.2) X10*3/uL Eos # (Auto) 0.1 (0.0-0.4) X10*3/uL Baso # (Auto) 0.0 (0.0-0.2) X10*3/uL Abs Immat Gran (auto) 0.02 (0.00-0.03) X10*3/uL Absolute Neuts (auto) 3.3 (2.0-8.3) x10*3/uL Absolute Nucleated RBC 0.000 (0.0-0.012) X10*3/uL Nucleated RBC % (auto) 0.0 (0.0-0.2) /100WBC Sodium 141 (135-145) mmol/L Potassium 4.3 (3.3-5.1) mmol/L Chloride 110 H (96-108) mmol/L Carbon Dioxide 25 (22-29) mmol/L Anion Gap 10 L (12-20) BUN 11 (9-16) mg/dL Creatinine 0.82 (0.5-1.4) mg/dL Estim Creat Clear Calc 72.6 Estimated GFR > 60 Random Glucose 109 (60-115) mg/dL Lactic Acid 0.7 (0.5-2.0) mmol/L Calcium 9.0 (8.4-10.2) mg/dL Magnesium 2.1 (1.6-2.6) mg/dL Total Bilirubin 0.3 (0.0-1.0) mg/dL Direct Bilirubin 0.1 (0.0-0.5) mg/dL AST 20 (5-31) U/L ALT 18 (0-31) U/L Alkaline Phosphatase 40 (39-117) U/L Troponin I High Sens < 2.7 (<3.5-17.0) ng/L Total Protein 6.8 (6.5-8.0) g/dL Albumin 4.5 (3.5-5.0) g/dL Lipase 44 (8-78) U/L Urine Color Yellow Urine Appearance Clear Urine pH 7.5 (5.0-9.0) Ur Specific [place] >= 1.030 H (1.005-1.025) Urine Protein Negative (Neg-Trace) mg/dL Urine Glucose (UA) Negative (Negative) mg/dL Urine Ketones Negative (Negative) mg/dL Urine Blood Large (3+) H (Negative) Urine Nitrite Negative (Negative) Ur Leukocyte Esterase Negative (Negative) Urine RBC >20 H (0-2) /HPF Urine WBC 0-5 (0-5) /HPF Ur Squamous Epith Cells 0-2 (0-2) /HPF Urine Bacteria None Seen (None Seen) Hyaline Casts 0-2 (0-2) /LPF Independent Interpretation I performed an independent interpretation of an: EKG Interpretation: EKG sinus rhythm with occasional PVCs with a left bundle-branch block. Ventricular rate of 65 beats per minute, NH interval 150, QT QTC 486/505. Similar appearing EKG from previous. Radiology Impression Discussion of test interpretation with radiology: I have reviewed the radiologist's reading. Radiologist Impression: FINDINGS: LOWER CHEST: The visualized lung bases are clear. There is no pleural effusion. CARDIOVASCULATURE: The heart is normal in size. There is no pericardial effusion. LIVER: The liver is normal in size and contour. No liver mass is identified. The hepatic and portal veins are patent. GALLBLADDER / BILE DUCTS: The gallbladder is surgically absent. There is no intra or extrahepatic biliary ductal dilatation. SPLEEN: The spleen is normal in size. No focal splenic lesion is identified. PANCREAS: The pancreas is unremarkable in appearance. ADRENAL GLANDS: Within normal limits. KIDNEYS/RETROPERITONEUM: No renal calculi are identified. There is no hydronephrosis. No renal masses are identified. LYMPH NODES: No abdominal or pelvic lymphadenopathy. VASCULATURE: The abdominal aorta is normal in caliber. MESENTERY/PERITONEUM: No free fluid. No masses. There is no free intraperitoneal gas. STOMACH: There is a small hiatal hernia. The remainder of the stomach is collapsed. SMALL BOWEL: The small bowel is normal in caliber. COLON: There is a large amount of stool in the ascending, transverse, and proximal descending colon. There is diverticulosis of the sigmoid colon, without evidence of diverticulitis. APPENDIX: The appendix is not seen, however no inflammatory changes are seen adjacent to the cecum. URINARY BLADDER/PELVIC ORGANS: The urinary bladder is unremarkable. The patient is status post hysterectomy. BONES / SOFT TISSUES: No suspicious bony or soft tissue abnormalities. CT/CT abdomen pelvis w IV con IMPRESSION: 1. The appendix is not visualized. No inflammatory process is seen in the right lower quadrant to suggest acute appendicitis. 2. Large amount of stool in the ascending, transverse, and proximal descending colon. 3. Diverticulosis of the sigmoid colon without evidence of diverticulitis. Electronically signed by: Gilmar Little MD 04/28/2025 10:27 AM [facility] [place] Dictated By: Gilmar Little MD Medications Administered Discontinued Medications Generic Name Dose Route Start Last Admin Trade Name Freq PRN Reason Stop Dose Admin Ceftriaxone Sodium 1 gm/ 50 mls @ 100 mls/hr 04/28/25 09:05 04/28/25 10:15 Sodium Chloride IV 04/28/25 09:34 Infused ONCE ONE Infusion Metronidazole 500 mg in 100 mls @ 100 mls/hr 04/28/25 09:05 04/28/25 11:23 Flagyl IV 04/28/25 10:04 Infused ONCE ONE Infusion Sodium Chloride 1,000 mls @ 999 mls/hr 04/28/25 09:08 04/28/25 10:45 Ns IV 04/28/25 10:08 Infused .Q1H1M ONE Infusion Acetaminophen 1,000 mg in 100 mls @ 400 mls/hr 04/28/25 09:05 04/28/25 10:00 Ofirmev IV 04/28/25 09:19 Infused ONCE ONE Infusion Iohexol 85 ml 04/28/25 10:02 04/28/25 10:04 Iohexol 350 Mg/Ml 100 Ml Infus..Btl IV 04/28/25 10:03 85 ml ONCE ONE Administration Ketorolac Tromethamine 15 mg 04/28/25 13:34 04/28/25 13:49 Ketorolac Tromethamine 15 Mg/Ml Vial IVPUSH 04/28/25 13:35 15 mg ONCE ONE Administration Polyethylene Glycol 17 gm 04/28/25 13:34 04/28/25 13:49 Polyethylene Glycol 3350 17 Gm Powd.Pack PO 04/28/25 13:35 17 gm ONCE ONE Administration Discharge Plan Discharge Clinical Impression: Abdominal pain, Diverticulosis Patient Disposition: Home, Self-Care Instructions: Diverticulosis (ED), Abdominal Pain (ED) Additional Instructions: You were seen in the emergency department for abdominal pain. Your blood work was reassuring. Your CT scan does not show evidence of appendicitis. You do have evidence of diverticulosis as well as a large amount of stool within your colon. Diverticulosis is a condition where you have small pouches that bulge outwards. Please drink plenty of fluids get plenty of rest. Continue taking Tylenol as needed for pain and symptoms. You may also take ibuprofen. Your next dose of Tylenol can be taken at 5:00 p.m. today, you may take ibuprofen after 6:30 p.m. today. We gave you a dose of MiraLax in the emergency department today. You may take several doses of this over the next several days to help. If any new or worsening symptoms occur including but not limited to worsening abdominal pain, high fevers, chills, please seek emergent care. Prescriptions: No Action metoprolol succinate 25 mg tablet extended release 24 hr 25 mg PO DAILY Qty: 90 2RF rosuvastatin 40 mg tablet 40 mg PO DAILY 30 Days Qty: 90 2RF amoxicillin-pot clavulanate 875-125 mg tablet 1 tab PO BID Qty: 14 0RF ondansetron 4 mg tablet,disintegrating 4 mg PO Q8H PRN (Reason: nausea and vomiting) Qty: 10 0RF acetaminophen [Tylenol] 325 mg tablet 325 mg PO QID PRN (Reason: Pain) diclofenac sodium 1 % gel 4 g topical QID Qty: 100 2RF cyclobenzaprine 10 mg tablet 10 mg PO TID PRN (Reason: muscle spasm) 90 Days Qty: 180 0RF albuterol sulfate 90 mcg/actuation HFA aerosol inhaler 2 puff inhalation Q6H PRN (Reason: shortness of breath or wheezing or cough) Qty: 8.5 0RF Interventions: ED Discharge Assessment Last Done: 04/28/25 14:43 Discharge Date/Time: 04/28/25 14:43 Print Language: Lao
--- NOTE | 2025-04-28 09:05 | ECG_ITS ---
Test Reason : epigastric pain Blood Pressure : */* mmHG Vent. Rate : 65 BPM Atrial Rate : 65 BPM P-R Int : 150 ms QRS Dur : 148 ms QT Int : 486 ms P-R-T Axes : 64 33 22 degrees QTcB Int : 505 ms Sinus rhythm with occasional Premature ventricular complexes Left bundle branch block Abnormal ECG When compared with ECG of 15-Feb-2021 10:28, Premature ventricular complexes are now Present Referred By: Dot Bazzi Electronically Signed By: Steven Solorzano
[2025-04-28 09:26] LABS: MANUAL DIFF FLAG NO
[2025-04-28 09:29] LABS: Hematocrit 38.9 % (37.0-47.0); Hemoglobin 13.1 g/dl (12.0-16.0); Imm Gran Abs Auto 0.02 X10*3/uL (0.00-0.03); Imm Gran Pct Auto 0.3 % (0.0-0.4); Lymphocytes Absolute Auto 2.4 X10*3/uL (1.2-4.9); Mean Corpuscular HGB Conc 33.7 g/dl (31.0-35.0); Mean Corpuscular Hemoglobin 31.0 pg (27.0-33.0); Mean Corpuscular Volume 92.0 fL (80.0-98.0); NRBC Abs Auto 0.000 X10*3/uL (0.0-0.012); NRBC Pct Auto 0.0 /100WBC (0.0-0.2); Platelet Count 257 X10*3/uL (160-400); Red Blood Count 4.23 X10*6/uL (4.20-5.50); White Blood Count 6.3 X10*3/uL (4.8-10.8)
[2025-04-28 09:43] LABS: Alanine Aminotransferase 18 U/L (0-31); Albumin Level 4.5 g/dL (3.5-5.0); Alkaline Phosphatase 40 U/L (39-117); Anion Gap 10 (12-20); Aspartate Amino Transferase 20 U/L (5-31); Blood Urea Nitrogen 11 mg/dL (9-16); Calcium 9.0 mg/dL (8.4-10.2); Carbon Dioxide 25 mmol/L (22-29); Chloride 110 mmol/L (96-108); Creatinine Clr Calc Pharmacy 72.6; Estimated Glomerular Filt Rate > 60; Lipase 44 U/L (8-78); Magnesium 2.1 mg/dL (1.6-2.6); Potassium 4.3 mmol/L (3.3-5.1); Sodium 141 mmol/L (135-145); Total Protein 6.8 g/dL (6.5-8.0)
[2025-04-28 09:51] LABS: Troponin-I High Sensitivity < 2.7 ng/L (<3.5-17.0)
[2025-04-28] MEDS: iohexoL 350 MG/ML 100 ML INFUS..BTL 85 ML IV (10:04)
[2025-04-28] MEDS: metroNIDAZOLE/NS 500 MG/100 ML PIGGYBACK 100 MG IV (10:23)
--- NOTE | 2025-04-28 10:28 | PC.NURSE ---
Patient out of bed to bathroom, providing urine specimen at this time. Care ongoing by this RN.
[2025-04-28 10:41] LABS: Appearance Urine Clear; Glucose Urine UA Negative (Negative); PH 7.5 (5.0-9.0); Specific Gravity - Urine >= 1.030 (1.005-1.025); UMIC TRIGGER UACC YES
[2025-04-28 10:45] VITALS: BP 122/64; PULSE 56; RESP 13; O2SAT 100
[2025-04-28 12:55] VITALS: BP 115/56; PULSE 66; RESP 15; O2SAT 98
[2025-04-28 14:43] VITALS: BP 115/56; PULSE 66; RESP 15; TEMP 36.9; O2SAT 98
== END 2025-04-28 14:43 | disposition home or self-care (01) ==
PROVIDERS: Physician Assistant Medical; Emergency Provider Emergency Medicine; PCP Internal Medicine
DX: R10.31 Right lower quadrant pain (principal); K57.30 Diverticulosis of large intestine without perforation or abscess without bleeding; Z88.2 Allergy status to sulfonamides; Z88.8 Allergy status to other drugs, medicaments and biological substances
CPT/HCPCS: 36415; 74177; 80048; 80076; 81001; 83605; 83690; 83735; 84484; 85025; 87040; 93005; 96361; 96365; 96375; 99284; 99285; J0131; J0696; J1836; J1885; Q9967

== ENCOUNTER → 2025-04-28 09:05 | Outpatient (BNV) | payer SELFPAY | PROVIDERS: Emergency Provider Emergency Medicine; PCP Internal Medicine; Visit Provider Internal Medicine Cardiovascular Disease | DX: I49.3 Ventricular premature depolarization (principal); I44.7 Left bundle-branch block, unspecified | CPT/HCPCS: 93010 ==

== ENCOUNTER → 2025-04-28 09:08 | Outpatient (BNV) | payer SELFPAY | PROVIDERS: Emergency Provider Emergency Medicine; PCP Internal Medicine; Visit Provider Radiology Diagnostic Radiology | DX: K57.30 Diverticulosis of large intestine without perforation or abscess without bleeding (principal) | CPT/HCPCS: 74177 ==